=== PATIENT | male | born 1975 | race Caucasian/White ===

== ENCOUNTER 2016-11-20 16:52 | Emergency (ER) | payer MEDICARE, OTHER ==
[2016-11-20] MEDS ORDERED: ONDANSETRON 4 MG/2 ML VIAL IVP STA (17:16)
[2016-11-20] MEDS ORDERED: HYDROmorphone 1 MG/ML 1 ML SYRINGE IVP STA ×2 (17:16→18:30)
[2016-11-20] MEDS ORDERED: COLCHICINE 0.6 MG TAB PO STA (17:20)
--- NOTE | 2016-11-20 17:30 | ED ---
General Adult HPI - General Chief complaint: Extremity Injury, Upper Stated complaint: Right Hand Swelling/Right Arm Pain Time Seen by Provider: 11/20/16 17:11 Source: patient, RN notes reviewed Mode of arrival: wheelchair Limitations: no limitations - History of Present Illness Initial comments: 41-year-old male presents emergency Department with chief complaint of right hand pain 2 days. He denies any trauma. Patient has known gout and states that he sometimes has problems in his hand states this feels slightly firm. Patient denies any fevers, chills. He states that it is swollen and just painful. He denies any pain in his forearm or right bicep region. He has had prior surgery secondary to obstructive changes from gout in his right wrist. Patient denies fever, chills, paresthesias. Patient states that he normally is takes colchicine when he has gout. - Related Data Home Medications Medication Instructions Recorded Confirmed HYDROcodone/APAP 10-325MG [[place] 1 tab PO Q4HR PRN 11/20/16 11/20/16 10-325] Ibuprofen [Motrin] 800 mg PO TID PRN 11/20/16 11/20/16 Insulin Aspart [NovoLOG Flexpen] 50 units SQ HS 11/20/16 11/20/16 Insulin Aspart [NovoLOG Flexpen] 150 units SQ QAM 11/20/16 11/20/16 Allergies Allergy/AdvReac Type Severity Reaction Status Date / Time vancomycin Allergy Rash/Hives Verified 11/20/16 17:27 Review of Systems ROS Statement: Those systems with pertinent positive or pertinent negative responses have been documented in the HPI. ROS Other: All systems not noted in ROS Statement are negative. Past Medical History Past Medical History: Atrial Fibrillation, Asthma, Coronary Artery Disease (CAD) , COPD, GERD/Reflux, Hyperlipidemia, Hypertension, Sleep Apnea/CPAP/BIPAP, Thyroid Disorder Additional Past Medical History / Comment(s): sarcoidosis,, gouty arthritis, "small esophagus" occ diff swallowing,arthritis, USES CPAP MACHINE, KIDNEY STONE ,HAS TROUBLE FALLING AND STAYING ASLEEP AVE 5-6 HOURS A NIGHT. History of Any Multi-Drug Resistant Organisms: None Reported Past Surgical History: Cardiac Ablation, Joint Replacement, Orthopedic Surgery Additional Past Surgical History / Comment(s): right knee replacement, lymph node biopsy- FOUND THE SACROIDOSIS , [place] ankle surgery, cardiac ablation, RT WRIST SX D/T GOUTY ARTHITIS , COLEMAN ANKLE SX Past Anesthesia/Blood Transfusion Reactions: No Reported Reaction Additional Past Anesthesia/Blood Transfusion Reaction / Comment(s): CLAUSTERPHOBIA Past Psychological History: ADD/ADHD, Anxiety, Depression Smoking Status: Current every day smoker Past Alcohol Use History: None Reported Past Drug Use History: Marijuana - Past Family History Father Family Medical History: COPD Additional Family Medical History / Comment(s): EMPHYSEMA- OXYGEN CONT. Mother Family Medical History: Diabetes Mellitus, Rheumatoid Arthritis (RA) Additional Family Medical History / Comment(s): BACK SX, JOINT RPLACEMENTS General Exam Limitations: no limitations General appearance: alert, in no apparent distress Head exam: Present: atraumatic, normocephalic, normal inspection Respiratory exam: Present: normal lung sounds bilaterally. Absent: respiratory distress, wheezes, rales, rhonchi, stridor Cardiovascular Exam: Present: regular rate, normal rhythm, normal heart sounds. Absent: systolic murmur, diastolic murmur, rubs, gallop, clicks Extremities exam: Present: other (Right wrist there is tenderness throughout the hands with moderate swelling pedal pulses are equal bilaterally and radial pulses equal bilaterally there is some warmth to the hand but no extensive erythema) Neurological exam: Present: reflexes normal. Absent: motor sensory deficit Skin exam: Present: warm, dry, intact, normal color. Absent: rash Course Vital Signs 11/20/16 16:56 Temperature 98.5 F Pulse Rate 89 Respiratory 20 Rate Blood Pressure 170/101 O2 Sat by Pulse 97 Oximetry Medical Decision Making - Medical Decision Making 41-year-old male presents emergency Department for right hand pain. This appears to be secondary to gout exacerbation. Patient does have some erosive areas in which he's had in the past. This less likely to be Prisca's syndrome as suggested by radiologist secondary to no other consistent symptoms. Patient has seen Dr. [place] knot picker cloth in the past and is advised to follow-up with her tomorrow. Patient is out of his pain medication and which Dr. Aranda right she's pain meds. Patient will follow-up tomorrow for pain medication refill. Return parameters were discussed. - Lab Data Result diagrams: 11/20/16 17:32 11/20/16 17:32 Lab Results 11/20/16 11/20/16 Range/Units 17:32 17:32 WBC 6.5 (3.8-10.6) k/uL RBC 4.37 (4.30-5.90) m/uL Hgb 14.7 (13.0-17.5) gm/dL Hct 43.3 (39.0-53.0) % MCV 99.1 (80.0-100.0) fL MCH 33.6 (25.0-35.0) pg MCHC 33.9 (31.0-37.0) g/dL RDW 14.9 (11.5-15.5) % Plt Count 165 (150-450) k/uL Neutrophils % 67 % Lymphocytes % 19 % Monocytes % 7 % Eosinophils % 6 % Basophils % 1 % Neutrophils # 4.4 (1.3-7.7) k/uL Lymphocytes # 1.2 (1.0-4.8) k/uL Monocytes # 0.4 (0-1.0) k/uL Eosinophils # 0.4 (0-0.7) k/uL Basophils # 0.1 (0-0.2) k/uL Sodium 140 (137-145) mmol/L Potassium 3.9 (3.5-5.1) mmol/L Chloride 103 (98-107) mmol/L Carbon Dioxide 26 (22-30) mmol/L Anion Gap 11 mmol/L BUN 14 (9-20) mg/dL Creatinine 2.00 H (0.66-1.25) mg/dL Est GFR (MDRD) Af Amer 45 (>60 ml/min/1.73 sqM) Est GFR (MDRD) Non-Af 37 (>60 ml/min/1.73 sqM) Glucose 155 H (74-99) mg/dL Uric Acid 11.7 H (3.5-8.5) mg/dL Calcium 9.7 (8.4-10.2) mg/dL C-Reactive Protein 10.6 H (<10.0) mg/L Disposition Clinical Impression: Right hand pain, Exacerbation of gout Disposition: HOME SELF-CARE Condition: Stable Instructions: Gout (ED) Additional Instructions: Please return to the Emergency Department if symptoms worsen or any other concerns. Referrals: Jeffy Bloom MD [Primary Care Provider] - 1-2 days Time of Disposition: 18:32
[2016-11-20 17:45] LABS: Basophils # (A) 0.1 k/uL (0-0.2); Basophils % (A) 1 %; CH 34.1; CHCM 34.7; Eosinophils # (A) 0.4 k/uL (0-0.7); Eosinophils % (A) 6 %; HCT 43.3 % (39.0-53.0); HDW 2.57; HGB 14.7 gm/dL (13.0-17.5); Luc # (Auto) 0.07; Luc % (Auto) 1; Lymphocytes # (A) 1.2 k/uL (1.0-4.8); Lymphocytes % (A) 19 %; MCH 33.6 pg (25.0-35.0); MCHC 33.9 g/dL (31.0-37.0); MCV 99.1 fL (80.0-100.0); Mean Platelet Volume 8.3; Monocytes # (A) 0.4 k/uL (0-1.0); Monocytes % (A) 7 %; Neutrophils # (A) 4.4 k/uL (1.3-7.7); Neutrophils % (A) 67 %; RBC 4.37 m/uL (4.30-5.90); RDW 14.9 % (11.5-15.5); WBC 6.5 k/uL (3.8-10.6); WBC (Perox) 6.21
--- NOTE | 2016-11-20 18:00 | XR ---
EXAMINATION TYPE: XR hand complete RT DATE OF EXAM: 11/20/2016 COMPARISON: NONE HISTORY: 41-year-old male with right hand pain and swelling TECHNIQUE: 3 views FINDINGS: There is borderline to mild widening of the scapholunate interval at 2.6 mm. There is a sub chondral cystic change in the distal radius at the radiocarpal articulation.. Diffuse soft tissue swe lling throughout the hand with possible sausage digit especially of the second and fifth fingers. The re is erosive change at the fifth DIP joint. No acute fracture or dislocation. IMPRESSION: 1. Given diffuse soft tissue swelling, possible sausage digits, and erosive change at the fifth DIP j oint, correlate for inflammatory arthropathy such as psoriatic arthritis or Prisca's/reactive arthrit is. 2. Borderline to mild widening at the scapholunate interval compatible with age-indeterminate scaphol unate ligament injury. Findings suggest secondary radiocarpal osteoarthrosis.
[2016-11-20 18:09] LABS: C Reactive Protein 10.6 mg/L (<10.0); Calcium 9.7 mg/dL (8.4-10.2); Potassium 3.9 mmol/L (3.5-5.1); Uric Acid 11.7 mg/dL (3.5-8.5)
[2016-11-20] MEDS ORDERED: methylPREDNISolone SOD SUCCI 125 MG/2 ML VIAL IV STA (18:32)
[2016-11-20 19:00] VITALS: BP 142/91; PULSE 74; RESP 18; TEMP 98
== END 2016-11-20 18:59 | disposition home or self-care (01) ==
LOC: EC 16:52
DX: M10.9 Gout, unspecified (principal); F17.200 Nicotine dependence, unspecified, uncomplicated; Z88.1 Allergy status to other antibiotic agents; Z79.4 Long term (current) use of insulin
CPT/HCPCS: 99283; 96374; 96375 ×2; 96376; 36415; 80048; 84550; 85025; 86140; 73130; J2930; J2405; J1170

== ENCOUNTER 2017-04-23 20:24 | Inpatient (IN) | payer MEDICARE, OTHER ==
--- NOTE | 2017-04-23 20:37 | ED ---
General Adult HPI - General Chief complaint: Shortness of Breath Stated complaint: SOB/Chest Pain Time Seen by Provider: 04/23/17 20:27 Source: patient, EMS, RN notes reviewed Mode of arrival: EMS Limitations: no limitations - History of Present Illness Initial comments: Patient is a pleasant 42-year-old male presenting to the emergency Department with complaints of dyspnea. Symptoms have been progressive over the past week. Patient is only able to ambulate a few feet before becoming short of breath. Patient has had some mild chest pressure. Patient does occasionally use breathing treatments and has a history of asthma. Patient smokes around a half a pack per day. No fever. No cough. Patient also does have history of having fluid on his lungs. - Related Data Home Medications Medication Instructions Recorded Confirmed HYDROcodone/APAP 10-325MG [[place] 1 tab PO Q4HR PRN 11/20/16 11/20/16 10-325] Ibuprofen [Motrin] 800 mg PO TID PRN 11/20/16 11/20/16 Insulin Aspart [NovoLOG Flexpen] 50 units SQ HS 11/20/16 11/20/16 Insulin Aspart [NovoLOG Flexpen] 150 units SQ QAM 11/20/16 11/20/16 Allergies Allergy/AdvReac Type Severity Reaction Status Date / Time vancomycin Allergy Rash/Hives Verified 04/23/17 21:20 Review of Systems ROS Statement: Those systems with pertinent positive or pertinent negative responses have been documented in the HPI. ROS Other: All systems not noted in ROS Statement are negative. Constitutional: Denies: fever Eyes: Denies: eye pain ENT: Denies: ear pain Respiratory: Reports: dyspnea. Denies: cough Cardiovascular: Reports: chest pain Endocrine: Reports: fatigue Gastrointestinal: Denies: abdominal pain Genitourinary: Denies: dysuria Musculoskeletal: Denies: back pain Skin: Denies: rash Neurological: Denies: headache Past Medical History Past Medical History: Atrial Fibrillation, Asthma, Coronary Artery Disease (CAD) , COPD, GERD/Reflux, Hyperlipidemia, Hypertension, Sleep Apnea/CPAP/BIPAP, Thyroid Disorder Additional Past Medical History / Comment(s): sarcoidosis,, gouty arthritis, "small esophagus" occ diff swallowing,arthritis, USES CPAP MACHINE, KIDNEY STONE ,HAS TROUBLE FALLING AND STAYING ASLEEP AVE 5-6 HOURS A NIGHT. History of Any Multi-Drug Resistant Organisms: None Reported Past Surgical History: Cardiac Ablation, Joint Replacement, Orthopedic Surgery Additional Past Surgical History / Comment(s): right knee replacement, lymph node biopsy- FOUND THE SACROIDOSIS , [place] ankle surgery, cardiac ablation, RT WRIST SX D/T GOUTY ARTHITIS , COLEMAN ANKLE SX Past Anesthesia/Blood Transfusion Reactions: No Reported Reaction Additional Past Anesthesia/Blood Transfusion Reaction / Comment(s): CLAUSTERPHOBIA Past Psychological History: ADD/ADHD, Anxiety, Depression Smoking Status: Current every day smoker Past Alcohol Use History: None Reported Past Drug Use History: Marijuana - Past Family History Father Family Medical History: COPD Additional Family Medical History / Comment(s): EMPHYSEMA- OXYGEN CONT. Mother Family Medical History: Diabetes Mellitus, Rheumatoid Arthritis (RA) Additional Family Medical History / Comment(s): BACK SX, JOINT RPLACEMENTS General Exam Limitations: no limitations General appearance: alert, obese Head exam: Present: atraumatic Eye exam: Present: normal appearance, PERRL ENT exam: Present: normal oropharynx Neck exam: Present: normal inspection Respiratory exam: Present: rales (Rightbase), decreased breath sounds Cardiovascular Exam: Present: regular rate, normal rhythm GI/Abdominal exam: Present: soft. Absent: tenderness Extremities exam: Present: pedal edema. Absent: calf tenderness Back exam: Present: normal inspection Neurological exam: Present: alert Psychiatric exam: Present: normal affect, normal mood Skin exam: Present: normal color Course Vital Signs 04/23/17 04/23/17 20:26 20:31 Temperature 97.5 F L Pulse Rate 89 Respiratory 22 22 Rate Blood Pressure 132/75 O2 Sat by Pulse 100 Oximetry - Reevaluation(s) Reevaluation #1: 04/23/17 20:38 Previous EKG reviewed. EKG Findings - EKG Comments: EKG Findings:: Normal sinus rhythm 87. NJ 190. QRS 108. QT 380. QTC 457. Right axis. Poor R-wave progression. Inferior T wave inversion. Medical Decision Making - Medical Decision Making Patient reevaluated and improved. Patient states he feels much better with oxygen and after nebulizer treatment. Concern exists regarding elevated CPK level. Patient will need to be further evaluated. D-dimer and blood gas will be added. will have echo ordered. Dr. Bloom contacted who is familiar with this patient and will admit. He also requests consult with cardiology and pulmonary and this will be placed. - Lab Data Result diagrams: 04/23/17 20:27 04/23/17 20:27 Lab Results 04/23/17 04/23/17 04/23/17 Range/Units 20:27 20:27 20:27 WBC 7.1 (3.8-10.6) k/uL RBC 4.48 (4.30-5.90) m/uL Hgb 15.3 (13.0-17.5) gm/dL Hct 44.1 (39.0-53.0) % MCV 98.6 (80.0-100.0) fL MCH 34.2 (25.0-35.0) pg MCHC 34.7 (31.0-37.0) g/dL RDW 13.3 (11.5-15.5) % Plt Count 175 (150-450) k/uL Neutrophils % 55 % Lymphocytes % 31 % Monocytes % 6 % Eosinophils % 6 % Basophils % 1 % Neutrophils # 3.9 (1.3-7.7) k/uL Lymphocytes # 2.2 (1.0-4.8) k/uL Monocytes # 0.4 (0-1.0) k/uL Eosinophils # 0.4 (0-0.7) k/uL Basophils # 0.0 (0-0.2) k/uL PT (9.0-12.0) sec INR (<1.2) APTT (22.0-30.0) sec Sodium 144 (137-145) mmol/L Potassium 4.0 (3.5-5.1) mmol/L Chloride 88 L (98-107) mmol/L Carbon Dioxide 28 (22-30) mmol/L Anion Gap 28 mmol/L BUN 19 (9-20) mg/dL Creatinine 2.20 H (0.66-1.25) mg/dL Est GFR (MDRD) Af Amer 40 (>60 ml/min/1.73 sqM) Est GFR (MDRD) Non-Af 33 (>60 ml/min/1.73 sqM) Glucose 125 H (74-99) mg/dL Calcium 10.6 H (8.4-10.2) mg/dL Total Bilirubin 0.5 (0.2-1.3) mg/dL AST 82 H (17-59) U/L ALT 66 (21-72) U/L Alkaline Phosphatase 68 (38-126) U/L Total Creatine Kinase 4796 H (55-170) U/L CK-MB (CK-2) 8.3 H* (0.0-2.4) ng/mL CK-MB (CK-2) Rel Index Troponin I <0.012 (0.000-0.034) ng/mL NT-Pro-B Natriuret Pep pg/mL Total Protein 8.4 H (6.3-8.2) g/dL Albumin 4.8 (3.5-5.0) g/dL 04/23/17 04/23/17 Range/Units 20:27 20:27 WBC (3.8-10.6) k/uL RBC (4.30-5.90) m/uL Hgb (13.0-17.5) gm/dL Hct (39.0-53.0) % MCV (80.0-100.0) fL MCH (25.0-35.0) pg MCHC (31.0-37.0) g/dL RDW (11.5-15.5) % Plt Count (150-450) k/uL Neutrophils % % Lymphocytes % % Monocytes % % Eosinophils % % Basophils % % Neutrophils # (1.3-7.7) k/uL Lymphocytes # (1.0-4.8) k/uL Monocytes # (0-1.0) k/uL Eosinophils # (0-0.7) k/uL Basophils # (0-0.2) k/uL PT 10.5 (9.0-12.0) sec INR 1.1 (<1.2) APTT 25.0 (22.0-30.0) sec Sodium (137-145) mmol/L Potassium (3.5-5.1) mmol/L Chloride (98-107) mmol/L Carbon Dioxide (22-30) mmol/L Anion Gap mmol/L BUN (9-20) mg/dL Creatinine (0.66-1.25) mg/dL Est GFR (MDRD) Af Amer (>60 ml/min/1.73 sqM) Est GFR (MDRD) Non-Af (>60 ml/min/1.73 sqM) Glucose (74-99) mg/dL Calcium (8.4-10.2) mg/dL Total Bilirubin (0.2-1.3) mg/dL AST (17-59) U/L ALT (21-72) U/L Alkaline Phosphatase (38-126) U/L Total Creatine Kinase (55-170) U/L CK-MB (CK-2) (0.0-2.4) ng/mL CK-MB (CK-2) Rel Index Troponin I (0.000-0.034) ng/mL NT-Pro-B Natriuret Pep 44 pg/mL Total Protein (6.3-8.2) g/dL Albumin (3.5-5.0) g/dL - Radiology Data Radiology results: image reviewed (Chest x-ray shows no acute process) Disposition Clinical Impression: Dyspnea Disposition: ADMITTED IP TO THIS [facility] Condition: Serious Referrals: Jeffy Bloom MD [Primary Care Provider] - 1-2 days Decision Time: 22:08
[2017-04-23 20:48] LABS: Basophils % (A) 1 %; Eosinophils # (A) 0.4 k/uL (0-0.7); Eosinophils % (A) 6 %; HCT 44.1 % (39.0-53.0); HGB 15.3 gm/dL (13.0-17.5); Lymphocytes # (A) 2.2 k/uL (1.0-4.8); Lymphocytes % (A) 31 %; MCH 34.2 pg (25.0-35.0); MCHC 34.7 g/dL (31.0-37.0); MCV 98.6 fL (80.0-100.0); Mean Platelet Volume 7.1; Monocytes # (A) 0.4 k/uL (0-1.0); Monocytes % (A) 6 %; Neutrophils # (A) 3.9 k/uL (1.3-7.7); Neutrophils % (A) 55 %; Platelet Count 175 k/uL (150-450); RBC 4.48 m/uL (4.30-5.90); RDW 13.3 % (11.5-15.5); WBC 7.1 k/uL (3.8-10.6)
[2017-04-23 20:56] LABS: INR 1.1 (<1.2); Prothrombin Time 10.5 sec (9.0-12.0)
[2017-04-23 21:12] LABS: Albumin 4.8 g/dL (3.5-5.0); Calcium 10.6 mg/dL (8.4-10.2); Total Bilirubin 0.5 mg/dL (0.2-1.3); Total Protein 8.4 g/dL (6.3-8.2)
--- NOTE | 2017-04-23 21:14 | XR ---
EXAMINATION TYPE: XR chest 2V DATE OF EXAM: 04/23/2017 COMPARISON: NONE INDICATION: Difficulty breathing TECHNIQUE: Frontal and lateral views of the chest are obtained. FINDINGS: The heart size is normal. The pulmonary vasculature is normal. The lungs are clear. IMPRESSION: 1. No acute pulmonary process.
[2017-04-23 21:24] LABS: Troponin I <0.012 ng/mL (0.000-0.034)
[2017-04-23 21:28] LABS: Creatine Kinase MB 8.3 ng/mL (0.0-2.4)
[2017-04-23 21:41] LABS: Creatine Kinase 4796 U/L (55-170)
[2017-04-23] MEDS ORDERED: IPRATROPIUM-ALBUTEROL 3 ML NEB INHALATION PRN (22:08)
[2017-04-23] MEDS ORDERED: NALOXONE 0.4 MG/ML 1 ML VIAL IV PRN (22:09)
[2017-04-23] MEDS ORDERED: SODIUM CHLORIDE 0.9% 1,000 ML IV STA (22:11)
[2017-04-23] MEDS ORDERED: HEPARIN SODIUM,PORCINE 10,000 UNIT/ML 1 ML VIAL IV ONE (22:29)
[2017-04-23] MEDS ORDERED: HEPARIN SODIUM,PORCINE 5,000 UNIT/ML 1 ML VIAL IV PRN (22:29)
[2017-04-23] MEDS: HYDROcodone/APAP 10-325MG 1 EACH TAB PO PRN (22:42)
[2017-04-23] MEDS: HEPARIN SOD,PORK IN 0.45% NACL 25,000 UNIT in 0.45% NACL 1 500ML.BAG IV SCH (22:43)
[2017-04-23 22:52] LABS: ABG Base Excess -0.1 mmol/L; ABG HCO3 24 mmol/L (21-25); ABG Oxygen Saturation 97.7 % (94-97); ABG PCO2 35 mmHg (35-45); ABG PH 7.45 (7.35-7.45); ABG PO2 102 mmHg (83-108); ABG TCO2 25 mmol/L (19-24)
--- NOTE | 2017-04-24 00:13 | NM ---
EXAMINATION TYPE: NM pul vent and perfuse DATE OF EXAM: 04/24/2017 COMPARISON: NONE HISTORY: Short of breath TECHNIQUE: Utilizing inhalation of 33 mCi Tc 99m DTPA aerosol and intravenous injection of 5.5 mCi o f Tc 99m MAA, ventilation and perfusion images are acquired post injection in multiple projections. FINDINGS: Aerosol images are normal. The perfusion images are normal. IMPRESSION: Normal exam. There is a very low probability of pulmonary embolism.
[2017-04-24] MEDS: methylPREDNISolone SOD SUCCI 125 MG/2 ML VIAL IV SCH ×3 (00:21→12:23)
[2017-04-24 01:51] VITALS: BMI 57.7
[2017-04-24] MEDS: HYDROcodone/APAP 10-325MG 1 EACH TAB PO PRN ×5 (03:36→22:26)
[2017-04-24 04:08] LABS: Basophils % (A) 0 %; Eosinophils # (A) 0.1 k/uL (0-0.7); Eosinophils % (A) 1 %; HCT 43.9 % (39.0-53.0); HGB 14.2 gm/dL (13.0-17.5); Lymphocytes # (A) 0.7 k/uL (1.0-4.8); Lymphocytes % (A) 9 %; MCH 32.8 pg (25.0-35.0); MCHC 32.4 g/dL (31.0-37.0); MCV 101.2 fL (80.0-100.0); Macrocytosis Slight; Mean Platelet Volume 7.5; Monocytes # (A) 0.1 k/uL (0-1.0); Monocytes % (A) 2 %; Neutrophils # (A) 6.2 k/uL (1.3-7.7); Neutrophils % (A) 87 %; Platelet Count 181 k/uL (150-450); RBC 4.34 m/uL (4.30-5.90); RDW 13.3 % (11.5-15.5); WBC 7.2 k/uL (3.8-10.6)
[2017-04-24 04:53] LABS: Troponin I <0.012 ng/mL (0.000-0.034)
[2017-04-24 06:04] LABS: Glucose,Whole Blood 240 mg/dL (75-99)
[2017-04-24] MEDS: INSULIN ASPART 100 UNIT/ML 1 ML 10 ML VIAL SQ SCH ×4 (06:09→21:57)
[2017-04-24 06:10] LABS: Creatine Kinase MB 7.5 ng/mL (0.0-2.4)
[2017-04-24 06:11] LABS: Creatine Kinase 4404 U/L (55-170)
[2017-04-24] MEDS: IPRATROPIUM-ALBUTEROL 3 ML NEB INHALATION SCH ×4 (09:04→20:53)
[2017-04-24 09:11] LABS: Troponin I <0.012 ng/mL (0.000-0.034)
[2017-04-24 09:13] LABS: Creatine Kinase 3141 U/L (55-170); Creatine Kinase MB 8.6 ng/mL (0.0-2.4)
--- NOTE | 2017-04-24 09:13 | P.CRDCN ---
History of Present Illness Consult date: 04/24/17 Requesting physician: Jeffy Bloom Consult reason: chest pain, shortness of breath Chief complaint: Chest pain and shortness of breath History of present illness: This is a 42-year-old gentleman with history of hypertension, hyperlipidemia, gout, sarcoidosis, diabetes, morbid obesity, nicotine dependence , asthma, hypothyroidism, occasional marijuana use, prior SVT ablation, who presents to the hospital with symptoms of exertional shortness of breath associated chest discomfort. Patient states he develops a heavy feeling in his chest whenever he exerts himself physically. Discomfort worsens when he takes a deep breath. He denies any PND or orthopnea. Initial chest x-ray did not reveal any acute pulmonary process. EKG shows a normal sinus rhythm with right axis deviation, nonspecific ST-T wave changes in the inferior leads. The V/Q scan was performed because of abnormal d-dimer which revealed very low probability for pulmonary embolism. Laboratory data was reviewed, WBC 7.2, hemoglobin 14.2, platelet count 181. D-dimer 1.04. Sodium 144, potassium 4.0, BUN 19, creatinine 2.2. CK on admission 4796, 4404 this morning, MB 8.3, 7.5. Troponin 0.012, 0.012. Blood pressure 114/60 with a heart rate in the 60s, 96% on 5 L of oxygen. Patient did have an echocardiogram with Doppler study performed in February 2016 which revealed a normal left ventricular systolic function. At the time of my examination this morning, patient is currently chest pain free, he does get pain in his chest if he takes a deep breath. Past Medical History Past Medical History: Atrial Fibrillation, Asthma, Coronary Artery Disease (CAD) , GERD/Reflux, Hyperlipidemia, Hypertension, Sleep Apnea/CPAP/BIPAP, Thyroid Disorder Additional Past Medical History / Comment(s): sarcoidosis, gouty arthritis, "small esophagus" occ diff swallowing, arthritis, uses CPAP at home, trouble sleeping. History of Any Multi-Drug Resistant Organisms: None Reported Past Surgical History: Cardiac Ablation, Joint Replacement, Orthopedic Surgery Additional Past Surgical History / Comment(s): right knee replacement, bilat ankle surgery, R wrist surgery r/t gout/arthritis lymph node biopsy- sarcoidosis Past Anesthesia/Blood Transfusion Reactions: No Reported Reaction Additional Past Anesthesia/Blood Transfusion Reaction / Comment(s): pt states he has never had a blood transfusion Past Psychological History: ADD/ADHD, Anxiety, Depression Additional Psychological History / Comment(s): pt lives by self Smoking Status: Current every day smoker Past Alcohol Use History: None Reported Past Drug Use History: Marijuana - Past Family History Father Family Medical History: COPD Additional Family Medical History / Comment(s): emphysema Mother Family Medical History: Diabetes Mellitus, Rheumatoid Arthritis (RA) Additional Family Medical History / Comment(s): back surgery, joint replacements Medications and Allergies Home Medications Medication Instructions Recorded Confirmed Type HYDROcodone/APAP 10-325MG [[place] 1 tab PO Q4HR PRN 11/20/16 04/24/17 History 10-325] Allergies Allergy/AdvReac Type Severity Reaction Status Date / Time vancomycin Allergy Rash/Hives Verified 04/23/17 21:20 Physical Exam Vitals: Vital Signs Temp Pulse Pulse Resp BP BP Pulse Ox 04/24/17 08:00 96.0 F L 64 20 113/57 96 04/24/17 03:40 97 F L 71 18 126/77 92 L 04/24/17 03:08 79 20 04/24/17 00:27 98.3 F 78 20 110/68 98 04/23/17 22:33 97 F L 79 18 132/88 98 04/23/17 22:22 77 18 102/59 98 04/23/17 20:31 22 04/23/17 20:26 97.5 F L 89 22 132/75 100 Intake and Output 04/23/17 04/24/17 04/24/17 22:59 06:59 14:59 Intake Total 334.295 240 Balance 334.295 240 Intake: Intake, IV Titration 274.295 Amount Heparin Sod,Pork in 0.45% 274.295 NaCl 25,000 unit In 0.45 % NaCl 1 500ml.bag @ 12.1 UNITS/KG/HR 46.1 mls/hr IV .[id number] [facility] Rx#: [id number] Oral 60 240 Other: Weight 187.787 kg 188.2 kg PHYSICAL EXAMINATION: HEENT: Head is atraumatic, normocephalic. Pupils equal, round. Neck is supple. There is no elevated jugular venous pressure. HEART EXAMINATION: Heart S1, S2 normal. No murmur or gallop heard. CHEST EXAMINATION: Lungs reveal scattered coarse wheezing throughout ABDOMEN: Soft, obese, nontender. Bowel sounds are heard. No organomegaly noted. EXTREMITIES: 1+ peripheral pulses with no evidence of peripheral edema and no calf tenderness noted. NEUROLOGIC patient is awake, alert and oriented -3. . Results 04/24/17 03:43 04/23/17 20:27 Cardiac Enzymes 04/23/17 04/23/17 04/24/17 Range/Units 20:27 20:27 03:43 AST 82 H (17-59) U/L CK-MB (CK-2) 8.3 H* 7.5 H* (0.0-2.4) ng/mL Troponin I <0.012 <0.012 (0.000-0.034) ng/mL Coagulation 04/23/17 04/24/17 Range/Units 20:27 03:43 PT 10.5 (9.0-12.0) sec APTT 25.0 104.8 H* (22.0-30.0) sec CBC 04/23/17 04/24/17 Range/Units 20:27 03:43 WBC 7.1 7.2 (3.8-10.6) k/uL RBC 4.48 4.34 (4.30-5.90) m/uL Hgb 15.3 14.2 (13.0-17.5) gm/dL Hct 44.1 43.9 (39.0-53.0) % Plt Count 175 181 (150-450) k/uL Comprehensive Metabolic Panel 04/23/17 Range/Units 20:27 Sodium 144 (137-145) mmol/L Potassium 4.0 (3.5-5.1) mmol/L Chloride 88 L (98-107) mmol/L Carbon Dioxide 28 (22-30) mmol/L BUN 19 (9-20) mg/dL Creatinine 2.20 H (0.66-1.25) mg/dL Glucose 125 H (74-99) mg/dL Calcium 10.6 H (8.4-10.2) mg/dL AST 82 H (17-59) U/L ALT 66 (21-72) U/L Alkaline Phosphatase 68 (38-126) U/L Total Protein 8.4 H (6.3-8.2) g/dL Albumin 4.8 (3.5-5.0) g/dL Current Medications Generic Name Dose Route Start Last Admin Trade Name Freq PRN Reason Stop Dose Admin Hydrocodone Bitart/Acetaminophen 1 each 04/23/17 22:17 04/24/17 07:31 [place] 10 PO 1 each Q4HR PRN Administration Pain Albuterol/Ipratropium 3 ml 04/24/17 08:00 Duoneb 0.5 Mg-3 Mg/3 Ml Soln INHALATION RT-QID SANDRITA Albuterol/Ipratropium 3 ml 04/23/17 22:08 Duoneb 0.5 Mg-3 Mg/3 Ml Soln INHALATION RT-Q4H PRN Shortness Of Breath Or Wheezing Heparin Sodium (Porcine) 0 unit 04/23/17 22:29 Heparin IV PER PROTOCOL PRN Low PTT Protocol Heparin Sodium/Sodium Chloride 500 mls @ 46.1 mls/hr 04/23/17 22:30 04/24/17 06:00 25,000 unit/ Sodium Chloride IV 9 units/kg/hr .[id number] SANDRITA 34.29 mls/hr Protocol Titration 12.1 UNITS/KG/HR Insulin Aspart 0 unit 04/24/17 07:30 04/24/17 06:09 Novolog SQ 8 unit ACHS SANDRITA Administration Protocol Methylprednisolone Sodium Succinate 60 mg 04/24/17 00:00 04/24/17 06:09 Solu-Medrol IV 60 mg Q6HR SANDRITA Administration Naloxone HCl 0.2 mg 04/23/17 22:09 Narcan IV Q2M PRN Opioid Reversal Intake and Output 04/23/17 04/24/17 04/24/17 22:59 06:59 14:59 Intake Total 334.295 240 Balance 334.295 240 Intake: Intake, IV Titration 274.295 Amount Heparin Sod,Pork in 0.45% 274.295 NaCl 25,000 unit In 0.45 % NaCl 1 500ml.bag @ 12.1 UNITS/KG/HR 46.1 mls/hr IV .[id number] [facility] Rx#: [id number] Oral 60 240 Other: Weight 187.787 kg 188.2 kg 04/24/17 03:43 04/23/17 20:27 EKG Interpretations (text) EKG shows normal sinus rhythm with right axis deviation, ST-T wave changes noted in the inferior leads. Assessment and Plan Plan: Assessment and plan #1 chest pain with associated shortness of breath, atypical for acute coronary syndrome. Pleuritic in nature. Troponins negative 2. EKG shows a normal sinus rhythm with right axis deviation and nonspecific ST-T wave changes in the inferior leads. D-dimer 1.04, VQ scan very low probability for pulmonary embolism. BNP 44. #2 elevated CK, CK-MB with negative troponins, possible rhabdomyolysis #3 acute on chronic renal failure, stage IV #4 morbid obesity # 5 hypertension #6 diabetes #7 asthma #8 prior SVT ablation #9 sarcoidosis #10 occasional marijuana use #11 nicotine dependence #12 hypothyroidism Plan We will obtain an echocardiogram with Doppler study. We will also recommend hydrating the patient at 100 mL per hour. Patient had been on medications prior including benazepril, Coreg, Lasix, Zocor, and Synthroid, it appears that all of these medications were not taken recently by the patient. Blood pressure this morning 114/60 with a heart rate in the 60s. Once we have the results of the echocardiogram with Doppler study, further recommendations will be made. DNP note has been reviewed, I agree with a documented findings and plan of care. Patient was seen and examined.
[2017-04-24 10:31] LABS: T4, Free (Free Thyroxine) <0.07 ng/dL (0.78-2.19)
[2017-04-24 11:52] LABS: Glucose,Whole Blood 297 mg/dL (75-99)
[2017-04-24] MEDS ORDERED: DOBUTamine DRIP for NUC MED 250 MG in DEXTROSE/WATER 1 250ML.BAG IV ONE (12:10)
[2017-04-24] MEDS: HEPARIN SOD,PORK IN 0.45% NACL 25,000 UNIT in 0.45% NACL 1 500ML.BAG IV SCH ×2 (12:26→21:18)
[2017-04-24] MEDS ORDERED: ATROPINE SULFATE 0.1 MG/ML 10ML SYRINGE ONE (13:23)
--- NOTE | 2017-04-24 13:36 | ECHOF ---
Referral Reason:Dyspnea MEASUREMENTS -------- HEIGHT: 180.3 cm WEIGHT: 187.8 kg BP: 113/57 IVSd: 1.4 cm (0.6 - 1.1) LVIDd: 5.2 cm (3.9 - 5.3) LVPWd: 1.3 cm (0.6 - 1.1) IVSs: 1.9 cm LVIDs: 3.3 cm LVPWs: 1.7 cm Ao Diam: 3.6 cm (2.0 - 3.7) AV Cusp: 2.1 cm (1.5 - 2.6) LA Diam: 2.3 cm (2.7 - 3.8) MV E Rodríguez: 0.64 m/s MV DecT: 213 ms MV A Rodríguez: 0.43 m/s MV E/A Ratio: 1.47 RAP: 5.00 mmHg RVSP: 16.96 mmHg FINDINGS -------- Sinus rhythm. This was a technically difficult study with suboptimal views. The left ventricular size is normal. There is mild concentric left ventricular hypertrophy. Overa ll left ventricular systolic function is normal with, an EF between 55 - 60 %. The RV was not well visualized. The left atrium was not well visualized. The right atrium was not well visualized. 5ml of Lumason was utilized for enhancement of images. The aortic valve was not well visualized. There is no evidence of aortic regurgitation. There is no evidence of aortic stenosis. The mitral valve was not well visualized. There is trace to mild mitral regurgitation. The tricuspid valve was not well visualized. Trace tricuspid regurgitation present. Right ventric ular systolic pressure is normal at < 35 mmHg. There is no evidence of pulmonary hypertension. The pulmonic valve was not well visualized. The aortic root size is normal. IVC Not well visulized. There is no pericardial effusion. CONCLUSIONS -------- 1. Sinus rhythm. 2. This was a technically difficult study with suboptimal views. 3. The left ventricular size is normal. 4. There is mild concentric left ventricular hypertrophy. 5. Overall left ventricular systolic function is normal with, an EF between 55 - 60 %. 6. The RV was not well visualized. 7. The left atrium was not well visualized. 8. The right atrium was not well visualized. 9. 5ml of Lumason was utilized for enhancement of images. 10. The aortic valve was not well visualized. 11. There is trace to mild mitral regurgitation. 12. Trace tricuspid regurgitation present. 13. Right ventricular systolic pressure is normal at < 35 mmHg. 14. The pulmonic valve was not well visualized. 15. The aortic root size is normal. 16. IVC Not well visulized. 17. There is no pericardial effusion. RADIOLOGY ORDERLY: Wallace Cheng RDCS
--- NOTE | 2017-04-24 14:28 | ECHOS ---
STRESS ECHOCARDIOGRAM INDICATIONS: Chest pain. MEDICATIONS: Hydrocodone. BASELINE HEART RATE: 73 BASELINE BLOOD PRESSURE: 155/84 MAXIMUM HEART RATE: 144 MAXIMUM BLOOD PRESSURE: 212/46 85% MPHR: 151 100% MPHR: 178 MAXIMUM STAGE REACHED: 6 TOTAL EXERCISE TIME: 18:00 CLINICAL INFORMATION: Baseline rhythm is a sinus mechanism, rate of 73, right axis deviation, poor R-wave progression. Baseline blood pressure 155/84 mmHg. Patient received an infusion of dobutamine per protocol in addition to 1 mg IV atropine. Peak rate 144 beats per minute, which is equal to 81% maximum predicted heart rate. Peak blood pressure 212/46 mmHg. Electrocardiographic monitoring revealed no evidence of diagnostic ischemic ST deviation. FINDINGS: Baseline echocardiogram reveals normal wall motion, peak infusion. There was normal wall thickening and motion. Contrast was used to optimize the images. CONCLUSION: 1. Normal electrocardiographic response to dobutamine infusion. 2. Normal stress echocardiogram with no evidence of stress-induced ischemia. MMODL / IJN: [id number] /
--- NOTE | 2017-04-24 14:30 | P.CNPUL ---
History of Present Illness Consult date: 04/24/17 Reason for consult: dyspnea, chest pain, COPD Chief complaint: Shortness of breath/chest pain History of present illness: Consult dated 04/24/2017 42-year-old obese male who presents to the emergency department on April 23 with complaints of increasing shortness of breath and chest pain. The symptoms have been progressive over the last 5-7 days. He actually went for a stress test this morning and it was reported to be negative. He is a heavy smoker. He walks only a few feet and becomes very very short of breath. He also has a mild chest pressure. The patient apparently does have a history of asthma. Smokes about a pack a day. Denies any cough or phlegm production. No fever no chills. The patient's medications include [place], Motrin, insulin. He does not use oxygen at home. His only ALLERGY is vancomycin. The patient apparently has a past medical history of atrial fibrillation asthma CAD COPD gastroesophageal reflux disease hyperlipidemia hypertension sleep apnea syndrome and hypothyroidism. Also apparently has a history of gouty arthritis sarcoidosis and a small esophagus. Also apparently suffers some kidney stones. He uses a CPAP machine at home for sleep apnea syndrome. Surgical history is rather extensive and is noted under the ER past surgical history comments. Review of Systems A 12 point review of system is positive for shortness of breath and chest discomfort. The chest discomfort is more of a pressure. The shortness of breath is at this present at rest and on exertion. Worse on exertion. His been present and progressively worse over last 5-7 days. Past Medical History Past Medical History: Atrial Fibrillation, Asthma, Coronary Artery Disease (CAD) , GERD/Reflux, Hyperlipidemia, Hypertension, Sleep Apnea/CPAP/BIPAP, Thyroid Disorder Additional Past Medical History / Comment(s): sarcoidosis, gouty arthritis, "small esophagus" occ diff swallowing, arthritis, uses CPAP at home, trouble sleeping. History of Any Multi-Drug Resistant Organisms: None Reported Past Surgical History: Cardiac Ablation, Joint Replacement, Orthopedic Surgery Additional Past Surgical History / Comment(s): right knee replacement, bilat ankle surgery, R wrist surgery r/t gout/arthritis lymph node biopsy- sarcoidosis Past Anesthesia/Blood Transfusion Reactions: No Reported Reaction Additional Past Anesthesia/Blood Transfusion Reaction / Comment(s): pt states he has never had a blood transfusion Past Psychological History: ADD/ADHD, Anxiety, Depression Additional Psychological History / Comment(s): pt lives by self Smoking Status: Current every day smoker Past Alcohol Use History: None Reported Past Drug Use History: Marijuana - Past Family History Father Family Medical History: COPD Additional Family Medical History / Comment(s): emphysema Mother Family Medical History: Diabetes Mellitus, Rheumatoid Arthritis (RA) Additional Family Medical History / Comment(s): back surgery, joint replacements Medications and Allergies Home Medications Medication Instructions Recorded Confirmed Type HYDROcodone/APAP 10-325MG [[place] 1 tab PO Q4HR PRN 11/20/16 04/24/17 History 10-325] Allergies Allergy/AdvReac Type Severity Reaction Status Date / Time vancomycin Allergy Rash/Hives Verified 04/23/17 21:20 Physical Exam Osteopathic Statement: *. No significant issues noted on an osteopathic structural exam other than those noted in the History and Physical/Consult. Vitals: Vital Signs Temp Pulse Pulse Resp BP BP Pulse Ox 04/24/17 12:18 84 04/24/17 12:06 80 04/24/17 12:00 96.1 F L 62 18 110/59 95 04/24/17 09:14 84 04/24/17 09:07 95 04/24/17 09:05 76 04/24/17 08:00 96.0 F L 64 20 113/57 96 04/24/17 03:40 97 F L 71 18 126/77 92 L 04/24/17 03:08 79 20 04/24/17 00:27 98.3 F 78 20 110/68 98 04/23/17 22:33 97 F L 79 18 132/88 98 04/23/17 22:22 77 18 102/59 98 04/23/17 20:31 22 04/23/17 20:26 97.5 F L 89 22 132/75 100 Intake and Output 04/23/17 04/24/17 04/24/17 22:59 06:59 14:59 Intake Total 334.295 580.599 Balance 334.295 580.599 Intake: Intake, IV Titration 274.295 220.599 Amount Heparin Sod,Pork in 0.45% 274.295 220.599 NaCl 25,000 unit In 0.45 % NaCl 1 500ml.bag @ 12.1 UNITS/KG/HR 46.1 mls/hr IV .[id number] [facility] Rx#: [id number] Oral 60 360 Other: # Voids 0 Weight 187.787 kg 188.2 kg No acute distress, oriented 3. Nasal O2 in place. HEENT examination is grossly unremarkable. Mucous membranes are moist. No oral lesions. Neck supple. Full range of motion. No adenopathy thyromegaly or neck vein distention. Cardiovascular examination reveals regular rhythm rate. S1-S2 normal. No S3 or S4. No discernible murmur noted. Because of body habitus, heart sounds are very distant. Lungs reveal mostly clear breath sounds. I don't hear any wheezes or crackles. There is a few scattered rhonchi. The patient does not take with deep breaths. Abdomen soft bowel sounds are heard. Abdomen is obese. No masses or tenderness. Extremities are intact. There is some significant chronic venous stasis changes and pitting edema noted in bilateral lower extremities. Skin is without rash or lesion. Neurologic examination is brief but nonfocal. Results - Laboratory Findings CBC and BMP: 04/24/17 03:43 04/23/17 20:27 ABG ABG pH 7.45 (7.35-7.45) 04/23/17 22:41 ABG pCO2 35 mmHg (35-45) 04/23/17 22:41 ABG pO2 102 mmHg (83-108) 04/23/17 22:41 ABG O2 Saturation 97.7 % (94-97) H 04/23/17 22:41 PT/INR, D-dimer PT 10.5 sec (9.0-12.0) 04/23/17 20:27 INR 1.1 (<1.2) 04/23/17 20:27 D-Dimer 1.04 mg/L FEU (<0.60) H 04/23/17 20:27 Abnormal lab findings: Abnormal Labs 04/23/17 04/23/17 04/23/17 20:27 20:27 20:27 MCV Lymphocytes # APTT D-Dimer 1.04 H ABG Total CO2 ABG O2 Saturation Chloride 88 L Creatinine 2.20 H Glucose 125 H POC Glucose (mg/dL) Calcium 10.6 H AST 82 H Total Creatine Kinase 4796 H CK-MB (CK-2) 8.3 H* Total Protein 8.4 H TSH Free T4 04/23/17 04/24/17 04/24/17 22:41 03:43 03:43 MCV Lymphocytes # APTT 104.8 H* D-Dimer ABG Total CO2 25 H ABG O2 Saturation 97.7 H Chloride Creatinine Glucose POC Glucose (mg/dL) Calcium AST Total Creatine Kinase 4404 H CK-MB (CK-2) 7.5 H* Total Protein TSH Free T4 04/24/17 04/24/17 04/24/17 03:43 03:43 06:03 MCV 101.2 H Lymphocytes # 0.7 L APTT D-Dimer ABG Total CO2 ABG O2 Saturation Chloride Creatinine Glucose POC Glucose (mg/dL) 240 H Calcium AST Total Creatine Kinase CK-MB (CK-2) Total Protein TSH 54.000 H Free T4 <0.07 L 04/24/17 04/24/17 04/24/17 08:18 11:44 12:21 MCV Lymphocytes # APTT 74.7 H D-Dimer ABG Total CO2 ABG O2 Saturation Chloride Creatinine Glucose POC Glucose (mg/dL) 297 H Calcium AST Total Creatine Kinase 3141 H CK-MB (CK-2) 8.6 H* Total Protein TSH Free T4 - Diagnostic Findings Chest x-ray: image reviewed (X-rays and ventilation perfusion lung scan are reviewed. Medications and labs are reviewed. Patient interviewed and examined. ) Assessment and Plan Assessment: Assessment Probable COPD. Chest pain, rule out acute coronary syndrome, thought to be less likely given the normal stress test History of ongoing and significant tobacco abuse Morbid obesity Sleep apnea syndrome History of CAD History of asthma History of hypertension History of hyperlipidemia History of gastroesophageal reflux disease. History of kidney stones. History of sarcoidosis History of gout Plan: Plan dated 04/24/2017 Apparently the patient's stress test was negative. We'll go ahead and make sure he is on appropriate medications for primarily COPD. The patient has a lot of other medical problems including profound obesity, sleep apnea syndrome, sarcoidosis, asthma, and a multiple other medical problems. He will need to be evaluated in the outpatient setting with a 6 minute walk distance and a pulmonary function test. He may also benefit from methacholine challenge test. If he has not had a recent sleep study, he needs a CPAP titration study. Additional recommendations and suggestions are forthcoming. Prognosis is poor given his extreme weight and his multitude of medical problems. Time with Patient: Greater than 30
--- NOTE | 2017-04-24 14:58 | HP ---
HISTORY AND PHYSICAL CHIEF COMPLAINT: Difficulty breathing. HISTORY OF PRESENT ILLNESS: This is another admission for this 42-year-old obese white male with multiple problems including diabetes, hypertension, hyperlipidemia, depression and gout. He came to the emergency room because of shortness of breath. He denied any fever and chills, cough, hemoptysis, chest pain, orthopnea, PND, etc. All the studies in the emergency room were essentially unremarkable including a BNP. He is under a lot of stress and has been extremely depressed and after he was admitted to the hospital be began relating that he was suicidal and had guns at home. REVIEW OF SYSTEMS: He has had no focal neurologic deficits, change in vision or hearing, hemoptysis, fever, no chills, purulent sputum production, chest pain, orthopnea, PND, abdominal pain, vomiting, diarrhea, melena, hematochezia, jaundice, hematuria, frequency, urgency, renal failure, arthralgias, etc. He does have a history of GERD, atrial fibrillation, and hypothyroidism. Past medical history, family history and personal and social histories reveal he is ALLERGIC to VICODIN, NSAIDs, and MYCINS. He is on: 1. Coreg 3.125 twice a day. 2. Benazepril 40 mg once a day. 3. Updrafts ipratropium, bromide and albuterol. 4. Lasix 80 twice a day. 5. Vitamin D. 6. Lipitor 80 twice a day. 7. Omeprazole 20 once a day. 8. Levothyroxine 0.3 mg once a day. Past medical history, family history, personal and social histories reveal that he also has been diagnosed as having sarcoidosis and he does have sleep apnea. He used to smoke but has quit. He does not drink alcohol. PHYSICAL EXAM: Blood pressure 148/86 with a pulse of 94, respirations of 38 and he is afebrile. In general, he appeared to be pale, obese and short of breath. Head, ears, eyes, nose, mouth and throat demonstrated puffiness and pallor of the face. Neck veins cannot be assessed. Carotids could not be assessed. Chest demonstrated poor breath sounds throughout with occasional rales and rhonchi. Cardiac exam demonstrated tachycardia with no murmurs or extra sounds. The abdomen is protuberant, soft, and nontender without any visceromegaly or masses. Extremities demonstrated about 3+ edema. Neurologically he is intact, but depressed. He is admitted to the hospital with diagnoses of: 1. Shortness of breath. 2. Rule out pulmonary embolism. 3. Pickwickian syndrome. 4. Rule out heart disease. 5. Depression. 6. Diabetes. 7. Obesity. PLAN: 1. Bed rest. 2. IV fluids. 3. Cardiac enzymes. 4. D-dimer. 5. Psych consult. MMODL / IJN: [id number] /
--- NOTE | 2017-04-24 14:58 | PN ---
PROGRESS NOTE DATE OF SERVICE: 04/24/2017. CHIEF COMPLAINT: Shortness of breath and depression. HISTORY OF PRESENT ILLNESS: During the night, this gentleman expressed the fact that he was suicidal and he has a sitter now. He is still dyspneic and his D-dimer did come back elevated. A V/Q scan has been ordered. PHYSICAL EXAM: He remains pale and breath sounds are poor throughout. There are no rubs. The cardiac exam is normal and the abdomen is protuberant. IMPRESSION: 1. Rule out pulmonary embolism. 2. Morbid obesity. 3. Pickwickian syndrome. 4. Depression and suicidal thoughts. 5. Hypertension. 6. Gout. PLAN: 1. V/Q scan. 2. Psych consult. MMODL / IJN: [id number] /
[2017-04-24] MEDS: methylPREDNISolone SOD SUCCI 40 MG/ML 1 ML VIAL IV SCH ×2 (15:41→17:29)
[2017-04-24 17:26] LABS: Glucose,Whole Blood 355 mg/dL (75-99)
--- NOTE | 2017-04-24 17:34 | P.CN ---
Psychiatric Consult - . Consult date: 04/24/17 Consult:: 04/24/17 17:11 Identification: Patient is a 42-year-old male who was admitted through the emergency room complaining of shortness of breath and chest pain. Reason for Consult: Consultation was requested for suicidal thoughts. History of Present Illness: Patient states that he was having difficulty breathing at home and came to the emergency room. He states that he sometimes wants to and is depressed about his life due to his not being able to do things, he is referring to his activities of daily living such as cleaning, cooking, bathing due to his weight and shortness of breath when attempting to do these activities. He states that he lives alone in his family does help him taking him shopping however he doesn't get out of the vehicle due to having panic attacks when he is in crowds. He states the symptoms began 1-1/2 years ago but is unable to tell me if there is any precipitant for this. Patient states that he is still dealing with his father's in 2011, [facility] for this but states it was not helpful. States he is also concerned about his mother who is not doing well from a medical standpoint and lives with his sister was recently diagnosed with breast cancer. Patient states that he has had suicidal thoughts in the past and states that he does have guns at home but is prevented on acting on his suicidal thoughts due to his daughters and grandchildren. He states that he last had suicidal thoughts before coming to the hospital and states since he is in the hospital he has not been having suicidal thoughts. Patient states he is depressed due to his lack of ability to do things, his truck is not working and so he is unable to drive himself places and is unable to fix the truck due to his shortness of breath and inability to perform that kind of activity. Patient states that he hasn't been sleeping well and states that he feels that he needs to have company at home. Patient states that he has never attempted suicide in the past. Patient states that he is depressed by his physical difficulties, lack of ability to go places, living alone and concerns about his mother and sisters health as well as continued difficulties coping with his father's in 2011. Patient did not endorse any psychotic symptoms currently or in the past, no history of manic symptoms. Patient does endorse symptoms of depression with suicidal ideation and access to guns but states he has never planned on using them and is prevented due to his children and grandchildren. He states that he is unable to perform his activities of daily living due to his difficulty breathing, weight and other physical problems with his joints. Patient states that 1-1/2 years ago he began to have anxiety symptoms of shortness of breath and chest pain when he was in crowds but is unable to tell me of any precipitants to this. Patient avoids going into crowded stores but was driving himself to appointments in the past until his truck broke. Currently when the family takes him shopping he stays in the car. Past Psychiatric History: Patient denies any prior psychiatric inpatient treatment. He was seen at [facility] for counseling in 2013 for difficulties with his father's which she did not find helpful. He stated that 5 years ago his primary care physician put him on an unknown medication for depression which caused him to have the side effect of suicidal ideation and it was discontinued. He denies any other treatment. Past Medical/Surgical History: Patient has a history of diabetes, hyperlipidemia , gout sarcoidosis and is morbidly obese. Patient states he is status post heart ablation for an irregular rhythm, left ankle tendon repair status post wrist surgery and status post knee arthroscopy. Family History: Patient states that he is unaware of any psychiatric or substance use disorders in the family. Social History: Patient was born to parents and was born and raised in [place] and states that his mother is alive and his father in 2011. He has 2 brothers and 3 sisters and states he has a close family. Patient currently lives alone and states he has never been . He had an 11 year relationship which ended 15 years ago. He has one daughter from this relationship and his partner at that time had a daughter that he is also close to. Patient states he is close to both of his daughters and has 4 grandchildren who reside in [place]. Patient last worked in 2011 and currently supported on Social Security disability. 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 He denied any abuse history. Patient is living alone and usually drives himself to appointments but states his truck is not working at this time. Substance Use History: Patient states that he is occasionally used alcohol in the past as well as marijuana but not on a regular basis and denies any other drug history. Legal History: Patient states he's been charged with domestic violence in the past. Mental status: Appearance/Attitude: Patient is sitting in a hospital bed, he is morbidly obese and makes good eye contact and is cooperative. Behavior: Patient does not exhibit any psychomotor agitation or retardation. Speech/Language: Patient's speech is spontaneous and of normal volume and rhythm and he is coherent. Thought Process: patient is goal directed and there is no evidence of loose associations or flight of ideas. Thought Content: Patient denies any auditory or visual hallucinations and no delusions or paranoid ideation were elicited. Patient states that he has been having panic attacks with chest pain and difficulty breathing when he is in crowds and so has been avoiding them for the last year and a half. Patient reports he has become increasingly depressed with his lack of ability to perform ADLs at home due to his weight and difficulty breathing as well as difficulty with his joints. Patient states that he lives alone and has no assistance at home and has been having his family drive him places as his truck is not working and he is unable to repair it. Patient states that he is sad and worried about his mother's health as well as his sisters. Patient states he has not been sleeping well at home and denies any appetite disturbance. Suicidal/homicidal ideation: Patient states that he has had suicidal ideation in the past but states that he has never had a plan and doesn't act on the thoughts due to his grandchildren and daughters. Patient does state that he has guns at home that he has never made any suicide attempts and states he is currently not having any suicidal ideation. Patient denies any homicidal ideation currently. Orientation/sensorium: Patient is alert and oriented to person, place, time and his recent and remote memory are grossly intact. Mood/Affect: Patient's mood is depressed and his affect is slightly blunted. Insight/Judgment: patient's insight and judgment are fair. Assessment: Patient's chart was reviewed and he was seen in his room, patient was admitted to the hospital with shortness of breath and chest pain and reported that he was having suicidal thoughts. Consultation was requested secondary to this. Patient states that he has become increasingly depressed with his life as he is unable to take care of his activities of daily living. He states he lives alone and has no assistance with things such as cooking, cleaning and bathing. He states that his weight and his breathing difficulties limit what he is able to do. Patient also reports that his truck is not working and he is unable to repair it and so is relied on friends and family to take him places but stays in the vehicle due to having anxiety attacks when he is in crowds. Patient states that he has been depressed for a number of years and 5 years ago was treated with medication with side effect of suicidal thoughts and so was discontinued. Patient also reports concerns about his mother's health as well as continuing to have difficulties with the of his father in 2011. Patient is currently not expressing any suicidal ideation and states that he will not act on his suicidal thoughts due to his daughters and grandchildren. Diagnosis: major depressive disorder, single episode; panic disorder ] Plan: patient and I discussed his symptoms and I reviewed the use and side effects of medication and will begin Lexapro 10 mg a day to target both his depression and his anxiety. I also discussed with the patient is a social work consultation to make referrals for outpatient psychiatric care once he is discharged. Patient and I also discussed having the social media community manager contact his sister to have the guns removed from his home. Patient was agreeable with this plan. Patient is not currently suicidal and states he has no plan to act on his thoughts and will discontinue the one-to-one sitter. Patient does not require inpatient psychiatric hospitalization at this time and I will follow the patient while he is in the hospital and evaluate his response to the Lexapro.] 04/24/17 17:33
[2017-04-24] MEDS ORDERED: INSULIN ASPART 100 UNIT/ML 1 ML 10 ML VIAL SQ ONE ×2 (17:38→21:23)
--- NOTE | 2017-04-24 17:57 | CONS ---
CONSULTATION REASON FOR CONSULT: Renal failure. HISTORY OF PRESENT ILLNESS: Patient is a 42-year-old obese male who was admitted to the hospital with complaints of shortness of breath. He has a prior history of diabetes, hypertension, hyperlipidemia, and gout. The patient states that he has had weak kidney function previously and has been evaluated at our office. However, he has not been seen recently. Serum creatinine was 2.2 mg/dL on April 23. We do not have labs from today. Previous labs show serum creatinine of 2.0 on 11/20/2016, and mostly staying about 1.7- 1.8 in 2016. Lowest creatinine was 1.2 in July of 2015. The patient is found to have a low-grade rhabdomyolysis with CK about 4700. He was also noted to have severe hypothyroidism with TSH of 54. Blood pressure has been about 130-120 mmHg systolic. Heart rate about 80s to 70s per minute. Patient is afebrile. He denied any nausea, vomiting, abdominal pain, or diarrhea. He has had some increasing shortness of breath and lower extremity edema. The patient denied use of any nonsteroidal anti- inflammatory agents prior to admission. HOME MEDICATIONS: Motrin and insulin. ALLERGIES: INCLUDE VANCOMYCIN WHICH CAUSES RASH AND HIVES. PAST MEDICAL HISTORY: Atrial fibrillation, asthma, coronary artery disease, GERD, sarcoidosis. PAST SURGICAL HISTORY: Cardiac ablation, right knee arthroplasty, lymph node biopsy where sarcoidosis was diagnosed, ankle surgery. SOCIAL HISTORY: Is positive for smoking and use of marijuana. EXAMINATION: Patient is currently awake, comfortable. He is not in any acute distress. Blood pressure is 124/72, heart rate 82 per minute. He is afebrile. Examination of the heart S1, S2. Examination lungs bilateral breath sounds are heard. ABDOMEN: Soft. Morbidly obese. Examination of lower extremities shows chronic skin changes. Edema 1+ bilaterally. YOUTH DIRECTOR exam is grossly intact. Patient moving all 4 extremities. LABS SHOW: Hemoglobin 14.2 g/dL, sodium 144, potassium 4.0, BUN 19, serum creatinine 2.2. CK of 4796. TSH 54. The urinalysis is not available. ASSESSMENT: 1. Acute kidney injury, currently nonoliguric. Urine output is not accurately charted. We will check a urinalysis. Need to rule out obstructive uropathy as well. The blood pressure is not low and patient is not on any nephrotoxic medications. His home list did show Motrin. Therefore, his acute kidney injury may be related to use of NSAIDs prior to admission. The patient had been on IV fluids which are now and appropriately discontinued. Chest x-ray did not show any significant congestive heart failure. 2. Morbid obesity. 3. Severe hypothyroidism. Diagnosed this admission. 4. Concentric left ventricular hypertrophy. Ejection fraction 55-60%. 5. Chronic kidney disease and NKF stage 3 with previous creatinine as low as 1.2 in July of 2015. Otherwise staying at about 1.6-1.8 towards the end of 2015. We will check urinalysis and we will also check his office records. 6. Hypercalcemia most likely related to underlying sarcoidosis. PLAN: Continue off of IV fluids. Check urinalysis. Check accurate I's and O's. Repeat labs in a.m. including calcium level. Check PTH levels along with 125 hydroxy cholecalciferol and 25 hydroxy cholecalciferol. Also add check PTH levels and vitamin D levels. Thank you for this consultation. We will continue to follow the patient with you during his hospitalization. MMODL / IJN: [id number] /
[2017-04-24 20:39] LABS: Amorphous Sediment,Urine Occasional /hpf; Appearance,Urine Cloudy (Clear); Bilirubin,Urine Negative (Negative); Blood,Urine Negative (Negative); Color,Urine Yellow; Glucose,Urine (UA) 2+ (Negative); Ketones,Urine Negative (Negative); Leukocyte Esterase,Urine Small (Negative); Mucus,Urine Occasional /hpf; Nitrite,Urine Negative (Negative); Protein,Urine Trace (Negative); Specific Gravity,Urine 1.018 (1.001-1.035); Squamous Epithelial Cell,Urine 1 /hpf (0-4); Urobilinogen,Urine <2.0 mg/dL (<2.0); WBC,Urine 27 /hpf (0-5)
[2017-04-24] MEDS: SYMBICORT 160-4.5 MCG INHALER INHALATION SCH (20:53)
[2017-04-24 21:13] LABS: Glucose,Whole Blood 393 mg/dL (75-99)
[2017-04-24 21:13] LABS: Glucose,Whole Blood 393 mg/dL (75-99)
[2017-04-24] MEDS ORDERED: INSULIN DETEMIR 100 UNIT/ML 10 ML VIAL SQ SCH (22:00)
[2017-04-25 01:50] LABS: Parathyroid Hormone Intact 106.2 pg/mL (14.0-72.0)
[2017-04-25 02:24] LABS: Glucose,Whole Blood 311 mg/dL (75-99)
[2017-04-25 02:37] LABS: Hemoglobin A1C 6.6 % (4.0-6.0)
[2017-04-25] MEDS: HYDROcodone/APAP 10-325MG 1 EACH TAB PO PRN ×2 (02:37→21:45)
[2017-04-25] MEDS: HEPARIN SOD,PORK IN 0.45% NACL 25,000 UNIT in 0.45% NACL 1 500ML.BAG IV SCH (05:14)
[2017-04-25 06:13] LABS: Glucose,Whole Blood 281 mg/dL (75-99)
[2017-04-25] MEDS: INSULIN ASPART 100 UNIT/ML 1 ML 10 ML VIAL SQ SCH ×5 (06:26→21:38)
[2017-04-25] MEDS ORDERED: LEVOTHYROXINE 125 MCG TAB PO SCH (06:30)
[2017-04-25] MEDS: IPRATROPIUM-ALBUTEROL 3 ML NEB INHALATION SCH ×4 (06:58→21:33)
[2017-04-25] MEDS: SYMBICORT 160-4.5 MCG INHALER INHALATION SCH ×2 (06:58→21:31)
[2017-04-25 07:05] LABS: Basophils % (A) 0 %; Eosinophils % (A) 0 %; HCT 40.9 % (39.0-53.0); HGB 12.5 gm/dL (13.0-17.5); Lymphocytes % (A) 7 %; MCH 32.1 pg (25.0-35.0); MCHC 30.7 g/dL (31.0-37.0); MCV 104.8 fL (80.0-100.0); Macrocytosis Slight; Mean Platelet Volume 8.1; Monocytes # (A) 0.6 k/uL (0-1.0); Monocytes % (A) 4 %; Neutrophils # (A) 13.1 k/uL (1.3-7.7); Neutrophils % (A) 88 %; Platelet Count 190 k/uL (150-450); RDW 13.1 % (11.5-15.5); WBC 14.8 k/uL (3.8-10.6)
[2017-04-25] MEDS: ESCITALOPRAM 10 MG TAB PO SCH (09:01)
[2017-04-25] MEDS: NICOTINE 21MG/24HR PATCH TRANSDERM SCH (09:01)
[2017-04-25] MEDS: INSULIN DETEMIR 100 UNIT/ML 10 ML VIAL SQ SCH (09:19)
[2017-04-25 12:03] LABS: Glucose,Whole Blood 275 mg/dL (75-99)
[2017-04-25 12:12] LABS: Calcium 11.2 mg/dL (8.4-10.2); Potassium 4.7 mmol/L (3.5-5.1)
--- NOTE | 2017-04-25 12:15 | P.PN ---
Subjective Progress Note Date: 04/25/17 Principal diagnosis: Shortness of breath and chest pain Progress note dated 04/25/2017 This is a very nice 42-year-old obese male who I saw yesterday in consultation. He presented to the emergency department on April 23 with complaints of increasing shortness of breath and chest pain. The symptoms were progressive over the last 5 or 7 days prior to admission. He had a stress test yesterday which was apparently reported as negative. He is a heavy smoker and likely has underlying COPD. The shortness of breath is mostly with exertion but also rest. He becomes very short of breath with any activity even a few feet of walking. He does have a history of underlying atrial fibrillation chronic bronchial asthma CAD COPD gastroesophageal reflux disease gout and arthritis sarcoidosis and a small esophagus. The patient is feeling okay today. Still with shortness of breath on exertion. I did mention to my note yesterday that he does need a complete outpatient pulmonary evaluation including a 6 minute walk distance and full and complete pulmonary function testing. Objective - Vital Signs Vital signs: Vital Signs Temp 96.8 F L 04/25/17 08:00 Pulse 64 04/25/17 11:59 Resp 16 04/25/17 04:00 BP 110/66 04/25/17 08:00 Pulse Ox 97 04/25/17 08:00 Intake & Output 04/24/17 04/25/17 04/25/17 18:59 06:59 18:59 Intake Total 999.037 7697 236 Output Total 0 1300 600 Balance 820.599 60 -364 Weight 191.5 kg Intake: IV 860 0.9 320 Heparin Sod,Pork in 0.45% 540 NaCl 25,000 unit In 0.45 % NaCl 1 500ml.bag @ 12.1 UNITS/KG/HR 46.1 mls/hr IV .[id number] [facility] Rx#: [id number] Intake, IV Titration 220.599 500 Amount Heparin Sod,Pork in 0.45% 220.599 500 NaCl 25,000 unit In 0.45 % NaCl 1 500ml.bag @ 12.1 UNITS/KG/HR 46.1 mls/hr IV .[id number] [facility] Rx#: [id number] Oral 600 236 Output: Urine 1300 600 Stool 0 Other: Voiding Method Urinal # Voids 1 1 - Exam No acute distress, oriented 3. HEENT examination is grossly unremarkable. Mucous membranes are moist. No oral lesions. Neck supple. Full range of motion. No adenopathy thyromegaly or neck vein distention. Cardiovascular examination reveals regular rhythm rate. S1-S2 normal. No S3 or S4. No discernible murmur noted. Heart sounds are distant. Lungs reveal a few scattered rhonchi. Breath sounds are diminished. There is prolongation. No crackles. Abdomen soft bowel sounds are heard. No masses or tenderness. Extremities are intact. Chronic venous stasis changes noted. There is some lower extremity edema. Skin is without rash or lesion. Neurologic examination is brief but nonfocal. - Labs CBC & Chem 7: 04/25/17 06:35 04/23/17 20:27 Labs: Abnormal Lab Results - Last 24 Hours (Table) 04/24/17 04/24/17 04/24/17 Range/Units 03:43 09:30 12:21 WBC (3.8-10.6) k/uL RBC (4.30-5.90) m/uL Hgb (13.0-17.5) gm/dL MCV (80.0-100.0) fL MCHC (31.0-37.0) g/dL Neutrophils # (1.3-7.7) k/uL APTT 74.7 H (22.0-30.0) sec POC Glucose (mg/dL) (75-99) mg/dL Hemoglobin A1c 6.6 H (4.0-6.0) % Vitamin D 25-Hydroxy 8.0 L (30.0-100.0) ng/mL TSH (0.465-4.680) mIU/L PTH Intact 106.2 H (14.0-72.0) pg/mL Urine Protein (Negative) Urine Glucose (UA) (Negative) Ur Leukocyte Esterase (Negative) Urine WBC (0-5) /hpf Amorphous Sediment (None) /hpf Urine Mucus (None) /hpf 04/24/17 04/24/17 04/24/17 Range/Units 17:16 20:10 21:10 WBC (3.8-10.6) k/uL RBC (4.30-5.90) m/uL Hgb (13.0-17.5) gm/dL MCV (80.0-100.0) fL MCHC (31.0-37.0) g/dL Neutrophils # (1.3-7.7) k/uL APTT (22.0-30.0) sec POC Glucose (mg/dL) 355 H 393 H (75-99) mg/dL Hemoglobin A1c (4.0-6.0) % Vitamin D 25-Hydroxy (30.0-100.0) ng/mL TSH (0.465-4.680) mIU/L PTH Intact (14.0-72.0) pg/mL Urine Protein Trace H (Negative) Urine Glucose (UA) 2+ H (Negative) Ur Leukocyte Esterase Small H (Negative) Urine WBC 27 H (0-5) /hpf Amorphous Sediment Occasional H (None) /hpf Urine Mucus Occasional H (None) /hpf 04/24/17 04/25/17 04/25/17 Range/Units 21:12 02:22 06:12 WBC (3.8-10.6) k/uL RBC (4.30-5.90) m/uL Hgb (13.0-17.5) gm/dL MCV (80.0-100.0) fL MCHC (31.0-37.0) g/dL Neutrophils # (1.3-7.7) k/uL APTT (22.0-30.0) sec POC Glucose (mg/dL) 393 H 311 H 281 H (75-99) mg/dL Hemoglobin A1c (4.0-6.0) % Vitamin D 25-Hydroxy (30.0-100.0) ng/mL TSH (0.465-4.680) mIU/L PTH Intact (14.0-72.0) pg/mL Urine Protein (Negative) Urine Glucose (UA) (Negative) Ur Leukocyte Esterase (Negative) Urine WBC (0-5) /hpf Amorphous Sediment (None) /hpf Urine Mucus (None) /hpf 04/25/17 04/25/17 04/25/17 Range/Units 06:35 06:35 06:35 WBC 14.8 H (3.8-10.6) k/uL RBC 3.90 L (4.30-5.90) m/uL Hgb 12.5 L (13.0-17.5) gm/dL MCV 104.8 H (80.0-100.0) fL MCHC 30.7 L (31.0-37.0) g/dL Neutrophils # 13.1 H (1.3-7.7) k/uL APTT 77.4 H (22.0-30.0) sec POC Glucose (mg/dL) (75-99) mg/dL Hemoglobin A1c (4.0-6.0) % Vitamin D 25-Hydroxy (30.0-100.0) ng/mL TSH 58.100 H (0.465-4.680) mIU/L PTH Intact (14.0-72.0) pg/mL Urine Protein (Negative) Urine Glucose (UA) (Negative) Ur Leukocyte Esterase (Negative) Urine WBC (0-5) /hpf Amorphous Sediment (None) /hpf Urine Mucus (None) /hpf 04/25/17 Range/Units 12:00 WBC (3.8-10.6) k/uL RBC (4.30-5.90) m/uL Hgb (13.0-17.5) gm/dL MCV (80.0-100.0) fL MCHC (31.0-37.0) g/dL Neutrophils # (1.3-7.7) k/uL APTT (22.0-30.0) sec POC Glucose (mg/dL) 275 H (75-99) mg/dL Hemoglobin A1c (4.0-6.0) % Vitamin D 25-Hydroxy (30.0-100.0) ng/mL TSH (0.465-4.680) mIU/L PTH Intact (14.0-72.0) pg/mL Urine Protein (Negative) Urine Glucose (UA) (Negative) Ur Leukocyte Esterase (Negative) Urine WBC (0-5) /hpf Amorphous Sediment (None) /hpf Urine Mucus (None) /hpf Assessment and Plan Assessment: Assessment Probable COPD. Chest pain, rule out acute coronary syndrome, thought to be less likely given the normal stress test History of ongoing and significant tobacco abuse Morbid obesity Sleep apnea syndrome History of CAD History of asthma History of hypertension History of hyperlipidemia History of gastroesophageal reflux disease. History of kidney stones. History of sarcoidosis History of gout Plan: Plan dated 04/24/2017 Apparently the patient's stress test was negative. We'll go ahead and make sure he is on appropriate medications for primarily COPD. The patient has a lot of other medical problems including profound obesity, sleep apnea syndrome, sarcoidosis, asthma, and a multiple other medical problems. He will need to be evaluated in the outpatient setting with a 6 minute walk distance and a pulmonary function test. He may also benefit from methacholine challenge test. If he has not had a recent sleep study, he needs a CPAP titration study. Additional recommendations and suggestions are forthcoming. Prognosis is poor given his extreme weight and his multitude of medical problems. Plan dated 04/25/2017 The patient was placed on medications for what is likely underlying COPD/ asthma. Again the patient will need an outpatient evaluation including a 6 minute walk distance a full PFT. The patient should also committed to using his CPAP appropriately. He needs a CPAP titration study for sure. In addition , his other medical problems he to be carefully managed to optimize his overall situation. The patient also may suffer from pickwickian syndrome. Additional recommendations suggestions are forthcoming. We'll continue to follow. Look forward to seeing the patient in the outpatient setting Time with Patient: Less than 30
--- NOTE | 2017-04-25 12:31 | PN ---
PROGRESS NOTE DATE OF SERVICE: 04/25/2017. CHIEF COMPLAINT: Dyspnea. HISTORY OF PRESENT ILLNESS: This gentleman is feeling a little bit better. V/Q scan failed to demonstrate likelihood of a pulmonary embolism. He is not having any pain. He is profoundly hypothyroid and his levothyroxine will be increased. PHYSICAL EXAM: Breath sounds are still present on both sides and the cardiac exam is normal. He is pale and edematous. Abdomen is soft and nontender. IMPRESSION: 1. Dyspnea. 2. Chronic obstructive pulmonary disease. 3. Pickwickian syndrome. 4. Hypothyroidism. 5. Renal failure. PLAN: 1. Increase thyroid. 2. Continue to monitor his renal failure and shortness of breath. His blood sugars were also elevated, but steroids have been stopped in that it was not felt with they were clinically indicated nor helping. Blood sugars will be watched as well. MMODL / SON: [id number] /
[2017-04-25 12:37] LABS: T4, Free (Free Thyroxine) <0.07 ng/dL (0.78-2.19)
--- NOTE | 2017-04-25 15:21 | P.PN ---
Subjective Progress Note Date: 04/25/17 This is a 42-year-old gentleman with history of hypertension, hyperlipidemia, gout, sarcoidosis, diabetes, morbid obesity, nicotine dependence , asthma, hypothyroidism, occasional marijuana use, prior SVT ablation, who presents to the hospital with symptoms of exertional shortness of breath associated chest discomfort. Patient states he develops a heavy feeling in his chest whenever he exerts himself physically. Discomfort worsens when he takes a deep breath. He denies any PND or orthopnea. Initial chest x-ray did not reveal any acute pulmonary process. EKG shows a normal sinus rhythm with right axis deviation, nonspecific ST-T wave changes in the inferior leads. The V/Q scan was performed because of abnormal d-dimer which revealed very low probability for pulmonary embolism. Laboratory data was reviewed, WBC 7.2, hemoglobin 14.2, platelet count 181. D-dimer 1.04. Sodium 144, potassium 4.0, BUN 19, creatinine 2.2. CK on admission 4796, 4404 this morning, MB 8.3, 7.5. Troponin 0.012, 0.012. Blood pressure 114/60 with a heart rate in the 60s, 96% on 5 L of oxygen. Patient did have an echocardiogram with Doppler study performed in February 2016 which revealed a normal left ventricular systolic function. At the time of my examination this morning, patient is currently chest pain free, he does get pain in his chest if he takes a deep breath. 04/25/2017 Patient seen and examined this morning, stress test of yesterday was negative for any reversible ischemia. Patient was noted to be hypothyroid, initiated on Synthroid. BUN 21 and creatinine 1.9 today. From cardiology's perspective, he may be able to be discharged once cleared by the primary. Objective - Vital Signs Vital signs: Vital Signs Temp 96.8 F L 04/25/17 08:00 Pulse 60 04/25/17 12:08 Resp 16 04/25/17 04:00 BP 99/53 04/25/17 12:00 Pulse Ox 93 L 04/25/17 12:00 Intake & Output 04/24/17 04/25/17 04/25/17 18:59 06:59 18:59 Intake Total 007.270 4117 236 Output Total 0 1300 600 Balance 820.599 60 -364 Weight 191.5 kg Intake: IV 860 0.9 320 Heparin Sod,Pork in 0.45% 540 NaCl 25,000 unit In 0.45 % NaCl 1 500ml.bag @ 12.1 UNITS/KG/HR 46.1 mls/hr IV .[id number] [facility] Rx#: [id number] Intake, IV Titration 220.599 500 Amount Heparin Sod,Pork in 0.45% 220.599 500 NaCl 25,000 unit In 0.45 % NaCl 1 500ml.bag @ 12.1 UNITS/KG/HR 46.1 mls/hr IV .[id number] [facility] Rx#: [id number] Oral 600 236 Output: Urine 1300 600 Stool 0 Other: Voiding Method Urinal # Voids 1 1 - Exam PHYSICAL EXAMINATION: HEENT: Head is atraumatic, normocephalic. Pupils equal, round. Neck is supple. There is no elevated jugular venous pressure. HEART EXAMINATION: Heart S1, S2 normal. No murmur or gallop heard. CHEST EXAMINATION: Lungs reveal scattered coarse wheezing throughout ABDOMEN: Soft, obese, nontender. Bowel sounds are heard. No organomegaly noted. EXTREMITIES: 1+ peripheral pulses with no evidence of peripheral edema and no calf tenderness noted. NEUROLOGIC patient is awake, alert and oriented -3. . - Labs CBC & Chem 7: 04/25/17 06:35 04/25/17 06:35 Labs: Abnormal Lab Results - Last 24 Hours (Table) 04/24/17 04/24/17 04/24/17 Range/Units 03:43 09:30 17:16 WBC (3.8-10.6) k/uL RBC (4.30-5.90) m/uL Hgb (13.0-17.5) gm/dL MCV (80.0-100.0) fL MCHC (31.0-37.0) g/dL Neutrophils # (1.3-7.7) k/uL APTT (22.0-30.0) sec BUN (9-20) mg/dL Creatinine (0.66-1.25) mg/dL Glucose (74-99) mg/dL POC Glucose (mg/dL) 355 H (75-99) mg/dL Hemoglobin A1c 6.6 H (4.0-6.0) % Calcium (8.4-10.2) mg/dL Vitamin D 25-Hydroxy 8.0 L (30.0-100.0) ng/mL TSH (0.465-4.680) mIU/L Free T4 (0.78-2.19) ng/dL PTH Intact 106.2 H (14.0-72.0) pg/mL Urine Protein (Negative) Urine Glucose (UA) (Negative) Ur Leukocyte Esterase (Negative) Urine WBC (0-5) /hpf Amorphous Sediment (None) /hpf Urine Mucus (None) /hpf 04/24/17 04/24/17 04/24/17 Range/Units 20:10 21:10 21:12 WBC (3.8-10.6) k/uL RBC (4.30-5.90) m/uL Hgb (13.0-17.5) gm/dL MCV (80.0-100.0) fL MCHC (31.0-37.0) g/dL Neutrophils # (1.3-7.7) k/uL APTT (22.0-30.0) sec BUN (9-20) mg/dL Creatinine (0.66-1.25) mg/dL Glucose (74-99) mg/dL POC Glucose (mg/dL) 393 H 393 H (75-99) mg/dL Hemoglobin A1c (4.0-6.0) % Calcium (8.4-10.2) mg/dL Vitamin D 25-Hydroxy (30.0-100.0) ng/mL TSH (0.465-4.680) mIU/L Free T4 (0.78-2.19) ng/dL PTH Intact (14.0-72.0) pg/mL Urine Protein Trace H (Negative) Urine Glucose (UA) 2+ H (Negative) Ur Leukocyte Esterase Small H (Negative) Urine WBC 27 H (0-5) /hpf Amorphous Sediment Occasional H (None) /hpf Urine Mucus Occasional H (None) /hpf 04/25/17 04/25/17 04/25/17 Range/Units 02:22 06:12 06:35 WBC 14.8 H (3.8-10.6) k/uL RBC 3.90 L (4.30-5.90) m/uL Hgb 12.5 L (13.0-17.5) gm/dL MCV 104.8 H (80.0-100.0) fL MCHC 30.7 L (31.0-37.0) g/dL Neutrophils # 13.1 H (1.3-7.7) k/uL APTT (22.0-30.0) sec BUN (9-20) mg/dL Creatinine (0.66-1.25) mg/dL Glucose (74-99) mg/dL POC Glucose (mg/dL) 311 H 281 H (75-99) mg/dL Hemoglobin A1c (4.0-6.0) % Calcium (8.4-10.2) mg/dL Vitamin D 25-Hydroxy (30.0-100.0) ng/mL TSH (0.465-4.680) mIU/L Free T4 (0.78-2.19) ng/dL PTH Intact (14.0-72.0) pg/mL Urine Protein (Negative) Urine Glucose (UA) (Negative) Ur Leukocyte Esterase (Negative) Urine WBC (0-5) /hpf Amorphous Sediment (None) /hpf Urine Mucus (None) /hpf 04/25/17 04/25/17 04/25/17 Range/Units 06:35 06:35 06:35 WBC (3.8-10.6) k/uL RBC (4.30-5.90) m/uL Hgb (13.0-17.5) gm/dL MCV (80.0-100.0) fL MCHC (31.0-37.0) g/dL Neutrophils # (1.3-7.7) k/uL APTT 77.4 H (22.0-30.0) sec BUN 21 H (9-20) mg/dL Creatinine 1.93 H (0.66-1.25) mg/dL Glucose 281 H (74-99) mg/dL POC Glucose (mg/dL) (75-99) mg/dL Hemoglobin A1c (4.0-6.0) % Calcium 11.2 H (8.4-10.2) mg/dL Vitamin D 25-Hydroxy (30.0-100.0) ng/mL TSH 58.100 H (0.465-4.680) mIU/L Free T4 <0.07 L (0.78-2.19) ng/dL PTH Intact (14.0-72.0) pg/mL Urine Protein (Negative) Urine Glucose (UA) (Negative) Ur Leukocyte Esterase (Negative) Urine WBC (0-5) /hpf Amorphous Sediment (None) /hpf Urine Mucus (None) /hpf 04/25/17 Range/Units 12:00 WBC (3.8-10.6) k/uL RBC (4.30-5.90) m/uL Hgb (13.0-17.5) gm/dL MCV (80.0-100.0) fL MCHC (31.0-37.0) g/dL Neutrophils # (1.3-7.7) k/uL APTT (22.0-30.0) sec BUN (9-20) mg/dL Creatinine (0.66-1.25) mg/dL Glucose (74-99) mg/dL POC Glucose (mg/dL) 275 H (75-99) mg/dL Hemoglobin A1c (4.0-6.0) % Calcium (8.4-10.2) mg/dL Vitamin D 25-Hydroxy (30.0-100.0) ng/mL TSH (0.465-4.680) mIU/L Free T4 (0.78-2.19) ng/dL PTH Intact (14.0-72.0) pg/mL Urine Protein (Negative) Urine Glucose (UA) (Negative) Ur Leukocyte Esterase (Negative) Urine WBC (0-5) /hpf Amorphous Sediment (None) /hpf Urine Mucus (None) /hpf Assessment and Plan Plan: Assessment and plan #1 chest pain with associated shortness of breath, atypical for acute coronary syndrome. Pleuritic in nature. Troponins negative 2. EKG shows a normal sinus rhythm with right axis deviation and nonspecific ST-T wave changes in the inferior leads. D-dimer 1.04, VQ scan very low probability for pulmonary embolism. BNP 44. #2 elevated CK, CK-MB with negative troponins, possible rhabdomyolysis #3 acute on chronic renal failure, stage IV #4 morbid obesity # 5 hypertension #6 diabetes #7 asthma #8 prior SVT ablation #9 sarcoidosis #10 occasional marijuana use #11 nicotine dependence #12 hypothyroidism Plan Dobutamine echocardiographic study negative for any reversible ischemia. was found to be hypothyroid and initiated on Synthroid. Echo revealed normal left ventricular systolic function. From cardiology's perspective, he may be able to be discharged once cleared by primary. We will follow him with you now on an as-needed basis only, please don't hesitate to call with any questions. DNP note has been reviewed, I agree with a documented findings and plan of care. Patient was seen and examined.
[2017-04-25 16:54] LABS: Glucose,Whole Blood 240 mg/dL (75-99)
--- NOTE | 2017-04-25 16:58 | PN ---
PROGRESS NOTE Patient is seen for followup for acute kidney injury. His serum creatinine is slightly better at 1.9 from 2.2 mg/dL yesterday. Currently patient is not on any IV fluids or diuretics. He states he is feeling better. Etiology is likely secondary to NSAIDs, as Motrin was noted on his home med list. The patient did receive IV fluids on initial admission, and they are now discontinued. Chronic kidney disease, NKF stage III, with previous creatinine as low as 1.2 in July of 2015. Otherwise it is mainly staying at about 1.6 to 1.8. Hypercalcemia, most likely related to underlying sarcoidosis. His calcium is actually higher today. Patient will be started on steroids. He had been on Solu-Medrol. He should be maintained on prednisone, particularly given the higher calcium level. This is definitely contributing to his acute kidney injury as well. PLAN: Start prednisone and repeat labs in a.m. Check 1 25-hydroxycholecalciferol level as well. The PTH is high for a serum calcium of 11. The patient may also have underlying primary hyperparathyroidism. Nutrition vitamin D deficiency, which will need to be replaced once the calcium improves. MMODL / IJN: [id number] /
[2017-04-25] MEDS ORDERED: INSULIN ASPART 100 UNIT/ML 1 ML 10 ML VIAL SQ SCH (17:30)
[2017-04-25] MEDS: predniSONE 20 MG TAB PO SCH (17:42)
[2017-04-25] MEDS: MAG HYDROX/AL HYDROX/SIMETH 30 ML CUP PO PRN (18:30)
[2017-04-25 21:13] LABS: Glucose,Whole Blood 226 mg/dL (75-99)
[2017-04-26] MEDS: LEVOTHYROXINE 100 MCG TAB PO SCH (06:32)
[2017-04-26] MEDS: MAG HYDROX/AL HYDROX/SIMETH 30 ML CUP PO PRN (06:32)
[2017-04-26] MEDS: HYDROcodone/APAP 10-325MG 1 EACH TAB PO PRN (06:36)
[2017-04-26] MEDS: IPRATROPIUM-ALBUTEROL 3 ML NEB INHALATION SCH ×4 (07:41→20:50)
[2017-04-26] MEDS: SYMBICORT 160-4.5 MCG INHALER INHALATION SCH ×2 (07:41→20:48)
[2017-04-26] MEDS: ESCITALOPRAM 10 MG TAB PO SCH (07:45)
[2017-04-26] MEDS: NICOTINE 21MG/24HR PATCH TRANSDERM SCH (07:45)
[2017-04-26] MEDS: predniSONE 20 MG TAB PO SCH (07:45)
[2017-04-26] MEDS: INSULIN ASPART 100 UNIT/ML 1 ML 10 ML VIAL SQ SCH ×3 (07:45→17:33)
[2017-04-26 08:08] LABS: Glucose,Whole Blood 193 mg/dL (75-99)
[2017-04-26] MEDS: INSULIN DETEMIR 100 UNIT/ML 10 ML VIAL SQ SCH (08:14)
[2017-04-26 09:23] LABS: Basophils % (A) 0 %; Eosinophils % (A) 0 %; HCT 43.1 % (39.0-53.0); HGB 13.6 gm/dL (13.0-17.5); Lymphocytes # (A) 1.1 k/uL (1.0-4.8); Lymphocytes % (A) 10 %; MCHC 31.6 g/dL (31.0-37.0); MCV 104.5 fL (80.0-100.0); Macrocytosis Slight; Mean Platelet Volume 7.4; Monocytes # (A) 0.4 k/uL (0-1.0); Monocytes % (A) 4 %; Neutrophils # (A) 9.5 k/uL (1.3-7.7); Neutrophils % (A) 86 %; Platelet Count 189 k/uL (150-450); RBC 4.13 m/uL (4.30-5.90); RDW 13.2 % (11.5-15.5); WBC 11.1 k/uL (3.8-10.6)
[2017-04-26 10:12] LABS: Calcium 10.4 mg/dL (8.4-10.2); Potassium 4.7 mmol/L (3.5-5.1)
[2017-04-26 11:46] LABS: Glucose,Whole Blood 209 mg/dL (75-99)
--- NOTE | 2017-04-26 12:04 | P.PN ---
Subjective Progress Note Date: 04/26/17 Principal diagnosis: COPD exacerbation This is a very nice 42-year-old obese male who I saw yesterday in consultation. He presented to the emergency department on April 23 with complaints of increasing shortness of breath and chest pain. The symptoms were progressive over the last 5 or 7 days prior to admission. He had a stress test yesterday which was apparently reported as negative. He is a heavy smoker and likely has underlying COPD. The shortness of breath is mostly with exertion but also rest. He becomes very short of breath with any activity even a few feet of walking. He does have a history of underlying atrial fibrillation chronic bronchial asthma CAD COPD gastroesophageal reflux disease gout and arthritis sarcoidosis and a small esophagus. The patient is feeling okay today. Still with shortness of breath on exertion. I did mention to my note yesterday that he does need a complete outpatient pulmonary evaluation including a 6 minute walk distance and full and complete pulmonary function testing. On 04/26/2017 patient seen again in follow-up on medical surgical floor. He states he is feeling a little better today, he started to expectorate some phlegm. He has been up walking in the room, still pretty dyspneic on exertion . Lung sounds are positive for some scattered rhonchi. No wheezes or rales auscultated. He remains on room air, with O2 sat 96%. Afebrile, vital signs are stable. Today's lab work showed WBC of 11.1, hemoglobin is 13.6, electrolytes were within normal limits, BUN was 26, and creatinine is 1.91. Overall slightly better today, continues on combination of Symbicort, DuoNeb. Objective - Vital Signs Vital signs: Vital Signs Temp 97.8 F 04/26/17 07:00 Pulse 68 04/26/17 07:53 Resp 18 04/26/17 07:00 BP 133/89 04/26/17 07:00 Pulse Ox 96 04/26/17 07:00 Intake & Output 04/25/17 04/26/17 04/26/17 18:59 06:59 18:59 Intake Total 1006 Output Total 1100 600 Balance -94 -600 Weight 192.1 kg Intake: IV 550 0.9 100 Heparin Sod,Pork in 0.45% 450 NaCl 25,000 unit In 0.45 % NaCl 1 500ml.bag @ 12.1 UNITS/KG/HR 46.1 mls/hr IV .[id number] [facility] Rx#: [id number] Oral 456 Output: Urine 1100 600 Other: Voiding Method Urinal Urinal # Voids 2 2 - Exam No acute distress, oriented 3. HEENT examination is grossly unremarkable. Mucous membranes are moist. No oral lesions. Neck supple. Full range of motion. No adenopathy thyromegaly or neck vein distention. Cardiovascular examination reveals regular rhythm rate. S1-S2 normal. No S3 or S4. No discernible murmur noted. Heart sounds are distant. Lungs reveal a few scattered rhonchi. Breath sounds are diminished. There is prolongation. No crackles. Abdomen soft bowel sounds are heard. No masses or tenderness. Extremities are intact. Chronic venous stasis changes noted. There is some lower extremity edema. Skin is without rash or lesion. Neurologic examination is brief but nonfocal. - Labs CBC & Chem 7: 04/26/17 08:45 04/26/17 08:45 Labs: Abnormal Lab Results - Last 24 Hours (Table) 04/25/17 04/25/17 04/25/17 Range/Units 06:35 06:35 12:00 WBC (3.8-10.6) k/uL RBC (4.30-5.90) m/uL MCV (80.0-100.0) fL Neutrophils # (1.3-7.7) k/uL BUN 21 H (9-20) mg/dL Creatinine 1.93 H (0.66-1.25) mg/dL Glucose 281 H (74-99) mg/dL POC Glucose (mg/dL) 275 H (75-99) mg/dL Calcium 11.2 H (8.4-10.2) mg/dL TSH 58.100 H (0.465-4.680) mIU/L Free T4 <0.07 L (0.78-2.19) ng/dL 04/25/17 04/25/17 04/26/17 Range/Units 16:50 21:11 07:31 WBC (3.8-10.6) k/uL RBC (4.30-5.90) m/uL MCV (80.0-100.0) fL Neutrophils # (1.3-7.7) k/uL BUN (9-20) mg/dL Creatinine (0.66-1.25) mg/dL Glucose (74-99) mg/dL POC Glucose (mg/dL) 240 H 226 H 193 H (75-99) mg/dL Calcium (8.4-10.2) mg/dL TSH (0.465-4.680) mIU/L Free T4 (0.78-2.19) ng/dL 04/26/17 04/26/17 04/26/17 Range/Units 08:45 08:45 11:20 WBC 11.1 H (3.8-10.6) k/uL RBC 4.13 L (4.30-5.90) m/uL MCV 104.5 H (80.0-100.0) fL Neutrophils # 9.5 H (1.3-7.7) k/uL BUN 26 H (9-20) mg/dL Creatinine 1.91 H (0.66-1.25) mg/dL Glucose 202 H (74-99) mg/dL POC Glucose (mg/dL) 209 H (75-99) mg/dL Calcium 10.4 H (8.4-10.2) mg/dL TSH (0.465-4.680) mIU/L Free T4 (0.78-2.19) ng/dL Assessment and Plan Plan: Assessment: Probable COPD. Chest pain, rule out acute coronary syndrome, thought to be less likely given the normal stress test History of ongoing and significant tobacco abuse Morbid obesity Sleep apnea syndrome History of CAD History of asthma History of hypertension History of hyperlipidemia History of gastroesophageal reflux disease. History of kidney stones. History of sarcoidosis History of gout Plan: Continue with current medical treatment, continue Symbicort, DuoNeb. No evidence of any wheezing on today's exam, patient remains significantly dyspneic with exertion, reports a little improvement in his overall condition, started to expectorate some phlegm. Patient will need an outpatient evaluation for his COPD, sleep apnea syndrome, asthma and sarcoidosis. We'll need follow- up appointment with Dr. Ramos in one week after discharge. I performed a history & physical examination of the patient and discussed their management with my nurse practitioner, Dee Hardin. I reviewed the nurse practitioner's note and agree with the documented findings and plan of care. Lung sounds are positive for scattered rhonchi bilaterally. The findings and the impression was discussed with the patient. I attest to the documentation by the nurse practitioner. Time with Patient: Less than 30
--- NOTE | 2017-04-26 16:08 | PN ---
PROGRESS NOTE Patient is seen for followup for acute kidney injury. His serum creatinine is staying at about 1.9 mg/dL. His baseline has been about 1.6 to 1.7 previously in 2016 and 2.0 in November of 2016. Currently patient is not on any diuretics or IV fluids. Overall he states he is feeling slightly better. On examination, blood pressure is 133/89, heart rate 68 per minute. He is afebrile. EXAMINATION OF THE HEART: S1, S2. EXAMINATION OF LUNGS: Bilateral breath sounds are heard. ABDOMEN: Soft, morbidly obese. Examination of lower extremities shows chronic skin changes. Lower extremities with chronic edema. BAR MACHINE OPERATOR exam is grossly intact. Labs show sodium 140, potassium 4.7, chloride 101, serum creatinine 1.9, hemoglobin 13.6 g/dL. ASSESSMENT: 1. Chronic kidney disease with serum creatinine not far from baseline with an element of acute kidney injury which is most likely associated with underlying hypercalcemia. 2. Hypercalcemia secondary to sarcoidosis, although the parathyroid hormone was also disproportionately elevated, suggesting some degree of underlying primary hyperparathyroidism. Patient was started on prednisone; 125 hydroxy vitamin D level is still pending. He was low on his 25 hydroxy vitamin D, which will be replaced once his calcium is further improved. 3. History of sarcoidosis, being followed by Pulmonology with possible underlying chronic obstructive pulmonary disease. 4. Morbid obesity. 5. Chronic kidney disease, stage III, with previous creatinine at 1.6 to 1.8 mm/dL but as low as 1.2 in July of 2015. Patient will need followup as outpatient. Etiology is possibly nephrosclerosis. PLAN: Will discuss with Pulmonary regarding prednisone for sarcoidosis. If his 125 hydroxy vitamin D level is not elevated, then the hypercalcemia is likely not from the sarcoidosis. It looks like it did improve with the prednisone. MMODL / IJN: [id number] /
--- NOTE | 2017-04-26 16:23 | PN ---
PROGRESS NOTE DATE OF SERVICE: 04/25/2017 Patient is seen for followup for acute kidney injury. His creatinine remains at about 1.9 to 2 mg/dL. Patient is not maintained on any IV fluids. He did receive IV fluids on initial admission and now they are discontinued. On examination today, blood pressure is 110/66, heart rate of 68 per minute. Patient is afebrile. EXAMINATION OF THE HEART: S1, S2. EXAMINATION OF LUNGS: Bilateral breath sounds are heard. ABDOMEN: Soft, morbidly obese. Examination of lower extremities shows chronic skin changes with edema 1+ bilaterally. AIRFIELD MANAGER exam is grossly intact; patient moving all 4 extremities. Labs show sodium 142, potassium 4.7, chloride 102, BUN 21, serum creatinine 1.93, hemoglobin 12.5 g/dL. TSH was 58.1. ASSESSMENT: 1. Chronic kidney disease, NKF stage III, secondary to nephrosclerosis. UA does show trace protein. Patient will need to continue to maintain followup as outpatient. 2. Acute kidney injury secondary to hypercalcemia and hypoperfusion as well. Renal function is fairly stable, slightly improved than on admission. Patient is non- oliguric. 3. Hypercalcemia, most likely secondary to underlying sarcoidosis. 125 hydroxy vitamin D level is currently pending. If this is elevated, this would confirm the etiology to be sarcoidosis; however, I do see that his PTH is also high, which would suggest underlying primary hyperparathyroidism. He will be started on prednisone 20 mg daily. 4. Severe hypothyroidism. TSH was at 58. Maintained on supplementation. 5. History of gouty arthritis. 6. Type 2 diabetes, currently on insulin. PLAN: Start prednisone and repeat labs in a.m. MMODL / IJN: [id number] /
--- NOTE | 2017-04-26 16:50 | PN ---
PROGRESS NOTE DATE OF SERVICE: 04/26/2017 CHIEF COMPLAINT: Difficulty breathing. HISTORY OF PRESENT ILLNESS: This gentleman is improving. He is sitting up on the side of the bed and breathing fairly normally. His sugars are still running quite high and will gradually increase his program. Will also encourage him to seek diabetic teaching. PHYSICAL EXAM: His chest is fairly clear. The cardiac is normal. The abdomen is protuberant. IMPRESSION: 1. Shortness of breath. 2. Hypothyroidism. 3. Uncontrolled diabetes. PLAN: 1. Increase insulin management. 2. Possibly home in the next day or 2. MMODL / IJN: [id number] /
[2017-04-26 16:53] LABS: Glucose,Whole Blood 249 mg/dL (75-99)
--- NOTE | 2017-04-26 17:05 | P.PN ---
Progress Note - Text Progress Note Date: 04/26/17 Interval History: Patient is a 42-year-old male who is being seen in follow-up to a consultation for suicidal ideation. Patient was sitting on his hospital bed and stated that he was feeling much better. He stated his breathing was easier and he was no longer on oxygen. 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 Patient is also met with social work who is giving him referrals for outpatient counseling. Patient reports that he physically is feeling better but his sleep remains poor due to not having his CPAP machine in the hospital. Mental Status: Appearance/Attitude: Patient was sitting on the side of his hospital bed, in no acute distress and was making good eye contact and was cooperative. Behavior: Patient did not exhibit any psychomotor retardation or agitation. Speech/Language: Patient's speech was spontaneous and of normal volume and rhythm and he was coherent. Thought Process: Patient was goal-directed and there is no evidence of loose associations or flight of ideas. Thought Content: Patient denied any auditory or visual hallucinations and no delusions or paranoid ideation were elicited. Patient reports that he is physically feeling much better and states that he is not feeling as depressed. Patient states he has plans to try to have a puppy at home. Suicidal/Homicidal Ideation: Patient denies any current suicidal or homicidal ideation. Sensorium/Cognition: Patient was alert and oriented to person, place, time and his recent and remote memory were grossly intact. Mood/Affect: Patient's mood was pleasant and his affect was appropriate. Insight/Judgment: Patient's insight and judgment are intact. Assessment: Patient is not reporting any suicidal ideation at this time and states that he is feeling better physically and is not feeling as depressed as he was during our consultation. Patient states that he is going to see if he can have a puppy to keep him company at home. He is not reporting any side effects from the Lexapro. Patient also has been given referrals for outpatient counseling and he states he will follow up with that. Patient states he is more hopeful and has a more positive outlook. Plan: Would continue Lexapro 10 mg daily upon discharge and encourage patient to follow-up with outpatient counseling. I will sign off the case.
[2017-04-26 20:37] LABS: Glucose,Whole Blood 273 mg/dL (75-99)
[2017-04-27] MEDS: LEVOTHYROXINE 100 MCG TAB PO SCH (06:30)
[2017-04-27 07:57] LABS: Glucose,Whole Blood 110 mg/dL (75-99)
[2017-04-27] MEDS: ESCITALOPRAM 10 MG TAB PO SCH (08:04)
[2017-04-27] MEDS: NICOTINE 21MG/24HR PATCH TRANSDERM SCH (08:04)
[2017-04-27] MEDS: INSULIN ASPART 100 UNIT/ML 1 ML 10 ML VIAL SQ SCH ×2 (08:04→12:38)
[2017-04-27 08:14] VITALS: RESP 18
[2017-04-27] MEDS: INSULIN DETEMIR 100 UNIT/ML 10 ML VIAL SQ SCH (08:26)
[2017-04-27] MEDS: SYMBICORT 160-4.5 MCG INHALER INHALATION SCH (08:31)
[2017-04-27] MEDS: IPRATROPIUM-ALBUTEROL 3 ML NEB INHALATION SCH ×3 (08:31→16:13)
[2017-04-27 09:11] LABS: Basophils % (A) 0 %; Eosinophils % (A) 1 %; HCT 40.1 % (39.0-53.0); HGB 13.2 gm/dL (13.0-17.5); Lymphocytes # (A) 1.6 k/uL (1.0-4.8); Lymphocytes % (A) 18 %; MCH 32.9 pg (25.0-35.0); MCHC 32.9 g/dL (31.0-37.0); MCV 99.9 fL (80.0-100.0); Mean Platelet Volume 7.4; Monocytes # (A) 0.5 k/uL (0-1.0); Monocytes % (A) 6 %; Neutrophils # (A) 6.6 k/uL (1.3-7.7); Neutrophils % (A) 75 %; Platelet Count 192 k/uL (150-450); RBC 4.01 m/uL (4.30-5.90); RDW 13.4 % (11.5-15.5); WBC 8.8 k/uL (3.8-10.6)
--- NOTE | 2017-04-27 10:14 | P.PN ---
Subjective Progress Note Date: 04/27/17 Principal diagnosis: COPD exacerbation This is a very nice 42-year-old obese male who I saw yesterday in consultation. He presented to the emergency department on April 23 with complaints of increasing shortness of breath and chest pain. The symptoms were progressive over the last 5 or 7 days prior to admission. He had a stress test yesterday which was apparently reported as negative. He is a heavy smoker and likely has underlying COPD. The shortness of breath is mostly with exertion but also rest. He becomes very short of breath with any activity even a few feet of walking. He does have a history of underlying atrial fibrillation chronic bronchial asthma CAD COPD gastroesophageal reflux disease gout and arthritis sarcoidosis and a small esophagus. The patient is feeling okay today. Still with shortness of breath on exertion. I did mention to my note yesterday that he does need a complete outpatient pulmonary evaluation including a 6 minute walk distance and full and complete pulmonary function testing. On 04/26/2017 patient seen again in follow-up on medical surgical floor. He states he is feeling a little better today, he started to expectorate some phlegm. He has been up walking in the room, still pretty dyspneic on exertion . Lung sounds are positive for some scattered rhonchi. No wheezes or rales auscultated. He remains on room air, with O2 sat 96%. Afebrile, vital signs are stable. Today's lab work showed WBC of 11.1, hemoglobin is 13.6, electrolytes were within normal limits, BUN was 26, and creatinine is 1.91. Overall slightly better today, continues on combination of Symbicort, DuoNeb. On 04/27/2017 patient remains stable from pulmonary standpoint. Still becomes dyspneic with ambulation, but this is slightly improved. No cough, no wheezing , no chest wall pain, no sputum production. Lung sounds are diminished with a few bibasilar rales. Patient is on room air, with O2 sat at 94%. He is afebrile, vital signs are stable. Today's lab work was reviewed, WBC is 8.8, hemoglobin is stable at 13.2, BMP is pending at this time. Nephrology is following regarding the acute kidney injury and hypercalcemia. 125-hydroxy vitamin D level came back within the normal range, at 35, PTH was elevated at 106.2, which suggests the etiology of hypercalcemia is underlying primary hyperparathyroidism, and not sarcoidosis. Vital signs are stable, no acute events overnight. From pulmonary standpoint he is stable for discharge home today on albuterol and Symbicort. He will need a follow-up appointment with Dr. Ramos for a full outpatient pulmonary evaluation. Objective - Vital Signs Vital signs: Vital Signs Temp 96.9 F L 04/27/17 07:00 Pulse 76 04/27/17 08:43 Resp 18 04/27/17 07:00 BP 142/96 04/27/17 07:00 Pulse Ox 94 L 04/27/17 07:00 Intake & Output 04/26/17 04/27/17 04/27/17 18:59 06:59 18:59 Weight 190.9 kg Other: Voiding Method Urinal Urinal # Voids 2 1 # Bowel Movements 1 - Exam No acute distress, oriented 3. HEENT examination is grossly unremarkable. Mucous membranes are moist. No oral lesions. Neck supple. Full range of motion. No adenopathy thyromegaly or neck vein distention. Cardiovascular examination reveals regular rhythm rate. S1-S2 normal. No S3 or S4. No discernible murmur noted. Heart sounds are distant. Lungs reveal a few scattered rhonchi. Breath sounds are diminished. There is prolongation. No crackles. Abdomen soft bowel sounds are heard. No masses or tenderness. Extremities are intact. Chronic venous stasis changes noted. There is some lower extremity edema. Skin is without rash or lesion. Neurologic examination is brief but nonfocal. - Labs CBC & Chem 7: 04/27/17 08:17 04/26/17 08:45 Labs: Abnormal Lab Results - Last 24 Hours (Table) 04/26/17 04/26/17 04/26/17 Range/Units 08:45 11:20 16:48 RBC (4.30-5.90) m/uL BUN 26 H (9-20) mg/dL Creatinine 1.91 H (0.66-1.25) mg/dL Glucose 202 H (74-99) mg/dL POC Glucose (mg/dL) 209 H 249 H (75-99) mg/dL Calcium 10.4 H (8.4-10.2) mg/dL 04/26/17 04/27/17 04/27/17 Range/Units 20:34 07:52 08:17 RBC 4.01 L (4.30-5.90) m/uL BUN (9-20) mg/dL Creatinine (0.66-1.25) mg/dL Glucose (74-99) mg/dL POC Glucose (mg/dL) 273 H 110 H (75-99) mg/dL Calcium (8.4-10.2) mg/dL Assessment and Plan Plan: Assessment: Probable COPD. Chest pain, rule out acute coronary syndrome, thought to be less likely given the normal stress test History of ongoing and significant tobacco abuse Morbid obesity Sleep apnea syndrome History of CAD History of asthma History of hypertension History of hyperlipidemia History of gastroesophageal reflux disease. History of kidney stones. History of sarcoidosis History of gout Plan: Patient remains stable from pulmonary standpoint, no acute dyspnea, or respiratory distress. Patient is stable for discharge home on albuterol and Symbicort. Discharge planning is checking on his coverage for the inhalers. Patient will need an outpatient pulmonary evaluation with Dr. Ramos. Follow-up with Dr. Ramos in about a week. I performed a history & physical examination of the patient and discussed their management with my nurse practitioner, Dee Hardin. I reviewed the nurse practitioner's note and agree with the documented findings and plan of care. Lung sounds are positive for a few scattered rales bilaterally. The findings and the impression was discussed with the patient. I attest to the documentation by the nurse practitioner. Time with Patient: Less than 30
[2017-04-27 12:20] LABS: Glucose,Whole Blood 109 mg/dL (75-99)
--- NOTE | 2017-04-27 14:51 | CDI ---
Last Revision, February 2017 Assessment: Acute hypoxic respiratory failure secondary to acute COPD exacerbation Documentation Clarification Form Date: 04/27/2017 2:40:00 PM From: Neisha Gao CCS, CCDS Admit Date: 04/23/2017 10:08:00 PM Patient Name: Bill Bocanegra Visit Number: [id number] Discharge Date: ATTENTION: The Clinical Documentation Specialists (CDI) and [facility] Coding Staff appreciate your assistance in clarifying documentation. Please respond to the clarification below the line at the bottom and electronically sign. The CDI & [facility] [facility] [employer] Coding staff will review the response and follow-up if needed. Please note: Queries are made part of the Legal Health Record. If you have any questions, please contact the author of this message via ITS. Dr. Duong Ramos: Per the pulmonary consult: 42-year-old obese male who presents to the emergency department on April 23 with complaints of increasing shortness of breath and chest pain. Smoker (1 ppd), SOB w/walking. Uses Home O2. History/Risk Factors: Asthma, CAD, COPD, JOHN, BMI 58.7 Clinical Indicators: Vital signs: P 89, R 22 (sob), PO 100 8% venti mask, room air not charted. O2 up to 8L nc LAB: ABG: Total CO2 25^, O2 Sat 97.7^ Treatment: Albuterol INH, IV fluid rate 100, IV Heparin, IV Solumedrol. In your professional opinion, can you please clarify if these findings signify one of the following conditions? Acuity: Acute Chronic Acute on Chronic Specificity: Respiratory Failure, further specify (if known): With hypercapnia? With hypoxia? Respiratory Distress Other Diagnosis, please specify Unable to determine Please continue to document in your progress notes and discharge summary in order to capture severity of illness and risk of mortality. Include clinical findings that support your diagnosis. MTDD
--- NOTE | 2017-04-27 14:51 | PN ---
PROGRESS NOTE Patient is seen for followup for CKD and acute kidney injury secondary to hypercalcemia. We do not have labs from today. Yesterday, creatinine was 1.9, which is close to where he has been. PHYSICAL EXAMINATION: On examination today, blood pressure 142/96, heart rate 76 per minute. Patient is afebrile. Examination of the heart S1, S2. Examination of the lungs bilateral breath sounds are heard. Abdomen is soft, morbidly obese. Examination of lower extremities shows chronic skin changes. Edema 1+ bilaterally, which has been chronic. BOARD OF EDUCATION SECRETARY exam is grossly intact. LABS: Labs are not available from today. We have a CBC shows hemoglobin 13.2. ASSESSMENT: 1. Chronic kidney disease. NKF stage II secondary to nephrosclerosis. Renal function not far from baseline. Patient will follow up as outpatient. 2. Acute kidney injury secondary to hypercalcemia and some degree of hypovolemia status post IV fluids on initial admission. 3. Hypercalcemia secondary to sarcoidosis versus primary hyperparathyroidism. The PTH is high for a calcium of 11. The 125 hydroxy vitamin D level is pending, which if it is high will suggest sarcoidosis as the cause of the hypercalcemia and if it is not elevated, then it is most likely from the primary hyperparathyroidism and the steroids can be discontinued. 4. Morbid obesity. 5. History of sarcoidosis. 6. Chronic obstructive pulmonary disease. 7. Severe hypothyroidism, started on supplementation. PLAN: Followup 125 hydroxy vitamin D levels. If the 125 hydroxy vitamin D is low, we can discontinue the prednisone. The patient did receive a dose yesterday. I do not see it on his med list today. DC prednisone if 125 hydroxy vitamin D is not high. MMODL / IJN: [id number] /
[2017-04-27 16:03] VITALS: BP 126/83; TEMP 97.1
[2017-04-27 16:25] VITALS: PULSE 80
--- NOTE | 2017-04-27 16:30 | DS ---
DISCHARGE SUMMARY CHIEF COMPLAINT: Difficulty breathing. HISTORY OF PRESENT ILLNESS AND PHYSICAL EXAM: Details of this man's history and physical can be found in the initial workup. LABORATORY STUDIES: While he was in the hospital he had laboratory studies details which can be found in the laboratory section of chart. COURSE IN HOSPITAL: After admission, he was placed on bedrest, started on intravenous fluids. Placed on updrafts, and nasal O2. Pulmonary embolism also was ruled out. He was determined not to be in congestive heart failure. After several days, his breathing improved and he continued to do well. His blood sugars elevated significantly and steroids were stopped. Even then he required insulin. His blood sugars were brought under fairly good control. It was felt that he could go home on the . He will be seen in the office in several days. FINAL DIAGNOSES: 1. Shortness of breath. 2. Pickwickian syndrome. 3. Chronic obstructive pulmonary disease. 4. Morbid obesity. 5. Hypothyroidism. 6. Uncontrolled insulin-dependent diabetes mellitus. 7. Major depression. OPERATIONS: None. CONSULTATIONS: Pulmonology and Psychiatry. He is improved. MMODL / IJN: [id number] /
== END 2017-04-27 16:53 | disposition home health service (06) | DRG 190 ==
LOC: EC 20:24 → 6SEL 22:08 → 4MS4W 04-25 23:12
PROVIDERS: ADMIT Family Medicine; ATTEND Family Medicine
DX: J44.1 Chronic obstructive pulmonary disease with (acute) exacerbation (principal); J96.01 Acute respiratory failure with hypoxia; E11.22 Type 2 diabetes mellitus with diabetic chronic kidney disease; N17.9 Acute kidney failure, unspecified; M62.82 Rhabdomyolysis; Z68.43 Body mass index [BMI] 50.0-59.9, adult; N18.3 Chronic kidney disease, stage 3 (moderate); E66.2 Morbid (severe) obesity with alveolar hypoventilation; E86.1 Hypovolemia; I48.2 Chronic atrial fibrillation; R45.851 Suicidal ideations; D86.9 Sarcoidosis, unspecified; K21.9 Gastro-esophageal reflux disease without esophagitis; M10.9 Gout, unspecified; F32.9 Major depressive disorder, single episode, unspecified; E78.5 Hyperlipidemia, unspecified; E03.9 Hypothyroidism, unspecified; E21.0 Primary hyperparathyroidism; E55.9 Vitamin D deficiency, unspecified; F17.210 Nicotine dependence, cigarettes, uncomplicated; I25.10 Atherosclerotic heart disease of native coronary artery without angina pectoris; F90.9 Attention-deficit hyperactivity disorder, unspecified type; F41.0 Panic disorder [episodic paroxysmal anxiety]; I12.9 Hypertensive chronic kidney disease with stage 1 through stage 4 chronic kidney disease, or unspecified chronic kidney disease; M19.91 Primary osteoarthritis, unspecified site; G47.30 Sleep apnea, unspecified; Z79.4 Long term (current) use of insulin; T39.395A Adverse effect of other nonsteroidal anti-inflammatory drugs [NSAID], initial encounter; Z79.899 Other long term (current) drug therapy; Z87.891 Personal history of nicotine dependence; Z96.651 Presence of right artificial knee joint; Z87.442 Personal history of urinary calculi; Z88.1 Allergy status to other antibiotic agents; Z88.5 Allergy status to narcotic agent; Z88.8 Allergy status to other drugs, medicaments and biological substances; Z82.5 Family history of asthma and other chronic lower respiratory diseases
CPT/HCPCS: 36415; 36600; 71046; 78582; 80048; 80053; 81001; 82306; 82550; 82553; 82652; 82805; 83036; 83880; 83970; 84439; 84443; 84484; 85025; 85379; 85610; 85730; 93005; 93017; 93306; 93350; 94640; 94760; 96365; 96366; 96375; 96376; 99285

== ENCOUNTER 2018-02-08 13:54 | Inpatient (IN) | payer MEDICARE, OTHER ==
--- NOTE | 2018-02-08 14:15 | ED ---
General Adult HPI - General Source: patient, EMS Mode of arrival: EMS Limitations: no limitations <Jonathon Whitt - Last Filed: 02/08/18 17:44> <Ty De La Rosa - Last Filed: 02/08/18 20:53> - General Stated complaint: SOB - History of Present Illness Initial comments: Dictation was produced using [employer] dictation software. please excuse any grammatical, word or spelling errors. Chief Complaint: 42-year-old male presents with total body pain, extremity swelling and hematuria. History of Present Illness: Patient is a 42-year-old male presents with the affirmation complaints. Patient states he's been having these symptoms since . Patient has multiple comorbidities including morbid obesity, hypothyroidism, diabetes, pickwickian syndrome. Patient states that he has had swollen like this before however not to this extent. Patient states he's been noticing blood in his urine. States that today he came in because his pain is unbearable. He states he has pain all over his body. Patient has been evaluated by nephrology in the past was found have chronic kidney disease, sarcoidosis The ROS documented in this emergency department record has been reviewed and confirmed by me. Those systems with pertinent positive or negative responses have been documented in the HPI. All other systems are other negative and/or noncontributory. (Jonathon Whitt) - Related Data Home Medications Medication Instructions Recorded Confirmed No Known Home Medications 02/08/18 02/08/18 Allergies Allergy/AdvReac Type Severity Reaction Status Date / Time vancomycin Allergy Rash/Hives Verified 02/08/18 14:27 Review of Systems ROS Other: All systems not noted in ROS Statement are negative. <Jonathon Whitt - Last Filed: 02/08/18 17:44> ROS Other: All systems not noted in ROS Statement are negative. <Ty De La Rosa - Last Filed: 02/08/18 20:53> ROS Statement: Those systems with pertinent positive or pertinent negative responses have been documented in the HPI. Past Medical History Past Medical History: Atrial Fibrillation, Asthma, Coronary Artery Disease (CAD) , GERD/Reflux, Hyperlipidemia, Hypertension, Sleep Apnea/CPAP/BIPAP, Thyroid Disorder Additional Past Medical History / Comment(s): sarcoidosis, gouty arthritis, "small esophagus" occ diff swallowing, arthritis, uses CPAP at home, trouble sleeping. History of Any Multi-Drug Resistant Organisms: None Reported Past Surgical History: Cardiac Ablation, Joint Replacement, Orthopedic Surgery Additional Past Surgical History / Comment(s): right knee replacement, bilat ankle surgery, R wrist surgery r/t gout/arthritis lymph node biopsy- sarcoidosis Past Anesthesia/Blood Transfusion Reactions: No Reported Reaction Additional Past Anesthesia/Blood Transfusion Reaction / Comment(s): pt states he has never had a blood transfusion Past Psychological History: ADD/ADHD, Anxiety, Depression Smoking Status: Current every day smoker Past Alcohol Use History: None Reported Past Drug Use History: Marijuana - Past Family History Father Family Medical History: COPD Additional Family Medical History / Comment(s): emphysema Mother Family Medical History: Diabetes Mellitus, Rheumatoid Arthritis (RA) Additional Family Medical History / Comment(s): back surgery, joint replacements <Jonathon Whitt - Last Filed: 02/08/18 17:44> General Exam Limitations: no limitations <Jonathon Whitt - Last Filed: 02/08/18 17:44> General appearance: alert, in no apparent distress Head exam: Present: atraumatic, normocephalic, normal inspection Eye exam: Present: normal appearance, PERRL, EOMI. Absent: scleral icterus, conjunctival injection, periorbital swelling ENT exam: Present: normal exam, mucous membranes moist Neck exam: Present: normal inspection. Absent: tenderness, meningismus, lymphadenopathy Respiratory exam: Present: normal lung sounds bilaterally. Absent: respiratory distress, wheezes, rales, rhonchi, stridor Cardiovascular Exam: Present: regular rate, normal rhythm, normal heart sounds. Absent: systolic murmur, diastolic murmur, rubs, gallop, clicks GI/Abdominal exam: Present: soft, normal bowel sounds. Absent: distended, tenderness, guarding, rebound, rigid Extremities exam: Present: normal inspection, full ROM, normal capillary refill. Absent: tenderness, pedal edema, joint swelling, calf tenderness Back exam: Present: normal inspection Neurological exam: Present: alert, oriented X3, CN II-XII intact Psychiatric exam: Present: normal affect, normal mood Skin exam: Present: warm, dry, intact, normal color. Absent: rash <Ty De La Rosa - Last Filed: 02/08/18 20:53> - General Exam Comments Initial Comments: PHYSICAL EXAM: General Impression: Alert and oriented x3, not in acute distress, swelling of the periorbital tissues, hands and legs, morbidly obese HEENT: Normocephalic atraumatic, extra-ocular movements intact, pupils equal and reactive to light bilaterally, mucous membranes moist. Cardiovascular: Heart regular rate and rhythm, S1&S2 audible, no murmurs, rubs or gallops Chest: Lungs clear to auscultation bilaterally, no rhonchi, no wheeze, no rales Abdomen: Bowel sounds present, abdomen soft, non-tender, non-distended, no organomegaly Musculoskeletal: Pulses present and equal in all extremities, no peripheral edema Motor: Power 5/5 bilaterally, no focal deficits noted Neurological: CN II-XII grossly intact, no focal motor or sensory deficits noted Skin: Intact with no visualized rashes (Jonathon Whitt) Course <Jonathon Whitt - Last Filed: 02/08/18 17:44> <Ty De La Rosa - Last Filed: 02/08/18 20:53> Vital Signs 02/08/18 02/08/18 02/08/18 13:59 15:31 16:35 Temperature 97.6 F 97.4 F L Pulse Rate 84 80 81 Respiratory 18 16 18 Rate Blood Pressure 126/89 105/63 112/64 O2 Sat by Pulse 95 96 96 Oximetry 02/08/18 02/08/18 18:34 20:33 Temperature 97.5 F L Pulse Rate 80 79 Respiratory 18 18 Rate Blood Pressure 97/68 102/78 O2 Sat by Pulse 96 96 Oximetry - Reevaluation(s) Reevaluation #1: 02/08/18 20:51 Patient received in sign out, patient had fully placed in a retention, patient' s mental status mildly deteriorating, significant urinary tract infection, patient to be admitted for control continued IV antibiotics and IV hydration. 02/08/18 20:52 Dr. Galaviz did come and evaluate patient in the emergency department, He Did place Clarke. (Ty De La Rosa) Medical Decision Making - Lab Data Result diagrams: 02/08/18 14:58 02/08/18 14:58 <Jonathon Whitt - Last Filed: 02/08/18 17:44> - Lab Data Result diagrams: 02/08/18 14:58 02/08/18 14:58 - Radiology Data Radiology results: report reviewed (Chest x-rays negative for acute disease), image reviewed <Ty De La Rosa - Last Filed: 02/08/18 20:53> - Medical Decision Making ED course: 42-year-old male with multiple comorbidities presents with total body pain, hematuria. Vital signs upon arrival are within acceptable limits. Patient is having difficulty voiding. Bladder scan was performed with greater than 1000 mL of urine. Attempt was made to place a Clarke catheter. With no success. Urologist consulted for Clarke catheter placement. Patient is sent out to oncoming physician for follow-up of her knowledge recommendations. EKG interpretation: Ventricular rate 82, sinus rhythm, MS interval 140, QS 100, QTC 476. No MS prolongation, no QTC prolongation, no ST or T-wave changes noted. Overall, this EKG is unremarkable (Jonathon Whitt) 40 female the ER for evaluation, chronic illness, patient does have positive urine check infection with urinary retention, will admit for IV antibiotics and further management (Ty De La Rosa) - Lab Data Lab Results 02/08/18 02/08/18 02/08/18 Range/Units 14:58 14:58 14:58 WBC 6.2 (3.8-10.6) k/uL RBC 4.06 L (4.30-5.90) m/uL Hgb 12.7 L (13.0-17.5) gm/dL Hct 39.5 (39.0-53.0) % MCV 97.4 (80.0-100.0) fL MCH 31.4 (25.0-35.0) pg MCHC 32.2 (31.0-37.0) g/dL RDW 14.6 (11.5-15.5) % Plt Count 174 (150-450) k/uL Neutrophils % 69 % Lymphocytes % 17 % Monocytes % 8 % Eosinophils % 4 % Basophils % 0 % Neutrophils # 4.2 (1.3-7.7) k/uL Lymphocytes # 1.1 (1.0-4.8) k/uL Monocytes # 0.5 (0-1.0) k/uL Eosinophils # 0.2 (0-0.7) k/uL Basophils # 0.0 (0-0.2) k/uL PT (9.0-12.0) sec INR (<1.2) Sodium 139 (137-145) mmol/L Potassium 3.9 (3.5-5.1) mmol/L Chloride 99 (98-107) mmol/L Carbon Dioxide 29 (22-30) mmol/L Anion Gap 11 mmol/L BUN 15 (9-20) mg/dL Creatinine 1.90 H (0.66-1.25) mg/dL Est GFR (CKD-EPI)AfAm 49 (>60 ml/min/1.73 sqM) Est GFR (CKD-EPI)NonAf 43 (>60 ml/min/1.73 sqM) Glucose 124 H (74-99) mg/dL Calcium 9.3 (8.4-10.2) mg/dL Magnesium 2.4 H (1.6-2.3) mg/dL NT-Pro-B Natriuret Pep 103 pg/mL Urine Color Urine Appearance (Clear) Urine pH (5.0-8.0) Ur Specific [place] (1.001-1.035) Urine Protein (Negative) Urine Glucose (UA) (Negative) Urine Ketones (Negative) Urine Blood (Negative) Urine Nitrite (Negative) Urine Bilirubin (Negative) Urine Urobilinogen (<2.0) mg/dL Ur Leukocyte Esterase (Negative) Urine RBC (0-5) /hpf Urine WBC (0-5) /hpf Ur Squamous Epith Cells (0-4) /hpf Urine Bacteria (None) /hpf Urine Mucus (None) /hpf 02/08/18 02/08/18 Range/Units 14:58 18:37 WBC (3.8-10.6) k/uL RBC (4.30-5.90) m/uL Hgb (13.0-17.5) gm/dL Hct (39.0-53.0) % MCV (80.0-100.0) fL MCH (25.0-35.0) pg MCHC (31.0-37.0) g/dL RDW (11.5-15.5) % Plt Count (150-450) k/uL Neutrophils % % Lymphocytes % % Monocytes % % Eosinophils % % Basophils % % Neutrophils # (1.3-7.7) k/uL Lymphocytes # (1.0-4.8) k/uL Monocytes # (0-1.0) k/uL Eosinophils # (0-0.7) k/uL Basophils # (0-0.2) k/uL PT 10.0 (9.0-12.0) sec INR 1.0 (<1.2) Sodium (137-145) mmol/L Potassium (3.5-5.1) mmol/L Chloride (98-107) mmol/L Carbon Dioxide (22-30) mmol/L Anion Gap mmol/L BUN (9-20) mg/dL Creatinine (0.66-1.25) mg/dL Est GFR (CKD-EPI)AfAm (>60 ml/min/1.73 sqM) Est GFR (CKD-EPI)NonAf (>60 ml/min/1.73 sqM) Glucose (74-99) mg/dL Calcium (8.4-10.2) mg/dL Magnesium (1.6-2.3) mg/dL NT-Pro-B Natriuret Pep pg/mL Urine Color Yellow Urine Appearance Cloudy (Clear) Urine pH 7.0 (5.0-8.0) Ur Specific [place] 1.015 (1.001-1.035) Urine Protein 2+ H (Negative) Urine Glucose (UA) Negative (Negative) Urine Ketones Negative (Negative) Urine Blood Moderate H (Negative) Urine Nitrite Positive (Negative) Urine Bilirubin Negative (Negative) Urine Urobilinogen 4.0 (<2.0) mg/dL Ur Leukocyte Esterase Large H (Negative) Urine RBC 6 H (0-5) /hpf Urine WBC >182 H (0-5) /hpf Ur Squamous Epith Cells <1 (0-4) /hpf Urine Bacteria Rare H (None) /hpf Urine Mucus Rare H (None) /hpf Disposition <Jonathon Whitt - Last Filed: 02/08/18 17:44> Is patient prescribed a controlled substance at d/c from ED?: No <Ty De La Rosa - Last Filed: 02/08/18 20:53> Clinical Impression: UTI (urinary tract infection), Urinary retention, Dyspnea, Acute renal failure (ARF), Urethral stricture unspecified, Anasarca Disposition: ADMITTED IP TO THIS HOSP Condition: Fair
--- NOTE | 2018-02-08 15:19 | XR ---
EXAMINATION TYPE: XR chest 2V DATE OF EXAM: 02/08/2018 COMPARISON: Chest x-ray April 23, 2017. HISTORY: History of sarcoidosis and asthma presents with shortness of breath and chest pain. TECHNIQUE: Frontal and lateral views of the chest are obtained. FINDINGS: Lateral view is essentially nondiagnostic due to patient's large body habitus. There is no focal air space opacity, pleural effusion, or pneumothorax seen. The cardiac silhouette size is stab le and upper limits of normal. The osseous structures are intact. IMPRESSION: No acute cardiopulmonary process. No significant change from prior.
[2018-02-08] MEDS ORDERED: MORPHINE SULFATE 4 MG/ML SYRINGE IVP STA (15:21)
[2018-02-08 15:37] LABS: Calcium 9.3 mg/dL (8.4-10.2); Magnesium 2.4 mg/dL (1.6-2.3); Potassium 3.9 mmol/L (3.5-5.1)
[2018-02-08 15:49] LABS: Basophils % (A) 0 %; Eosinophils # (A) 0.2 k/uL (0-0.7); Eosinophils % (A) 4 %; HCT 39.5 % (39.0-53.0); HGB 12.7 gm/dL (13.0-17.5); Lymphocytes # (A) 1.1 k/uL (1.0-4.8); Lymphocytes % (A) 17 %; MCH 31.4 pg (25.0-35.0); MCHC 32.2 g/dL (31.0-37.0); MCV 97.4 fL (80.0-100.0); Mean Platelet Volume 6.7; Monocytes # (A) 0.5 k/uL (0-1.0); Monocytes % (A) 8 %; Neutrophils # (A) 4.2 k/uL (1.3-7.7); Neutrophils % (A) 69 %; Platelet Count 174 k/uL (150-450); RBC 4.06 m/uL (4.30-5.90); RDW 14.6 % (11.5-15.5); WBC 6.2 k/uL (3.8-10.6)
[2018-02-08] MEDS ORDERED: LIDOCAINE URO-JET JELLY 2% 5 ML KIT URETHRAL ONE (17:18)
--- NOTE | 2018-02-08 18:32 | P.GSCN ---
History of Present Illness Consult date: 02/08/18 Reason for Consult: Urinary retention Requesting physician: Jonathon Whitt History of present illness: The patient is a 42-year-old male who presents with diffuse pain and swelling of his extremities. He is an extremely vague historian, but states that he has noted hematuria "for a while". He states that attempts to place a catheter 2 years ago were unsuccessful. Bladder scan shows a bladder volume of over 1 L, and attempts by the nursing staff to place a Clarke catheter were unsuccessful. I'm consulted for this reason. Past medical history is significant for morbid obesity, hypothyroidism, diabetes , pickwickian syndrome, chronic kidney disease, and sarcoidosis. Review of Systems - Constitutional Denies chills, Denies fever - Cardiovascular Reports leg edema - Gastrointestinal Denies nausea, Denies vomiting - Genitourinary Reports hematuria - Musculoskeletal Reports myalgias Past Medical History Past Medical History: Atrial Fibrillation, Asthma, Coronary Artery Disease (CAD) , GERD/Reflux, Hyperlipidemia, Hypertension, Sleep Apnea/CPAP/BIPAP, Thyroid Disorder Additional Past Medical History / Comment(s): sarcoidosis, gouty arthritis, "small esophagus" occ diff swallowing, arthritis, uses CPAP at home, trouble sleeping. History of Any Multi-Drug Resistant Organisms: None Reported Past Surgical History: Cardiac Ablation, Joint Replacement, Orthopedic Surgery Additional Past Surgical History / Comment(s): right knee replacement, bilat ankle surgery, R wrist surgery r/t gout/arthritis lymph node biopsy- sarcoidosis Past Anesthesia/Blood Transfusion Reactions: No Reported Reaction Additional Past Anesthesia/Blood Transfusion Reaction / Comm: pt states he has never had a blood transfusion Past Psychological History: ADD/ADHD, Anxiety, Depression Smoking Status: Current every day smoker Past Alcohol Use History: None Reported Past Drug Use History: Marijuana - Past Family History Father Family Medical History: COPD Additional Family Medical History / Comment(s): emphysema Mother Family Medical History: Diabetes Mellitus, Rheumatoid Arthritis (RA) Additional Family Medical History / Comment(s): back surgery, joint replacements Medications and Allergies Home Medications Medication Instructions Recorded Confirmed Type No Known Home Medications 02/08/18 02/08/18 History Allergies Allergy/AdvReac Type Severity Reaction Status Date / Time vancomycin Allergy Rash/Hives Verified 02/08/18 14:27 Surgical - Exam Vital Signs Temp Pulse Resp BP Pulse Ox 97.6 F 84 18 126/89 95 02/08/18 13:59 02/08/18 13:59 02/08/18 13:59 02/08/18 13:59 02/08/18 13:59 - General well developed, well nourished, moderate pain, obese - Respiratory normal respiratory effort - Abdomen Abdomen: soft, non tender, no guarding, no rigid, no rebound - Genitourinary normal penis with no external lesions, testicles non-tender - Psychiatric oriented to time, oriented to person, oriented to place, speech is normal, memory intact Results - Labs 02/08/18 14:58 02/08/18 14:58 Abnormal Lab Results - Last 24 Hours (Table) 02/08/18 02/08/18 Range/Units 14:58 14:58 RBC 4.06 L (4.30-5.90) m/uL Hgb 12.7 L (13.0-17.5) gm/dL Creatinine 1.90 H (0.66-1.25) mg/dL Glucose 124 H (74-99) mg/dL Magnesium 2.4 H (1.6-2.3) mg/dL Diabetes panel 02/08/18 Range/Units 14:58 Sodium 139 (137-145) mmol/L Potassium 3.9 (3.5-5.1) mmol/L Chloride 99 (98-107) mmol/L Carbon Dioxide 29 (22-30) mmol/L BUN 15 (9-20) mg/dL Creatinine 1.90 H (0.66-1.25) mg/dL Glucose 124 H (74-99) mg/dL Calcium 9.3 (8.4-10.2) mg/dL Calcium panel 02/08/18 Range/Units 14:58 Calcium 9.3 (8.4-10.2) mg/dL Pituitary panel 02/08/18 Range/Units 14:58 Sodium 139 (137-145) mmol/L Potassium 3.9 (3.5-5.1) mmol/L Chloride 99 (98-107) mmol/L Carbon Dioxide 29 (22-30) mmol/L BUN 15 (9-20) mg/dL Creatinine 1.90 H (0.66-1.25) mg/dL Glucose 124 H (74-99) mg/dL Calcium 9.3 (8.4-10.2) mg/dL Adrenal panel 02/08/18 Range/Units 14:58 Sodium 139 (137-145) mmol/L Potassium 3.9 (3.5-5.1) mmol/L Chloride 99 (98-107) mmol/L Carbon Dioxide 29 (22-30) mmol/L BUN 15 (9-20) mg/dL Creatinine 1.90 H (0.66-1.25) mg/dL Glucose 124 H (74-99) mg/dL Calcium 9.3 (8.4-10.2) mg/dL Assessment and Plan (1) Urinary retention Current Visit: Yes Status: Acute Code(s): R33.9 - RETENTION OF URINE, UNSPECIFIED SNOMED Code(s): 369433004 (2) Urethral stricture unspecified Current Visit: Yes Status: Acute Code(s): QZS7680 - SNOMED Code(s): 61807670 Plan: The penis was prepped and draped sterilely. 2% lidocaine gel was administered intraurethrally. A 16-[place]ian Clarke catheter would not pass through the fossa navicularis. However, it was possible to advance a 12-E[place]ian coud-tip Clarke catheter through the fossa navicularis stricture and into the bladder. Concentrated urine was drained, with no evidence of hematuria. It would be my suggestion that the catheter remain in place for several days, at which time it may be removed for a voiding trial. The patient was given my card and instructed to follow up for Clarke catheter removal and further evaluation of his hematuria. Time with Patient: Greater than 30
[2018-02-08 18:46] LABS: Appearance,Urine Cloudy (Clear); Bacteria,Urine Rare /hpf; Bilirubin,Urine Negative (Negative); Blood,Urine Moderate (Negative); Color,Urine Yellow; Glucose,Urine (UA) Negative (Negative); Ketones,Urine Negative (Negative); Leukocyte Esterase,Urine Large (Negative); Mucus,Urine Rare /hpf; Nitrite,Urine Positive (Negative); Protein,Urine 2+ (Negative); RBC,Urine 6 /hpf (0-5); Specific Gravity,Urine 1.015 (1.001-1.035); Squamous Epithelial Cell,Urine <1 /hpf (0-4); WBC,Urine >182 /hpf (0-5)
[2018-02-08] MEDS ORDERED: HYDROmorphone 1 MG/ML 1 ML SYRINGE IVP STA (21:04)
[2018-02-09] MEDS: ENOXAPARIN 40 MG/0.4 ML SYRINGE SQ SCH (09:36)
[2018-02-09] MEDS: HYDROcodone/APAP 5-325MG 1 EACH TAB PO PRN ×2 (09:39→17:12)
[2018-02-09 11:37] LABS: Uric Acid 11.1 mg/dL (3.5-8.5)
[2018-02-09 12:55] LABS: T4, Free (Free Thyroxine) <0.07 ng/dL (0.78-2.19)
--- NOTE | 2018-02-09 18:02 | HP ---
HISTORY AND PHYSICAL HISTORY OF PRESENT ILLNESS: This is another of many admissions for this 42-year-old obese white male who is noncompliant and has not been in the office since last year. He has a history of obesity, atrial fibrillation, CHF, tophaceous gout, hypothyroidism, hypertension, sarcoidosis, sleep apnea and others. He came into the emergency room because of weakness, shortness of breath, and he was found to have a urinary tract infection. He has not been on any medications and he appears to be quite hypothyroid. Review of systems is difficult to obtain because his speech is slow and at times not intelligible. He is living alone again and does not take care of himself. He continues to smoke. PHYSICAL EXAMINATION: Blood pressure is 110/90 with a pulse of 63, respirations of 35. He is afebrile. In general he appeared to be pale, weak, dehydrated and somewhat lethargic. Head, ears, eyes, nose, mouth and throat were unremarkable. Neck veins could not be assessed. He had excessively dry and pale skin over all of his body. Chest demonstrated decreased breath sounds at the bases with rales at the bases. Cardiac exam demonstrated what sounded like sinus rhythm with no murmurs or extra sounds. The abdomen was protuberant, soft and without masses. Extremities demonstrated changes in the hands of his gout. There was mild lower extremity edema with hypertrophic skin on the lower legs. Neurologically he was intact, but he seemed fairly lethargic and speech was somewhat garbled. He is admitted to the hospital with the following diagnoses: 1. Profound hypothyroidism. 2. Dehydration. 3. Urinary tract infection. 4. Obesity. 5. Gout. 6. History of atrial fibrillation. 7. Gastroesophageal reflux disease. PLAN: 1. Bed rest. 2. IV fluids. 3. Treat urinary tract infection. 4. Free T4 and TSH. 5. Uric acid. 6. Treat entities as reports come back. MMODL / IJN: [id number] /
--- NOTE | 2018-02-09 18:56 | PN ---
PROGRESS NOTE CHIEF COMPLAINT: Anasarca, hypothyroidism, urinary tract infection, dehydration. HISTORY OF PRESENT ILLNESS: This patient remains extremely weak and his speech is somewhat slurred. Laboratory studies are pending. PHYSICAL EXAMINATION: Breath sounds are heard bilaterally, but they are diminished. Cardiac exam is normal. Abdomen is soft, nontender. IMPRESSION: 1. Urinary tract infection. 2. Hypothyroidism. 3. Gout. 4. Obesity. 5. Chronic obstructive pulmonary disease. PLAN: Continue on current program and await further laboratory results. MMODL / IJN: [id number] /
[2018-02-10] MEDS: ENOXAPARIN 40 MG/0.4 ML SYRINGE SQ SCH (07:11)
[2018-02-10] MEDS: HYDROcodone/APAP 5-325MG 1 EACH TAB PO PRN ×3 (07:11→23:07)
[2018-02-10 13:00] LABS: Basophils % (A) 0 %; Eosinophils # (A) 0.3 k/uL (0-0.7); Eosinophils % (A) 5 %; HCT 39.6 % (39.0-53.0); HGB 12.8 gm/dL (13.0-17.5); Lymphocytes # (A) 1.1 k/uL (1.0-4.8); Lymphocytes % (A) 18 %; MCH 31.6 pg (25.0-35.0); MCHC 32.2 g/dL (31.0-37.0); MCV 98.2 fL (80.0-100.0); Mean Platelet Volume 7.5; Monocytes # (A) 0.4 k/uL (0-1.0); Monocytes % (A) 8 %; Neutrophils # (A) 3.9 k/uL (1.3-7.7); Neutrophils % (A) 67 %; Platelet Count 191 k/uL (150-450); RBC 4.03 m/uL (4.30-5.90); RDW 14.6 % (11.5-15.5); WBC 5.8 k/uL (3.8-10.6)
[2018-02-10 13:28] LABS: Albumin 3.7 g/dL (3.5-5.0); Potassium 4.6 mmol/L (3.5-5.1); Total Bilirubin 0.6 mg/dL (0.2-1.3); Total Protein 7.3 g/dL (6.3-8.2)
--- NOTE | 2018-02-10 13:30 | XR ---
EXAMINATION TYPE: XR chest 2V DATE OF EXAM: 02/10/2018 COMPARISON: 02/08/2018 HISTORY: Ingestive heart failure and pneumonitis. Follow-up exam. TECHNIQUE: Frontal and lateral views of the chest are obtained. FINDINGS: Again the exam is suboptimal due to patient body habitus. Although the frontal view demons trates only minimal pulmonary vascular congestion this appears exaggerated with retrocardiac airspace on the lateral possibly due to decreased inspiratory effort on the lateral view. Heart is enlarged. Remainder the exam is suboptimal. IMPRESSION: Mild pulmonary vascular congestion and retrocardiac airspace disease likely representing prominent vasculature given decreased inspiratory effort.
--- NOTE | 2018-02-10 13:54 | PN ---
PROGRESS NOTE CHIEF COMPLAINT: Urinary tract infection, retention and obesity. HISTORY OF PRESENT ILLNESS: This gentleman's uric acid has come back high, which is normal for him. His TSH is also quite high with a low T4. He is not feeling much better. PHYSICAL EXAM: Chest is clear and the cardiac exam is unremarkable. The abdomen is soft and protuberant. Skin is extremely dry. He has a typical hypothyroid or myxedema appearance. IMPRESSION: 1. Obesity. 2. Urinary tract infection. 3. Retention. 4. Hypothyroidism. 5. Gout. PLAN: Start Zyloprim 300 mg once a day and colchicine 0.2 t.i.d. along with levothyroxine 0.1 mg. MMODL / IJN: [id number] /
[2018-02-10] MEDS: COLCHICINE 0.6 MG EACH PO SCH (19:52)
[2018-02-10 21:00] LABS: Hemoglobin A1C 7.8 % (4.0-6.0)
[2018-02-11] MEDS: LEVOTHYROXINE 100 MCG TAB PO SCH (06:23)
[2018-02-11 06:58] LABS: Glucose,Whole Blood 120 mg/dL (75-99)
[2018-02-11] MEDS: ALLOPURINOL 300 MG TAB PO SCH (07:48)
[2018-02-11] MEDS: ENOXAPARIN 40 MG/0.4 ML SYRINGE SQ SCH (07:49)
[2018-02-11] MEDS: COLCHICINE 0.6 MG EACH PO SCH ×2 (07:49→21:25)
[2018-02-11 11:22] LABS: Glucose,Whole Blood 156 mg/dL (75-99)
[2018-02-11] MEDS: HYDROcodone/APAP 5-325MG 1 EACH TAB PO PRN ×2 (11:24→21:34)
[2018-02-11 17:14] LABS: Glucose,Whole Blood 166 mg/dL (75-99)
[2018-02-11 20:31] LABS: Glucose,Whole Blood 163 mg/dL (75-99)
[2018-02-12] MEDS: HYDROcodone/APAP 5-325MG 1 EACH TAB PO PRN ×2 (03:46→20:13)
[2018-02-12] MEDS: LEVOTHYROXINE 100 MCG TAB PO SCH (05:46)
[2018-02-12 06:58] LABS: Glucose,Whole Blood 142 mg/dL (75-99)
[2018-02-12] MEDS: ENOXAPARIN 40 MG/0.4 ML SYRINGE SQ SCH (08:16)
[2018-02-12] MEDS: COLCHICINE 0.6 MG EACH PO SCH ×2 (08:17→20:12)
[2018-02-12] MEDS: ALLOPURINOL 300 MG TAB PO SCH (08:17)
[2018-02-12 11:54] LABS: Glucose,Whole Blood 237 mg/dL (75-99)
--- NOTE | 2018-02-12 13:29 | CDI ---
Last Revision, February 2017 Documentation Clarification Form Date: 02/12/18 From: Alexandra Nieto RN Admit Date: 02/08/2018 7:03:00 PM Patient Name: Bill Bocanegra Visit Number: [id number] ATTENTION: The Clinical Documentation Specialists (CDI) and [facility] Coding Staff appreciate your assistance in clarifying documentation. Please respond to the clarification below the line at the bottom and electronically sign. The CDI & [facility] Coding staff will review the response and follow-up if needed. Please note: Queries are made part of the Legal Health Record. If you have any questions, please contact the author of this message via ITS. Dr. VILLA, Jeffy Krishnamurthy MD, Can you please render your opinion on the following documentation? Patient admitted with UTI. History/Risk Factors: A FIB, CHF, HTN, hypothyroidism, smoker, COPD, DM Clinical indicators: Abnormal blood glucose: 120, 156, 166, 163, 142, 237 Treatment: Monitoring Glucose No insulin ordered Clinical significance of diagnostic testing and treatment CANNOT be assumed or coded without physician documentation of significance if any. Please clarify what abnormal laboratory signifies: Hyperglycemia ruled in Hyperglycemia ruled out Disease process, please specify Unable to determine Other, please specify MTDD
[2018-02-12 15:13] LABS: Albumin 3.7 g/dL (3.5-5.0); Potassium 4.2 mmol/L (3.5-5.1); Total Bilirubin 0.4 mg/dL (0.2-1.3); Total Protein 7.3 g/dL (6.3-8.2)
[2018-02-12] MEDS: TAMSULOSIN 0.4 MG CAP.ER.24H PO SCH (17:01)
[2018-02-12] MEDS: GLIMEPIRIDE 2 MG TAB PO SCH (17:01)
[2018-02-12 17:41] LABS: Glucose,Whole Blood 144 mg/dL (75-99)
--- NOTE | 2018-02-12 19:53 | PN ---
PROGRESS NOTE DATE OF SERVICE: 02/11/2018 CHIEF COMPLAINT: 1. General debility and failure to thrive. 2. Morbid obesity. 3. Anasarca. 4. Tophaceous gout. 5. Hypothyroidism with myxedema. HISTORY OF PRESENT ILLNESS: This gentleman has continued to improve slowly, but he still has slurred speech. He is complaining of quite a bit of urethritis where he has the catheter placed and will look at starting Flomax and stopping the catheter in a day or 2. PHYSICAL EXAM: Skin still is very dry and pale. Chest is clear. Cardiac exam is normal and the abdomen is protuberant. IMPRESSION: 1. Failure to thrive. 2. General debility. 3. Tophaceous gout. 4. Profound hypothyroidism. PLAN: 1. Start Flomax 0.4 once a day and remove the catheter in several days. 2. Plan on increasing thyroid dose. 3. Work on discharge planning. AYANA / SON: [id number] /
[2018-02-12 19:57] LABS: Glucose,Whole Blood 240 mg/dL (75-99)
--- NOTE | 2018-02-12 19:58 | PN ---
PROGRESS NOTE DATE OF SERVICE: 02/12/2018. CHIEF COMPLAINT: Anasarca, urinary tract infection, myxedema and gout. HISTORY OF PRESENT ILLNESS: This gentleman is not doing much better. We will increase his thyroid. He has had no fever, chills, etc., however. PHYSICAL EXAM: He appears to be slightly less hypothyroid. Skin is still very dry. Chest is clear. The cardiac exam is normal. Abdomen is soft, nontender. IMPRESSION: 1. Hypothyroidism with anasarca. 2. Tophaceous gout. 3. Obesity. 4. Hypertension. 5. Chronic obstructive pulmonary disease. PLAN: Continue with current program and start Flomax in anticipation of trying to remove his catheter tomorrow. We will also increase Synthroid from 0.1 to 0.2 mg each day. MMODL / IJN: [id number] /
[2018-02-13] MEDS: HYDROcodone/APAP 5-325MG 1 EACH TAB PO PRN ×2 (04:12→13:49)
[2018-02-13] MEDS: LEVOTHYROXINE 100 MCG TAB PO SCH (06:01)
[2018-02-13 06:58] LABS: Glucose,Whole Blood 152 mg/dL (75-99)
[2018-02-13] MEDS: GLIMEPIRIDE 2 MG TAB PO SCH (09:01)
[2018-02-13] MEDS: COLCHICINE 0.6 MG EACH PO SCH ×2 (09:01→20:51)
[2018-02-13] MEDS: ALLOPURINOL 300 MG TAB PO SCH (09:01)
[2018-02-13] MEDS: ENOXAPARIN 40 MG/0.4 ML SYRINGE SQ SCH (09:01)
[2018-02-13 11:50] LABS: Glucose,Whole Blood 97 mg/dL (75-99)
[2018-02-13 16:40] LABS: Glucose,Whole Blood 181 mg/dL (75-99)
--- NOTE | 2018-02-13 17:00 | PN ---
PROGRESS NOTE CHIEF COMPLAINT: Hypothyroidism, gout, and urinary tract infection. HISTORY OF PRESENT ILLNESS: This gentleman is doing fairly well but still complaining a lot of the Clarke catheter. PHYSICAL EXAM: His eyes are a little bit more widely opened. He seems to be clinically improved. Less hypothyroid. Chest is clear. Cardiac exam is normal. Abdomen is soft, nontender. IMPRESSION: 1. Urinary tract infection. 2. Urinary retention. 3. Myxedema. PLAN: Remove Clarke and possibly home tomorrow. MMODL / IJN: [id number] /
[2018-02-13] MEDS: TAMSULOSIN 0.4 MG CAP.ER.24H PO SCH (17:34)
[2018-02-13 20:22] LABS: Glucose,Whole Blood 101 mg/dL (75-99)
[2018-02-14] MEDS: LEVOTHYROXINE 100 MCG TAB PO SCH (04:57)
[2018-02-14 06:55] LABS: Glucose,Whole Blood 161 mg/dL (75-99)
[2018-02-14] MEDS: ENOXAPARIN 40 MG/0.4 ML SYRINGE SQ SCH (07:36)
[2018-02-14] MEDS: COLCHICINE 0.6 MG EACH PO SCH ×2 (07:36→20:44)
[2018-02-14] MEDS: TAMSULOSIN 0.4 MG CAP.ER.24H PO SCH (07:36)
[2018-02-14] MEDS: GLIMEPIRIDE 2 MG TAB PO SCH (07:36)
[2018-02-14] MEDS: ALLOPURINOL 300 MG TAB PO SCH (07:37)
--- NOTE | 2018-02-14 08:44 | CDI ---
Last Revision, February 2017 Documentation Clarification Form Date: 02/14/18 From: Alexandra Nieto RN Admit Date: 02/08/2018 7:03:00 PM Patient Name: Bill Bocanegra Visit Number: [id number] ATTENTION: The Clinical Documentation Specialists (CDI) and [facility] Coding Staff appreciate your assistance in clarifying documentation. Please respond to the clarification below the line at the bottom and electronically sign. The CDI & [facility] Coding staff will review the response and follow-up if needed. Please note: Queries are made part of the Legal Health Record. If you have any questions, please contact the author of this message via ITS. Dr. VILLA, Jeffy Krishnamurthy MD, A diagnosis of UTI has been documented in the ED note, H&P and PN dated 02/09, 02/10, 02/12 and 02/13. Patient admitted with hypothyroidism, gout and UTI History/Risk factors: A FIB, CHF, HTN, obesity, gout, hypothyroidism, sacoidosis , apnea, smoker, COPD Clinical Indicators: Per documentation Clarke catheter was placed in ED on 02/08 @ 1815. UTI sent 02/08 @ 1959. Urinalysis: Protein 2+, Ketones moderate, Leukocyte Esterase large, RBC 6, WBC >182, bacteria rare, Mucus rare. Urine culture: Apparent skin and or genital zoey Lab results on admission: RBC 4.06, HGB 12.7, CR 1.90, URIC ACID 11.1 Treatment: Antibiotics: Ceftriaxone IVPB, Flomax In your professional opinion, can you please clarify the etiology of the UTI, if known? UTI related to Clarke catheter UTI not related to catheter Other condition, please specify Unable to determine If an infective organism is present, please specify cause and effect relationship if applicable. MTDD
[2018-02-14 11:19] LABS: Glucose,Whole Blood 112 mg/dL (75-99)
[2018-02-14 13:04] LABS: Basophils % (A) 0 %; Eosinophils # (A) 0.3 k/uL (0-0.7); Eosinophils % (A) 8 %; HGB 12.4 gm/dL (13.0-17.5); Hypochromasia Slight; Lymphocytes # (A) 0.8 k/uL (1.0-4.8); Lymphocytes % (A) 24 %; MCH 31.9 pg (25.0-35.0); MCHC 31.7 g/dL (31.0-37.0); MCV 100.5 fL (80.0-100.0); Macrocytosis Slight; Mean Platelet Volume 6.9; Monocytes # (A) 0.2 k/uL (0-1.0); Monocytes % (A) 7 %; Neutrophils % (A) 59 %; Platelet Count 171 k/uL (150-450); RBC 3.88 m/uL (4.30-5.90); RDW 14.4 % (11.5-15.5); WBC 3.3 k/uL (3.8-10.6)
[2018-02-14 13:14] LABS: Albumin 3.9 g/dL (3.5-5.0); Calcium 9.2 mg/dL (8.4-10.2); Potassium 4.4 mmol/L (3.5-5.1); Total Bilirubin 0.4 mg/dL (0.2-1.3); Total Protein 7.4 g/dL (6.3-8.2)
--- NOTE | 2018-02-14 13:49 | XR ---
EXAMINATION TYPE: XR chest 2V DATE OF EXAM: 02/14/2018 COMPARISON: 02/10/2018 HISTORY: Chest pain TECHNIQUE: Frontal and lateral views of the chest are obtained. FINDINGS: There is no focal air space opacity. No evidence for pneumothorax. There is mild cardiomegaly seen. Small amount of fluid is seen within the minor fissure right. Pulmon marylu vessels mildly enlarged although not appropriately congested. The osseous structures are grossly intact. IMPRESSION: 1. There is mild cardiomegaly seen. Small amount of fluid is seen within the minor fissure right. Pu lmonary vessels mildly enlarged although not appropriately congested.
[2018-02-14 16:37] LABS: Glucose,Whole Blood 108 mg/dL (75-99)
[2018-02-14] MEDS: HYDROcodone/APAP 5-325MG 1 EACH TAB PO PRN (19:25)
[2018-02-14 20:14] LABS: Glucose,Whole Blood 126 mg/dL (75-99)
[2018-02-15] MEDS: LEVOTHYROXINE 100 MCG TAB PO SCH (06:20)
[2018-02-15] MEDS ORDERED: LEVOTHYROXINE 100 MCG TAB PO SCH (06:30)
[2018-02-15 07:18] LABS: Glucose,Whole Blood 105 mg/dL (75-99)
[2018-02-15] MEDS: ENOXAPARIN 40 MG/0.4 ML SYRINGE SQ SCH (08:39)
[2018-02-15] MEDS: ALLOPURINOL 300 MG TAB PO SCH (08:39)
[2018-02-15] MEDS: COLCHICINE 0.6 MG EACH PO SCH ×2 (08:39→20:09)
[2018-02-15] MEDS: GLIMEPIRIDE 2 MG TAB PO SCH (08:39)
[2018-02-15 12:20] LABS: Glucose,Whole Blood 101 mg/dL (75-99)
[2018-02-15 13:42] VITALS: BMI 58.6
[2018-02-15] MEDS: FUROSEMIDE 40 MG TAB PO SCH (16:43)
--- NOTE | 2018-02-15 16:50 | PN ---
PROGRESS NOTE DATE OF SERVICE: 02/14/2018 CHIEF COMPLAINT: Persistent lethargy, urinary retention, urinary tract infection, hypothyroidism and gout. HISTORY OF PRESENT ILLNESS: This gentleman still remains somewhat lethargic, although he is getting better. His facial edema seems to be improving as his thyroid function starts to return. PHYSICAL EXAM: He is still very much presenting as hypothyroid. Chest is clear. Cardiac exam is normal. The abdomen is protuberant, and soft. IMPRESSION: 1. Mental status changes. 2. Myxedema. 3. Gout. 4. Obesity. 5. Hypertension. 6. Congestive heart failure. 7. Urinary retention. 8. Urinary tract infection. PLAN: 1. Try to progress activity. 2. Clarke catheter will be removed. 3. He is also possibly going to correction. MMODL / IJN: [id number] /
--- NOTE | 2018-02-15 16:56 | PN ---
PROGRESS NOTE DATE OF SERVICE: 02/15/2018. CHIEF COMPLAINT: Anasarca, urinary tract infection, urinary retention, hypothyroidism. HISTORY OF PRESENT ILLNESS: This gentleman is doing slightly better. He remains fairly weak. He seems to be voiding without the catheter and with no discomfort. PHYSICAL EXAM: He remains pale. His eyes were somewhat more widely open then they have been. Chest is clear. Cardiac exam is normal. Abdomen is soft, nontender. IMPRESSION: 1. Urinary tract infection. 2. Urinary retention. 3. Anasarca. 4. Hypothyroidism. 5. Gout. 6. Obesity. 7. Congestive heart failure. PLAN: Continue to work on discharge planning and he will go for a postvoid ultrasound today and we might increase his Flomax. AYANA / SON: [id number] /
[2018-02-15 17:26] LABS: Glucose,Whole Blood 89 mg/dL (75-99)
--- NOTE | 2018-02-15 19:56 | MISC ---
MISCELLANOUS REPORT Abnormal laboratory signifies hyperglycemia ruled in. MMODL / IJN: [id number] /
--- NOTE | 2018-02-15 20:08 | MISC ---
MISCELLANOUS REPORT Etiology of UTI not related to catheter. MMODL / IJN: [id number] /
[2018-02-15] MEDS: SPIRONOLACTONE 25 MG TAB PO SCH (20:09)
[2018-02-15 20:15] LABS: Glucose,Whole Blood 115 mg/dL (75-99)
[2018-02-15] MEDS: HYDROcodone/APAP 5-325MG 1 EACH TAB PO PRN (23:06)
[2018-02-16] MEDS: LEVOTHYROXINE 100 MCG TAB PO SCH (06:18)
[2018-02-16 07:12] LABS: Glucose,Whole Blood 109 mg/dL (75-99)
[2018-02-16] MEDS: GLIMEPIRIDE 2 MG TAB PO SCH (07:31)
[2018-02-16] MEDS: ENOXAPARIN 40 MG/0.4 ML SYRINGE SQ SCH (07:31)
[2018-02-16] MEDS: COLCHICINE 0.6 MG EACH PO SCH ×2 (07:31→22:35)
[2018-02-16] MEDS: SPIRONOLACTONE 25 MG TAB PO SCH ×2 (07:32→22:35)
[2018-02-16] MEDS: ALLOPURINOL 300 MG TAB PO SCH (07:32)
[2018-02-16] MEDS: FUROSEMIDE 40 MG TAB PO SCH ×2 (07:32→15:16)
[2018-02-16] MEDS: HYDROcodone/APAP 5-325MG 1 EACH TAB PO PRN ×2 (07:35→17:27)
--- NOTE | 2018-02-16 08:32 | CDI ---
Documentation Clarification Form Date: 02/16/18 From: Alexandra Nieto RN Admit Date: 02/08/2018 7:03:00 PM Patient Name: Bill Bocanegra Visit Number: [id number] ATTENTION: The Clinical Documentation Specialists (CDI) and [facility] Coding Staff appreciate your assistance in clarifying documentation. Please respond to the clarification below the line at the bottom and electronically sign. The CDI & [facility] Coding staff will review the response and follow-up if needed. Please note: Queries are made part of the Legal Health Record. If you have any questions, please contact the author of this message via ITS. Dr. Jeffy Bloom, CHF is documented in the H&P on 01/13, and PN 02/15 Patient presents with total body pain, extremity swelling, UTI, hematuria, urinary retention, dyspnea, acute renal failure and short of breath. Admitted for the same. History/Risk Factors: A FIB, CHF, HTN, obesity, gout, hypothyroidism, smoker, COPD Clinical Indicators: VS on admission:T 97.6, P 84, R 18, 126/89, 95% 2l BNP: 103 Echocardiogram Results from 04/24/17: EF 55-60% Chest X Ray: Mild pulmonary vascular congestion and retro-cardiac airspace disease H&P: Extremity swelling Treatment: Lasix 40 mg PO BID Strict I&O's In your professional opinion, can you please clarify the acuity and type of CHF if known? Diastolic Heart Failure: Acute Chronic Acute on Chronic Systolic & Diastolic Heart Failure: Acute Chronic Acute on Chronic Heart Failure Unable to Determine Other, please specify MTDD
[2018-02-16 11:14] LABS: Glucose,Whole Blood 130 mg/dL (75-99)
[2018-02-16 17:24] LABS: Glucose,Whole Blood 78 mg/dL (75-99)
[2018-02-16] MEDS: TAMSULOSIN 0.4 MG CAP.ER.24H PO SCH (17:28)
[2018-02-16 20:23] LABS: Glucose,Whole Blood 143 mg/dL (75-99)
[2018-02-17] MEDS: HYDROcodone/APAP 5-325MG 1 EACH TAB PO PRN (00:18)
[2018-02-17 06:53] LABS: Glucose,Whole Blood 85 mg/dL (75-99)
[2018-02-17] MEDS: LEVOTHYROXINE 100 MCG TAB PO SCH (08:40)
[2018-02-17] MEDS: ENOXAPARIN 40 MG/0.4 ML SYRINGE SQ SCH (09:35)
[2018-02-17] MEDS: GLIMEPIRIDE 2 MG TAB PO SCH (09:36)
[2018-02-17] MEDS: ALLOPURINOL 300 MG TAB PO SCH (09:36)
[2018-02-17] MEDS: SPIRONOLACTONE 25 MG TAB PO SCH ×2 (09:36→22:02)
[2018-02-17] MEDS: FUROSEMIDE 40 MG TAB PO SCH ×2 (09:36→17:30)
[2018-02-17] MEDS: COLCHICINE 0.6 MG EACH PO SCH ×2 (09:37→22:03)
[2018-02-17 12:09] LABS: Glucose,Whole Blood 141 mg/dL (75-99)
[2018-02-17 16:50] LABS: Glucose,Whole Blood 113 mg/dL (75-99)
[2018-02-17] MEDS: TAMSULOSIN 0.4 MG CAP.ER.24H PO SCH (17:30)
[2018-02-17 21:16] LABS: Glucose,Whole Blood 112 mg/dL (75-99)
[2018-02-18] MEDS: LEVOTHYROXINE 100 MCG TAB PO SCH (06:02)
[2018-02-18 07:17] LABS: Glucose,Whole Blood 88 mg/dL (75-99)
[2018-02-18] MEDS: GLIMEPIRIDE 2 MG TAB PO SCH (08:17)
[2018-02-18] MEDS: SPIRONOLACTONE 25 MG TAB PO SCH ×2 (08:17→20:46)
[2018-02-18] MEDS: ENOXAPARIN 40 MG/0.4 ML SYRINGE SQ SCH (08:17)
[2018-02-18] MEDS: ALLOPURINOL 300 MG TAB PO SCH (08:17)
[2018-02-18] MEDS: COLCHICINE 0.6 MG EACH PO SCH ×2 (08:18→20:46)
[2018-02-18] MEDS: FUROSEMIDE 40 MG TAB PO SCH ×2 (08:18→16:35)
[2018-02-18 11:10] LABS: Glucose,Whole Blood 142 mg/dL (75-99)
--- NOTE | 2018-02-18 14:41 | PN ---
PROGRESS NOTE DATE OF SERVICE: 02/16/2018 CHIEF COMPLAINT: Urinary retention, urinary tract infection, myxedema, abdominal pain. HISTORY OF PRESENT ILLNESS: This gentleman is complaining today of abdominal pain, but it is very vague. It is not sharp or dull. It is in the mid abdomen. He has had no fever, chills, nausea, vomiting, diarrhea, etc. PHYSICAL EXAM: Chest remains fairly clear. Cardiac exam is unchanged. The abdomen is protuberant, soft, and he has some generalized central abdominal pain with no masses. Bowel sounds are heard. Extremities are unchanged. IMPRESSION: 1. Abdominal pain, new, etiology unknown. 2. Myxedema. 3. Gout. PLAN: Continue on current treatment program and follow abdominal pain. His discharge plan is being developed. NATHANIELL / SON: [id number] /
--- NOTE | 2018-02-18 15:17 | PN ---
PROGRESS NOTE DATE OF SERVICE: 02/17/2018 CHIEF COMPLAINT: Urinary tract infection. HISTORY OF PRESENT ILLNESS: This gentleman failed normal bladder function. Catheter had to be put back in and over 1000 mL was obtained. PHYSICAL EXAM: Chest is clear. Cardiac exam is normal. Abdomen is protuberant and soft. IMPRESSION: 1. Urinary tract infection. 2. Urinary retention. 3. Wheezy. 4. Obesity. 5. Anasarca. 6. Congestive heart failure. 7. Pickwickian syndrome. 8. Gout. PLAN: No change in program at this time. Start to work on where he will be able to go after he leaves the hospital. MMODL / IJN: [id number] /
[2018-02-18 16:28] LABS: Glucose,Whole Blood 136 mg/dL (75-99)
[2018-02-18] MEDS: TAMSULOSIN 0.4 MG CAP.ER.24H PO SCH (16:35)
--- NOTE | 2018-02-18 17:17 | PN ---
PROGRESS NOTE DATE OF SERVICE: 02/18/2018. CHIEF COMPLAINT: Anasarca, hypothyroidism, UTI and urinary retention. HISTORY OF PRESENT ILLNESS: This gentleman is resting quietly and has no complaints at this time. His stomach is not bothering him. PHYSICAL EXAM: Head, ears, eyes, nose, mouth, and throat are normal. Chest is clear. Cardiac exam is normal. Abdomen is soft and nontender. IMPRESSION: 1. Congestive heart failure. 2. Anasarca. 3. Urinary tract infection. 4. Urinary retention. PLAN: Continue with current program and we are looking into his discharge arrangements. MMODL / IJN: [id number] /
[2018-02-18 20:17] LABS: Glucose,Whole Blood 185 mg/dL (75-99)
[2018-02-19] MEDS: HYDROcodone/APAP 5-325MG 1 EACH TAB PO PRN ×2 (03:27→16:53)
[2018-02-19] MEDS: LEVOTHYROXINE 100 MCG TAB PO SCH (06:09)
[2018-02-19 07:08] LABS: Glucose,Whole Blood 176 mg/dL (75-99)
[2018-02-19] MEDS: COLCHICINE 0.6 MG EACH PO SCH (07:25)
[2018-02-19] MEDS: FUROSEMIDE 40 MG TAB PO SCH ×2 (07:25→16:41)
[2018-02-19] MEDS: ENOXAPARIN 40 MG/0.4 ML SYRINGE SQ SCH (07:25)
[2018-02-19] MEDS: SPIRONOLACTONE 25 MG TAB PO SCH (07:26)
[2018-02-19] MEDS: GLIMEPIRIDE 2 MG TAB PO SCH (07:26)
[2018-02-19] MEDS: ALLOPURINOL 300 MG TAB PO SCH (07:26)
[2018-02-19 11:29] LABS: Glucose,Whole Blood 198 mg/dL (75-99)
[2018-02-19 12:26] VITALS: BP 123/80; PULSE 89; TEMP 97.9
[2018-02-19 16:03] VITALS: RESP 18
--- NOTE | 2018-02-19 16:54 | DS ---
DISCHARGE SUMMARY CHIEF COMPLAINT: Urinary tract infection. HISTORY OF PRESENT ILLNESS AND PHYSICAL EXAM: Details of this man's history and physical can be found in the initial workup. LABORATORY STUDIES: While he was in the hospital, he had laboratory studies, details which can be found in the laboratory section of his chart. COURSE IN THE HOSPITAL: After admission, he was placed on bedrest, started on intravenous fluids and treated for UTI. He was found to be in urinary retention and a catheter was placed. He is also profoundly hypothyroid and uric acid was over 11. This was all because he had not been taking any of his medications. He was gradually started on Synthroid and the dose increased to 0.3 mg a day. He was also started on Zyloprim and colchicine. He remained quite lethargic during most of his hospitalization, but was felt to be doing well enough to be moved to a fdc. Arrangements were made for him to go to [facility]. FINAL DIAGNOSES: 1. Urinary tract infection. 2. Urinary retention. 3. Morbid obesity. 4. Anasarca. 5. Hyperuricemia and tophaceous gout. 6. Hypothyroidism with myxedema. 7. Abdominal pain, etiology unknown. OPERATIONS: None. CONSULTATIONS: None. He is improved. MMODL / IJN: [id number] /
[2018-02-19] MEDS: TAMSULOSIN 0.4 MG CAP.ER.24H PO SCH (17:52)
--- NOTE | 2018-02-26 07:44 | CDI ---
Documentation Clarification Form Date: 02/16/2018 8:32:00 AM From: Alexadnra Nieto RN Admit Date: 02/08/2018 7:03:00 PM Patient Name: Bill Bocanegra Visit Number: [id number] Discharge Date: 02/19/2018 6:45:00 PM ATTENTION: The Clinical Documentation Specialists (CDI) and [facility] Coding Staff appreciate your assistance in clarifying documentation. Please respond to the clarification below the line at the bottom and electronically sign. The CDI & [facility] Coding staff will review the response and follow-up if needed. Please note: Queries are made part of the Legal Health Record. If you have any questions, please contact the author of this message via ITS. Dr. Jeffy Bloom, CHF is documented in the H&P on 01/13, and PN 02/15 Presents with total body pain, extremity swelling, UTI, hematuria, urinary retention, dyspnea, acute renal failure and short of breath. Admitted for the same. History/Risk Factors: A FIB, CHF, HTN, obesity, gout, hypothyroidism, smoker, COPD Clinical Indicators: VS on admission:T 97.6, P 84, R 18, 126/89, 95% 2l BNP: 103 Echocardiogram Results from 04/24/17: EF 55-60% Chest X Ray: Mild pulmonary vascular congestion and retro-cardiac airspace disease H&P: Extremity swelling Treatment: Lasix 40 mg PO BID Strict I&O's In your professional opinion, can you please clarify the acuity and type of CHF if known? Diastolic Heart Failure: Acute Chronic Acute on Chronic Systolic & Diastolic Heart Failure: Acute Chronic Acute on Chronic Heart Failure Unable to Determine Other, please specify MTDD
--- NOTE | 2018-02-26 12:31 | MISC ---
MISCELLANOUS REPORT QUERY I would say his congestive heart failure is diastolic, chronic. MMODL / IJN: [id number] /
== END 2018-02-19 18:45 | DRG 644 ==
LOC: EC 13:54 → 3NMEDONC 19:03
PROVIDERS: ADMIT Family Medicine; ATTEND Family Medicine
DX: E03.9 Hypothyroidism, unspecified (principal); E66.2 Morbid (severe) obesity with alveolar hypoventilation; I13.0 Hypertensive heart and chronic kidney disease with heart failure and stage 1 through stage 4 chronic kidney disease, or unspecified chronic kidney disease; Z68.43 Body mass index [BMI] 50.0-59.9, adult; N39.0 Urinary tract infection, site not specified; I50.32 Chronic diastolic (congestive) heart failure; D86.9 Sarcoidosis, unspecified; E11.22 Type 2 diabetes mellitus with diabetic chronic kidney disease; E78.5 Hyperlipidemia, unspecified; E86.0 Dehydration; F17.210 Nicotine dependence, cigarettes, uncomplicated; F90.9 Attention-deficit hyperactivity disorder, unspecified type; I25.10 Atherosclerotic heart disease of native coronary artery without angina pectoris; I48.91 Unspecified atrial fibrillation; J44.9 Chronic obstructive pulmonary disease, unspecified; K21.9 Gastro-esophageal reflux disease without esophagitis; M1A.9XX1 Chronic gout, unspecified, with tophus (tophi); N18.9 Chronic kidney disease, unspecified; N35.919 Unspecified urethral stricture, male, unspecified site; R62.7 Adult failure to thrive; Z82.5 Family history of asthma and other chronic lower respiratory diseases; Z83.3 Family history of diabetes mellitus; T38.1X6A Underdosing of thyroid hormones and substitutes, initial encounter; Z91.128 Patient's intentional underdosing of medication regimen for other reason; Z96.651 Presence of right artificial knee joint; E11.65 Type 2 diabetes mellitus with hyperglycemia; R13.10 Dysphagia, unspecified; R31.9 Hematuria, unspecified; Z82.61 Family history of arthritis
CPT/HCPCS: 36415; 51702; 71046; 80048; 80053; 81001; 83036; 83735; 83880; 84439; 84443; 84550; 85025; 85610; 87086; 96365; 96375; 99285

== ENCOUNTER 2018-03-12 15:01 | Emergency (ER) | payer MEDICARE, OTHER ==
[2018-03-12] MEDS ORDERED: MORPHINE SULFATE 4 MG/ML SYRINGE IVP STA (18:17)
[2018-03-12] MEDS ORDERED: ONDANSETRON 4 MG/2 ML VIAL IVP STA (18:17)
--- NOTE | 2018-03-12 18:58 | ED ---
Extremity Problem HPI - General Chief complaint: Extremity Problem,Nontraumatic Stated complaint: leg swelling Time Seen by Provider: 03/12/18 18:07 Source: patient, RN notes reviewed Mode of arrival: wheelchair Limitations: physical limitation - History of Present Illness Initial comments: This a 42-year-old male presents emergency Department chief complaint of bilateral foot pain and swelling. This has been present for 1 month but worsening. Patient was seen by visiting nurses today and case discussed with Dr. Bloom who recommended patient go to the emergency department. Patient states it is painful. Denies any history of CHF. Patient states he recently was discharged from [facility] for rehab. Patient denies any fever, chills no calf pain out of the usual. Patient denies any orthopnea, chest pain, headache or dizziness. - Related Data Home Medications Medication Instructions Recorded Confirmed Levothyroxine Sodium [Synthroid] 300 mcg PO DAILY 03/12/18 03/12/18 Previous Rx's Medication Instructions Recorded Allopurinol [Zyloprim] 300 mg PO DAILY #30 tab 02/19/18 Colchicine [Colcrys] 0.6 mg PO BID #60 each 02/19/18 Furosemide [Lasix] 40 mg PO BID@0900,1600 #60 tab 02/19/18 Glimepiride [Amaryl] 2 mg PO AC-BRKFST #60 tab 02/19/18 Spironolactone [Aldactone] 25 mg PO BID #60 tab 02/19/18 Tamsulosin [Flomax] 0.8 mg PO DAILY 30 Days #30 tab 02/19/18 Allergies Allergy/AdvReac Type Severity Reaction Status Date / Time vancomycin Allergy Rash/Hives Verified 03/12/18 19:21 Review of Systems ROS Statement: Those systems with pertinent positive or pertinent negative responses have been documented in the HPI. ROS Other: All systems not noted in ROS Statement are negative. Past Medical History Past Medical History: Atrial Fibrillation, Asthma, Coronary Artery Disease (CAD) , COPD, GERD/Reflux, Hyperlipidemia, Hypertension, Osteoarthritis (OA), Renal Disease, Sleep Apnea/CPAP/BIPAP, Thyroid Disorder Additional Past Medical History / Comment(s): sarcoidosis, gouty arthritis, "small esophagus" occ diff swallowing, arthritis, uses CPAP at home, trouble sleeping. History of Any Multi-Drug Resistant Organisms: None Reported Past Surgical History: Cardiac Ablation, Joint Replacement, Orthopedic Surgery Additional Past Surgical History / Comment(s): right knee replacement, bilat ankle surgery, R wrist surgery r/t gout/arthritis lymph node biopsy- sarcoidosis Past Anesthesia/Blood Transfusion Reactions: No Reported Reaction Additional Past Anesthesia/Blood Transfusion Reaction / Comment(s): pt states he has never had a blood transfusion Past Psychological History: ADD/ADHD, Anxiety, Depression Smoking Status: Current every day smoker Past Alcohol Use History: None Reported Past Drug Use History: Marijuana - Past Family History Father Family Medical History: COPD Additional Family Medical History / Comment(s): emphysema Mother Family Medical History: Diabetes Mellitus, Rheumatoid Arthritis (RA) Additional Family Medical History / Comment(s): back surgery, joint replacements General Exam Limitations: physical limitation General appearance: alert, in no apparent distress Respiratory exam: Present: normal lung sounds bilaterally. Absent: respiratory distress, wheezes, rales, rhonchi, stridor Cardiovascular Exam: Present: regular rate, normal rhythm, normal heart sounds. Absent: systolic murmur, diastolic murmur, rubs, gallop, clicks Extremities exam: Present: other (Bilateral lower extremity severe by mouth edema, pulses palpable but faint, cap refill less than 2 seconds, skin is very dry, scaling noted tenderness no increase in warmth) Skin exam: Present: warm, dry Course Vital Signs 03/12/18 03/12/18 15:11 19:11 Temperature 97.8 F 97.5 F L Pulse Rate 102 H 101 H Respiratory 20 16 Rate Blood Pressure 106/64 123/94 O2 Sat by Pulse 99 98 Oximetry Medical Decision Making - Medical Decision Making 42-year-old male present emergency Department for her foot swelling. Patient has bilateral pedal edema patient has a BNP of 237 minutes prior though no overt failure. Patient is supposed be taking Lasix though is not sure. Patient given a dose of Lasix now and will be discharged at this time. Return parameters were discussed. - Lab Data Result diagrams: 03/12/18 19:00 03/12/18 19:00 Lab Results 03/12/18 03/12/18 03/12/18 Range/Units 19:00 19:00 19:00 WBC 6.1 (3.8-10.6) k/uL RBC 4.36 (4.30-5.90) m/uL Hgb 13.7 (13.0-17.5) gm/dL Hct 42.2 (39.0-53.0) % MCV 96.7 (80.0-100.0) fL MCH 31.4 (25.0-35.0) pg MCHC 32.5 (31.0-37.0) g/dL RDW 13.9 (11.5-15.5) % Plt Count 267 (150-450) k/uL Neutrophils % 66 % Lymphocytes % 18 % Monocytes % 7 % Eosinophils % 6 % Basophils % 1 % Neutrophils # 4.0 (1.3-7.7) k/uL Lymphocytes # 1.1 (1.0-4.8) k/uL Monocytes # 0.4 (0-1.0) k/uL Eosinophils # 0.4 (0-0.7) k/uL Basophils # 0.0 (0-0.2) k/uL Sodium 137 (137-145) mmol/L Potassium 4.2 (3.5-5.1) mmol/L Chloride 100 (98-107) mmol/L Carbon Dioxide 27 (22-30) mmol/L Anion Gap 10 mmol/L BUN 22 H (9-20) mg/dL Creatinine 1.30 H (0.66-1.25) mg/dL Est GFR (CKD-EPI)AfAm 78 (>60 ml/min/1.73 sqM) Est GFR (CKD-EPI)NonAf 68 (>60 ml/min/1.73 sqM) Glucose 181 H (74-99) mg/dL Calcium 9.7 (8.4-10.2) mg/dL Total Bilirubin 0.5 (0.2-1.3) mg/dL AST 50 (17-59) U/L ALT 55 (21-72) U/L Alkaline Phosphatase 125 (38-126) U/L NT-Pro-B Natriuret Pep 230 pg/mL Total Protein 7.7 (6.3-8.2) g/dL Albumin 3.8 (3.5-5.0) g/dL Disposition Clinical Impression: Bilateral lower extremity edema Disposition: HOME SELF-CARE Condition: Stable Instructions: Leg Edema (ED) Additional Instructions: Continue Lasix as directed.Please return to the Emergency Department if symptoms worsen or any other concerns. Is patient prescribed a controlled substance at d/c from ED?: No Referrals: Jeffy Bloom MD [Primary Care Provider] - 1-2 days Time of Disposition: 20:00
[2018-03-12 19:12] VITALS: RESP 16
[2018-03-12 19:18] LABS: Basophils % (A) 1 %; Eosinophils # (A) 0.4 k/uL (0-0.7); Eosinophils % (A) 6 %; HCT 42.2 % (39.0-53.0); HGB 13.7 gm/dL (13.0-17.5); Lymphocytes # (A) 1.1 k/uL (1.0-4.8); Lymphocytes % (A) 18 %; MCH 31.4 pg (25.0-35.0); MCHC 32.5 g/dL (31.0-37.0); MCV 96.7 fL (80.0-100.0); Mean Platelet Volume 7.6; Monocytes # (A) 0.4 k/uL (0-1.0); Monocytes % (A) 7 %; Neutrophils % (A) 66 %; Platelet Count 267 k/uL (150-450); RBC 4.36 m/uL (4.30-5.90); RDW 13.9 % (11.5-15.5); WBC 6.1 k/uL (3.8-10.6)
[2018-03-12 19:29] LABS: Albumin 3.8 g/dL (3.5-5.0); Calcium 9.7 mg/dL (8.4-10.2); Potassium 4.2 mmol/L (3.5-5.1); Total Bilirubin 0.5 mg/dL (0.2-1.3); Total Protein 7.7 g/dL (6.3-8.2)
[2018-03-12] MEDS ORDERED: FUROSEMIDE 10 MG/ML 4 ML VIAL IV STA (19:59)
[2018-03-12] MEDS ORDERED: ACET/COD 300 MG/30 MG STARTER PACK 6 TAB BTL PO STA (19:59)
[2018-03-12 20:28] VITALS: BP 128/98; PULSE 87; TEMP 97.6
== END 2018-03-12 20:33 | disposition home or self-care (01) ==
LOC: EC 15:01
DX: R60.0 Localized edema (principal); I48.91 Unspecified atrial fibrillation; E07.9 Disorder of thyroid, unspecified; M10.9 Gout, unspecified; F17.200 Nicotine dependence, unspecified, uncomplicated; G47.30 Sleep apnea, unspecified; Z99.89 Dependence on other enabling machines and devices; Z98.890 Other specified postprocedural states; Z96.651 Presence of right artificial knee joint; Z79.899 Other long term (current) drug therapy; Z88.1 Allergy status to other antibiotic agents
CPT/HCPCS: 36415; 83880; 80053; 85025; 99283; 96374; 96375 ×2; J2270; J1940; J2405

== ENCOUNTER 2018-11-17 22:27 | Inpatient (IN) | payer MEDICARE, OTHER ==
--- NOTE | 2018-11-17 22:41 | ED ---
Extremity Problem HPI - General Chief complaint: Extremity Problem,Nontraumatic Stated complaint: poss cellulitis Time Seen by Provider: 11/17/18 22:40 Source: patient, EMS Mode of arrival: EMS Limitations: no limitations - History of Present Illness Initial comments: Bill is a morbidly obese 43-year-old gentleman who presents the emergency department today for evaluation of bilateral lower extremity pain and swelling. Patient reports he's been noticing progressively worsening swelling and redness in his bilateral lower extremities for approximately 3-5 days. Patient reports the pains become worse and today became unbearable which prompted his nieces to call EMS for transport to the hospital. Patient reports that he was recently admitted to an outside hospitals current prescribed medications at the end of October. He states he doesn't recall what he was admitted 40/otherwise on these occasions. Patient reports he's been told is diabetic in the past but doesn't believe he's on any diabetes medicines. Patient also states he doesn't believe he has any heart trouble or congestive heart failure. He's not certain what medications he is on are for. Asians nieces at bedside state that the patient lost his mother less than 2 years ago and they believe since that time he's stopped caring for himself and has lost his will to live. They express concern about his psychological well- being inability to care for himself. - Related Data Home Medications Medication Instructions Recorded Confirmed Levothyroxine Sodium [Synthroid] 150 mcg PO DAILY 03/12/18 11/17/18 Albuterol Inhaler [Ventolin Hfa 1 - 2 puff INHALATION RT-Q6H PRN 11/17/18 11/17/18 Inhaler] Atorvastatin Calcium [Lipitor] 20 mg PO HS 11/17/18 11/17/18 Benazepril HCl [Lotensin] 40 mg PO DAILY 11/17/18 11/17/18 Furosemide [Lasix] 40 mg PO DAILY 11/17/18 11/17/18 Allergies Allergy/AdvReac Type Severity Reaction Status Date / Time vancomycin Allergy Rash/Hives Verified 11/17/18 23:02 Review of Systems ROS Statement: Those systems with pertinent positive or pertinent negative responses have been documented in the HPI. ROS Other: All systems not noted in ROS Statement are negative. Past Medical History Past Medical History: Atrial Fibrillation, Asthma, Coronary Artery Disease ( CAD), COPD, GERD/Reflux, Hyperlipidemia, Hypertension, Osteoarthritis (OA), Renal Disease, Sleep Apnea/CPAP/BIPAP, Thyroid Disorder Additional Past Medical History / Comment(s): sarcoidosis, gouty arthritis, "small esophagus" occ diff swallowing, arthritis, uses CPAP at home, trouble sleeping. History of Any Multi-Drug Resistant Organisms: None Reported Past Surgical History: Cardiac Ablation, Joint Replacement, Orthopedic Surgery Additional Past Surgical History / Comment(s): right knee replacement, bilat ankle surgery, R wrist surgery r/t gout/arthritis lymph node biopsy- sarcoidosis Past Anesthesia/Blood Transfusion Reactions: No Reported Reaction Additional Past Anesthesia/Blood Transfusion Reaction / Comment(s): pt states he has never had a blood transfusion Past Psychological History: ADD/ADHD, Anxiety, Depression Smoking Status: Current every day smoker Past Alcohol Use History: None Reported Past Drug Use History: Marijuana - Past Family History Father Family Medical History: COPD Additional Family Medical History / Comment(s): emphysema Mother Family Medical History: Diabetes Mellitus, Rheumatoid Arthritis (RA) Additional Family Medical History / Comment(s): back surgery, joint replacements General Exam - General Exam Comments Initial Comments: Physical Exam GENERAL: Appears older stated age, HENT: Normocephalic, Atraumatic. EYES: PERRL, EOMI PULMONARY: Unlabored respirations. No audible rales rhonchi or wheezing was noted. CARDIOVASCULAR: There is a regular rate and rhythm without any murmurs gallops or rubs. 2+ pitting edema bilateral lower extremities ABDOMEN: Soft and nontender with normal bowel sounds. SKIN: Circumflex per Marlon erythema bilateral lower extremities from the mid cameron down, Skin changes consistent with chronic venous stasis : Deferred NEUROLOGIC: Alert and oriented to person, place, able to identify he is at a hospital, able to identify the hospital, able to name the date and year however very poor historian when it comes to medical conditions knowledge and medications MUSCULOSKELETAL: Normal extremities with adequate strength and full range of motion. No lower extremity swelling or edema. No calf tenderness. PSYCHIATRIC: Apathetic Limitations: no limitations Course Vital Signs 11/17/18 11/18/18 22:29 00:47 Temperature 97.7 F 97.7 F Pulse Rate 101 H 100 Respiratory 18 18 Rate Blood Pressure 118/99 91/53 O2 Sat by Pulse 96 95 Oximetry Medical Decision Making - Medical Decision Making Patient was seen and evaluated history is obtained from the patient as well as his niece is at bedside on arrival the patient is noted to be somewhat tachycardic complaining of pain in his bilateral lower extremities. Patient is afebrile with history of blood pressure. However patient is noted to have bi lateral lower extremity erythema concerning for cellulitis. Septic workup was initiated Labs resulted in no leukocytosis, hemoglobin is stable, CMP resulted with acute kidney injury, however given the patient does have significant bilateral lower extremity edema we will be gentle with the fluid rehydration 2 g Ancef ordered for cellulitis care was discussed with patient's primary care physician Dr. Bloom who agrees with plan for admission for bilateral lower extremity cellulitis in a p atient with morbid obesity, lymphedema, chronic venous stasis. - Lab Data Result diagrams: 11/17/18 23:23 11/17/18 23:23 Lab Results 11/17/18 11/17/18 11/17/18 Range/Units 23:23 23:23 23:23 WBC 8.1 (3.8-10.6) k/uL RBC 4.25 L (4.30-5.90) m/uL Hgb 13.7 (13.0-17.5) gm/dL Hct 42.0 (39.0-53.0) % MCV 98.9 (80.0-100.0) fL MCH 32.1 (25.0-35.0) pg MCHC 32.5 (31.0-37.0) g/dL RDW 14.2 (11.5-15.5) % Plt Count 242 (150-450) k/uL Neutrophils % 79 % Lymphocytes % 5 % Monocytes % 7 % Eosinophils % 5 % Basophils % 3 % Neutrophils # 6.4 (1.3-7.7) k/uL Lymphocytes # 0.4 L (1.0-4.8) k/uL Monocytes # 0.6 (0-1.0) k/uL Eosinophils # 0.4 (0-0.7) k/uL Basophils # 0.2 (0-0.2) k/uL PT (9.0-12.0) sec INR (<1.2) APTT (22.0-30.0) sec Sodium 138 (137-145) mmol/L Potassium 3.9 (3.5-5.1) mmol/L Chloride 93 L (98-107) mmol/L Carbon Dioxide 34 H (22-30) mmol/L Anion Gap 11 mmol/L BUN 54 H (9-20) mg/dL Creatinine 2.68 H (0.66-1.25) mg/dL Est GFR (CKD-EPI)AfAm 32 (>60 ml/min/1.73 sqM) Est GFR (CKD-EPI)NonAf 28 (>60 ml/min/1.73 sqM) Glucose 136 H (74-99) mg/dL Plasma Lactic Acid Clarke 1.6 (0.7-2.0) mmol/L Calcium 9.6 (8.4-10.2) mg/dL Total Bilirubin 0.7 (0.2-1.3) mg/dL AST 27 (17-59) U/L ALT 22 (21-72) U/L Alkaline Phosphatase 127 H (38-126) U/L Total Protein 8.0 (6.3-8.2) g/dL Albumin 4.1 (3.5-5.0) g/dL 11/17/18 Range/Units 23:23 WBC (3.8-10.6) k/uL RBC (4.30-5.90) m/uL Hgb (13.0-17.5) gm/dL Hct (39.0-53.0) % MCV (80.0-100.0) fL MCH (25.0-35.0) pg MCHC (31.0-37.0) g/dL RDW (11.5-15.5) % Plt Count (150-450) k/uL Neutrophils % % Lymphocytes % % Monocytes % % Eosinophils % % Basophils % % Neutrophils # (1.3-7.7) k/uL Lymphocytes # (1.0-4.8) k/uL Monocytes # (0-1.0) k/uL Eosinophils # (0-0.7) k/uL Basophils # (0-0.2) k/uL PT 9.9 (9.0-12.0) sec INR 0.9 (<1.2) APTT 25.6 (22.0-30.0) sec Sodium (137-145) mmol/L Potassium (3.5-5.1) mmol/L Chloride (98-107) mmol/L Carbon Dioxide (22-30) mmol/L Anion Gap mmol/L BUN (9-20) mg/dL Creatinine (0.66-1.25) mg/dL Est GFR (CKD-EPI)AfAm (>60 ml/min/1.73 sqM) Est GFR (CKD-EPI)NonAf (>60 ml/min/1.73 sqM) Glucose (74-99) mg/dL Plasma Lactic Acid Clarke (0.7-2.0) mmol/L Calcium (8.4-10.2) mg/dL Total Bilirubin (0.2-1.3) mg/dL AST (17-59) U/L ALT (21-72) U/L Alkaline Phosphatase (38-126) U/L Total Protein (6.3-8.2) g/dL Albumin (3.5-5.0) g/dL Disposition Clinical Impression: Cellulitis, Lymphangitis, Bilateral lower extremity edema, Acute renal failure (ARF) Disposition: ADMITTED IP TO THIS [facility] Condition: Serious Referrals: Jeffy Bloom MD [Primary Care Provider] - 1-2 days
[2018-11-17] MEDS ORDERED: MORPHINE SULFATE 4 MG/ML SYRINGE IVP STA (23:28)
[2018-11-17] MEDS: SODIUM CHLORIDE 0.9% 500 ML 500 ML IV SCH (23:32)
[2018-11-17 23:48] LABS: Basophils # (A) 0.2 k/uL (0-0.2); Basophils % (A) 3 %; Eosinophils # (A) 0.4 k/uL (0-0.7); Eosinophils % (A) 5 %; HGB 13.7 gm/dL (13.0-17.5); Lymphocytes # (A) 0.4 k/uL (1.0-4.8); Lymphocytes % (A) 5 %; MCH 32.1 pg (25.0-35.0); MCHC 32.5 g/dL (31.0-37.0); MCV 98.9 fL (80.0-100.0); Mean Platelet Volume 6.9; Monocytes # (A) 0.6 k/uL (0-1.0); Monocytes % (A) 7 %; Neutrophils # (A) 6.4 k/uL (1.3-7.7); Neutrophils % (A) 79 %; Platelet Count 242 k/uL (150-450); RBC 4.25 m/uL (4.30-5.90); RDW 14.2 % (11.5-15.5); WBC 8.1 k/uL (3.8-10.6)
[2018-11-17 23:58] LABS: Albumin 4.1 g/dL (3.5-5.0); Calcium 9.6 mg/dL (8.4-10.2); Potassium 3.9 mmol/L (3.5-5.1); Total Bilirubin 0.7 mg/dL (0.2-1.3)
[2018-11-17 23:59] LABS: INR 0.9 (<1.2); Partial Thromboplastin Time 25.6 sec (22.0-30.0); Prothrombin Time 9.9 sec (9.0-12.0)
[2018-11-18] MEDS ORDERED: NALOXONE 0.4 MG/ML 1 ML VIAL IV PRN (00:54)
[2018-11-18] MEDS: SODIUM CHLORIDE 0.9% 1,000 ML IV SCH ×3 (03:28→15:41)
[2018-11-18] MEDS: SODIUM CHLORIDE 0.9% 500 ML 500 ML IV SCH (03:28)
[2018-11-18] MEDS: MORPHINE SULFATE 4 MG/ML SYRINGE IV PRN ×2 (03:41→09:00)
[2018-11-18] MEDS ORDERED: ALBUTEROL INHALER 60 PUFF/8 GM INHALER INHALATION PRN (05:55)
[2018-11-18 07:11] LABS: Glucose,Whole Blood 184 mg/dL (75-99)
[2018-11-18] MEDS: ALBUTEROL NEBULIZED 2.5 MG/3 ML INHALATION PRN ×2 (08:34→16:50)
[2018-11-18] MEDS: HEPARIN SODIUM,PORCINE 5,000 UNIT/ML 1 ML VIAL SQ SCH ×3 (09:49→23:23)
[2018-11-18 12:02] LABS: Glucose,Whole Blood 128 mg/dL (75-99)
[2018-11-18 12:13] LABS: Amorphous Sediment,Urine Rare /hpf; Appearance,Urine Cloudy (Clear); Bacteria,Urine Moderate /hpf; Bilirubin,Urine Negative (Negative); Blood,Urine Negative (Negative); Color,Urine Light Red; Glucose,Urine (UA) Negative (Negative); Ketones,Urine Negative (Negative); Leukocyte Esterase,Urine Moderate (Negative); Mucus,Urine Rare /hpf; Nitrite,Urine Negative (Negative); PH, Urine 7.5 (5.0-8.0); Protein,Urine 1+ (Negative); Specific Gravity,Urine 1.013 (1.001-1.035); Squamous Epithelial Cell,Urine <1 /hpf (0-4); WBC,Urine 39 /hpf (0-5)
[2018-11-18] MEDS ORDERED: SODIUM CHLORIDE 0.9% 500 ML 500 ML IV ONE (12:34)
[2018-11-18] MEDS ORDERED: SPIRONOLACTONE-HCTZ 25-25MG 1 EACH TAB PO SCH (14:00)
[2018-11-18] MEDS ORDERED: BENAZEPRIL HCL 40 MG PO SCH (14:00)
[2018-11-18] MEDS ORDERED: FUROSEMIDE 40 MG TAB PO SCH (14:00)
[2018-11-18] MEDS: traMADol 50 MG TAB PO SCH ×2 (14:58→21:03)
[2018-11-18 15:09] VITALS: BMI 67.8
[2018-11-18] MEDS: LEVOTHYROXINE 75 MCG TAB PO SCH (15:41)
[2018-11-18] MEDS ORDERED: ALBUTEROL NEBULIZED 2.5 MG/3 ML INHALATION PRN (19:05)
[2018-11-18] MEDS ORDERED: ACETAMINOPHEN TAB 325 MG TAB PO PRN (19:13)
[2018-11-19] MEDS: SODIUM CHLORIDE 0.9% 1,000 ML IV SCH ×4 (02:23→21:50)
[2018-11-19] MEDS: IBUPROFEN 800 MG TAB PO PRN (03:52)
[2018-11-19] MEDS: LEVOTHYROXINE 75 MCG TAB PO SCH (06:33)
[2018-11-19 07:17] LABS: Glucose,Whole Blood 155 mg/dL (75-99)
[2018-11-19] MEDS: HEPARIN SODIUM,PORCINE 5,000 UNIT/ML 1 ML VIAL SQ SCH ×2 (08:33→16:33)
[2018-11-19] MEDS: traMADol 50 MG TAB PO SCH ×3 (08:33→21:50)
[2018-11-19] MEDS: HYDROcodone/APAP 5-325MG 1 EACH TAB PO PRN ×2 (16:39→21:46)
--- NOTE | 2018-11-19 16:58 | HP ---
HISTORY AND PHYSICAL CHIEF COMPLAINT: Cellulitis in the lower extremities. HISTORY OF PRESENT ILLNESS: This is another admission for this 43-year-old morbidly obese male who goes in and out of the hospital frequently for uncontrolled congestive heart failure, renal failure. He came to the emergency room when he developed increased swelling and pain in the lower extremities where he has dependent edema. In the emergency room it was determined that he had cellulitis and he was admitted for IV antibiotics. REVIEW OF SYSTEMS: He continues to have persistent shortness of breath, which is normal for him. He has had no hemoptysis, chest pain, abdominal pain, vomiting, melena, hematochezia, jaundice, etc. Past medical history, family history, and personal and social histories are all otherwise unremarkable and noncontributory. It is not known if he is taking his medications. He was recently in the hospital and was profoundly hypothyroid. PHYSICAL EXAMINATION: Blood pressure is 145/90 with a pulse of 80, respirations of 35, and he is afebrile. In general he appears to be morbidly obese and chronically ill. Skin is dry. Head, ears, eyes, nose, mouth and throat are normal except for conjunctivitis. Chest is clear but there are scattered rales at the bases. Cardiac exam demonstrates tachycardia with no definite murmur or extra sounds. The abdomen is protuberant and there are no definite masses. Extremities demonstrate 3 to 4+ edema with venostasis changes of the skin and extensive cellulitis from the knees down on both sides. IMPRESSION: 1. Cellulitis of both lower extremities. 2. Venous insufficiency. 3. Stasis dermatitis. 4. Cardiomyopathy and chronic congestive heart failure. 5. Chronic renal failure. 6. Morbid obesity. 7. Pickwickian syndrome. 8. Cardiomyopathy. PLAN: 1. Bed rest. 2. IV fluids. 3. IV antibiotics. 4. Consult with Infectious Disease. MMODL / IJN: [id number] /
--- NOTE | 2018-11-19 17:19 | PN ---
PROGRESS NOTE DATE OF SERVICE: 11/19/2018 CHIEF COMPLAINT: Cellulitis of the lower extremities, congestive heart failure and cardiomyopathy. HISTORY OF PRESENT ILLNESS: This gentleman is complaining of a great deal of pain in the lower extremities which is not controlled with the Ultram. PHYSICAL EXAMINATION: Chest is clear. Cardiac exam is normal. The abdomen is protuberant. Extremities are still very edematous and inflamed. IMPRESSION: 1. Cellulitis of lower extremities. 2. Cardiomyopathy. 3. Congestive heart failure. 4. Hypothyroidism. PLAN: Add Vicodin 5 mg q.6 p.r.n. and continue with IV fluids and antibiotics. MMODL / IJN: [id number] /
[2018-11-19 17:41] LABS: Glucose,Whole Blood 127 mg/dL (75-99)
[2018-11-19 20:30] LABS: Glucose,Whole Blood 109 mg/dL (75-99)
[2018-11-19 22:34] LABS: T4, Free (Free Thyroxine) 0.76 ng/dL (0.78-2.19)
[2018-11-20] MEDS: HEPARIN SODIUM,PORCINE 5,000 UNIT/ML 1 ML VIAL SQ SCH ×3 (00:57→17:47)
[2018-11-20] MEDS: IBUPROFEN 800 MG TAB PO PRN (02:15)
[2018-11-20] MEDS: HYDROcodone/APAP 5-325MG 1 EACH TAB PO PRN ×3 (03:51→20:09)
[2018-11-20] MEDS: LEVOTHYROXINE 75 MCG TAB PO SCH (06:17)
[2018-11-20] MEDS: SODIUM CHLORIDE 0.9% 1,000 ML IV SCH ×2 (06:18→13:20)
[2018-11-20 07:03] LABS: Glucose,Whole Blood 99 mg/dL (75-99)
--- NOTE | 2018-11-20 08:24 | CDI ---
Documentation Clarification Form Date: 11/20/2018 7:57:09 AM From: Steph Wong RN CCDS Admit Date: 11/19/2018 4:04:00 PM Patient Name: Bill Bocanegra Visit Number: [id number] Discharge Date: ATTENTION: The Clinical Documentation Specialists (CDI) and [facility] Coding Staff appreciate your assistance in clarifying documentation. Please respond to the clarification below the line at the bottom and electronically sign. The CDI & [facility] Coding staff will review the response and follow-up if needed. Please note: Queries are made part of the Legal Health Record. If you have any questions, please contact the author of this message via ITS. Dr. Jeffy Bloom Chronic CHF is documented in the H & P . History/Risk Factors: 43 year old male presents to the ED via EMS for bilateral lower extremity pain, swelling and redness. Medical history AFib, Asthma, CAD, GERD Hyperlipidemia, HTN, OA , Sleep Apnea cpap/bipap, thyroid disorder. Clinical Indicators: VS/Pulse OX: 118/89 101 97.7 18 96% ra Home meds Lasix 40mg , Benazepril Hcl Echocardiogram Results: from 04/24/17 Overall left Ventricular Systolic function is normal with EF 55% - 60% Treatment: iv lasix 40 mg started on 11/21/2018 In your professional opinion, can you please clarify the acuity and type of CHF if known? * Chronic Systolic Heart Failure * Chronic Diastolic Heart Failure * Chronic Diastolic & Diastolic Failure * Heart Failure Ruled out * Unable to Determine * Other, please specify (Last Revision: June 2017) MTDD
[2018-11-20] MEDS: traMADol 50 MG TAB PO SCH ×3 (08:46→22:30)
[2018-11-20 11:59] LABS: Glucose,Whole Blood 113 mg/dL (75-99)
[2018-11-20 15:48] LABS: Calcium 9.3 mg/dL (8.4-10.2); Potassium 4.4 mmol/L (3.5-5.1)
[2018-11-20 16:55] LABS: Glucose,Whole Blood 111 mg/dL (75-99)
--- NOTE | 2018-11-20 18:40 | PN ---
PROGRESS NOTE CHIEF COMPLAINT: 1. Cellulitis of the lower legs. 2. Congestive heart failure. 3. Cardiomyopathy. 4. Hypothyroidism. HISTORY OF PRESENT ILLNESS: This gentleman is doing a little bit better. The pain in the legs has started to diminish slightly. Thyroid is still extremely low. PHYSICAL EXAMINATION: He is a little bit lethargic and is edematous. Chest is clear. Cardiac exam is normal. The abdomen is soft and protuberant. IMPRESSION: 1. Cellulitis of the lower extremities, improving. 2. Hypothyroidism. 3. Morbid obesity. 4. Renal failure. PLAN: 1. Raise Synthroid to 0.3 mg a day. 2. Nephrology consult. MMODL / IJN: [id number] /
[2018-11-20 20:18] LABS: Glucose,Whole Blood 119 mg/dL (75-99)
--- NOTE | 2018-11-20 21:01 | CONS ---
CONSULTATION REASON FOR CONSULT: Renal failure. HISTORY OF PRESENT ILLNESS: The patient is a 43-year-old male with history of chronic kidney disease, NKF stage III, baseline creatinine about 1.4 to 1.3 mg/dL, secondary to nephrosclerosis; rule out underlying chronic GN. Patient was evaluated at our office previously in 2016. However, he had not maintained followup. He does have proteinuria with no history of diabetes but does use NSAIDs frequently. Patient was admitted on this admission with complaints of pain and swelling in both his lower extremities, worse on the feet. He is being treated for cellulitis. Patient is also maintained on Motrin 800 mg t.i.d. His creatinine was 2.68 on 11/17/2018. We do not have any repeat creatinine after that. Patient is maintained on cefazolin for antibiotics. He was initially maintained on IV fluids, currently discontinued. He states he has been voiding fairly well. PAST MEDICAL HISTORY: 1. Morbid obesity. 2. CKD with possible underlying GN versus secondary to NSAID use. 3. Asthma. 4. Coronary artery disease. 5. COPD. 6. Gastroesophageal reflux disease. 7. Hyperlipidemia. 8. Osteoarthritis. 9. Obstructive sleep apnea. 10.Hypothyroidism. 11.Sarcoidosis. PAST SURGICAL HISTORY: 1. Cardiac ablation. 2. Right knee arthroplasty. 3. Bilateral ankle surgery. 4. Right wrist surgery. 5. Gout. 6. Lymph node biopsy for sarcoidosis. SOCIAL HISTORY: Patient is a current everyday smoker. He does use marijuana. No history of alcohol abuse. MEDICATIONS: Medications at home prior to admission: 1. Synthroid. 2. Ventolin inhaler. 3. Lipitor. 4. Lotensin. 5. Lasix. ALLERGIES: ALLERGIES include VANCOMYCIN, which causes rash and hives. PHYSICAL EXAMINATION: Patient is comfortable, awake, alert, oriented x3. He is not in any acute distress. Blood pressure was 108/71 this morning, heart rate 91 per minute. He is afebrile. EXAMINATION OF THE HEART: S1 and S2. EXAMINATION OF LUNGS: Bilateral breath sounds are heard. Decreased breath sounds at bases. ABDOMEN: Soft, morbidly obese. Examination of lower extremities shows chronic skin changes bilaterally with edema noted bilaterally, worse in the right leg than in the left leg. There is erythema noted as well in bilateral lower extremities. Severe chronic skin changes noted bilaterally. MAINTENANCE SHOP CLERK exam is grossly intact. Patient is moving all 4 extremities. LABS: No recent labs available. Hemoglobin was 13.7 on 11/17/2018. Sodium 138, potassium 3.9, BUN 54, serum creatinine 2.68 on 11/17/2018. UA shows 1+ protein, WBCs 39, leukocyte esterase moderate. ASSESSMENT: 1. Acute kidney injury secondary to non-steroidal anti-inflammatories and underlying cellulitis. Discontinue the Motrin. Repeat labs today. No other nephrotoxic agents on board. I would avoid IV fluids for now. Monitor urine output closely. 2. Chronic kidney disease, stage III. Baseline creatinine about 1.3 mg/dL. Rule out underlying GN versus secondary to chronic use of NSAIDs. 3. Bilateral lower extremity cellulitis, maintained on cefazolin. 4. Morbid obesity. 5. Severe hypothyroidism; TSH currently at 23. Dose has been adjusted. PLAN: Discontinue NSAIDs. Repeat labs in a.m. and today. Hold off on IV fluids for now. May continue with current antibiotics. Thank you for this consultation. Will continue to follow the patient with you during his hospitalization. MMKETTYL / SON: [id number] /
[2018-11-21] MEDS: HEPARIN SODIUM,PORCINE 5,000 UNIT/ML 1 ML VIAL SQ SCH ×3 (00:57→16:46)
[2018-11-21] MEDS: HYDROcodone/APAP 5-325MG 1 EACH TAB PO PRN (02:07)
[2018-11-21] MEDS: LEVOTHYROXINE 100 MCG TAB PO SCH (05:15)
[2018-11-21] MEDS ORDERED: LEVOTHYROXINE 100 MCG TAB PO SCH (06:30)
[2018-11-21 07:01] LABS: Glucose,Whole Blood 107 mg/dL (75-99)
[2018-11-21] MEDS: traMADol 50 MG TAB PO SCH ×3 (08:24→20:40)
[2018-11-21 11:50] LABS: Albumin 3.5 g/dL (3.5-5.0); Calcium 9.4 mg/dL (8.4-10.2); Potassium 4.5 mmol/L (3.5-5.1); Total Bilirubin 0.3 mg/dL (0.2-1.3); Total Protein 6.9 g/dL (6.3-8.2)
[2018-11-21 11:52] LABS: Basophils # (A) 0.1 k/uL (0-0.2); Basophils % (A) 2 %; Eosinophils # (A) 0.2 k/uL (0-0.7); Eosinophils % (A) 5 %; HCT 37.1 % (39.0-53.0); HGB 11.9 gm/dL (13.0-17.5); Lymphocytes # (A) 0.5 k/uL (1.0-4.8); Lymphocytes % (A) 11 %; MCH 33.2 pg (25.0-35.0); MCHC 32.1 g/dL (31.0-37.0); MCV 103.6 fL (80.0-100.0); Macrocytosis Slight; Mean Platelet Volume 7.9; Monocytes # (A) 0.4 k/uL (0-1.0); Monocytes % (A) 10 %; Neutrophils % (A) 71 %; Platelet Count 193 k/uL (150-450); RBC 3.58 m/uL (4.30-5.90); WBC 4.2 k/uL (3.8-10.6)
[2018-11-21 12:13] LABS: Glucose,Whole Blood 112 mg/dL (75-99)
--- NOTE | 2018-11-21 15:08 | XR ---
EXAMINATION TYPE: XR chest 2V DATE OF EXAM: 11/21/2018 COMPARISON: 02/14/2018 HISTORY: Congestive heart failure and shortness of breath TECHNIQUE: Frontal and lateral views of the chest are obtained. FINDINGS: There are minimal pulmonary vascular congestion is seen. Cardia mediastinal silhouette is enlarged. No pneumothorax or pleural effusion. Osseous structures are grossly intact. Lateral view is suboptimal. IMPRESSION: Minimal pulmonary vascular congestion and enlarged cardiomediastinal silhouette. Evaluat ion for decompensated congestive heart failure is recommended.
[2018-11-21 17:03] LABS: Glucose,Whole Blood 120 mg/dL (75-99)
--- NOTE | 2018-11-21 18:10 | PN ---
PROGRESS NOTE Patient is seen for followup for acute kidney injury. He continues to complain of pain in his lower extremities. Patient was maintained on Motrin. His creatinine had gone up to 2.68. It is now down to 1.19. Motrin has been discontinued. Patient denies any nausea, vomiting or diarrhea. He is complaining of pain in his legs. On examination, blood pressure this morning was 112/79, heart rate of 57 per minute. He is afebrile. EXAMINATION OF THE HEART: S1 and S2. EXAMINATION OF LUNGS: Bilateral breath sounds are heard. ABDOMEN: Soft, non-tender. Examination of lower extremities shows bilateral lower extremity edema and erythema noted. LIFE SKILLS TEACHER exam is grossly intact. Labs show hemoglobin 11.9, sodium 140, potassium 4.5, BUN 32, serum creatinine 1.19. ASSESSMENT: 1. Acute kidney injury secondary to non-steroidal anti-inflammatories, currently improved. 2. Mild volume overload. Add loop diuretics. 3. Bilateral lower extremity cellulitis, maintained on cefazolin. 4. Chronic kidney disease secondary to nephrosclerosis versus underlying glomerulonephritis versus secondary to non-steroidal anti-inflammatories. PLAN: Add Lasix. Continue antibiotics. Continue off of NSAIDs. Patient is advised to follow up as outpatient. MMODL / IJN: [id number] /
[2018-11-21 20:32] LABS: Glucose,Whole Blood 105 mg/dL (75-99)
[2018-11-21] MEDS: FUROSEMIDE 10 MG/ML 4 ML VIAL IV SCH (20:39)
--- NOTE | 2018-11-21 22:04 | PN ---
PROGRESS NOTE CHIEF COMPLAINT: Cellulitis of the lower extremities, congestive heart failure, cardiomyopathy, diabetes and renal failure. HISTORY OF PRESENT ILLNESS: This gentleman is slowly improving, although he has been very inactive and not moving about. Vital signs are normal. PHYSICAL EXAMINATION: Breath sounds are heard on both sides. The abdomen is very protuberant. Extremities are improving slowly. IMPRESSION: 1. Cellulitis of the lower extremities. 2. Congestive heart failure. 3. Cardiomyopathy. 4. Morbid obesity. 5. Pickwickian syndrome. 6. Diabetes. 7. Hypothyroidism. PLAN: Continue with current program. He probably will require long-term care after he leaves, and a consult has been placed. MMODL / IJN: [id number] /
[2018-11-22] MEDS: HEPARIN SODIUM,PORCINE 5,000 UNIT/ML 1 ML VIAL SQ SCH ×3 (00:10→15:52)
[2018-11-22] MEDS: HYDROcodone/APAP 5-325MG 1 EACH TAB PO PRN ×2 (02:46→14:00)
[2018-11-22] MEDS: LEVOTHYROXINE 100 MCG TAB PO SCH (05:30)
[2018-11-22 06:51] LABS: Glucose,Whole Blood 96 mg/dL (75-99)
[2018-11-22] MEDS: FUROSEMIDE 10 MG/ML 4 ML VIAL IV SCH ×2 (08:54→21:36)
[2018-11-22] MEDS: traMADol 50 MG TAB PO SCH ×3 (08:54→21:36)
[2018-11-22 20:50] LABS: Glucose,Whole Blood 122 mg/dL (75-99)
--- NOTE | 2018-11-22 21:26 | PN ---
PROGRESS NOTE Patient is seen for followup for acute kidney injury. His renal function has improved. The patient is off nonsteroidal anti-inflammatory agents. He was also started on Lasix yesterday. He states he has had good urine output. PHYSICAL EXAMINATION: On examination today, blood pressure was 117/77, heart rate 89 per minute. Patient is afebrile. Examination of the heart S1, S2. Examination of the lungs, bilateral breath sounds are heard. Abdomen is soft, nontender. Morbidly obese. Examination of lower extremities shows significant chronic skin changes. Edema and erythema noted. This seems to have decreased. LABS: Not available from today. ASSESSMENT: 1. Acute kidney injury secondary to NSAIDs, currently improved. 2. Volume overload, started on Lasix yesterday. 3. Lower extremity cellulitis, maintained on antibiotics. 4. Chronic kidney disease secondary to nephrosclerosis versus secondary to NSAIDs. The patient will need followup as outpatient. PLAN: Repeat labs in a.m. Continue with Lasix for now. The patient is advised to continue to avoid use of any NSAIDs. MMODL / IJN: [id number] /
[2018-11-23] MEDS: HEPARIN SODIUM,PORCINE 5,000 UNIT/ML 1 ML VIAL SQ SCH ×3 (00:11→17:13)
[2018-11-23] MEDS: HYDROcodone/APAP 5-325MG 1 EACH TAB PO PRN ×3 (01:18→16:35)
[2018-11-23] MEDS: LEVOTHYROXINE 100 MCG TAB PO SCH (05:24)
[2018-11-23] MEDS: FUROSEMIDE 10 MG/ML 4 ML VIAL IV SCH (09:23)
[2018-11-23] MEDS: traMADol 50 MG TAB PO SCH ×2 (11:43→17:13)
[2018-11-23] MEDS ORDERED: CEPHALEXIN 500 MG CAP PO SCH (13:00)
[2018-11-23 14:23] VITALS: BP 142/77; PULSE 84; RESP 16; TEMP 98.3
--- NOTE | 2018-11-23 15:05 | DS ---
DISCHARGE SUMMARY CHIEF COMPLAINT: Pain, redness and swelling in the lower extremities. HISTORY OF PRESENT ILLNESS AND PHYSICAL EXAM: Details of this man's history and physical can be found in the initial workup. LABORATORY STUDIES: While he was in a hospital, he had laboratory studies, details of which can be found in the laboratory section of the chart. COURSE IN THE HOSPITAL: After admission, he was placed on bedrest, started on intravenous fluids and IV antibiotics. The legs were elevated. They slowly responded. While he was in a hospital, he was placed back on his levothyroxine, diuretics and management of his congestive heart failure/cardiomyopathy and hypothyroidism. Legs fairly improved and discomfort re-seated. It was felt that he was candidate for rehab and arrangements were made for him to go to the [facility] on 11/23. FINAL DIAGNOSES: 1. Cellulitis lower extremities. 2. Venostasis disease and stasis dermatitis, lower extremities. 3. Morbid obesity. 4. Pickwickian syndrome. 5. Chronic diastolic congestive heart failure. 6. Acute congestive heart failure. 7. Profound hypothyroidism. 8. Chronic obstructive pulmonary disease. 9. Insulin-dependent diabetes mellitus. OPERATIONS: None. CONSULTATIONS: Infectious Disease, Cardiology. He is improved. MMODL / IJN: [id number] /
[2018-11-23 18:13] LABS: African American GFR (CKD) >90 (>60 ml/min/1.73 sqM); Blood Urea Nitrogen 19 mg/dL (9-20); Calcium 9.4 mg/dL (8.4-10.2); Chloride 92 mmol/L (98-107); Glucose 97 mg/dL (74-99); Potassium 4.1 mmol/L (3.5-5.1); Sodium 139 mmol/L (137-145)
[2018-11-23 18:19] LABS: Anion Gap 9 mmol/L; Carbon Dioxide 38 mmol/L (22-30)
--- NOTE | 2018-11-23 18:53 | PN ---
PROGRESS NOTE Patient is seen for followup for acute kidney injury, mainly secondary to NSAIDs. His renal function has improved with creatinine down to 1.19. No labs are available today. Patient has also been started on diuretics secondary to significant lower extremity edema and volume overload. He is admitted for lower extremity cellulitis. On examination today, patient is comfortable. Blood pressure this morning was 114/73, heart rate of 80 per minute. Patient is afebrile. EXAMINATION OF THE HEART: S1 and S2. EXAMINATION OF LUNGS: Bilateral breath sounds are heard. ABDOMEN: Soft, morbidly obese. Examination of lower extremities shows chronic skin changes, much decreased edema and erythema. CREAM HAULER exam is grossly intact. Labs on 11/21/2018 showed serum creatinine 1.19. ASSESSMENT: 1. Acute kidney injury secondary to non-steroidal anti-inflammatories, currently improved. Repeat labs today. 2. Volume overload. Started on Lasix 40 mg IV q.12 hours. Check labs today. Consider decreasing Lasix if renal function is worse. Volume status has improved significantly. 3. Bilateral lower extremity cellulitis, maintained on Keflex now. PLAN: Check labs today. Patient is advised to follow up as outpatient. MMODL / IJN: [id number] /
== END 2018-11-23 19:09 | DRG 602 ==
LOC: EC 22:27 → 4SSUR 11-18 00:54 → OBSVTOIN 11-19 16:04
PROVIDERS: ADMIT Family Medicine; ATTEND Family Medicine
DX: L03.115 Cellulitis of right lower limb (principal); I50.33 Acute on chronic diastolic (congestive) heart failure; E66.2 Morbid (severe) obesity with alveolar hypoventilation; I13.0 Hypertensive heart and chronic kidney disease with heart failure and stage 1 through stage 4 chronic kidney disease, or unspecified chronic kidney disease; I42.9 Cardiomyopathy, unspecified; N17.9 Acute kidney failure, unspecified; Z68.44 Body mass index [BMI] 60.0-69.9, adult; L03.116 Cellulitis of left lower limb; E11.22 Type 2 diabetes mellitus with diabetic chronic kidney disease; I48.91 Unspecified atrial fibrillation; I87.2 Venous insufficiency (chronic) (peripheral); N18.3 Chronic kidney disease, stage 3 (moderate); D86.9 Sarcoidosis, unspecified; E03.9 Hypothyroidism, unspecified; E78.5 Hyperlipidemia, unspecified; F17.200 Nicotine dependence, unspecified, uncomplicated; F90.9 Attention-deficit hyperactivity disorder, unspecified type; I25.10 Atherosclerotic heart disease of native coronary artery without angina pectoris; I87.8 Other specified disorders of veins; I89.0 Lymphedema, not elsewhere classified; J44.9 Chronic obstructive pulmonary disease, unspecified; K21.9 Gastro-esophageal reflux disease without esophagitis; T39.395A Adverse effect of other nonsteroidal anti-inflammatory drugs [NSAID], initial encounter; F32.9 Major depressive disorder, single episode, unspecified; F41.9 Anxiety disorder, unspecified; M10.9 Gout, unspecified; M19.90 Unspecified osteoarthritis, unspecified site; Z79.899 Other long term (current) drug therapy; Z79.890 Hormone replacement therapy; Z96.651 Presence of right artificial knee joint; Z88.1 Allergy status to other antibiotic agents; Z82.5 Family history of asthma and other chronic lower respiratory diseases; Z83.3 Family history of diabetes mellitus; Z82.61 Family history of arthritis
CPT/HCPCS: 36415; 71046; 80048; 80053; 81001; 82565; 83605; 84439; 84443; 85025; 85610; 85730; 87040; 93005; 94640; 94760; 96374; 99284

== ENCOUNTER 2019-01-19 01:51 | Emergency (ER) | payer MEDICARE, OTHER ==
[2019-01-19 01:59] VITALS: TEMP 98.8
[2019-01-19 02:11] LABS: Basophils # (A) 0.1 k/uL (0-0.2); Basophils % (A) 1 %; Eosinophils # (A) 0.3 k/uL (0-0.7); Eosinophils % (A) 5 %; HCT 33.8 % (39.0-53.0); HGB 11.1 gm/dL (13.0-17.5); Hypochromasia Slight; Lymphocytes # (A) 1.1 k/uL (1.0-4.8); Lymphocytes % (A) 16 %; MCH 31.3 pg (25.0-35.0); MCHC 32.7 g/dL (31.0-37.0); MCV 95.6 fL (80.0-100.0); Monocytes # (A) 0.4 k/uL (0-1.0); Monocytes % (A) 5 %; Neutrophils # (A) 4.9 k/uL (1.3-7.7); Neutrophils % (A) 69 %; Platelet Count 291 k/uL (150-450); RBC 3.54 m/uL (4.30-5.90); RDW 14.3 % (11.5-15.5); WBC 7.1 k/uL (3.8-10.6)
[2019-01-19 02:21] LABS: INR 0.9 (<1.2); Partial Thromboplastin Time 25.5 sec (22.0-30.0); Prothrombin Time 9.8 sec (9.0-12.0)
[2019-01-19 02:25] LABS: ALT 60 U/L (21-72); AST 72 U/L (17-59); African American GFR (CKD) >90 (>60 ml/min/1.73 sqM); Albumin 3.2 g/dL (3.5-5.0); Alkaline Phosphatase 147 U/L (38-126); Anion Gap 10 mmol/L; Blood Urea Nitrogen 13 mg/dL (9-20); Calcium 9.5 mg/dL (8.4-10.2); Carbon Dioxide 29 mmol/L (22-30); Chloride 99 mmol/L (98-107); Glucose 174 mg/dL (74-99); Magnesium 1.9 mg/dL (1.6-2.3); Potassium 3.9 mmol/L (3.5-5.1); Sodium 138 mmol/L (137-145); Total Bilirubin 0.4 mg/dL (0.2-1.3)
--- NOTE | 2019-01-19 02:32 | XR ---
EXAMINATION TYPE: XR chest 2V DATE OF EXAM: 01/19/2019 COMPARISON: 11/21/2018 HISTORY: Chest pain TECHNIQUE: Frontal and lateral views of the chest are obtained. FINDINGS: There is no heart failure. There is minimal atelectasis left lung base. The remaining lung eric appear clear. There are chest leads. There is no pleural effusion. Heart size is normal. IMPRESSION: Mild subsegmental atelectasis left lung base. There is not a significant overall change compared to l ast exam.
--- NOTE | 2019-01-19 02:37 | ED ---
Chest Pain HPI - General Chief Complaint: Chest Pain Stated Complaint: chest pain Time Seen by Provider: 01/19/19 01:55 Source: EMS Mode of arrival: EMS Limitations: no limitations - History of Present Illness Initial Comments: Bill is a 43-year-old morbidly obese gentleman who presents to the emergency department today via EMS for evaluation of palpitations and shortness of breath. Patient currently resides at [facility] facility. Patient reports that he woke from sleep feeling like his heart was racing and he couldn't catch his breath. Patient denies any recent exertional chest pain or diaphoresis. Patient also complains of generalized pain in his bilateral lower extremity secondary to arthritis. Patient takes [employer] for this at home or work that is not helping. Patient is currently participating in physical therapy at rehab. - Related Data Home Medications Medication Instructions Recorded Confirmed Albuterol Inhaler [Ventolin Hfa 1 - 2 puff INHALATION RT-Q6H PRN 11/17/18 11/17/18 Inhaler] Atorvastatin Calcium [Lipitor] 20 mg PO HS 11/17/18 11/17/18 Benazepril HCl [Lotensin] 40 mg PO DAILY 11/17/18 11/17/18 Previous Rx's Medication Instructions Recorded Albuterol Nebulized [Ventolin 2.5 mg INHALATION RT-QID PRN #120 11/23/18 Nebulized] nebu Cephalexin [Keflex] 500 mg PO QID #60 cap 11/23/18 Furosemide [Lasix] 40 mg PO DAILY #30 tab 11/23/18 Levothyroxine Sodium [Synthroid] 300 mcg PO DAILY@0630 #30 tab 11/23/18 Allergies Allergy/AdvReac Type Severity Reaction Status Date / Time vancomycin Allergy Rash/Hives Verified 01/19/19 01:59 Review of Systems ROS Statement: Those systems with pertinent positive or pertinent negative responses have been documented in the HPI. ROS Other: All systems not noted in ROS Statement are negative. EKG Findings - EKG Comments: EKG Findings:: KG was obtained due to complaint of palpitations, EKG was obtained at 1:50 AM, rate is 109 rhythm is sinus, there is a rightward axis, UT 158, QRS 86, QTC 474. No acute ST elevations or depressions no evidence of acute ischemia or infarction. Past Medical History Past Medical History: Atrial Fibrillation, Asthma, Coronary Artery Disease (CAD), COPD, GERD/Reflux, Hyperlipidemia, Hypertension, Osteoarthritis (OA), Renal Disease, Sleep Apnea/CPAP/BIPAP, Thyroid Disorder Additional Past Medical History / Comment(s): sarcoidosis, gouty arthritis, "small esophagus" occ diff swallowing, arthritis, uses CPAP at home, trouble sleeping. History of Any Multi-Drug Resistant Organisms: None Reported Past Surgical History: Cardiac Ablation, Joint Replacement, Orthopedic Surgery Additional Past Surgical History / Comment(s): right knee replacement, bilat ankle surgery, R wrist surgery r/t gout/arthritis lymph node biopsy- sarcoidosis Past Anesthesia/Blood Transfusion Reactions: No Reported Reaction Additional Past Anesthesia/Blood Transfusion Reaction / Comment(s): pt states he has never had a blood transfusion Past Psychological History: ADD/ADHD, Anxiety, Depression Smoking Status: Former smoker Past Alcohol Use History: None Reported Past Drug Use History: Marijuana - Past Family History Father Family Medical History: COPD Additional Family Medical History / Comment(s): emphysema Mother Family Medical History: Diabetes Mellitus, Rheumatoid Arthritis (RA) Additional Family Medical History / Comment(s): back surgery, joint replacements General Exam - General Exam Comments Initial Comments: Physical Exam GENERAL: Patient is well-developed and well-nourished. Patient is nontoxic and well-hydrated and is in no distress. HENT: Normocephalic, Atraumatic. EYES: PERRL, EOMI PULMONARY: Unlabored respirations. No audible rales rhonchi or wheezing was noted. CARDIOVASCULAR: Tachycardic, regular ABDOMEN: Obese Soft and nontender with normal bowel sounds. SKIN: Skin changes on lower extremities consistent with chronic venous stasis no signs of acute cellulitis : Deferred NEUROLOGIC: Patient is alert and oriented x3. Moving all extremities spontaneously MUSCULOSKELETAL: Normal extremities with adequate strength and full range of motion. PSYCHIATRIC: Normal psychiatric evaluation. Limitations: no limitations Course Vital Signs 01/19/19 01/19/19 01/19/19 01:56 03:40 04:00 Temperature 98.8 F Pulse Rate 112 H 97 93 Respiratory 22 24 18 Rate Blood Pressure 117/61 122/78 122/78 O2 Sat by Pulse 92 L 94 L 94 L Oximetry 01/19/19 04:30 Temperature Pulse Rate 96 Respiratory 18 Rate Blood Pressure 109/68 O2 Sat by Pulse 94 L Oximetry Chest Pain MDM - MDM The patient was seen and evaluated, history is obtained from the patient and review of medical record Cardiac workup was initiated due to palpitations and hypoxia Labs are relatively unremarkable however given the patient's oxygen saturations remained in the low 90s and heart rate remains elevated a CT pulmonary embolism study was ordered resulted with no acute findings no evidence of pulmonary embolism. Upon reevaluation patient's resting more comfortably in bed. He does continue to complain of generalized body pain which she reports is worse due to sitting in the hospital bed. Patient was given a single dose of IV morphine. I did offered he the patient in the hospital for further evaluation by cardiology however given that there were no acute findings in the emergency department, patient was never experiencing any chest pain just palpitations which have resolved patient is comfortable with plan for discharge home with continued outpatient follow-up. Disposition Clinical Impression: Palpitations, Chronic pain Disposition: HOME SELF-CARE Condition: Stable Instructions (If sedation given, give patient instructions): Heart Palpitations (DC) Is patient prescribed a controlled substance at d/c from ED?: No Referrals: Jeffy Bloom MD [Primary Care Provider] - 1-2 days
[2019-01-19] MEDS ORDERED: HYDROcodone/APAP 7.5-325MG 1 EACH TAB PO ONE (03:04)
--- NOTE | 2019-01-19 03:51 | CT ---
EXAMINATION TYPE: CT chest angio for PE DATE OF EXAM: 01/19/2019 COMPARISON: 02/17/2011 HISTORY: hypoxia CLAUDETTE CT DLP: 1166.2 mGycm Automated exposure control for dose reduction was used. CONTRAST: CT Chest for pulmonary embolism performed with with IV Contrast, patient injected with 95 mL of Isovu e 370. There are 3-D post processed images. FINDINGS: Thoracic aorta is intact. There is no aneurysm or dissection. There is no mediastinal adenopathy. The re are no hilar masses. Heart size is normal. There is no pericardial effusion. There is minimal subsegmental atelectasis in the lung bases bilaterally. There is no pleural effusion . There is no pericardial effusion. Heart size is fairly normal. The bony thorax is intact. There is no compression fracture. There is normal contrast opacification of the pulmonary arteries. There are no filling defects. IMPRESSION: No evidence of pulmonary embolism. Minimal atelectasis at the lung bases. No significant change compared to old exam.
[2019-01-19] MEDS ORDERED: MORPHINE SULFATE 4 MG/ML SYRINGE IVP STA (04:22)
[2019-01-19 04:36] VITALS: BP 109/68; PULSE 96; RESP 18
== END 2019-01-19 05:02 | disposition home or self-care (01) ==
LOC: EC 01:51
DX: G89.29 Other chronic pain (principal); R07.9 Chest pain, unspecified; R00.2 Palpitations; R06.02 Shortness of breath; R00.0 Tachycardia, unspecified; I48.91 Unspecified atrial fibrillation; I25.10 Atherosclerotic heart disease of native coronary artery without angina pectoris; J44.9 Chronic obstructive pulmonary disease, unspecified; K21.9 Gastro-esophageal reflux disease without esophagitis; I10 Essential (primary) hypertension; E78.5 Hyperlipidemia, unspecified; G47.30 Sleep apnea, unspecified; M19.90 Unspecified osteoarthritis, unspecified site; E07.9 Disorder of thyroid, unspecified; F41.9 Anxiety disorder, unspecified; F32.9 Major depressive disorder, single episode, unspecified; E66.01 Morbid (severe) obesity due to excess calories; Z68.42 Body mass index [BMI] 45.0-49.9, adult; Z79.899 Other long term (current) drug therapy; Z88.1 Allergy status to other antibiotic agents; Z87.891 Personal history of nicotine dependence; Z96.651 Presence of right artificial knee joint; Z99.89 Dependence on other enabling machines and devices
CPT/HCPCS: 36415; 93005; 83880; 80053; 83735; 84484; 85025; 85610; 85730; 71046; 71275; 99285; 96374; J2270; Q9967

== ENCOUNTER → 2020-07-08 | Outpatient (CLI) | payer MEDICARE, OTHER ==
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
== END | disposition home or self-care (01) ==
LOC: SLEEP 11:40
PROVIDERS: ATTEND Internal Medicine
DX: G47.33 Obstructive sleep apnea (adult) (pediatric) (principal); E66.9 Obesity, unspecified; I10 Essential (primary) hypertension; M10.9 Gout, unspecified; E11.9 Type 2 diabetes mellitus without complications; E78.5 Hyperlipidemia, unspecified; E03.9 Hypothyroidism, unspecified; F41.9 Anxiety disorder, unspecified; Z98.890 Other specified postprocedural states; Z68.43 Body mass index [BMI] 50.0-59.9, adult
CPT/HCPCS: 99211

== ENCOUNTER 2020-11-05 16:32 | Inpatient (IN) | payer MEDICARE, OTHER ==
--- NOTE | 2020-11-05 16:58 | ED ---
General Adult HPI - General Chief complaint: Extremity Problem,Nontraumatic Stated complaint: cellulitis Source: patient, RN notes reviewed, old records reviewed Mode of arrival: wheelchair Limitations: no limitations - History of Present Illness Initial comments: 45-year-old obese male, alert and oriented 4, presents to the emergency room with complaints of bilateral lower extremity swelling and pain for the past 4 days. Patient states this has happened to him in the past and it was cellulitis. He states that the infection progressed so fast lsat time that he lost bowel and bladder continence and needed to be hospitalized and was told that if he didn't get in when he did he would've at that time of sepsis. Patient denies any fevers, no nausea vomiting or diarrhea. He denies any chest pain or shortness of breath. He states that legs have been increasingly more painful and swollen and now the skin is blistering. He is having difficulty walking and his right leg is significantly more painful than his left. He denies any bowel or bladder incontinence at this time -: days(s) (4) Location: left, right, lower extremity Severity scale (1-10): 6 Consistency: constant Improves with: none Worsens with: other (palpation, walking) Associated Symptoms: denies other symptoms Treatments Prior to Arrival: none - Related Data Home Medications Medication Instructions Recorded Confirmed Atorvastatin Calcium [Lipitor] 20 mg PO HS 11/17/18 11/05/20 HYDROcodone/APAP 7.5-325MG [[place] 1 tab PO TID PRN 11/05/20 11/05/20 7.5-325] INSULIN ASPART (NovoLOG) [NovoLOG 32 unit SQ AC-TID 11/05/20 11/05/20 (formulary)] Levothyroxine Sodium [Synthroid] 175 mcg PO DAILY 11/05/20 11/05/20 Pioglitazone [Actos] 30 mg PO DAILY 11/05/20 11/05/20 Tamsulosin HCl [Flomax] 0.4 mg PO DAILY 11/05/20 11/05/20 allopurinoL [Zyloprim] 300 mg PO BID 11/05/20 11/05/20 busPIRone HCL 5 mg PO TID 11/05/20 11/05/20 lisinopriL 20 mg PO DAILY 11/05/20 11/05/20 Previous Rx's Medication Instructions Recorded Furosemide [Lasix] 40 mg PO DAILY #30 tab 11/23/18 Allergies Allergy/AdvReac Type Severity Reaction Status Date / Time vancomycin Allergy Rash/Hives Verified 11/05/20 19:37 Review of Systems ROS Statement: Those systems with pertinent positive or pertinent negative responses have been documented in the HPI. ROS Other: All systems not noted in ROS Statement are negative. Past Medical History Past Medical History: Atrial Fibrillation, Asthma, Coronary Artery Disease (CAD), COPD, GERD/Reflux, Hyperlipidemia, Hypertension, Osteoarthritis (OA), Renal Disease, Sleep Apnea/CPAP/BIPAP, Thyroid Disorder Additional Past Medical History / Comment(s): sarcoidosis, gouty arthritis, "small esophagus" occ diff swallowing, arthritis, uses CPAP at home, trouble sleeping. History of Any Multi-Drug Resistant Organisms: None Reported Past Surgical History: Cardiac Ablation, Joint Replacement, Orthopedic Surgery Additional Past Surgical History / Comment(s): right knee replacement, bilat ankle surgery, R wrist surgery r/t gout/arthritis lymph node biopsy- sarcoidosis Past Anesthesia/Blood Transfusion Reactions: No Reported Reaction Additional Past Anesthesia/Blood Transfusion Reaction / Comment(s): pt states he has never had a blood transfusion Past Psychological History: ADD/ADHD, Anxiety, Depression Smoking Status: Current every day smoker Past Alcohol Use History: None Reported Past Drug Use History: Marijuana - Past Family History Father Family Medical History: COPD Additional Family Medical History / Comment(s): emphysema Mother Family Medical History: Diabetes Mellitus, Rheumatoid Arthritis (RA) Additional Family Medical History / Comment(s): back surgery, joint replacements General Exam Limitations: no limitations General appearance: alert, in no apparent distress Head exam: Present: atraumatic, normocephalic, normal inspection Eye exam: Present: normal appearance, PERRL, EOMI. Absent: scleral icterus, conjunctival injection, periorbital swelling ENT exam: Present: normal exam, normal oropharynx, mucous membranes dry Neck exam: Present: normal inspection, full ROM. Absent: tenderness, meningismus, lymphadenopathy Respiratory exam: Present: normal lung sounds bilaterally. Absent: respiratory distress, wheezes, rales, rhonchi, stridor, chest wall tenderness, accessory muscle use Cardiovascular Exam: Present: regular rate, normal rhythm, normal heart sounds. Absent: systolic murmur, diastolic murmur, rubs, gallop, clicks Extremities exam: Present: full ROM, tenderness, normal capillary refill, pedal edema, calf tenderness (Bilateral) Left Lower Leg exam: Present: tenderness, swelling, erythema. Absent: full ROM, abrasion Ankle exam: Present: tenderness, swelling, erythema Foot/Toe exam: Present: tenderness, swelling, erythema Neurovascular tendon exam: Absent: pulse deficit, abnormal cap refill, extremity cold to touch, pallor, foot drop Gait: not tested/not observed Right Lower Leg exam: Present: tenderness, swelling, erythema Ankle exam: Present: tenderness, swelling, erythema Foot/Toe exam: Present: tenderness, swelling. Absent: erythema Neurovascular tendon exam: Present: no vascular compromise. Absent: abnormal cap refill, extremity cold to touch, pallor Back exam: Present: normal inspection, full ROM. Absent: tenderness, CVA tenderness (R), CVA tenderness (L), muscle spasm, paraspinal tenderness, vertebral tenderness, rash noted Neurological exam: Present: alert, oriented X3, CN II-XII intact Psychiatric exam: Present: normal affect, normal mood Skin exam: Present: warm, dry, normal color. Absent: rash, cyanosis, clement phoretic, petechiae, pallor Course Vital Signs 11/05/20 11/05/20 16:34 20:43 Temperature 97.6 F Pulse Rate 86 80 Respiratory 20 19 Rate Blood Pressure 109/79 112/79 O2 Sat by Pulse 97 99 Oximetry Medical Decision Making - Medical Decision Making Venous Doppler bilateral lower extremities shows suboptimal visualization of the distal femoral veins and cannot entirely exclude a nonocclusive DVT in the distal femoral veins. The patient's glucose was 583, his corrected sodium is 136. He was given a liter of fluid. I will admit patient for cellulitis and bilateral DVT. Spoke with Dr Woods who requested he be started on cefazolin and low intensity heparin. Case discussed with Dr. Whitt - Lab Data Result diagrams: 11/05/20 17:23 11/05/20 17:23 Lab Results 11/05/20 11/05/20 11/05/20 Range/Units 17:23 17:23 17:23 WBC 4.0 (3.8-10.6) k/uL RBC 4.80 (4.30-5.90) m/uL Hgb 14.7 (13.0-17.5) gm/dL Hct 49.0 (39.0-53.0) % MCV 102.2 H (80.0-100.0) fL MCH 30.7 (25.0-35.0) pg MCHC 30.1 L (31.0-37.0) g/dL RDW 13.8 (11.5-15.5) % Plt Count 136 L (150-450) k/uL MPV 9.4 Neutrophils % 60 % Lymphocytes % 23 % Monocytes % 5 % Eosinophils % 9 % Basophils % 1 % Neutrophils # 2.4 (1.3-7.7) k/uL Lymphocytes # 0.9 L (1.0-4.8) k/uL Monocytes # 0.2 (0-1.0) k/uL Eosinophils # 0.4 (0-0.7) k/uL Basophils # 0.0 (0-0.2) k/uL Macrocytosis Slight PT (9.0-12.0) sec INR (<1.2) APTT (22.0-30.0) sec Sodium 128 L (137-145) mmol/L Potassium 4.2 (3.5-5.1) mmol/L Chloride 93 L (98-107) mmol/L Carbon Dioxide 27 (22-30) mmol/L Anion Gap 8 mmol/L BUN 11 (9-20) mg/dL Creatinine 1.33 H (0.66-1.25) mg/dL Est GFR (CKD-EPI)AfAm 75 (>60 ml/min/1.73 sqM) Est GFR (CKD-EPI)NonAf 65 (>60 ml/min/1.73 sqM) Glucose 583 H* (74-99) mg/dL Plasma Lactic Acid Clarke (0.7-2.0) mmol/L Calcium 9.9 (8.4-10.2) mg/dL Total Bilirubin 0.5 (0.2-1.3) mg/dL AST 86 H (17-59) U/L ALT 91 H (4-49) U/L Alkaline Phosphatase 178 H (38-126) U/L Total Protein 6.7 (6.3-8.2) g/dL Albumin 4.0 (3.5-5.0) g/dL Urine Color Light Yellow Urine Appearance Clear (Clear) Urine pH 5.5 (5.0-8.0) Ur Specific [place] 1.026 (1.001-1.035) Urine Protein Negative (Negative) Urine Glucose (UA) 4+ H (Negative) Urine Ketones Negative (Negative) Urine Blood Negative (Negative) Urine Nitrite Negative (Negative) Urine Bilirubin Negative (Negative) Urine Urobilinogen <2.0 (<2.0) mg/dL Ur Leukocyte Esterase Negative (Negative) Acetone, Qual (Negative) 11/05/20 11/05/20 11/05/20 Range/Units 17:23 17:23 17:23 WBC (3.8-10.6) k/uL RBC (4.30-5.90) m/uL Hgb (13.0-17.5) gm/dL Hct (39.0-53.0) % MCV (80.0-100.0) fL MCH (25.0-35.0) pg MCHC (31.0-37.0) g/dL RDW (11.5-15.5) % Plt Count (150-450) k/uL MPV Neutrophils % % Lymphocytes % % Monocytes % % Eosinophils % % Basophils % % Neutrophils # (1.3-7.7) k/uL Lymphocytes # (1.0-4.8) k/uL Monocytes # (0-1.0) k/uL Eosinophils # (0-0.7) k/uL Basophils # (0-0.2) k/uL Macrocytosis PT 10.7 (9.0-12.0) sec INR 1.0 (<1.2) APTT (22.0-30.0) sec Sodium (137-145) mmol/L Potassium (3.5-5.1) mmol/L Chloride (98-107) mmol/L Carbon Dioxide (22-30) mmol/L Anion Gap mmol/L BUN (9-20) mg/dL Creatinine (0.66-1.25) mg/dL Est GFR (CKD-EPI)AfAm (>60 ml/min/1.73 sqM) Est GFR (CKD-EPI)NonAf (>60 ml/min/1.73 sqM) Glucose (74-99) mg/dL Plasma Lactic Acid Clarke 1.8 (0.7-2.0) mmol/L Calcium (8.4-10.2) mg/dL Total Bilirubin (0.2-1.3) mg/dL AST (17-59) U/L ALT (4-49) U/L Alkaline Phosphatase (38-126) U/L Total Protein (6.3-8.2) g/dL Albumin (3.5-5.0) g/dL Urine Color Urine Appearance (Clear) Urine pH (5.0-8.0) Ur Specific [place] (1.001-1.035) Urine Protein (Negative) Urine Glucose (UA) (Negative) Urine Ketones (Negative) Urine Blood (Negative) Urine Nitrite (Negative) Urine Bilirubin (Negative) Urine Urobilinogen (<2.0) mg/dL Ur Leukocyte Esterase (Negative) Acetone, Qual Negative (Negative) 11/05/20 Range/Units 17:23 WBC (3.8-10.6) k/uL RBC (4.30-5.90) m/uL Hgb (13.0-17.5) gm/dL Hct (39.0-53.0) % MCV (80.0-100.0) fL MCH (25.0-35.0) pg MCHC (31.0-37.0) g/dL RDW (11.5-15.5) % Plt Count (150-450) k/uL MPV Neutrophils % % Lymphocytes % % Monocytes % % Eosinophils % % Basophils % % Neutrophils # (1.3-7.7) k/uL Lymphocytes # (1.0-4.8) k/uL Monocytes # (0-1.0) k/uL Eosinophils # (0-0.7) k/uL Basophils # (0-0.2) k/uL Macrocytosis PT (9.0-12.0) sec INR (<1.2) APTT 23.8 (22.0-30.0) sec Sodium (137-145) mmol/L Potassium (3.5-5.1) mmol/L Chloride (98-107) mmol/L Carbon Dioxide (22-30) mmol/L Anion Gap mmol/L BUN (9-20) mg/dL Creatinine (0.66-1.25) mg/dL Est GFR (CKD-EPI)AfAm (>60 ml/min/1.73 sqM) Est GFR (CKD-EPI)NonAf (>60 ml/min/1.73 sqM) Glucose (74-99) mg/dL Plasma Lactic Acid Clarke (0.7-2.0) mmol/L Calcium (8.4-10.2) mg/dL Total Bilirubin (0.2-1.3) mg/dL AST (17-59) U/L ALT (4-49) U/L Alkaline Phosphatase (38-126) U/L Total Protein (6.3-8.2) g/dL Albumin (3.5-5.0) g/dL Urine Color Urine Appearance (Clear) Urine pH (5.0-8.0) Ur Specific [place] (1.001-1.035) Urine Protein (Negative) Urine Glucose (UA) (Negative) Urine Ketones (Negative) Urine Blood (Negative) Urine Nitrite (Negative) Urine Bilirubin (Negative) Urine Urobilinogen (<2.0) mg/dL Ur Leukocyte Esterase (Negative) Acetone, Qual (Negative) Disposition Clinical Impression: Cellulitis Clinical Impression: (Ruled Out): Deep vein thrombosis (DVT) of lower extremity Disposition: ADMITTED IP TO THIS [facility] Condition: Fair Decision Date: 11/05/20 Decision Time: 19:10
[2020-11-05 17:45] LABS: Calcium 9.9 mg/dL (8.4-10.2); Potassium 4.2 mmol/L (3.5-5.1); Prothrombin Time 10.7 sec (9.0-12.0); Total Bilirubin 0.5 mg/dL (0.2-1.3); Total Protein 6.7 g/dL (6.3-8.2)
[2020-11-05] MEDS ORDERED: SODIUM CHLORIDE 0.9% 1,000 ML IV ONE (18:02)
--- NOTE | 2020-11-05 18:02 | US ---
EXAMINATION TYPE: US venous doppler duplex LE BI DATE OF EXAM: 11/05/2020 5:46 PM COMPARISON: 02/17/2026 CLINICAL HISTORY: Pain and swelling. No hx of DVT. Patient does not take blood thinners. Hx right kn ee replacement. SIDE PERFORMED: Bilateral TECHNIQUE: The lower extremity deep venous system is examined utilizing real time linear array sonog pepper with graded compression, doppler sonography and color-flow sonography. VESSELS IMAGED: Common Femoral Vein Deep Femoral Vein Greater Saphenous Vein * Femoral Vein Popliteal Vein Small Saphenous Vein * Proximal Calf Veins (* superficial vessels) Limited due to body habitus, pt is 370 lbs. Right Leg: Color flow is shown within veins imaged. Difficult to visualize distal femoral vein in t ransverse compression views, limited. Left Leg: Color flow is shown within veins imaged. Difficult to visualize distal femoral vein in tr ansverse compression views, limited. Patient had difficulty tolerating compression at distal femoral vein segment. IMPRESSION: 1. Visualization of the distal femoral veins bilaterally was suboptimal and limited due to patient co ndition, cannot entirely exclude a nonocclusive DVT in the distal femoral veins. Clinical correlation recommended. 2. Otherwise no evidence of deep vein thrombosis in the bilateral lower extremities.
[2020-11-05 18:04] LABS: Basophils % (A) 1 %; Eosinophils # (A) 0.4 k/uL (0-0.7); Eosinophils % (A) 9 %; HGB 14.7 gm/dL (13.0-17.5); Lymphocytes # (A) 0.9 k/uL (1.0-4.8); Lymphocytes % (A) 23 %; MCH 30.7 pg (25.0-35.0); MCHC 30.1 g/dL (31.0-37.0); MCV 102.2 fL (80.0-100.0); Macrocytosis Slight; Mean Platelet Volume 9.4; Monocytes # (A) 0.2 k/uL (0-1.0); Monocytes % (A) 5 %; Neutrophils # (A) 2.4 k/uL (1.3-7.7); Neutrophils % (A) 60 %; Platelet Count 136 k/uL (150-450); RDW 13.8 % (11.5-15.5)
[2020-11-05] MEDS ORDERED: HEPARIN SODIUM 1,000 UN/ML (10ML VL) IV ONE (19:07)
[2020-11-05] MEDS ORDERED: NALOXONE 0.4 MG/ML 1 ML VIAL IV PRN (19:10)
[2020-11-05] MEDS: HEPARIN SOD,PORK IN 0.45% NACL 25,000 UNIT in 0.45% NACL 1 250ML.BAG IV SCH (19:23)
[2020-11-05 19:37] LABS: Appearance,Urine Clear (Clear); Bilirubin,Urine Negative (Negative); Blood,Urine Negative (Negative); Color,Urine Light Yellow; Glucose,Urine (UA) 4+ (Negative); Ketones,Urine Negative (Negative); Leukocyte Esterase,Urine Negative (Negative); Nitrite,Urine Negative (Negative); PH, Urine 5.5 (5.0-8.0); Protein,Urine Negative (Negative); Specific Gravity,Urine 1.026 (1.001-1.035); Urobilinogen,Urine <2.0 mg/dL (<2.0)
[2020-11-05 20:46] LABS: Glucose,Whole Blood 547 mg/dL (75-99)
[2020-11-05 20:48] LABS: Glucose,Whole Blood 512 mg/dL (75-99)
[2020-11-05 21:57] LABS: Glucose,Whole Blood 510 mg/dL (75-99)
[2020-11-05] MEDS: INSULIN ASPART (NovoLOG) 100 UNIT/ML VIAL SQ SCH (23:07)
[2020-11-05] MEDS: INSULIN DETEMIR (LEVEMIR) 100 UNIT/ML SYR SQ SCH (23:07)
[2020-11-06 02:21] LABS: Glucose,Whole Blood 425 mg/dL (75-99)
[2020-11-06 02:29] LABS: Basophils # (A) 0.1 k/uL (0-0.2); Basophils % (A) 1 %; Eosinophils # (A) 0.5 k/uL (0-0.7); Eosinophils % (A) 9 %; HCT 48.9 % (39.0-53.0); HGB 15.7 gm/dL (13.0-17.5); Lymphocytes # (A) 1.6 k/uL (1.0-4.8); Lymphocytes % (A) 29 %; MCH 33.3 pg (25.0-35.0); MCHC 32.2 g/dL (31.0-37.0); MCV 103.3 fL (80.0-100.0); Macrocytosis Slight; Mean Platelet Volume 9.5; Monocytes # (A) 0.2 k/uL (0-1.0); Monocytes % (A) 4 %; Neutrophils # (A) 3.1 k/uL (1.3-7.7); Neutrophils % (A) 56 %; Platelet Count 176 k/uL (150-450); RBC 4.73 m/uL (4.30-5.90); RDW 13.5 % (11.5-15.5); WBC 5.5 k/uL (3.8-10.6)
[2020-11-06] MEDS: HEPARIN SODIUM 1,000 UN/ML (10ML VL) IV PRN ×2 (03:15→11:05)
[2020-11-06 05:40] LABS: Prothrombin Time 10.7 sec (9.0-12.0)
[2020-11-06 07:05] LABS: Glucose,Whole Blood 387 mg/dL (75-99)
[2020-11-06] MEDS ORDERED: ACETAMINOPHEN TAB 325 MG TAB PO PRN (07:17)
[2020-11-06] MEDS: INSULIN ASPART (NovoLOG) 100 UNIT/ML VIAL SQ SCH ×7 (07:21→21:33)
[2020-11-06] MEDS: INSULIN DETEMIR (LEVEMIR) 100 UNIT/ML SYR SQ SCH ×2 (07:22→21:33)
[2020-11-06] MEDS: MORPHINE SULFATE 2 MG/ML SYRINGE IVP PRN (11:25)
[2020-11-06 11:54] LABS: Glucose,Whole Blood 201 mg/dL (75-99)
[2020-11-06] MEDS: allopurinoL 300 MG TAB PO SCH ×2 (14:35→21:32)
[2020-11-06] MEDS: FUROSEMIDE 10 MG/ML 4 ML VIAL IV SCH ×2 (14:35→21:32)
[2020-11-06] MEDS: HEPARIN SOD,PORK IN 0.45% NACL 25,000 UNIT in 0.45% NACL 1 250ML.BAG IV SCH (14:36)
[2020-11-06 15:50] LABS: Basophils # (A) 0.1 k/uL (0-0.2); Basophils % (A) 1 %; Eosinophils # (A) 0.4 k/uL (0-0.7); Eosinophils % (A) 7 %; HCT 49.6 % (39.0-53.0); HGB 16.3 gm/dL (13.0-17.5); Lymphocytes # (A) 1.7 k/uL (1.0-4.8); Lymphocytes % (A) 29 %; MCH 32.9 pg (25.0-35.0); MCV 99.9 fL (80.0-100.0); Mean Platelet Volume 9.3; Monocytes # (A) 0.2 k/uL (0-1.0); Monocytes % (A) 4 %; Neutrophils # (A) 3.3 k/uL (1.3-7.7); Neutrophils % (A) 57 %; Platelet Count 162 k/uL (150-450); RBC 4.96 m/uL (4.30-5.90); RDW 13.7 % (11.5-15.5); WBC 5.9 k/uL (3.8-10.6)
[2020-11-06] MEDS: busPIRone HCl 5 MG TAB PO SCH ×2 (16:09→21:32)
[2020-11-06] MEDS: HYDROcodone/APAP 7.5-325MG 1 EACH TAB PO PRN (16:09)
--- NOTE | 2020-11-06 16:18 | P.HPIM ---
History of Present Illness H&P Date: 11/06/20 History of present illness 45 years old male patient of Dr. Uribe with past medical history of SVT status post ablation, asthma, GERD, hyperlipidemia, hypertension, history of sleep apnea on CPAP, hypothyroidism, history of sarcoidosis, history of gout, history of nicotine dependence, asthma renal failure, use of marijuana comes in with bilateral lower extremity swelling and pain for the past 4 days. Patient also noticed a lesion in close to the foot on the right lower extremity that was oozing pustular discharge. Swelling is associated with redness and inflammation. He denies any shortness of breath or chest pain. Patient denies any fever or chills nausea or vomiting. Patient has difficulty walking. He denies any change in medication he does take Lasix 40 mg at bedtime. Venous Doppler bilateral lower extremity was obtained as which could not rule out blood clot in the distal femoral veins. On review of patient's vital patient was afebrile pulse 86 respiratory rate 20 blood pressure 109/79. Evaluation patient's labs suggestive of WBC 4 platelet 136 sodium 128 potassium 4.0 chloride 93 BUN 11 creatinine 1.3 blood sugar of 583. UA was positive for glucose and specific gravity of 1.026. Lactic acid 1.8 patient initiated on heparin drip. Will switch to Eliquis today. Continue cefazolin 2 g every 8 hours. Lasix switch to 40 IV twice a day. CMP to be repeated. ESR CRP ordered. Liver enzymes elevated. Repeat LFTs. Patient takes NovoLog sliding scale at home. We'll add Levemir at 15 twice a day along with aspart at 30 units 3 times a day. Patient will need to follow with the lab rep as outpatient. ROS Constitutional: Denies chills, Denies fever, Denies lethargy, Denies malaise, Denies poor appetite, Denies weakness, Denies weight loss Eyes: denies decreased vision, denies diplopia, denies discharge, denies pain Ears: deny: decreased hearing Ears, nose, mouth and throat: Denies dental pain, Denies headache, Denies nasal discharge, Denies nose pain Cardiovascular: Denies chest pain, Denies decreased exercise tolerance, endorses bilateral edema, Denies high blood pressure, Denies irregular heart beat, Denies palpitations, Denies paroxysmal nocturnal dyspnea, Denies rapid heart beat, Denies shortness of breath Respiratory: Denies congestion, Denies cough, Denies cough with sputum, Denies dyspnea, Denies home oxygen, Denies wheezing Gastrointestinal: Denies abdominal pain, Denies change in bowel habits, Denies coffee ground emesis, Denies early satiety, Denies excessive gas, Denies heartburn, Denies hematemesis, Denies hematochezia, Denies loss of appetite, Denies nausea, Denies vomiting Genitourinary: Denies dysuria, Denies flank pain, Denies kidney stones, Denies menorrhagia, Denies urgency, Denies urinary frequency Musculoskeletal: Endorses gait dysfunction, endorses limitation of motion, Den ies morning stiffness, Denies muscle cramps Integumentary: Endorses rash, Denies wounds, Denies brittle nails, Denies change in hair/nails, Denies darkening of skin Neurological: Denies balance difficulties, Denies change in speech, Denies double vision, Denies gait dysfunction, Denies loss of vision, Denies motor disturbance, Denies numbness, Denies paralysis, Denies paresthesias, Denies seizures Psychiatric: Denies anxiety, Denies depression Endocrine: Denies excessive sweating, Denies excessive thirst, Denies high blood sugars, Denies palpitations Hematologic/Lymphatic: Denies easy bruising, Denies lymphadenopathy Social history Patient smokes 1 pack a day from 816 denies any alcohol use Family history Mother at COPD Father of COPD Patient had 2 brother and 23 sisters with no medical problem She has no medical history Physical exam - Constitutional General appearance: cooperative, no acute distress, morbidly obese - EENT Eyes: anicteric sclerae, PERRLA, normal appearance ENT: hearing grossly normal - Neck Neck: no lymphadenopathy, normal ROM, no other, no rigidity, no stridor, no thyromegaly - Respiratory Respiratory: bilateral: CTA, negative: diminished, dullness, rales, rhonchi - Cardiovascular Rhythm: regular Heart sounds: normal: S1, S2 Abnormal Heart Sounds: no systolic murmur, no diastolic murmur, no rub, no S3 Gallop, no S4 Gallop, no click, no other - Gastrointestinal General gastrointestinal: normal bowel sounds, soft nontender - Integumentary Integumentary: Bilateral lower extremity swelling and redness involving feet and lower extremity up to the knee. Patient has a sommer and has multiple tattoos that makes it difficult to assess underlying redness but patient does have significant swelling and warmth to touch - Neurologic Neurologic: No sensory or motor deficit- Musculoskeletal Musculoskeletal: gait normal, strength equal bilaterally - Psychiatric Psychiatric: A&O x's 3, appropriate affect Assessment and plan #1 bilateral lower extremity cellulitis with venous stasis. Continue cefazolin at 2 g IV every 8 hours. ESR CRP ordered. Infectious disease consulted. ProBNP ordered. Lasix is switched from 40 daily to 40 IV twice a day #2 possible nonocclusive DVT distal femoral vein venous Doppler could not exclude DVT in the distal femoral vein. Since patient is a morbidly obese and has high risk of DVT, stop heparin drip we will initiate patient on Eliquis with follow-up venous Doppler as outpatient #3 history of SVT status post ablation, stable #4 chronic kidney disease stage IV no acute kidney injury or HTN creatinine at baseline. CMP daily #5 hyponatremia secondary to hyperglycemia repeat CMP ordered. Sodium should improve with improvement in glucose #6 uncontrolled type 2 diabetes Lantus added at 15 units twice a day in addition to NovoLog 30 units 3 times a day with sliding scale. Hold Actos on discharge #7 obstructive sleep apnea on CPAP #8 hypertension continue lisinopril 20 mg daily Lasix is switched from 40 by mouth daily to 40 IV twice a day #9 hyperlipidemia on Lipitor 20 mg daily at bedtime #10 history of gout allopurinol 300 twice a day #11 asthma DuoNeb as needed #12 nicotine dependence. Patient counseled on smoking cessation #13 hypothyroidism continue Synthyroid at 175 by mouth daily #14 GERD Pepcid 20 mg by mouth daily #15 sarcoidosis, stable #16 DVT prophylaxis on Eliquis 10 mg twice a day for 7 days followed by 5 mg twice a day #17 disposition patient need 1-2 inpatient nights for stabilization #18 CODE STATUS full Past Medical History Past Medical History: Atrial Fibrillation, Asthma, Coronary Artery Disease (CAD), COPD, GERD/Reflux, Hyperlipidemia, Hypertension, Osteoarthritis (OA), Renal Disease, Sleep Apnea/CPAP/BIPAP, Thyroid Disorder Additional Past Medical History / Comment(s): sarcoidosis, gouty arthritis, "small esophagus" occ diff swallowing, arthritis, uses CPAP at home, trouble sleeping. History of Any Multi-Drug Resistant Organisms: None Reported Past Surgical History: Cardiac Ablation, Joint Replacement, Orthopedic Surgery Additional Past Surgical History / Comment(s): right knee replacement, bilat ankle surgery, R wrist surgery r/t gout/arthritis lymph node biopsy- sarcoidosis Past Anesthesia/Blood Transfusion Reactions: No Reported Reaction Additional Past Anesthesia/Blood Transfusion Reaction / Comment(s): pt states he has never had a blood transfusion Past Psychological History: ADD/ADHD, Anxiety, Depression Smoking Status: Current every day smoker Past Alcohol Use History: None Reported Past Drug Use History: Marijuana - Past Family History Father Family Medical History: COPD Additional Family Medical History / Comment(s): emphysema Mother Family Medical History: Diabetes Mellitus, Rheumatoid Arthritis (RA) Additional Family Medical History / Comment(s): back surgery, joint replacements Medications and Allergies Home Medications Medication Instructions Recorded Confirmed Type Atorvastatin Calcium [Lipitor] 20 mg PO HS 11/17/18 11/05/20 History Furosemide [Lasix] 40 mg PO DAILY #30 tab 11/23/18 11/05/20 Rx HYDROcodone/APAP 7.5-325MG [[place] 1 tab PO TID PRN 11/05/20 11/05/20 History 7.5-325] INSULIN ASPART (NovoLOG) [NovoLOG 32 unit SQ AC-TID 11/05/20 11/05/20 History (formulary)] Levothyroxine Sodium [Synthroid] 175 mcg PO DAILY 11/05/20 11/05/20 History Pioglitazone [Actos] 30 mg PO DAILY 11/05/20 11/05/20 History Tamsulosin HCl [Flomax] 0.4 mg PO DAILY 11/05/20 11/05/20 History allopurinoL [Zyloprim] 300 mg PO BID 11/05/20 11/05/20 History busPIRone HCL 5 mg PO TID 11/05/20 11/05/20 History lisinopriL 20 mg PO DAILY 11/05/20 11/05/20 History Allergies Allergy/AdvReac Type Severity Reaction Status Date / Time vancomycin Allergy Rash/Hives Verified 11/05/20 19:37 Physical Exam Vitals: Vital Signs Temp Pulse Pulse Pulse Pulse Resp BP 11/06/20 14:00 97.6 F 65 16 11/06/20 12:59 65 65 11/06/20 12:07 97.5 F L 68 17 11/06/20 08:00 97.7 F 73 16 11/06/20 02:00 97.4 F L 61 18 11/05/20 23:30 97.7 F 79 18 11/05/20 20:43 80 19 112/79 11/05/20 16:34 97.6 F 86 20 109/79 BP Pulse Ox 11/06/20 14:00 116/68 96 11/06/20 12:59 11/06/20 12:07 120/83 98 11/06/20 08:00 124/85 95 11/06/20 02:00 120/62 93 L 11/05/20 23:30 131/83 94 L 11/05/20 20:43 99 11/05/20 16:34 97 Intake and Output 11/05/20 11/06/20 11/06/20 22:59 06:59 14:59 Intake Total 988.214 Output Total 1100 Balance -1100 988.214 Intake: Intake, IV Titration 156.214 Amount Heparin Sod,Pork in 0.45% 156.214 NaCl 25,000 unit In 0.45 % NaCl 1 250ml.bag @ 5.96 UNITS/KG/HR 10.003 mls/ hr IV .Q24H [facility] Rx#: [id number] Oral 832 Output: Urine 1100 Other: Voiding Method Toilet Weight 167.829 kg Results CBC & Chem 7: 11/06/20 01:29 11/05/20 17:23 Labs: Abnormal Lab Results - Last 24 Hours (Table) 11/05/20 11/05/20 11/05/20 Range/Units 17:23 17:23 17:23 MCV 102.2 H (80.0-100.0) fL MCHC 30.1 L (31.0-37.0) g/dL Plt Count 136 L (150-450) k/uL Lymphocytes # 0.9 L (1.0-4.8) k/uL APTT (22.0-30.0) sec Sodium 128 L (137-145) mmol/L Chloride 93 L (98-107) mmol/L Creatinine 1.33 H (0.66-1.25) mg/dL Glucose 583 H* (74-99) mg/dL POC Glucose (mg/dL) (75-99) mg/dL AST 86 H (17-59) U/L ALT 91 H (4-49) U/L Alkaline Phosphatase 178 H (38-126) U/L Urine Glucose (UA) 4+ H (Negative) 11/05/20 11/05/20 11/05/20 Range/Units 20:44 20:46 21:56 MCV (80.0-100.0) fL MCHC (31.0-37.0) g/dL Plt Count (150-450) k/uL Lymphocytes # (1.0-4.8) k/uL APTT (22.0-30.0) sec Sodium (137-145) mmol/L Chloride (98-107) mmol/L Creatinine (0.66-1.25) mg/dL Glucose (74-99) mg/dL POC Glucose (mg/dL) 547 H 512 H 510 H (75-99) mg/dL AST (17-59) U/L ALT (4-49) U/L Alkaline Phosphatase (38-126) U/L Urine Glucose (UA) (Negative) 11/06/20 11/06/20 11/06/20 Range/Units 01:29 02:18 07:04 MCV 103.3 H (80.0-100.0) fL MCHC (31.0-37.0) g/dL Plt Count (150-450) k/uL Lymphocytes # (1.0-4.8) k/uL APTT 43.4 H (22.0-30.0) sec Sodium (137-145) mmol/L Chloride (98-107) mmol/L Creatinine (0.66-1.25) mg/dL Glucose (74-99) mg/dL POC Glucose (mg/dL) 425 H (75-99) mg/dL AST (17-59) U/L ALT (4-49) U/L Alkaline Phosphatase (38-126) U/L Urine Glucose (UA) (Negative) 11/06/20 11/06/20 Range/Units 07:04 11:53 MCV (80.0-100.0) fL MCHC (31.0-37.0) g/dL Plt Count (150-450) k/uL Lymphocytes # (1.0-4.8) k/uL APTT (22.0-30.0) sec Sodium (137-145) mmol/L Chloride (98-107) mmol/L Creatinine (0.66-1.25) mg/dL Glucose (74-99) mg/dL POC Glucose (mg/dL) 387 H 201 H (75-99) mg/dL AST (17-59) U/L ALT (4-49) U/L Alkaline Phosphatase (38-126) U/L Urine Glucose (UA) (Negative)
[2020-11-06 16:38] LABS: ALT 88 U/L (4-49); AST 95 U/L (17-59); African American GFR (CKD) 79 (>60 ml/min/1.73 sqM); Albumin/Globulin Ratio 1.4; Alkaline Phosphatase 175 U/L (38-126); Anion Gap 10 mmol/L; Blood Urea Nitrogen 12 mg/dL (9-20); C Reactive Protein 1.6 mg/dL (<1.0); Calcium 9.8 mg/dL (8.4-10.2); Carbon Dioxide 23 mmol/L (22-30); Chloride 99 mmol/L (98-107); Globulin 2.9 g/dL; Glucose 208 mg/dL (74-99); Non-African American GFR(CKD) 68 (>60 ml/min/1.73 sqM); Sodium 132 mmol/L (137-145); Total Bilirubin 0.4 mg/dL (0.2-1.3); Total Protein 6.9 g/dL (6.3-8.2)
[2020-11-06 16:39] LABS: Glucose,Whole Blood 173 mg/dL (75-99)
[2020-11-06 16:44] LABS: Erythrocyte Sedimentation Rate 54 mm/hr (0-15)
[2020-11-06] MEDS: APIXABAN 5 MG TAB PO SCH (21:32)
[2020-11-06] MEDS: ATORVASTATIN 20 MG TAB PO SCH (21:33)
[2020-11-06 21:46] LABS: Glucose,Whole Blood 220 mg/dL (75-99)
--- NOTE | 2020-11-06 23:45 | P.CONS ---
History of Present Illness - Reason for Consult Consult date: 11/06/20 Bilateral lower extremity cellulitis Requesting physician: Raquel Woods - Chief Complaint Bilateral leg swelling and redness x few days - History of Present Illness Patient is 45-year-old male in this patient presented to hospital yesterday afternoon for evaluation of bilateral lower extremity swelling and pain that has been getting worse for the last 4 days before presentation to the hospital in this patient has been previously diagnosed and treated for gretchen lulitis patient denies having history of any trauma to the lower extremity patient did have diffuse swelling some redness and blister formation to the right leg with some clear drainage patient described his pain to be sharp almost 7-8 out of 10 had no radiation on presentation to the hospital patient was afebrile patient did have a normal white count sed rate was elevated creatinine was mildly elevated did have elevated liver enzymes blood cultures obtained which are currently pending patient did have a lower extremity Doppler cannot exclude DVT in the distal femoral vein patient was admitted to the hospital infectious was consulted with concern for possible cellulitis Review of Systems Positive point has been mentioned in the HPI rest of the systems are negative Past Medical History Past Medical History: Atrial Fibrillation, Asthma, Coronary Artery Disease (CAD), COPD, GERD/Reflux, Hyperlipidemia, Hypertension, Osteoarthritis (OA), Renal Disease, Sleep Apnea/CPAP/BIPAP, Thyroid Disorder Additional Past Medical History / Comment(s): sarcoidosis, gouty arthritis, "small esophagus" occ diff swallowing, arthritis, uses CPAP at home, trouble sleeping. History of Any Multi-Drug Resistant Organisms: None Reported Past Surgical History: Cardiac Ablation, Joint Replacement, Orthopedic Surgery Additional Past Surgical History / Comment(s): right knee replacement, bilat ankle surgery, R wrist surgery r/t gout/arthritis lymph node biopsy- sarcoidosis Past Anesthesia/Blood Transfusion Reactions: No Reported Reaction Additional Past Anesthesia/Blood Transfusion Reaction / Comm: pt states he has never had a blood transfusion Past Psychological History: ADD/ADHD, Anxiety, Depression Smoking Status: Current every day smoker Past Alcohol Use History: None Reported Past Drug Use History: Marijuana - Past Family History Father Family Medical History: COPD Additional Family Medical History / Comment(s): emphysema Mother Family Medical History: Diabetes Mellitus, Rheumatoid Arthritis (RA) Additional Family Medical History / Comment(s): back surgery, joint replacements Medications and Allergies Home Medications Medication Instructions Recorded Confirmed Type Atorvastatin Calcium [Lipitor] 20 mg PO HS 11/17/18 11/05/20 History Furosemide [Lasix] 40 mg PO DAILY #30 tab 11/23/18 11/05/20 Rx HYDROcodone/APAP 7.5-325MG [[place] 1 tab PO TID PRN 11/05/20 11/05/20 History 7.5-325] INSULIN ASPART (NovoLOG) [NovoLOG 32 unit SQ AC-TID 11/05/20 11/05/20 History (formulary)] Levothyroxine Sodium [Synthroid] 175 mcg PO DAILY 11/05/20 11/05/20 History Pioglitazone [Actos] 30 mg PO DAILY 11/05/20 11/05/20 History Tamsulosin HCl [Flomax] 0.4 mg PO DAILY 11/05/20 11/05/20 History allopurinoL [Zyloprim] 300 mg PO BID 11/05/20 11/05/20 History busPIRone HCL 5 mg PO TID 11/05/20 11/05/20 History lisinopriL 20 mg PO DAILY 11/05/20 11/05/20 History Allergies Allergy/AdvReac Type Severity Reaction Status Date / Time vancomycin Allergy Rash/Hives Verified 11/05/20 19:37 Physical Exam Vitals: Vital Signs Temp Pulse Pulse Resp BP BP Pulse Ox 11/06/20 12:07 97.5 F L 68 17 120/83 98 11/06/20 08:00 97.7 F 73 16 124/85 95 11/06/20 02:00 97.4 F L 61 18 120/62 93 L 11/05/20 23:30 97.7 F 79 18 131/83 94 L 11/05/20 20:43 80 19 112/79 99 11/05/20 16:34 97.6 F 86 20 109/79 97 Intake and Output 11/05/20 11/06/20 11/06/20 22:59 06:59 14:59 Intake Total 392.214 Output Total 1100 Balance -1100 392.214 Intake: Intake, IV Titration 156.214 Amount Heparin Sod,Pork in 0.45% 156.214 NaCl 25,000 unit In 0.45 % NaCl 1 250ml.bag @ 5.96 UNITS/KG/HR 10.003 mls/ hr IV .Q24H [facility] Rx#: [id number] Oral 236 Output: Urine 1100 Other: Weight 167.829 kg GENERAL DESCRIPTION: Middle-aged male lying in bed, no distress. No tachypnea or accessory muscle of respiration use. HEENT: Shows Pallor , no scleral icterus. Oral mucous membrane is dry. No pharyngeal erythema or thrush NECK: Trachea central, no thyromegaly. LUNGS: Unlabored breathing. Clear to auscultation anteriorly. No wheeze or crac kle. HEART: S1, S2, regular rate and rhythm. No loud murmur ABDOMEN: Soft, no tenderness , guarding or rigidity, no organomegaly EXTREMITIES: Diffuse swelling to lower extremity with some superficial ulceration from ruptured blister no drainage SKIN: No rash, no masses palpable. NEUROLOGICAL: The patient is awake, alert, oriented x3, mood and affect normal. Results CBC & Chem 7: 11/06/20 15:27 11/06/20 15: Labs: Abnormal Lab Results - Last 24 Hours (Table) 11/05/20 11/05/20 11/05/20 Range/Units 17:23 17:23 17:23 MCV 102.2 H (80.0-100.0) fL MCHC 30.1 L (31.0-37.0) g/dL Plt Count 136 L (150-450) k/uL Lymphocytes # 0.9 L (1.0-4.8) k/uL APTT (22.0-30.0) sec Sodium 128 L (137-145) mmol/L Chloride 93 L (98-107) mmol/L Creatinine 1.33 H (0.66-1.25) mg/dL Glucose 583 H* (74-99) mg/dL POC Glucose (mg/dL) (75-99) mg/dL AST 86 H (17-59) U/L ALT 91 H (4-49) U/L Alkaline Phosphatase 178 H (38-126) U/L Urine Glucose (UA) 4+ H (Negative) 11/05/20 11/05/20 11/05/20 Range/Units 20:44 20:46 21:56 MCV (80.0-100.0) fL MCHC (31.0-37.0) g/dL Plt Count (150-450) k/uL Lymphocytes # (1.0-4.8) k/uL APTT (22.0-30.0) sec Sodium (137-145) mmol/L Chloride (98-107) mmol/L Creatinine (0.66-1.25) mg/dL Glucose (74-99) mg/dL POC Glucose (mg/dL) 547 H 512 H 510 H (75-99) mg/dL AST (17-59) U/L ALT (4-49) U/L Alkaline Phosphatase (38-126) U/L Urine Glucose (UA) (Negative) 11/06/20 11/06/20 11/06/20 Range/Units 01:29 02:18 07:04 MCV 103.3 H (80.0-100.0) fL MCHC (31.0-37.0) g/dL Plt Count (150-450) k/uL Lymphocytes # (1.0-4.8) k/uL APTT 43.4 H (22.0-30.0) sec Sodium (137-145) mmol/L Chloride (98-107) mmol/L Creatinine (0.66-1.25) mg/dL Glucose (74-99) mg/dL POC Glucose (mg/dL) 425 H (75-99) mg/dL AST (17-59) U/L ALT (4-49) U/L Alkaline Phosphatase (38-126) U/L Urine Glucose (UA) (Negative) 11/06/20 11/06/20 Range/Units 07:04 11:53 MCV (80.0-100.0) fL MCHC (31.0-37.0) g/dL Plt Count (150-450) k/uL Lymphocytes # (1.0-4.8) k/uL APTT (22.0-30.0) sec Sodium (137-145) mmol/L Chloride (98-107) mmol/L Creatinine (0.66-1.25) mg/dL Glucose (74-99) mg/dL POC Glucose (mg/dL) 387 H 201 H (75-99) mg/dL AST (17-59) U/L ALT (4-49) U/L Alkaline Phosphatase (38-126) U/L Urine Glucose (UA) (Negative) Assessment and Plan Assessment: 1-patient with bilateral lower extremity swelling slightly more on the right leg in this patient did have some left distal formation but no significant purulent drainage did not have significant warmth with no fever or elevated white count concern for underlying DVT to be the likely etiology rather than cellulitis which is not entirely excluded (1) Cellulitis Current Visit: Yes Status: Acute Code(s): L03.90 - CELLULITIS, UNSPECIFIED SNOMED Code(s): 502576345 Plan: 1-May benefit from vascular evaluation 2-cefazolin 2 g every 8 hours 3-we will check a D-dimer CRP level We will follow on clinical condition and cultures to further adjust medication if needed Thank you for this consultation we will follow the patient along with you Time with Patient: Greater than 30
[2020-11-07] MEDS: HYDROcodone/APAP 7.5-325MG 1 EACH TAB PO PRN (01:09)
[2020-11-07] MEDS: LEVOTHYROXINE 75 MCG TAB PO SCH (05:13)
[2020-11-07] MEDS: LEVOTHYROXINE 100 MCG TAB PO SCH (05:13)
[2020-11-07 06:51] LABS: Glucose,Whole Blood 314 mg/dL (75-99)
[2020-11-07] MEDS: allopurinoL 300 MG TAB PO SCH ×2 (07:29→19:49)
[2020-11-07] MEDS: busPIRone HCl 5 MG TAB PO SCH ×3 (07:29→20:52)
[2020-11-07] MEDS: APIXABAN 5 MG TAB PO SCH ×2 (07:29→19:48)
[2020-11-07] MEDS: lisinopriL 20 MG TAB PO SCH (07:29)
[2020-11-07] MEDS: FUROSEMIDE 10 MG/ML 4 ML VIAL IV SCH ×2 (07:30→20:51)
[2020-11-07] MEDS: INSULIN DETEMIR (LEVEMIR) 100 UNIT/ML SYR SQ SCH ×2 (07:30→20:52)
[2020-11-07] MEDS: INSULIN ASPART (NovoLOG) 100 UNIT/ML VIAL SQ SCH ×7 (07:30→20:52)
[2020-11-07 08:40] LABS: Partial Thromboplastin Time 25.4 sec (22.0-30.0)
[2020-11-07] MEDS ORDERED: FUROSEMIDE 40 MG TAB PO SCH (09:00)
[2020-11-07 11:25] LABS: Glucose,Whole Blood 243 mg/dL (75-99)
--- NOTE | 2020-11-07 11:37 | P.PN ---
Subjective Progress Note Date: 11/07/20 History of present illness 45 years old male patient of Dr. Uribe with past medical history of S VT status post ablation, asthma, GERD, hyperlipidemia, hypertension, history of sleep apnea on CPAP, hypothyroidism, history of sarcoidosis, history of gout, history of nicotine dependence, asthma renal failure, use of marijuana comes in with bilateral lower extremity swelling and pain for the past 4 days. Patient also noticed a lesion in close to the foot on the right lower extremity that was oozing pustular discharge. Swelling is associated with redness and inflammation. He denies any shortness of breath or chest pain. Patient denies any fever or chills nausea or vomiting. Patient has difficulty walking. He denies any change in medication he does take Lasix 40 mg at bedtime. Venous Doppler bilateral lower extremity was obtained as which could not rule out blood clot in the distal femoral veins. On review of patient's vital patient was afebrile pulse 86 respiratory rate 20 blood pressure 109/79. Evaluation patient's labs suggestive of WBC 4 platelet 136 sodium 128 potassium 4.0 chloride 93 BUN 11 creatinine 1.3 blood sugar of 583. UA was positive for glucose and specific gravity of 1.026. Lactic acid 1.8 patient initiated on heparin drip. Will switch to Eliquis today. Continue cefazolin 2 g every 8 hours. Lasix switch to 40 IV twice a day. CMP to be repeated. ESR CRP ordered. Liver enzymes elevated. Repeat LFTs. Patient takes NovoLog sliding scale at home. We'll add Levemir at 15 twice a day along with aspart at 30 units 3 times a day. Patient will need to follow with the shipping assistant as outpatient. 11/07. Patient seen this morning sitting on edge of bed, reports that he is feeling ok today. Patient remains afebrile, pulse 75, blood pressure 98/63, pulse ox 95% on room air. Bilateral lower extremities with positive edema, more on the right side with some erythema. We'll add vascular consult at this time. Patient is Eliquis 10 mg by mouth twice a day along with cefazolin IV. Continue to diurese him with Lasix 40 mg IV every 12 hours. Plan to increase Levemir up to 25 units twice a day and continue to monitor blood sugars. ROS Constitutional: Denies chills, Denies fever, Denies lethargy, Denies malaise, Denies poor appetite, Denies weakness, Denies weight loss Eyes: denies decreased vision, denies diplopia, denies discharge, denies pain Ears: deny: decreased hearing Ears, nose, mouth and throat: Denies dental pain, Denies headache, Denies nasal discharge, Denies nose pain Cardiovascular: Denies chest pain, Denies decreased exercise tolerance, endorses bilateral edema, Denies high blood pressure, Denies irregular heart beat, Denies palpitations, Denies paroxysmal nocturnal dyspnea, Denies rapid heart beat, Denies shortness of breath Respiratory: Denies congestion, Denies cough, Denies cough with sputum, Denies dyspnea, Denies home oxygen, Denies wheezing Gastrointestinal: Denies abdominal pain, Denies change in bowel habits, Denies coffee ground emesis, Denies early satiety, Denies excessive gas, Denies heartburn, Denies hematemesis, Denies hematochezia, Denies loss of appetite, Denies nausea, Denies vomiting Genitourinary: Denies dysuria, Denies flank pain, Denies kidney stones, Denies urgency, Denies urinary frequency Musculoskeletal: Endorses gait dysfunction, endorses limitation of motion, Denies morning stiffness, Denies muscle cramps Integumentary: Endorses rash, Denies wounds, Denies brittle nails, Denies change in hair/nails, Denies darkening of skin Neurological: Denies balance difficulties, Denies change in speech, Denies double vision, Denies gait dysfunction, Denies loss of vision, Denies motor disturbance, Denies numbness, Denies paralysis, Denies paresthesias, Denies seizures Psychiatric: Denies anxiety, Denies depression Endocrine: Denies excessive sweating, Denies excessive thirst, Denies high blood sugars, Denies palpitations Hematologic/Lymphatic: Denies easy bruising, Denies lymphadenopathy Objective - Vital Signs Vital signs: Vital Signs Temp 97.5 F L 11/07/20 08:00 Pulse 75 11/07/20 08:00 Resp 16 11/07/20 08:00 BP 98/63 11/07/20 08:00 Pulse Ox 95 11/07/20 08:00 Intake & Output 11/06/20 11/07/20 11/07/20 18:59 06:59 18:59 Intake Total 1316.490 Output Total 3200 Balance -1883.510 Intake: Intake, IV Titration 248.490 Amount Heparin Sod,Pork in 0.45% 248.490 NaCl 25,000 unit In 0.45 % NaCl 1 250ml.bag @ 5.96 UNITS/KG/HR 10.003 mls/ hr IV .Q24H [facility] Rx#: [id number] Oral 1068 Output: Urine 3200 Other: Voiding Method Toilet # Voids 1 # Bowel Movements 0 - Exam - Constitutional General appearance: cooperative, no acute distress, morbidly obese - EENT Eyes: anicteric sclerae, PERRLA, normal appearance ENT: hearing grossly normal - Neck Neck: no lymphadenopathy, normal ROM, no other, no rigidity, no stridor, no thyromegaly - Respiratory Respiratory: bilateral: CTA diminished at bases, negative: dullness, rales, rhonchi - Cardiovascular Rhythm: regular Heart sounds: normal: S1, S2 Abnormal Heart Sounds: no systolic murmur, no diastolic murmur, no rub, no S3 Gallop, no S4 Gallop, no click, no other - Gastrointestinal General gastrointestinal: normal bowel sounds, soft nontender - Integumentary Integumentary: Bilateral lower extremity swelling and redness involving feet and lower extremity up to the knee. Patient has a sommer and has multiple tattoos that makes it difficult to assess underlying redness but patient does have significant swelling and warmth to touch, worse on the right side - Neurologic Neurologic: No sensory or motor deficit- Musculoskeletal Musculoskeletal: gait normal, strength equal bilaterally - Psychiatric Psychiatric: A&O x's 3, appropriate affect - Labs CBC & Chem 7: 11/06/20 15:27 11/06/20 15:27 Labs: Abnormal Lab Results - Last 24 Hours (Table) 11/06/20 11/06/20 11/06/20 Range/Units 11:53 15:27 15:27 ESR 54 H (0-15) mm/hr APTT 48.1 H (22.0-30.0) sec Sodium (137-145) mmol/L Creatinine (0.66-1.25) mg/dL Glucose (74-99) mg/dL POC Glucose (mg/dL) 201 H (75-99) mg/dL AST (17-59) U/L ALT (4-49) U/L Alkaline Phosphatase (38-126) U/L C-Reactive Protein (<1.0) mg/dL 11/06/20 11/06/20 11/06/20 Range/Units 15:27 16:37 21:21 ESR (0-15) mm/hr APTT (22.0-30.0) sec Sodium 132 L (137-145) mmol/L Creatinine 1.26 H (0.66-1.25) mg/dL Glucose 208 H (74-99) mg/dL POC Glucose (mg/dL) 173 H 220 H (75-99) mg/dL AST 95 H (17-59) U/L ALT 88 H (4-49) U/L Alkaline Phosphatase 175 H (38-126) U/L C-Reactive Protein 1.6 H (<1.0) mg/dL 11/07/20 Range/Units 06:50 ESR (0-15) mm/hr APTT (22.0-30.0) sec Sodium (137-145) mmol/L Creatinine (0.66-1.25) mg/dL Glucose (74-99) mg/dL POC Glucose (mg/dL) 314 H (75-99) mg/dL AST (17-59) U/L ALT (4-49) U/L Alkaline Phosphatase (38-126) U/L C-Reactive Protein (<1.0) mg/dL Microbiology - Last 24 Hours (Table) 11/05/20 21:11 Blood Culture - Preliminary Blood No Growth after 24 hours Assessment and Plan Assessment: #1 bilateral lower extremity cellulitis with venous stasis. Continue cefazolin at 2 g IV every 8 hours. ESR CRP ordered. Infectious disease consulted. ProBNP ordered. Lasix is switched 40 IV twice a day, we will place consult for vascular. Blood cultures show no growth. #2 possible nonocclusive DVT distal femoral vein venous Doppler could not exclude DVT in the distal femoral vein. Since patient is a morbidly obese and has high risk of DVT, stop heparin drip we will initiate patient on Eliquis with follow-up venous Doppler as outpatient #3 history of SVT status post ablation, stable #4 chronic kidney disease stage IV no acute kidney injury or HTN creatinine at baseline. CMP daily #5 hyponatremia secondary to hyperglycemia repeat CMP ordered. Sodium should improve with improvement in glucose #6 uncontrolled type 2 diabetes Larry increased to 25 units twice a day in addition to NovoLog 30 units 3 times a day with sliding scale. Hold Actos on discharge #7 obstructive sleep apnea on CPAP #8 hypertension continue lisinopril 20 mg daily Lasix is switched from 40 by mouth daily to 40 IV twice a day #9 hyperlipidemia on Lipitor 20 mg daily at bedtime #10 history of gout allopurinol 300 twice a day #11 asthma DuoNeb as needed #12 nicotine dependence. Patient counseled on smoking cessation #13 hypothyroidism continue Synthyroid at 175 by mouth daily #14 GERD Pepcid 20 mg by mouth daily #15 sarcoidosis, stable #16 DVT prophylaxis on Eliquis 10 mg twice a day for 7 days followed by 5 mg twice a day #17 disposition patient need 1-2 inpatient nights for stabilization #18 CODE STATUS full Impression and plan of care have been directed as dictated by the signing physician. Erin Villavicencio nurse practitioner acting as scribe for signing physician.
--- NOTE | 2020-11-07 12:29 | CONS ---
DATE OF CONSULTATION: 11/07/2020 Bill Bocanegra is a 45-year-old gentleman who has been admitted with history of bilateral leg swelling, more on the right than on the left. The patient's venous ultrasound is suggestive of bilateral SFA nonocclusive DVT. PAST HISTORY: Patient has a history of atrial fibrillation and had ablation done stable. The patient also has a history of chronic kidney disease. The patient also has history of diabetes and hypertension, history of gout. SURGICAL HISTORY: Patient had a right total knee done in the past and left ankle surgery done in the past. PHYSICAL EXAMINATION: On examination, patient was seen in his room. Neck is supple, trachea central. Chest is clear to auscultation. Abdomen is soft. Femorals are 1+. Patient has swelling of the right lower extremity more than the left and patient is on anticoagulation under the care of Internal Medicine. PLAN: The patient will be going home on anticoagulation and I will follow him in my office in 2 weeks. MMODL / IJN: [id number] / [place]
--- NOTE | 2020-11-07 16:09 | PN ---
PROGRESS NOTE DATE OF SERVICE: 11/07/2020 REASON FOR FOLLOWUP: Lower extremity cellulitis. INTERVAL HISTORY: The patient is currently afebrile. The patient is feeling better. Overall swelling and redness to the right leg has decreased. No chest pain, shortness of breath or cough. No abdominal pain or diarrhea. PHYSICAL EXAMINATION: Blood pressure 116/74 with a pulse of 72, temperature 98. He is 94% on room air. GENERAL DESCRIPTION: General description is a middle-aged male lying in bed in no distress. RESPIRATORY SYSTEM: Unlabored breathing. Clear to auscultation. HEART: S1, S2. Regular rate and rhythm. ABDOMEN: Soft. No tenderness. Right leg did have some swelling, minimal redness; no drainage. LABS: D-dimer was mildly elevated at 0.74. Creatinine is 1.6. DIAGNOSTIC IMPRESSION AND PLAN: Patient with lower extremity swelling concerning for a DVT and possible cellulitis. Patient is covered with cefazolin; to continue. Will transition to oral antibiotic on discharge. Continue with supportive care. MMODL / IJN: [id number] /
[2020-11-07 16:47] LABS: Glucose,Whole Blood 185 mg/dL (75-99)
[2020-11-07] MEDS: ATORVASTATIN 20 MG TAB PO SCH (19:49)
[2020-11-07] MEDS: MORPHINE SULFATE 2 MG/ML SYRINGE IVP PRN (19:49)
[2020-11-07 20:31] LABS: Glucose,Whole Blood 117 mg/dL (75-99)
[2020-11-08] MEDS: MORPHINE SULFATE 2 MG/ML SYRINGE IVP PRN ×3 (04:16→23:57)
[2020-11-08] MEDS: LEVOTHYROXINE 75 MCG TAB PO SCH (05:35)
[2020-11-08] MEDS: LEVOTHYROXINE 100 MCG TAB PO SCH (05:35)
[2020-11-08 07:29] LABS: Glucose,Whole Blood 238 mg/dL (75-99)
[2020-11-08] MEDS: FUROSEMIDE 10 MG/ML 4 ML VIAL IV SCH ×2 (07:35→20:42)
[2020-11-08] MEDS: allopurinoL 300 MG TAB PO SCH ×2 (07:35→20:42)
[2020-11-08] MEDS: INSULIN DETEMIR (LEVEMIR) 100 UNIT/ML SYR SQ SCH ×2 (07:35→21:09)
[2020-11-08] MEDS: APIXABAN 5 MG TAB PO SCH ×2 (07:35→20:42)
[2020-11-08] MEDS: busPIRone HCl 5 MG TAB PO SCH ×3 (07:35→20:42)
[2020-11-08] MEDS: lisinopriL 20 MG TAB PO SCH (07:35)
[2020-11-08] MEDS: INSULIN ASPART (NovoLOG) 100 UNIT/ML VIAL SQ SCH ×7 (07:36→20:42)
--- NOTE | 2020-11-08 10:45 | P.PN ---
Subjective Progress Note Date: 11/08/20 History of present illness 45 years old male patient of Dr. Uribe with past medical history of S VT status post ablation, asthma, GERD, hyperlipidemia, hypertension, history of sleep apnea on CPAP, hypothyroidism, history of sarcoidosis, history of gout, history of nicotine dependence, asthma renal failure, use of marijuana comes in with bilateral lower extremity swelling and pain for the past 4 days. Patient also noticed a lesion in close to the foot on the right lower extremity that was oozing pustular discharge. Swelling is associated with redness and inflammation. He denies any shortness of breath or chest pain. Patient denies any fever or chills nausea or vomiting. Patient has difficulty walking. He denies any change in medication he does take Lasix 40 mg at bedtime. Venous Doppler bilateral lower extremity was obtained as which could not rule out blood clot in the distal femoral veins. On review of patient's vital patient was afebrile pulse 86 respiratory rate 20 blood pressure 109/79. Evaluation patient's labs suggestive of WBC 4 platelet 136 sodium 128 potassium 4.0 chloride 93 BUN 11 creatinine 1.3 blood sugar of 583. UA was positive for glucose and specific gravity of 1.026. Lactic acid 1.8 patient initiated on heparin drip. Will switch to Eliquis today. Continue cefazolin 2 g every 8 hours. Lasix switch to 40 IV twice a day. CMP to be repeated. ESR CRP ordered. Liver enzymes elevated. Repeat LFTs. Patient takes NovoLog sliding scale at home. We'll add Levemir at 15 twice a day along with aspart at 30 units 3 times a day. Patient will need to follow with the superintendent power as outpatient. 11/07. Patient seen this morning sitting on edge of bed, reports that he is feeling ok today. Patient remains afebrile, pulse 75, blood pressure 98/63, pulse ox 95% on room air. Bilateral lower extremities with positive edema, more on the right side with some erythema. We'll add vascular consult at this time. Patient is Eliquis 10 mg by mouth twice a day along with cefazolin IV. Continue to diurese him with Lasix 40 mg IV every 12 hours. Plan to increase Levemir up to 25 units twice a day and continue to monitor blood sugars. 11/08 patient examined at bedside, was evaluated by vascular and recommended to follow up with outpatient in 2 weeks. Redness and some swelling seem to be improving. Continue on anticoagulation and IV antibiotics per ID at this time. Vital signs are stable, patient remains afebrile. Blood sugars are stable. Blood cultures no growth after 48 hours. We'll continue with IDs recommendations and convert to oral antibiotics when ready for discharge. ROS Constitutional: Denies chills, Denies fever, Denies lethargy, Denies malaise, Denies poor appetite, Denies weakness, Denies weight loss Eyes: denies decreased vision, denies diplopia, denies discharge, denies pain Ears: deny: decreased hearing Ears, nose, mouth and throat: Denies dental pain, Denies headache, Denies nasal discharge, Denies nose pain Cardiovascular: Denies chest pain, Denies decreased exercise tolerance, endorses bilateral edema, Denies high blood pressure, Denies irregular heart beat, Denies palpitations, Denies paroxysmal nocturnal dyspnea, Denies rapid heart beat, Denies shortness of breath Respiratory: Denies congestion, Denies cough, Denies cough with sputum, Denies dyspnea, Denies home oxygen, Denies wheezing Gastrointestinal: Denies abdominal pain, Denies change in bowel habits, Denies coffee ground emesis, Denies early satiety, Denies excessive gas, Denies heartburn, Denies hematemesis, Denies hematochezia, Denies loss of appetite, Denies nausea, Denies vomiting Genitourinary: Denies dysuria, Denies flank pain, Denies kidney stones, Denies urgency, Denies urinary frequency Musculoskeletal: Denies gait dysfunction, endorses limitation of motion, Denies morning stiffness, Denies muscle cramps Integumentary: Endorses rash, Denies wounds, Denies brittle nails, Denies change in hair/nails, Denies darkening of skin Neurological: Denies balance difficulties, Denies change in speech, Denies double vision, Denies gait dysfunction, Denies loss of vision, Denies motor disturbance, Denies numbness, Denies paralysis, Denies paresthesias, Denies seizures Psychiatric: Denies anxiety, Denies depression Endocrine: Denies excessive sweating, Denies excessive thirst, Denies high blood sugars, Denies palpitations Hematologic/Lymphatic: Denies easy bruising, Denies lymphadenopathy Objective - Vital Signs Vital signs: Vital Signs Temp 97.5 F L 08/29/21 01:12 Pulse 77 11/08/20 01:12 Resp 15 11/08/20 01:12 BP 96/57 11/08/20 01:12 Pulse Ox 95 11/08/20 01:12 Intake & Output 11/07/20 11/08/20 11/08/20 18:59 06:59 18:59 Intake Total 286 Balance 286 Weight 170 kg Intake: Intake, IV Titration 50 Amount ceFAZolin 2 gm In Sodium 50 Chloride 0.9% 50 ml @ 100 mls/hr IVPB Q8H [facility] Rx#: [id number] Oral 236 Other: Voiding Method Toilet Toilet # Voids 1 # Bowel Movements 0 - Exam - Constitutional General appearance: cooperative, no acute distress, morbidly obese - EENT Eyes: anicteric sclerae, PERRLA, normal appearance ENT: hearing grossly normal - Neck Neck: no lymphadenopathy, normal ROM, no other, no rigidity, no stridor, no thyromegaly - Respiratory Respiratory: bilateral: CTA diminished at bases, negative: dullness, rales, rhonchi - Cardiovascular Rhythm: regular Heart sounds: normal: S1, S2 Abnormal Heart Sounds: no systolic murmur, no diastolic murmur, no rub, no S3 Gallop, no S4 Gallop, no click, no other - Gastrointestinal General gastrointestinal: normal bowel sounds, soft nontender - Integumentary Integumentary: Bilateral lower extremity swelling and redness involving feet and lower extremity up to the knee. Patient has a sommer and has multiple tattoos that makes it difficult to assess underlying redness but patient does have significant swelling and warmth to touch, worse on the right side - Neurologic Neurologic: No sensory or motor deficit- Musculoskeletal Musculoskeletal: gait normal, strength equal bilaterally - Psychiatric Psychiatric: A&O x's 3, appropriate affect - Labs CBC & Chem 7: 11/06/20 15:27 11/06/20 15:27 Labs: Abnormal Lab Results - Last 24 Hours (Table) 11/07/20 11/07/20 11/07/20 Range/Units 07:31 07:31 11:24 D-Dimer 0.74 H (<0.60) mg/L FEU POC Glucose (mg/dL) 243 H (75-99) mg/dL C-Reactive Protein 1.6 H (<1.0) mg/dL 11/07/20 11/07/20 Range/Units 16:46 20:28 D-Dimer (<0.60) mg/L FEU POC Glucose (mg/dL) 185 H 117 H (75-99) mg/dL C-Reactive Protein (<1.0) mg/dL Microbiology - Last 24 Hours (Table) 11/05/20 21:11 Blood Culture - Preliminary Blood No Growth after 48 hours Assessment and Plan Assessment: #1 bilateral lower extremity cellulitis with venous stasis. Continue cefazolin at 2 g IV every 8 hours. ESR CRP ordered. Infectious disease consulted. ProBNP ordered. Lasix is switched 40 IV twice a day, we will place consult for vascular. Blood cultures show no growth. #2 possible nonocclusive DVT distal femoral vein venous Doppler could not exclude DVT in the distal femoral vein. Since patient is a morbidly obese and has high risk of DVT, stop heparin drip we will initiate patient on Eliquis with follow-up venous Doppler as outpatient #3 history of SVT status post ablation, stable #4 chronic kidney disease stage IV no acute kidney injury or HTN creatinine at baseline. CMP daily #5 hyponatremia secondary to hyperglycemia repeat CMP ordered. Sodium should improve with improvement in glucose #6 uncontrolled type 2 diabetes Lantus increased to 25 units twice a day in addition to NovoLog 30 units 3 times a day with sliding scale. Hold Actos on discharge #7 obstructive sleep apnea on CPAP #8 hypertension continue lisinopril 20 mg daily Lasix is switched from 40 by mouth daily to 40 IV twice a day #9 hyperlipidemia on Lipitor 20 mg daily at bedtime #10 history of gout allopurinol 300 twice a day #11 asthma DuoNeb as needed #12 nicotine dependence. Patient counseled on smoking cessation #13 hypothyroidism continue Synthyroid at 175 by mouth daily #14 GERD Pepcid 20 mg by mouth daily #15 sarcoidosis, stable #16 DVT prophylaxis on Eliquis 10 mg twice a day for 7 days followed by 5 mg twice a day #17 disposition patient need 1-2 inpatient nights for stabilization #18 CODE STATUS full Impression and plan of care have been directed as dictated by the signing physician. Erin Villavicencio nurse practitioner acting as scribe for signing physician.
[2020-11-08 11:51] LABS: Glucose,Whole Blood 352 mg/dL (75-99)
[2020-11-08 12:41] LABS: HCT 45.8 % (39.6-50.0); HGB 15.3 g/dL (13.0-17.0); MCH 32.6 pg (27.0-32.0); MCHC 33.4 g/dL (32.0-37.0); MCV 97.4 fL (80.0-97.0); Mean Platelet Volume 11.6 fL (9.5-12.2); Platelet Count 171 X 10*3/uL (140-440); RDW 13.6 % (11.5-14.5); WBC 5.62 X 10*3/uL (4.50-10.00)
[2020-11-08 12:57] LABS: African American GFR (CKD) 64.2 (60.0-200.0); Albumin 3.5 g/dL (3.80-4.90); Albumin/Globulin Ratio 1.46 (1.60-3.17); Anion Gap 8.2 mmol/L (4.00-12.00); BUN/Creat Ratio 12.67 Ratio (12.00-20.00); Calcium 9.1 mg/dL (8.7-10.3); Carbon Dioxide 28.8 mmol/L (21.6-31.8); Globulin 2.4 g/dL (1.6-3.3); Non-African American GFR(CKD) 55.4 (60.0-200.0); Potassium 3.9 mmol/L (3.5-5.5); Total Bilirubin 0.4 mg/dL (0.2-1.2); Total Protein 5.9 g/dL (6.2-8.2)
[2020-11-08] MEDS: HYDROcodone/APAP 7.5-325MG 1 EACH TAB PO PRN ×2 (15:08→21:08)
[2020-11-08 16:49] LABS: Glucose,Whole Blood 167 mg/dL (75-99)
--- NOTE | 2020-11-08 19:04 | PN ---
PROGRESS NOTE DATE OF SERVICE: 11/08/2020. REASON FOR FOLLOWUP: Lower extremity cellulitis. INTERVAL HISTORY: The patient is afebrile. The patient is breathing comfortably. Denies having any chest pain or shortness of breath or cough. No abdominal pain. Swelling to the leg decreased in intensity. PHYSICAL EXAMINATION: Blood pressure 93/61, pulse of 71, temperature 97.5. He is 97% on room air. GENERAL DESCRIPTION: General description is a middle-aged male up in the chair in no distress. RESPIRATORY SYSTEM: Unlabored breathing. Clear to auscultation anteriorly. HEART: S1, S2. Regular rate and rhythm. ABDOMEN: Soft. No tenderness. Leg swelling redness has decreased. LABS: BUN of 19, creatinine 1.5, white count 5.62. DIAGNOSTIC IMPRESSION AND PLAN: Patient with bilateral lower extremity swelling, concern for right leg cellulitis. Patient at this time to continue with cefazolin, transition to oral Keflex on discharge and close outpatient followup. Questions and concerns were answered. MMODL / IJN: [id number] /
[2020-11-08 20:26] LABS: Glucose,Whole Blood 235 mg/dL (75-99)
[2020-11-08] MEDS: ATORVASTATIN 20 MG TAB PO SCH (20:41)
[2020-11-09] MEDS: LEVOTHYROXINE 100 MCG TAB PO SCH (05:48)
[2020-11-09] MEDS: LEVOTHYROXINE 75 MCG TAB PO SCH (05:48)
[2020-11-09 06:57] LABS: Glucose,Whole Blood 362 mg/dL (75-99)
[2020-11-09 07:32] VITALS: BP 115/70; PULSE 67; RESP 18; TEMP 97.8
[2020-11-09] MEDS: APIXABAN 5 MG TAB PO SCH (07:53)
[2020-11-09] MEDS: INSULIN ASPART (NovoLOG) 100 UNIT/ML VIAL SQ SCH ×4 (07:53→12:14)
[2020-11-09] MEDS: INSULIN DETEMIR (LEVEMIR) 100 UNIT/ML SYR SQ SCH (07:53)
[2020-11-09] MEDS: lisinopriL 20 MG TAB PO SCH (07:54)
[2020-11-09] MEDS: allopurinoL 300 MG TAB PO SCH (07:54)
[2020-11-09] MEDS: busPIRone HCl 5 MG TAB PO SCH (07:54)
[2020-11-09] MEDS: FUROSEMIDE 10 MG/ML 4 ML VIAL IV SCH (07:54)
[2020-11-09] MEDS: HYDROcodone/APAP 7.5-325MG 1 EACH TAB PO PRN (07:58)
[2020-11-09 11:50] LABS: Glucose,Whole Blood 244 mg/dL (75-99)
--- NOTE | 2020-11-09 13:51 | PN ---
PROGRESS NOTE DATE OF SERVICE: 11/09/2020 REASON FOR FOLLOWUP: Lower extremity cellulitis. INTERVAL HISTORY: The patient is afebrile. The patient is feeling better, breathing comfortably. The patient denies having any chest pain, shortness of breath or cough. No abdominal pain. Overall swelling to the lower extremity and the redness have improved. The patient wants to go home. PHYSICAL EXAMINATION: Blood pressure is 115/70 with a pulse of 67. Temperature is 97.8. He is 93% on room air. GENERAL DESCRIPTION: General description is a middle-aged male up in the bed in no distress. RESPIRATORY SYSTEM: Unlabored breathing. Clear to auscultation anteriorly. HEART: S1, S2. Regular rate and rhythm. ABDOMEN: Soft. No tenderness. Leg swelling and redness have improved. No drainage. LABS: No new labs have been obtained today. DIAGNOSTIC IMPRESSION AND PLAN: Patient with right lower extremity cellulitis with overall clinical improvement. Finish therapy with oral Keflex. Eliquis for his underlying DVT and close outpatient followup. MMODL / IJN: [id number] /
--- NOTE | 2020-11-09 15:50 | P.DS ---
Providers Date of admission: 11/05/20 19:13 Expected date of discharge: 11/09/20 Attending physician: Raquel Woods MD Consults: 11/05/20 19:11 Consult Physician Urgent Consulting Provider: Tc Howe Consult Reason/Comments: cellulitis Do you want consulting provider notified?: Yes 11/07/20 09:30 Consult Physician Routine Consulting Provider: Mayank Villarreal Consult Reason/Comments: DVT Do you want consulting provider notified?: Yes Primary care physician: Angelika Gar [facility] Course: This is a 45-year-old male patient of Dr. Gar with past medical history of SVT status post ablation, asthma, GERD, hyperlipidemia, hypertension, history of sleep apnea on CPAP, hypothyroidism, history of sarcoidosis, history of gout, history of nicotine dependence, asthma renal failure, use of marijuana comes in with bilateral lower extremity swelling and pain for the past 4 days. Patient also noticed a lesion in close to the foot on the right lower extremity that was oozing pustular discharge. Swelling is associated with redness and inflammation. He denies any shortness of breath or chest pain. Patient denies any fever or chills nausea or vomiting. Patient has difficulty walking. He denies any change in medication he does take Lasix 40 mg at bedtime. Venous Doppler bilateral lower extremity was obtained as which could not rule out blood clot in the distal femoral veins. On review of patient's vital patient was afebrile pulse 86 respiratory rate 20 blood pressure 109/79. Evaluation patient's labs suggestive of WBC 4 platelet 136 sodium 128 potassium 4.0 chloride 93 BUN 11 creatinine 1.3 blood sugar of 583. UA was positive for glucose and specific gravity of 1.026. Lactic acid 1.8 patient initiated on heparin drip. Will switch to Eliquis today. Continue cefazolin 2 g every 8 hours. Lasix switch to 40 IV twice a day. CMP to be repeated. ESR CRP ordered. Liver enzymes elevated. Repeat LFTs. Patient takes NovoLog sliding scale at home. We'll add Levemir at 15 twice a day along with aspart at 30 units 3 times a day. Patient will need to follow with the warp clamper as outpatient. 11/07. Patient seen this morning sitting on edge of bed, reports that he is feeling ok today. Patient remains afebrile, pulse 75, blood pressure 98/63, pulse ox 95% on room air. Bilateral lower extremities with positive edema, more on the right side with some erythema. We'll add vascular consult at this time. Patient is Eliquis 10 mg by mouth twice a day along with cefazolin IV. Continue to diurese him with Lasix 40 mg IV every 12 hours. Plan to increase Levemir up to 25 units twice a day and continue to monitor blood sugars. 11/08 patient examined at bedside, was evaluated by vascular and recommended to follow up with outpatient in 2 weeks. Redness and some swelling seem to be improving. Continue on anticoagulation and IV antibiotics per ID at this time. Vital signs are stable, patient remains afebrile. Blood sugars are stable. Blood cultures no growth after 48 hours. We'll continue with IDs recommendations and convert to oral antibiotics when ready for discharge. 11/09: Dr. Howe has recommended course of Keflex at discharge. Prescription will be sent to his pharmacy for this and also for eliquis. Patient has also been seen by Dr. Villarreal with plan for follow-up in the office in 2 weeks. Patient will be discharged home today in stable condition. DISCHARGE DIAGNOSES 1. Bilateral lower extremity cellulitis with venous stasis. 2. Possible nonocclusive DVT distal femoral vein. 3. History of SVT status post ablation, stable. 4. Chronic kidney disease stage IV. 5. Hyponatremia secondary to hyperglycemia. 6. Diabetes mellitus type 2, uncontrolled with hyperglycemia. 7. Obstructive sleep apnea on CPAP. 8. Hypertension. 9. Hyperlipidemia. 10. Chronic gout. 11. Moderate intermittent asthma. 12. Tobacco use and dependence. 13. Hypothyroidism. 14. Gastroesophageal reflux disease. 15. Sarcoidosis, stable. DISCHARGE PLAN Home Impression and plan of care have been directed as dictated by the signing physician. Tabitha Batxer nurse practitioner acting as scribe for signing physician. Patient Condition at Discharge: Good Plan - Discharge Summary New Discharge Prescriptions: New Apixaban [Eliquis Starter Pack (for VTE)] 5 - 10 mg PO DIRECTED 30 Days #1 each Cephalexin [Keflex] 500 mg PO Q8HR 10 Days #30 cap Continue Atorvastatin Calcium [Lipitor] 20 mg PO HS Furosemide [Lasix] 40 mg PO DAILY #30 tab lisinopriL 20 mg PO DAILY Pioglitazone [Actos] 30 mg PO DAILY busPIRone HCL 5 mg PO TID allopurinoL [Zyloprim] 300 mg PO BID Levothyroxine Sodium [Synthroid] 175 mcg PO DAILY HYDROcodone/APAP 7.5-325MG [[place] 7.5-325] 1 tab PO TID PRN PRN Reason: Pain Tamsulosin HCl [Flomax] 0.4 mg PO DAILY INSULIN ASPART (NovoLOG) [NovoLOG (formulary)] 32 unit SQ AC-TID Discharge Medication List Atorvastatin Calcium [Lipitor] 20 mg PO HS 11/17/18 [History] Furosemide [Lasix] 40 mg PO DAILY #30 tab 11/23/18 [Rx] HYDROcodone/APAP 7.5-325MG [[place] 7.5-325] 1 tab PO TID PRN 11/05/20 [History] INSULIN ASPART (NovoLOG) [NovoLOG (formulary)] 32 unit SQ AC-TID 11/05/20 [History] Levothyroxine Sodium [Synthroid] 175 mcg PO DAILY 11/05/20 [History] Pioglitazone [Actos] 30 mg PO DAILY 11/05/20 [History] Tamsulosin HCl [Flomax] 0.4 mg PO DAILY 11/05/20 [History] allopurinoL [Zyloprim] 300 mg PO BID 11/05/20 [History] busPIRone HCL 5 mg PO TID 11/05/20 [History] lisinopriL 20 mg PO DAILY 11/05/20 [History] Apixaban [Eliquis Starter Pack (for VTE)] 5 - 10 mg PO DIRECTED 30 Days #1 each 11/09/20 [Rx] Cephalexin [Keflex] 500 mg PO Q8HR 10 Days #30 cap 11/09/20 [Rx] Follow up Appointment(s)/Referral(s): Angelika Gar MD [Primary Care Provider] - 1 Week (Office closed patient to make) Patient Instructions/Handouts: Cellulitis (DC), Deep Vein Thrombosis (DC) Discharge Disposition: HOME SELF-CARE
== END 2020-11-09 12:23 | disposition home or self-care (01) | DRG 603 ==
LOC: EC 16:32 → 4SSUR 19:13
PROVIDERS: ADMIT Internal Medicine; ATTEND Internal Medicine
DX: L03.116 Cellulitis of left lower limb (principal); E87.1 Hypo-osmolality and hyponatremia; N18.4 Chronic kidney disease, stage 4 (severe); Z68.43 Body mass index [BMI] 50.0-59.9, adult; L03.115 Cellulitis of right lower limb; E78.5 Hyperlipidemia, unspecified; I10 Essential (primary) hypertension; I25.10 Atherosclerotic heart disease of native coronary artery without angina pectoris; I48.91 Unspecified atrial fibrillation; J44.9 Chronic obstructive pulmonary disease, unspecified; K21.9 Gastro-esophageal reflux disease without esophagitis; M19.90 Unspecified osteoarthritis, unspecified site; N28.9 Disorder of kidney and ureter, unspecified; D86.9 Sarcoidosis, unspecified; F32.9 Major depressive disorder, single episode, unspecified; F41.9 Anxiety disorder, unspecified; F90.9 Attention-deficit hyperactivity disorder, unspecified type; F17.210 Nicotine dependence, cigarettes, uncomplicated; E03.9 Hypothyroidism, unspecified; M1A.9XX0 Chronic gout, unspecified, without tophus (tophi); E11.22 Type 2 diabetes mellitus with diabetic chronic kidney disease; E11.65 Type 2 diabetes mellitus with hyperglycemia; E66.01 Morbid (severe) obesity due to excess calories; G47.33 Obstructive sleep apnea (adult) (pediatric); I12.9 Hypertensive chronic kidney disease with stage 1 through stage 4 chronic kidney disease, or unspecified chronic kidney disease; I87.8 Other specified disorders of veins; J45.20 Mild intermittent asthma, uncomplicated; Z79.890 Hormone replacement therapy; Z79.84 Long term (current) use of oral hypoglycemic drugs; Z79.899 Other long term (current) drug therapy; Z96.653 Presence of artificial knee joint, bilateral; Z79.01 Long term (current) use of anticoagulants; Z88.1 Allergy status to other antibiotic agents; Z86.79 Personal history of other diseases of the circulatory system; Z79.4 Long term (current) use of insulin; Z71.6 Tobacco abuse counseling
CPT/HCPCS: 36415; 80053; 81003; 82009; 83605; 83880; 85025; 85027; 85379; 85610; 85652; 85730; 86140; 87040; 93970; 99285

== ENCOUNTER 2021-08-25 20:51 | Observation (INO) | payer MEDICARE, OTHER ==
--- NOTE | 2021-08-25 21:16 | ED ---
Chest Pain HPI - General Stated Complaint: Chest Pain, SOB Time Seen by Provider: 08/25/21 21:10 - History of Present Illness Initial Comments: This patient is a 47-year-old man who presents to have evaluation of chest pain and palpitations. Patient states that he was just sitting approximately 3-1/2-4 hours ago when he started experiencing substernal and left chest pain accompanied by palpitations. The patient describes it as sharp, constant and he did not know worsening or relieving factors. Patient was also feeling a little short of breath but he states that he did not feel any better and he did not tolerate the oxygen that EMS provided. He is not having any shortness of breath currently. The patient states that a month to month and a half ago, he had similar episode and was seen at [facility]. He was admitted there, seen by cardiology and then was discharged to follow for stress test but has not done that. MD Complaint: chest pain Onset/Timin -: hour(s) Onset: during rest Pain Location: substernal Pain Radiation: none Severity scale (1-10): 6 Quality: sharp Consistency: constant Improves With: nothing Worsens With: nothing Other Symptoms: palpitations Treatments Prior to Arrival: none - Related Data Home Medications Medication Instructions Recorded Confirmed HYDROcodone/APAP 7.5-325MG [[place] 1 tab PO Q6H PRN 11/05/20 08/25/21 7.5-325] INSULIN ASPART (NovoLOG) [NovoLOG 32 unit SQ W/SUPPER 11/05/20 08/25/21 (formulary)] Levothyroxine Sodium [Synthroid] 175 mcg PO DAILY 11/05/20 08/25/21 allopurinoL [Zyloprim] 300 mg PO BID 11/05/20 08/25/21 Albuterol Sulfate [Albuterol 2 puff INHALATION RT-Q4H PRN 08/25/21 08/25/21 Sulfate Hfa] Aspirin EC [Ecotrin Low Dose] 81 mg PO DAILY 08/25/21 08/25/21 Atorvastatin Calcium [Lipitor] 40 mg PO HS 08/25/21 08/25/21 Budesonide-Formot 160-4.5 Mcg 2 puff INHALATION RT-BID 08/25/21 08/25/21 [Symbicort 160-4.5 Mcg Inhaler] Colchicine [Colcrys] 0.6 mg PO DIRECTED 08/25/21 08/25/21 INSULIN ASPART (NovoLOG) [NovoLOG 28 unit SQ W/BRKFST 08/25/21 08/25/21 (formulary)] INSULIN ASPART (NovoLOG) [NovoLOG 34 units SQ W/LUNCH 08/25/21 08/25/21 (formulary)] busPIRone HCl [Buspar] 10 mg PO TID 08/25/21 08/25/21 lisinopriL 20 mg PO DAILY 08/25/21 08/25/21 Previous Rx's Medication Instructions Recorded Furosemide [Lasix] 40 mg PO DAILY #30 tab 11/23/18 Allergies Allergy/AdvReac Type Severity Reaction Status Date / Time vancomycin Allergy Rash/Hives Verified 08/25/21 23:25 Review of Systems ROS Statement: Those systems with pertinent positive or pertinent negative responses have been documented in the HPI. ROS Other: All systems not noted in ROS Statement are negative. Constitutional: Denies: fever, chills Respiratory: Denies: cough, dyspnea Cardiovascular: Reports: chest pain, palpitations, edema. Denies: orthopnea, syncope Gastrointestinal: Denies: abdominal pain, nausea, vomiting Genitourinary: Denies: dysuria, frequency Musculoskeletal: Denies: back pain Skin: Denies: rash Neurological: Denies: headache, weakness, numbness EKG Findings - EKG Comments: EKG Findings:: Possible right ventricular hypertrophy - EKG Results: EKG: interpreted by ERMD, sinus rhythm (Rate 84 bpm), normal axis (Normal) Past Medical History Past Medical History: Atrial Fibrillation, Asthma, Coronary Artery Disease (CAD), COPD, GERD/Reflux, Hyperlipidemia, Hypertension, Osteoarthritis (OA), Renal Disease, Sleep Apnea/CPAP/BIPAP, Thyroid Disorder Additional Past Medical History / Comment(s): sarcoidosis, gouty arthritis, "small esophagus" occ diff swallowing, arthritis, uses CPAP at home, trouble sleeping. History of Any Multi-Drug Resistant Organisms: None Reported Past Surgical History: Cardiac Ablation, Joint Replacement, Orthopedic Surgery Additional Past Surgical History / Comment(s): right knee replacement, bilat ankle surgery, R wrist surgery r/t gout/arthritis lymph node biopsy- sarcoidosis Past Anesthesia/Blood Transfusion Reactions: No Reported Reaction Additional Past Anesthesia/Blood Transfusion Reaction / Comment(s): pt states he has never had a blood transfusion Past Psychological History: ADD/ADHD, Anxiety, Depression Smoking Status: Current every day smoker Past Alcohol Use History: None Reported Past Drug Use History: Marijuana - Past Family History Father Family Medical History: COPD Additional Family Medical History / Comment(s): emphysema Mother Family Medical History: Diabetes Mellitus, Rheumatoid Arthritis (RA) Additional Family Medical History / Comment(s): back surgery, joint replacements General Exam General appearance: alert, in no apparent distress Head exam: Present: atraumatic, normocephalic Eye exam: Present: normal appearance. Absent: scleral icterus, conjunctival injection ENT exam: Present: normal oropharynx Neck exam: Present: normal inspection Respiratory exam: Present: normal lung sounds bilaterally. Absent: respiratory distress, wheezes, rales, rhonchi, stridor, chest wall tenderness, accessory muscle use Cardiovascular Exam: Present: regular rate, normal rhythm, normal heart sounds. Absent: systolic murmur, diastolic murmur, rubs, gallop GI/Abdominal exam: Present: soft. Absent: distended, tenderness, guarding, rebound, rigid, mass Extremities exam: Present: normal inspection, normal capillary refill, pedal edema (Right greater than left, chronic). Absent: tenderness, calf tenderness Back exam: Present: normal inspection. Absent: CVA tenderness (R), CVA tenderness (L) Neurological exam: Present: alert Skin exam: Present: warm, dry, intact, normal color. Absent: rash Course Vital Signs 08/25/21 21:34 Temperature 97.8 F Pulse Rate 80 Respiratory 18 Rate Blood Pressure 107/75 O2 Sat by Pulse 96 Oximetry Disposition Clinical Impression: Chest pain Disposition: ADMITTED IP TO THIS HOSP Condition: Fair Instructions (If sedation given, give patient instructions): Chest Pain (ED) Is patient prescribed a controlled substance at d/c from ED?: No Referrals: None,Stated [Primary Care Provider] - 1-2 days Time of Disposition: 23:43
--- NOTE | 2021-08-25 22:01 | XR ---
EXAMINATION TYPE: XR chest 2V DATE OF EXAM: 08/25/2021 9:48 PM COMPARISON: Multiple radiographs, with the most recent on 02/18/2019 TECHNIQUE: XR chest 2V Frontal and lateral views of the chest. CLINICAL INDICATION:Male, 46 years old with history of Chest Pain; FINDINGS: Lungs/Pleura: There is no evidence of pleural effusion, focal consolidation, or pneumothorax. Pulmonary vascularity: Unremarkable. Heart/mediastinum: Cardiomediastinal silhouette is unremarkable. Musculoskeletal: No acute osseous pathology. IMPRESSION: No acute cardiopulmonary disease/process.
[2021-08-25 22:11] LABS: Basophils # (A) 0.1 k/uL (0-0.2); Basophils % (A) 1 %; Eosinophils # (A) 0.4 k/uL (0-0.7); Eosinophils % (A) 7 %; HCT 44.6 % (39.0-53.0); HGB 14.9 gm/dL (13.0-17.5); Lymphocytes # (A) 1.7 k/uL (1.0-4.8); Lymphocytes % (A) 32 %; MCH 32.7 pg (25.0-35.0); MCHC 33.3 g/dL (31.0-37.0); MCV 98.3 fL (80.0-100.0); Mean Platelet Volume 8.7; Monocytes # (A) 0.3 k/uL (0-1.0); Monocytes % (A) 6 %; Neutrophils # (A) 2.8 k/uL (1.3-7.7); Neutrophils % (A) 52 %; Platelet Count 133 k/uL (150-450); RBC 4.54 m/uL (4.30-5.90); RDW 13.2 % (11.5-15.5); WBC 5.4 k/uL (3.8-10.6)
[2021-08-25 22:27] LABS: Albumin 4.3 g/dL (3.5-5.0); Calcium 9.3 mg/dL (8.4-10.2); Magnesium 1.8 mg/dL (1.6-2.3); Potassium 3.9 mmol/L (3.5-5.1); Total Bilirubin 0.6 mg/dL (0.2-1.3); Total Protein 7.2 g/dL (6.3-8.2)
[2021-08-25] MEDS ORDERED: MORPHINE SULFATE 4 MG/ML SYRINGE IV STA (22:36)
[2021-08-25 22:50] LABS: Partial Thromboplastin Time 25.7 sec (22.0-30.0); Prothrombin Time 10.9 sec (9.0-12.0)
[2021-08-26] MEDS ORDERED: ASPIRIN 81 MG PO STA (00:16)
[2021-08-26] MEDS ORDERED: NITROGLYCERIN SL TABS 0.4 MG TAB SUBLINGUAL PRN (00:16)
[2021-08-26] MEDS ORDERED: ALBUTEROL NEBULIZED 2.5 MG/3 ML INHALATION PRN (00:18)
[2021-08-26] MEDS ORDERED: AMINOPHYLLINE 500 MG/20 ML VIAL IV PRN (00:36)
[2021-08-26] MEDS ORDERED: CAFFEINE CITRATE 60 MG/3 ML VIAL IV PRN (00:36)
--- NOTE | 2021-08-26 00:54 | P.HPIM ---
History of Present Illness H&P Date: 08/26/21 Chief Complaint: Chest pain Patient is a 47-year-old male. He comes into the hospital with chief complaint of chest pain. Patient reports an episode of feeling chest pressure with associated sharp pain that lasts about 15-20 minutes. He reports that this occurred in the afternoon while he was sitting outside. He had associated palpitations and feeling of diaphoresis during this event. He does not know what seemed to resolve the chest pain as it went away on its own. Patient is not having any nausea or vomiting no fevers or chills. He reports that he's had episodes like this in the past and he was currently being worked up at [facility] he went to [facility] 2 months ago. At that time he did not have any stress test imaging performed and he was. 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 He is comfortable at this time and reports that his chest pain is improved. Review of Systems All systems: negative Past Medical History Past Medical History: Atrial Fibrillation, Asthma, Coronary Artery Disease (CAD), COPD, GERD/Reflux, Hyperlipidemia, Hypertension, Osteoarthritis (OA), Renal Disease, Sleep Apnea/CPAP/BIPAP, Thyroid Disorder Additional Past Medical History / Comment(s): sarcoidosis, gouty arthritis, " small esophagus" occ diff swallowing, arthritis, uses CPAP at home, trouble sleeping. History of Any Multi-Drug Resistant Organisms: None Reported Past Surgical History: Cardiac Ablation, Joint Replacement, Orthopedic Surgery Additional Past Surgical History / Comment(s): right knee replacement, bilat ankle surgery, R wrist surgery r/t gout/arthritis lymph node biopsy- sarcoidosis Past Anesthesia/Blood Transfusion Reactions: No Reported Reaction Additional Past Anesthesia/Blood Transfusion Reaction / Comment(s): pt states he has never had a blood transfusion Past Psychological History: ADD/ADHD, Anxiety, Depression Smoking Status: Current every day smoker Past Alcohol Use History: None Reported Past Drug Use History: Marijuana - Past Family History Father Family Medical History: COPD Additional Family Medical History / Comment(s): emphysema Mother Family Medical History: Diabetes Mellitus, Rheumatoid Arthritis (RA) Additional Family Medical History / Comment(s): back surgery, joint replacements Medications and Allergies Home Medications Medication Instructions Recorded Confirmed Type Furosemide [Lasix] 40 mg PO DAILY #30 tab 11/23/18 08/25/21 Rx HYDROcodone/APAP 7.5-325MG [[place] 1 tab PO Q6H PRN 11/05/20 08/25/21 History 7.5-325] INSULIN ASPART (NovoLOG) [NovoLOG 32 unit SQ W/SUPPER 11/05/20 08/25/21 History (formulary)] Levothyroxine Sodium [Synthroid] 175 mcg PO DAILY 11/05/20 08/25/21 History allopurinoL [Zyloprim] 300 mg PO BID 11/05/20 08/25/21 History Albuterol Sulfate [Albuterol 2 puff INHALATION RT-Q4H PRN 08/25/21 08/25/21 History Sulfate Hfa] Aspirin EC [Ecotrin Low Dose] 81 mg PO DAILY 08/25/21 08/25/21 History Atorvastatin Calcium [Lipitor] 40 mg PO HS 08/25/21 08/25/21 History Budesonide-Formot 160-4.5 Mcg 2 puff INHALATION RT-BID 08/25/21 08/25/21 History [Symbicort 160-4.5 Mcg Inhaler] Colchicine [Colcrys] 0.6 mg PO DIRECTED 08/25/21 08/25/21 History INSULIN ASPART (NovoLOG) [NovoLOG 28 unit SQ W/BRKFST 08/25/21 08/25/21 History (formulary)] INSULIN ASPART (NovoLOG) [NovoLOG 34 units SQ W/LUNCH 08/25/21 08/25/21 History (formulary)] busPIRone HCl [Buspar] 10 mg PO TID 08/25/21 08/25/21 History lisinopriL 20 mg PO DAILY 08/25/21 08/25/21 History Allergies Allergy/AdvReac Type Severity Reaction Status Date / Time vancomycin Allergy Rash/Hives Verified 08/25/21 23:25 Physical Exam Osteopathic Statement: *. No significant issues noted on an osteopathic structural exam other than those noted in the History and Physical/Consult. Vitals: Vital Signs Temp Pulse Resp BP Pulse Ox 08/25/21 21:34 97.8 F 80 18 107/75 96 Intake and Output 08/25/21 08/25/21 08/26/21 14:59 22:59 06:59 Other: Weight 158.757 kg - Constitutional General appearance: morbidly obese - EENT Eyes: EOMI, PERRLA - Neck Neck: normal ROM - Respiratory Respiratory: bilateral: CTA - Cardiovascular Rhythm: regular Heart sounds: normal: S1, S2 - Gastrointestinal General gastrointestinal: normal bowel sounds, soft - Neurologic Neurologic: CNII-XII intact - Musculoskeletal Musculoskeletal: gait normal - Psychiatric Psychiatric: A&O x's 3 Results CBC & Chem 7: 08/25/21 22:03 08/25/21 22:03 Labs: Abnormal Lab Results - Last 24 Hours (Table) 08/25/21 08/25/21 08/25/21 Range/Units 22:03 22:03 22:03 Plt Count 133 L (150-450) k/uL D-Dimer 0.60 H (<0.60) mg/L FEU Sodium 136 L (137-145) mmol/L Creatinine 1.58 H (0.66-1.25) mg/dL Glucose 164 H (74-99) mg/dL Assessment and Plan (1) Chest pain Current Visit: Yes Status: Acute Code(s): R07.9 - CHEST PAIN, UNSPECIFIED SNOMED Code(s): 53938118 Plan: Chest pain -Rule out ACS. Patient is admitted to the hospital with a chief complaint of chest pain. First set of troponins negative. No significant EKG changes noted of ischemia. -Patient's being admitted to observation for further workup including stress nuclear study. -Cardiology consultation placed CKD -Patient has a baseline creatinine near 1.5. Avoid nephrotoxic agents. Continue to monitor renal function and urine output Valvular atrial fibrillation -Patient reports that he had a history of valvular atrial fibrillation which was corrected with ablation therapy. He is currently not on any anticoagulation Insulin-dependent diabetes mellitus -We'll check a hemoglobin A1c. Continue with lispro. Patient apparently is only on short acting insulin at home and not long-acting Morbid obesity -Patient has a BMI of 48 encouraged to lose weight with diet control and educa tion Lower extremity edema -Patient reports increased lower extremity edema. He is on Lasix daily. His his BNP was 207. Hypothyroidism Continue with levothyroxine Disposition: Patient will be admitted to observation floor for cardiac workup area and cardiology consultation also placed
[2021-08-26 04:39] LABS: Basophils % (A) 1 %; Eosinophils # (A) 0.3 k/uL (0-0.7); Eosinophils % (A) 6 %; HCT 45.6 % (39.0-53.0); HGB 14.9 gm/dL (13.0-17.5); Lymphocytes # (A) 1.8 k/uL (1.0-4.8); Lymphocytes % (A) 39 %; MCH 32.4 pg (25.0-35.0); MCHC 32.6 g/dL (31.0-37.0); MCV 99.5 fL (80.0-100.0); Mean Platelet Volume 8.8; Monocytes # (A) 0.3 k/uL (0-1.0); Monocytes % (A) 6 %; Neutrophils # (A) 2.2 k/uL (1.3-7.7); Neutrophils % (A) 47 %; Platelet Count 142 k/uL (150-450); RBC 4.58 m/uL (4.30-5.90); WBC 4.7 k/uL (3.8-10.6)
[2021-08-26 04:50] LABS: African American GFR (CKD) 60 (>60 ml/min/1.73 sqM); Anion Gap 3 mmol/L; Blood Urea Nitrogen 15 mg/dL (9-20); Calcium 9.1 mg/dL (8.4-10.2); Carbon Dioxide 31 mmol/L (22-30); Chloride 102 mmol/L (98-107); Glucose 148 mg/dL (74-99); Non-African American GFR(CKD) 52 (>60 ml/min/1.73 sqM); Potassium 3.9 mmol/L (3.5-5.1); Sodium 136 mmol/L (137-145)
[2021-08-26 07:12] LABS: Glucose,Whole Blood 139 mg/dL (70-110)
[2021-08-26] MEDS: SYMBICORT 160-4.5 MCG INHALER INHALATION SCH ×2 (07:46→19:22)
[2021-08-26] MEDS: ENOXAPARIN 40 MG/0.4 ML SYRINGE SQ SCH (08:10)
[2021-08-26] MEDS: LEVOTHYROXINE 88 MCG TAB PO SCH (08:10)
[2021-08-26] MEDS: FUROSEMIDE 40 MG TAB PO SCH (08:10)
[2021-08-26] MEDS: busPIRone HCl 10 MG TAB PO SCH ×3 (08:11→21:42)
[2021-08-26] MEDS: INSULIN ASPART (NovoLOG) 100 UNIT/ML VIAL SQ SCH ×5 (08:11→20:33)
[2021-08-26] MEDS: lisinopriL 20 MG TAB PO SCH (08:11)
[2021-08-26] MEDS ORDERED: REGADENOSON 0.4 MG/5 ML SYRINGE IV PRN (09:35)
--- NOTE | 2021-08-26 11:23 | CA ---
Lexiscan Nuclear Stress Test Report Name: Bill Bocanegra Exam Date: 08/26/2021 09:27 Exam Location: [facility] Ht (in): 71 Wt (lb): 350 BSA: 2.68 Ordering Phys: Marsha Ch MD Referring Phys: KARTHIK, Technologist: Heriberto Banegas Age: 46 Gender: M : 1975 Procedure CPT: Indications: Reflex order-Stress test ICD-10 Codes: Patient History: CHEST PAIN, DIFFICULTY IN BREATHING, PALPITATIONS, HTN, DIABETES, ELEVATED CHOLESTEROL LEVELS, TOBACCO USE 0.5 PPD X 25 YEARS, COPD, ASTHMA Medications: Meds past 24 hrs: Pretest Chest Pain: STRESS TEST Lexiscan Protocol Exercise Duration (min:sec): 01:[address] Depressions (mm): Angina Score: Felder Score: Resting HR (bpm): 39 Peak HR (bpm): 91 Resting BP (mmHg): 114 / 83 Peak BP (mmHg): 125 / 83 MPHR: 174 Target HR: 148 % MPHR: 52 METS: 1.0 Total Dose: Peak Dose: Atropine: Double Product: 51448 BP Response: Stress Termination: Stress Symptoms: Stress Summary: ECG ANALYSIS Resting ECG: Stress ECG: CONCLUSIONS Baseline EKG revealed normal sinus rhythm with inferior nonspecific ST and T-wave changes. With Lexiscan administration patient was asymptomatic EKG remained unchanged heart rate went up from 62-91 bpm and the blood pressure changed from 140/83- 122/87. Asymptomatic. This is a inconclusive Lexiscan stress test by EKG criteria. The nuclear scan doesn't suggest a more potent will be reported by the radiologist. Dr. Mag Dao MD (Electronically Signed) Final Date: 26 August 2021 11:22
--- NOTE | 2021-08-26 11:40 | P.CRDCN ---
History of Present Illness History of present illness: - . HPI: [This is a morbidly obese gentleman who used to see in the past but does not follow on irregular basis. He has history of hypertension hyperlipidemia morbid obesity type 2 diabetes hypothyroidism and also has had previous SVT ablation. This information was obtained from the old chart. He came into the hospital complaining of discomfort in the chest very nondescript b ut persistent for the last 3-4 days. His troponins are negative his resting comfortably at the time of my evaluation and the d-dimer was about 0.6 borderline not significant. Given his risk factors he is going for a Lexiscan stress test today end of this is normal he can be discharged. He does have diabetes with a chronic kidney disease and creatinine in the range of 1.5-1.6. Patient unfortunately continues to smoke half to one pack daily and uses marijuana.]. RELEVANT PAST MEDICAL HISTORY: [This includes history of diabetes it's EKG obesity hypertension hyperlipidemia previous SVT ablation marijuana use and nicotine dependence. He also has hypothyroidism]. MEDICATIONS: [See chart] ALLERGIES: [See chart]. REVIEW OF SYSTEMS: [No hematemesis or melena no genitourinary symptoms fever with chills or cough with expectoration at the time of my evaluation does not have any chest discomfort]. PHYSICIAL EXAM: []. IMPRESSION: 1. [ Atypical chest pain]. 2. Morbid obesity. 3. Type 2 diabetes with chronic kidney disease 4. Hypertension. 5. Hypercholesterolemia. RECOMMENDATIONS: [Continue current medical regimen and will perform a Lexiscan stress test if this is normal he can be discharged and follow-up with his primary care physician. Advised to quit smoking and marijuana]. Advised to low-calorie low-carb diet and seek diabetes education through PCP aberrantly was seen at [facility] and advised to follow-up for a stress test but he did not keep his follow-up appointments Past Medical History Past Medical History: Atrial Fibrillation, Asthma, Coronary Artery Disease (CAD), COPD, GERD/Reflux, Hyperlipidemia, Hypertension, Osteoarthritis (OA), Renal Disease, Sleep Apnea/CPAP/BIPAP, Thyroid Disorder Additional Past Medical History / Comment(s): sarcoidosis, gouty arthritis, "small esophagus" occ diff swallowing, arthritis, uses CPAP at home, trouble sleeping. History of Any Multi-Drug Resistant Organisms: None Reported Past Surgical History: Cardiac Ablation, Joint Replacement, Orthopedic Surgery Additional Past Surgical History / Comment(s): right knee replacement, bilat ankle surgery, R wrist surgery r/t gout/arthritis lymph node biopsy- sarcoidosis Past Anesthesia/Blood Transfusion Reactions: No Reported Reaction Additional Past Anesthesia/Blood Transfusion Reaction / Comment(s): pt states he has never had a blood transfusion Past Psychological History: ADD/ADHD, Anxiety, Depression Smoking Status: Current every day smoker Past Alcohol Use History: None Reported Additional Past Alcohol Use History / Comment(s): STARTED SMOKING AT AGE 10 WORKED UP TO 1.5 PPD. BUT HAS CUTDOWN TO 0.5 PPD SMOKING CESSATION book refused Past Drug Use History: Marijuana Additional Drug Use History / Comment(s): USES MARIJUANA TO "HELP HIM SLEEP" - Past Family History Father Family Medical History: COPD Additional Family Medical History / Comment(s): emphysema Mother Family Medical History: Diabetes Mellitus, Rheumatoid Arthritis (RA) Additional Family Medical History / Comment(s): back surgery, joint replacements Medications and Allergies Home Medications Medication Instructions Recorded Confirmed Type Furosemide [Lasix] 40 mg PO DAILY #30 tab 11/23/18 08/25/21 Rx HYDROcodone/APAP 7.5-325MG [[place] 1 tab PO Q6H PRN 11/05/20 08/25/21 History 7.5-325] INSULIN ASPART (NovoLOG) [NovoLOG 32 unit SQ W/SUPPER 11/05/20 08/25/21 History (formulary)] Levothyroxine Sodium [Synthroid] 175 mcg PO DAILY 11/05/20 08/25/21 History allopurinoL [Zyloprim] 300 mg PO BID 11/05/20 08/25/21 History Albuterol Sulfate [Albuterol 2 puff INHALATION RT-Q4H PRN 08/25/21 08/25/21 History Sulfate Hfa] Aspirin EC [Ecotrin Low Dose] 81 mg PO DAILY 08/25/21 08/25/21 History Atorvastatin Calcium [Lipitor] 40 mg PO HS 08/25/21 08/25/21 History Budesonide-Formot 160-4.5 Mcg 2 puff INHALATION RT-BID 08/25/21 08/25/21 History [Symbicort 160-4.5 Mcg Inhaler] Colchicine [Colcrys] 0.6 mg PO DIRECTED 08/25/21 08/25/21 History INSULIN ASPART (NovoLOG) [NovoLOG 28 unit SQ W/BRKFST 08/25/21 08/25/21 History (formulary)] INSULIN ASPART (NovoLOG) [NovoLOG 34 units SQ W/LUNCH 08/25/21 08/25/21 History (formulary)] busPIRone HCl [Buspar] 10 mg PO TID 08/25/21 08/25/21 History lisinopriL 20 mg PO DAILY 08/25/21 08/25/21 History Allergies Allergy/AdvReac Type Severity Reaction Status Date / Time vancomycin Allergy Rash/Hives Verified 08/25/21 23:25 Physical Exam Vitals: Vital Signs Temp Pulse Pulse Resp BP BP Pulse Ox 08/26/21 08:00 51 L 08/26/21 07:00 97.4 F L 52 L 20 102/66 96 08/26/21 01:50 97.6 F 76 19 113/96 96 08/26/21 00:55 98 F 69 23 115/89 98 08/25/21 21:34 97.8 F 80 18 107/75 96 Intake and Output 08/25/21 08/26/21 08/26/21 22:59 06:59 14:59 Other: # Voids 1 Weight 158.757 kg 158.757 kg Results 08/26/21 04:28 08/26/21 04:23 Cardiac Enzymes 08/25/21 08/25/21 08/26/21 Range/Units 22:03 22:03 00:54 AST 47 (17-59) U/L Troponin I <0.012 <0.012 (0.000-0.034) ng/mL 08/26/21 Range/Units 04:28 AST (17-59) U/L Troponin I <0.012 (0.000-0.034) ng/mL Coagulation 08/25/21 Range/Units 22:03 PT 10.9 (9.0-12.0) sec APTT 25.7 (22.0-30.0) sec CBC 08/25/21 08/26/21 Range/Units 22:03 04:28 WBC 5.4 4.7 (3.8-10.6) k/uL RBC 4.54 4.58 (4.30-5.90) m/uL Hgb 14.9 14.9 (13.0-17.5) gm/dL Hct 44.6 45.6 (39.0-53.0) % Plt Count 133 L 142 L (150-450) k/uL Comprehensive Metabolic Panel 08/25/21 08/26/21 Range/Units 22:03 04:23 Sodium 136 L 136 L (137-145) mmol/L Potassium 3.9 3.9 (3.5-5.1) mmol/L Chloride 102 102 (98-107) mmol/L Carbon Dioxide 27 31 H (22-30) mmol/L BUN 15 15 (9-20) mg/dL Creatinine 1.58 H 1.59 H (0.66-1.25) mg/dL Glucose 164 H 148 H (74-99) mg/dL Calcium 9.3 9.1 (8.4-10.2) mg/dL AST 47 (17-59) U/L ALT 47 (4-49) U/L Alkaline Phosphatase 98 (38-126) U/L Total Protein 7.2 (6.3-8.2) g/dL Albumin 4.3 (3.5-5.0) g/dL Current Medications Generic Name Dose Route Start Last Admin Trade Name Freq PRN Reason Stop Dose Admin Albuterol Sulfate 2.5 mg 08/26/21 00:18 Albuterol Nebulized 2.5 Mg/3 Ml INHALATION RT-Q4H PRN Shortness Of Breath Aspirin 325 mg 08/27/21 09:00 Aspirin 325 Mg Tab PO DAILY [facility] Atorvastatin Calcium 40 mg 08/26/21 21:00 Atorvastatin 40 Mg Tab PO HS [facility] Budesonide/Formoterol Fumarate 2 puff 08/26/21 08:00 08/26/21 07:46 Symbicort 160-4.5 Mcg Inhaler INHALATION 2 puff RT-BID SANDRITA Administration Buspirone HCl 10 mg 08/26/21 09:00 08/26/21 08:11 Buspirone Hcl 10 Mg Tab PO 10 mg TID SANDRITA Administration Enoxaparin Sodium 40 mg 08/26/21 09:00 08/26/21 08:10 Enoxaparin 40 Mg/0.4 Ml Syringe SQ 40 mg DAILY [facility] Administration Furosemide 40 mg 08/26/21 09:00 08/26/21 08:10 Furosemide 40 Mg Tab PO 40 mg DAILY SANDRITA Administration Insulin Aspart 15 unit 08/26/21 07:30 08/26/21 08:16 Insulin Aspart (Novolog) 100 Unit/Ml Vial SQ Not Given AC-TID [facility] Levothyroxine Sodium 176 mcg 08/26/21 06:30 08/26/21 08:10 Levothyroxine 88 Mcg Tab PO 176 mcg DAILY@0630 SANDRITA Administration Lisinopril 20 mg 08/26/21 09:00 08/26/21 08:11 Lisinopril 20 Mg Tab PO 20 mg DAILY SANDRITA Administration Nitroglycerin 0.4 mg 08/26/21 00:16 Nitroglycerin Sl Tabs 0.4 Mg Tab SUBLINGUAL Q5M PRN Chest Pain Regadenoson 0.4 mg 08/26/21 09:35 Regadenoson 0.4 Mg/5 Ml Syringe IV 08/26/21 23:59 ONCE PRN Per Protocol Intake and Output 08/25/21 08/26/21 08/26/21 22:59 06:59 14:59 Other: # Voids 1 Weight 158.757 kg 158.757 kg 08/26/21 04:28 08/26/21 04:23
[2021-08-26 12:04] LABS: Glucose,Whole Blood 163 mg/dL (70-110)
[2021-08-26 17:08] LABS: Glucose,Whole Blood 201 mg/dL (70-110)
--- NOTE | 2021-08-26 19:23 | P.PN ---
Subjective Progress Note Date: 08/26/21 Hospital course: Patient is a very pleasant 46 show male with a past medical history of hypertension, hyperlipidemia, COPD, insulin-dependent diabetes mellitus, chronic kidney disease stage III, hypothyroidism, gout, obstructive sleep apnea CPAP dependent, atrial fibrillation not on anticoagulation, and morbid obesity. He presented to the emergency department with a chief complaint of chest pain. He underwent full evaluation in the emergency department. EKG revealing normal sin us rhythm at 84 bpm with T-wave inversion in inferior leads II and aVF. Troponin negative at less than 0.012. CBC and CMP showing no significant abnormalities, with the exception of hypercarbia with carbon dioxide of 31 and elevated creatinine of 1.59 which is improved from baseline level. Patient admitted under services of consultation cardiology. Physical exam: Patient seen and evaluated at bedside this morning upon return from [facility]. Patient reports currently feeling hungry but denying having any chest pain, palpitations, shortness of breath or any other complaints at this time. Aw aiting stress test results. Vital signs reviewed and stable. General: Nontoxic, no distress and appears stated age. Derm: Skin warm and dry, normal coloration for ethnicity. Head: Atraumatic, normocephalic and symmetric. Eyes: EOMs intact, no lid lag, and anicteric sclera Mouth: no lip lesions, mucus membranes moist Cardiovascular: regular rate and rhythm with normal S1S2, no murmur, positive posterior tibial pulses bilaterally, and cap refill < 2 seconds. Lungs: Respirations even, regular, and unlabored on room air. Lungs CTA bilaterally, no rhonchi, no rales, no wheezing, and no accessory muscle usage. Abdominal: soft, nontender to palpation, no guarding, no appreciable organomeg gabe Ext: ROM intact. No gross muscle atrophy, no edema, no contractures Neuro: Speech clear, face symmetrical and CN II-XII grossly intact with no noted focal neuro deficits Psych: Alert and oriented to person, place, time, and situation. Appropriate and pleasant affect. Assessment and Plan of Care: Chest pain, rule out acute coronary event Hypertension Hyperlipidemia -Cardiology following, took patient down for [facility] stress test -Telemetry monitoring -Troponins negative. -Continue cardiac medication regimen with Aspirin, atorvastatin, and lisinopril Insulin-dependent diabetes mellitus -Continue scheduled NovoLog 15 units with meals along with glycemic protocol and NovoLog sliding scale COPD -Oxygenation as needed to maintain SpO2 equal to or greater than 92%. -Continue Symbicort Hypothyroidism -Continue daily medication regimen with levothyroxine. Hyperlipidemia -Continue daily medication regimen with atorvastatin. Obstructive sleep apnea -Continue use of home CPAP CODE STATUS: Full code DVT prophylaxis: Lovenox Discussed with: Pt and RN Anticipated discharge date: 1-[address]: Home A total of 35 minutes was spent on the care of this complex patient more than 50% of the time was spent in counseling and care coordination. Objective - Vital Signs Vital signs: Vital Signs Temp 97.4 F L 08/26/21 07:00 Pulse 51 L 08/26/21 08:00 Resp 20 08/26/21 07:00 BP 102/66 08/26/21 07:00 Pulse Ox 96 08/26/21 07:00 FiO2 Intake & Output 08/25/21 08/26/21 08/26/21 18:59 06:59 18:59 Weight 158.757 kg Other: # Voids 1 - Labs CBC & Chem 7: 08/26/21 04:28 08/26/21 04:23 Labs: Abnormal Lab Results - Last 24 Hours (Table) 08/25/21 08/25/21 08/25/21 Range/Units 22:03 22:03 22:03 Plt Count 133 L (150-450) k/uL D-Dimer 0.60 H (<0.60) mg/L FEU Sodium 136 L (137-145) mmol/L Carbon Dioxide (22-30) mmol/L Creatinine 1.58 H (0.66-1.25) mg/dL Glucose 164 H (74-99) mg/dL POC Glucose (mg/dL) (70-110) mg/dL Hemoglobin A1c (0.0-6.0) % 08/26/21 08/26/21 08/26/21 Range/Units 04:23 04:28 04:28 Plt Count 142 L (150-450) k/uL D-Dimer (<0.60) mg/L FEU Sodium 136 L (137-145) mmol/L Carbon Dioxide 31 H (22-30) mmol/L Creatinine 1.59 H (0.66-1.25) mg/dL Glucose 148 H (74-99) mg/dL POC Glucose (mg/dL) (70-110) mg/dL Hemoglobin A1c 8.8 H (0.0-6.0) % 08/26/21 Range/Units 07:10 Plt Count (150-450) k/uL D-Dimer (<0.60) mg/L FEU Sodium (137-145) mmol/L Carbon Dioxide (22-30) mmol/L Creatinine (0.66-1.25) mg/dL Glucose (74-99) mg/dL POC Glucose (mg/dL) 139 H (70-110) mg/dL Hemoglobin A1c (0.0-6.0) %
[2021-08-26 20:22] LABS: Glucose,Whole Blood 117 mg/dL (70-110)
[2021-08-26] MEDS ORDERED: ATORVASTATIN 40 MG TAB PO SCH (21:00)
--- NOTE | 2021-08-26 21:49 | NM ---
EXAMINATION TYPE: NM stress lexiscan cardiolite DATE OF EXAM: 08/26/2021 COMPARISON: NONE HISTORY: 46-year-old male with chest pain TECHNIQUE: After the intravenous administration of 10.4 mCi Tc 99m Sestamibi - Cardiolite resting SP ECT images acquired 60 minutes post injection. The patient received 0.4mg Lexiscan, 25.5 mCi Tc 99m Sestamibi - Stress images obtained [address] injection FINDINGS: Review of stress and rest SPECT images a small area of fixed perfusion defect along the mid anterosep wei wall which is not corroborated on the polar maps, likely chest wall attenuation artifact. No disc rete reversibility is seen. Demonstrates no distinct perfusion abnormality. Gated analysis shows nor mal wall motion with an estimated left ventricular ejection fraction of 47 %. TID is calculated at 0 .96, within normal limits. IMPRESSION: 1. Small fixed defect along the mid anteroseptal wall likely chest wall attenuation artifact given th at there is no corresponding defect on polar maps. No convincing evidence for inducible ischemia. 2. Note estimated LVEF mildly diminished at 47%.
[2021-08-27 01:17] VITALS: TEMP 97.6
[2021-08-27] MEDS: LEVOTHYROXINE 88 MCG TAB PO SCH (05:53)
[2021-08-27 07:21] LABS: Glucose,Whole Blood 179 mg/dL (70-110)
[2021-08-27 08:04] VITALS: BP 91/54; PULSE 59; RESP 16
[2021-08-27] MEDS: SYMBICORT 160-4.5 MCG INHALER INHALATION SCH (08:04)
[2021-08-27] MEDS: INSULIN ASPART (NovoLOG) 100 UNIT/ML VIAL SQ SCH ×4 (08:56→12:45)
[2021-08-27] MEDS: lisinopriL 20 MG TAB PO SCH (08:56)
[2021-08-27] MEDS: FUROSEMIDE 40 MG TAB PO SCH (08:56)
[2021-08-27] MEDS: busPIRone HCl 10 MG TAB PO SCH (08:57)
[2021-08-27] MEDS: ENOXAPARIN 40 MG/0.4 ML SYRINGE SQ SCH (08:57)
[2021-08-27] MEDS ORDERED: ASPIRIN 325 MG TAB PO SCH (09:00)
[2021-08-27 09:18] LABS: Chol/HDL Ratio 7.97 Ratio; LDL Cholesterol,Calculated 207.7 mg/dL (0.0-131.0)
[2021-08-27 12:17] LABS: Glucose,Whole Blood 202 mg/dL (70-110)
--- NOTE | 2021-08-27 12:43 | CA ---
Transthoracic Echo Report Name: Bill Bocanegra Age: 46 Gender: M : 1975 Exam Date: 08/27/2021 10:56 Exam Location: [facility] Ht (in): 71 Wt (lb): 350 Ordering Physician: Mag Dao MD ([id number]) Attending/Referring Phys: Pie Baker Nery Coughlin, RADHA Procedure CPT: Indications: Chest Pain Cardiac Hx: HTN, DM, Hyperlipidemia. Technical Quality: Fair Contrast 1: Total Dose (mL): Contrast 2: Total Dose (mL): MEASUREMENTS (Male / Female) Normal Values 2D ECHO LV Diastolic Diameter PLAX 4.6 cm 4.2 - 5.9 / 3.9 - 5.3 cm LV Systolic Diameter PLAX 2.8 cm IVS Diastolic Thickness 1.4 cm 0.6 - 1.0 / 0.6 - 0.9 cm LVPW Diastolic Thickness 1.4 cm 0.6 - 1.0 / 0.6 - 0.9 cm LV Relative Wall Thickness 0.6 RV Internal Dim ED PLAX 3.4 cm LA Systolic Diameter LX 4.0 cm 3.0 - 4.0 / 2.7 - 3.8 cm LA Volume 47.4 cm??? 18 - 58 / 22 - 52 cm??? M-MODE Aortic Root Diameter MM 3.2 cm MV E Point Septal Separation 1.2 cm AV Cusp Separation MM 2.4 cm DOPPLER AV Peak Velocity 120.6 cm/s AV Peak Gradient 5.8 mmHg MV Area PHT 4.9 cm??? Mitral E Point Velocity 75.8 cm/s Mitral A Point Velocity 47.2 cm/s Mitral E to A Ratio 1.6 MV Deceleration Time 156.1 ms MV E' Velocity 10.4 cm/s Mitral E to MV E' Ratio 7.3 TR Peak Velocity 203.5 cm/s TR Peak Gradient 16.6 mmHg Right Ventricular Systolic Press 21.6 mmHg FINDINGS Left Ventricle Left ventricular ejection fraction is estimated at 55-60 %. Left ventricular cavity size normal. Moderate concentric left ventricular hypertrophy. Right Ventricle Right ventricular dilatation. Right ventricular systolic pressure within normal limits. Right Atrium Normal right atrial size. Left Atrium Normal left atrial size. No evidence for an atrial septal defect. Mitral Valve No mitral stenosis, regurgitation or prolapse. Aortic Valve Trileaflet aortic valve. No aortic valve stenosis or regurgitation. Tricuspid Valve Mild tricuspid regurgitation. Pulmonic Valve Pulmonic valve not well visualized. Pericardium Normal pericardium. No pericardial effusion. Aorta Normal size aortic root and proximal ascending aorta. CONCLUSIONS Normal LV size and systolic function with concentric LVH. There are no segmental wall motion abnormalities. This is a technically difficult study Doppler exam is suboptimal. No pericardial effusion Previewed by: Dr. Mag Dao MD (Electronically Signed) Final Date: 27 August 2021 12:42
--- NOTE | 2021-08-27 12:46 | PN ---
PROGRESS NOTE This is a morbidly obese gentleman who underwent a stress test yesterday. The nuclear scan did not reveal any evidence of ischemia. There is some fixed defect in the anterior wall; seems to be an artifact. The LV function, however, was decreased on the nuclear scan this may be an artifact. However, I will repeat an echo today. He is asymptomatic. Advised to quit smoking and work with weight reduction, dietary discretion, exercise and low-calorie, low-carb diet. Vitals are stable. No JVD. S1-S2 heard normally. Distant heart sounds. Lungs reveal diminished air entry. Abdomen is soft, nontender. Lower extremities reveal diminished pulses. Central nervous system is grossly within normal limits. Patient can be discharged today. Follow with his PCP. Advised risk factor modifications and also to work with weight reduction effort and smoking cessation. MMODL / IJN: [id number] /
--- NOTE | 2021-08-27 14:18 | P.DS ---
Providers Date of admission: 08/26/21 00:16 Expected date of discharge: 08/27/21 Attending physician: Marsha Ch MD Consults: 08/26/21 00:16 Consult Physician Routine Consulting Provider: Phoenix Atwood Consult Reason/Comments: chest pain Do you want consulting provider notified?: Yes Primary care physician: Stated None Hospital Course: Discharge Diagnosis: Chest pain, acute coronary event ruled out Hypertension, patient to continue daily medication regimen with lisinopril. Hyperlipidemia, lipid profile revealing elevated triglycerides of 177.0, total cholesterol of 278, LDL of 207 despite daily atorvastatin use. Patient recommended to follow heart healthy and carb consistent diet and atorvastatin increased 80 mg nightly and patient started on fenofibrate. Insulin-dependent diabetes mellitus COPD, continue home Symbicort and albuterol rescue inhaler as needed Hypothyroidism. Continue daily medication regimen with levothyroxine. Hyperlipidemia. Continue daily medication regimen with atorvastatin. Obstructive sleep apnea. Continue use of home CPAP. Hospital Course: Patient is a very pleasant 46 show male with a past medical history of hypertension, hyperlipidemia, COPD, insulin-dependent diabetes mellitus, chronic kidney disease stage III, hypothyroidism, gout, obstructive sleep apnea CPAP dependent, atrial fibrillation not on anticoagulation, and morbid obesity. He presented to the emergency department with a chief complaint of chest pain. He underwent full evaluation in the emergency department. EKG revealing normal sinus rhythm at 84 bpm with T-wave inversion in inferior leads II and aVF. Troponin negative at less than 0.012. CBC and CMP showing no significant abnormalities, with the exception of hypercarbia with carbon dioxide of 31 and elevated creatinine of 1.59 which is improved from baseline level. Patient admitted under services of consultation cardiology. Troponins were trended throughout the night all remaining negative at less than 0.012 3 draws. Lipid profile revealing elevated triglycerides of 177.0, total cholesterol elevated at 278, LDL elevated at 207.7, and HDL is low at 34.9. Atorvastatin increased 80 mg nightly and patient started on fenofibrate. Patient was taken down for Lexiscan stress test. Lexiscan stress test negative revealing no convincing evidence for inducible ischemia with an estimated left ventricular ejection fraction of 47%. Echocardiogram revealing normal EF 55-60% with no reported structural or valvular abnormalities. Cardiology recommending no further inpatient testing, recommending outpatient follow-up in the office in one week. Patient is medically stable at this time free from any complaints and to follow up outpatient with PCP in 1-2 days and cardiology in 1 week. Physical exam: Vital signs reviewed and stable. General: Nontoxic, no distress and appears stated age. Obese. Derm: Skin warm and dry, normal coloration for ethnicity. Head: Atraumatic, normocephalic and symmetric. Eyes: EOMs intact, no lid lag, and anicteric sclera Mouth: no lip lesions, mucus membranes moist Cardiovascular: regular rate and rhythm with normal S1S2, no murmur, positive posterior tibial pulses bilaterally, and cap refill < 2 seconds. Lungs: Respirations even, regular, and unlabored on room air. Lungs CTA bilaterally, no rhonchi, no rales, no wheezing, and no accessory muscle usage. Abdominal: soft, nontender to palpation, no guarding, no appreciable organomegaly Ext: ROM intact. No gross muscle atrophy, no edema, no contractures Neuro: Speech clear, face symmetrical and CN II-XII grossly intact with no noted focal neuro deficits Psych: Alert and oriented to person, place, time, and situation. Appropriate and pleasant affect. A total of 32 minutes of time were spent preparing this complex discharge summary. Pt was discharged on 08/27/21 at 2:09 PM. Patient Condition at Discharge: Stable Plan - Discharge Summary New Discharge Prescriptions: Continue Furosemide [Lasix] 40 mg PO DAILY #30 tab allopurinoL [Zyloprim] 300 mg PO BID Atorvastatin Calcium [Lipitor] 40 mg PO HS Colchicine [Colcrys] 0.6 mg PO DIRECTED Budesonide-Formot 160-4.5 Mcg [Symbicort 160-4.5 Mcg Inhaler] 2 puff INHALATION RT-BID Levothyroxine Sodium [Synthroid] 175 mcg PO DAILY HYDROcodone/APAP 7.5-325MG [[place] 7.5-325] 1 tab PO Q6H PRN PRN Reason: Pain INSULIN ASPART (NovoLOG) [NovoLOG (formulary)] 32 unit SQ W/SUPPER INSULIN ASPART (NovoLOG) [NovoLOG (formulary)] 34 units SQ W/LUNCH INSULIN ASPART (NovoLOG) [NovoLOG (formulary)] 28 unit SQ W/BRKFST Albuterol Sulfate [Albuterol Sulfate Hfa] 2 puff INHALATION RT-Q4H PRN PRN Reason: Shortness Of Breath busPIRone HCl [Buspar] 10 mg PO TID lisinopriL 20 mg PO DAILY Aspirin EC [Ecotrin Low Dose] 81 mg PO DAILY Discharge Medication List Furosemide [Lasix] 40 mg PO DAILY #30 tab 11/23/18 [Rx] HYDROcodone/APAP 7.5-325MG [[place] 7.5-325] 1 tab PO Q6H PRN 11/05/20 [History] INSULIN ASPART (NovoLOG) [NovoLOG (formulary)] 32 unit SQ W/SUPPER 11/05/20 [History] Levothyroxine Sodium [Synthroid] 175 mcg PO DAILY 11/05/20 [History] allopurinoL [Zyloprim] 300 mg PO BID 11/05/20 [History] Albuterol Sulfate [Albuterol Sulfate Hfa] 2 puff INHALATION RT-Q4H PRN 08/25/21 [History] Aspirin EC [Ecotrin Low Dose] 81 mg PO DAILY 08/25/21 [History] Atorvastatin Calcium [Lipitor] 40 mg PO HS 08/25/21 [History] Budesonide-Formot 160-4.5 Mcg [Symbicort 160-4.5 Mcg Inhaler] 2 puff INHALATION RT-BID 08/25/21 [History] Colchicine [Colcrys] 0.6 mg PO DIRECTED 08/25/21 [History] INSULIN ASPART (NovoLOG) [NovoLOG (formulary)] 28 unit SQ W/BRKFST 08/25/21 [History] INSULIN ASPART (NovoLOG) [NovoLOG (formulary)] 34 units SQ W/LUNCH 08/25/21 [History] busPIRone HCl [Buspar] 10 mg PO TID 08/25/21 [History] lisinopriL 20 mg PO DAILY 08/25/21 [History] Follow up Appointment(s)/Referral(s): Mag Dao MD [STAFF PHYSICIAN] - 1 Week Cecil Camacho [STAFF PHYSICIAN] - 1 Week Patient Instructions/Handouts: Chest Pain (ED) Activity/Diet/Wound Care/Special Instructions: Activity: As tolerated. Take breaks as needed. Diet: Heart healthy and carb consistent diet. Avoid salts, or foods with hidden salts such as canned or boxed foods and frozen dinners. Extra salt makes your heart work harder and traps the fluid in your body for longer. Special Instructions: Take all of your medications as directed and remember to keep all of your doctor's appointments and follow-up as needed. Thank you for allowing us to participate in your care, it was truly a pleasure having you for our patient!!! Discharge Disposition: HOME SELF-CARE
== END 2021-08-27 14:40 | disposition home or self-care (01) ==
LOC: EC 20:51 → 6NMEDSUR 08-26 00:16
PROVIDERS: ADMIT Internal Medicine; ATTEND Internal Medicine
DX: R07.89 Other chest pain (principal); R00.2 Palpitations; R61 Generalized hyperhidrosis; J44.9 Chronic obstructive pulmonary disease, unspecified; I13.10 Hypertensive heart and chronic kidney disease without heart failure, with stage 1 through stage 4 chronic kidney disease, or unspecified chronic kidney disease; N18.30 Chronic kidney disease, stage 3 unspecified; E11.22 Type 2 diabetes mellitus with diabetic chronic kidney disease; I25.10 Atherosclerotic heart disease of native coronary artery without angina pectoris; E78.5 Hyperlipidemia, unspecified; I48.91 Unspecified atrial fibrillation; E78.00 Pure hypercholesterolemia, unspecified; E78.1 Pure hyperglyceridemia; I07.1 Rheumatic tricuspid insufficiency; K21.9 Gastro-esophageal reflux disease without esophagitis; M19.90 Unspecified osteoarthritis, unspecified site; D86.9 Sarcoidosis, unspecified; M10.9 Gout, unspecified; G47.33 Obstructive sleep apnea (adult) (pediatric); E03.9 Hypothyroidism, unspecified; F32.A Depression, unspecified; F41.9 Anxiety disorder, unspecified; F90.9 Attention-deficit hyperactivity disorder, unspecified type; F17.210 Nicotine dependence, cigarettes, uncomplicated; R60.0 Localized edema; E66.01 Morbid (severe) obesity due to excess calories; Z68.42 Body mass index [BMI] 45.0-49.9, adult; Z79.4 Long term (current) use of insulin; Z79.890 Hormone replacement therapy; Z79.51 Long term (current) use of inhaled steroids; Z79.82 Long term (current) use of aspirin; Z79.899 Other long term (current) drug therapy; Z88.1 Allergy status to other antibiotic agents; Z96.651 Presence of right artificial knee joint; Z98.890 Other specified postprocedural states; Z82.5 Family history of asthma and other chronic lower respiratory diseases; Z82.61 Family history of arthritis; Z83.3 Family history of diabetes mellitus; Z71.3 Dietary counseling and surveillance; Z71.6 Tobacco abuse counseling; Z86.79 Personal history of other diseases of the circulatory system
CPT/HCPCS: 96372; 96374; 99285; 36415; 94640 ×3; 94760; 93005; 93017; 93306; 85379; 83880 ×2; 80061; 80053; 80048; 83735; 84484 ×2; 85025 ×2; 85610; 85730; 83036; 71046; 78452; G0378 ×2; A9500; J2270; J1650; J2785

== ENCOUNTER 2024-02-16 17:01 | Observation (INO) | payer MEDICARE, OTHER ==
--- NOTE | 2024-02-16 17:30 | ED ---
General Adult HPI - General Chief complaint: Chest Pain Stated complaint: Chest pain,L side numbness Time Seen by Provider: 02/16/24 17:05 Source: patient, RN notes reviewed, old records reviewed Mode of arrival: wheelchair Limitations: no limitations - History of Present Illness Initial comments: This is a 48-year-old male who presents to the emergency department with a past medical history significant for diabetes hypertension high cholesterol. Patient also states he smokes. Patient states he woke up this morning and started having chest pain. Patient states he is also had pain radiating down his left arm. Patient states he is also short of breath since he had the chest pain. Patient denies any fever chills or cough. Patient denies any recent injury. Patient denies the pain getting worse with any movement or deep breathing. Patient denies any abdominal pain patient [place] any back pain patient denies any extremity pain. Patient denies any swelling to the legs. - Related Data Home Medications Medication Instructions Recorded Confirmed HYDROcodone/APAP 7.5-325MG [[place] 1 tab PO Q6H PRN 11/05/20 08/25/21 7.5-325] INSULIN ASPART (NovoLOG) [NovoLOG 32 unit SQ W/SUPPER 11/05/20 08/25/21 (formulary)] Levothyroxine Sodium [Synthroid] 175 mcg PO DAILY 11/05/20 08/25/21 allopurinoL [Zyloprim] 300 mg PO BID 11/05/20 08/25/21 Albuterol Sulfate [Albuterol 2 puff INHALATION RT-Q4H PRN 08/25/21 08/25/21 Sulfate Hfa] Aspirin EC [Ecotrin Low Dose] 81 mg PO DAILY 08/25/21 08/25/21 Budesonide-Formot 160-4.5 Mcg 2 puff INHALATION RT-BID 08/25/21 08/25/21 [Symbicort 160-4.5 Mcg Inhaler] Colchicine [Colcrys] 0.6 mg PO DIRECTED 08/25/21 08/25/21 INSULIN ASPART (NovoLOG) [NovoLOG 28 unit SQ W/BRKFST 08/25/21 08/25/21 (formulary)] INSULIN ASPART (NovoLOG) [NovoLOG 34 units SQ W/LUNCH 08/25/21 08/25/21 (formulary)] busPIRone HCl [Buspar] 10 mg PO TID 08/25/21 08/25/21 lisinopriL 20 mg PO DAILY 08/25/21 08/25/21 Previous Rx's Medication Instructions Recorded Furosemide [Lasix] 40 mg PO DAILY #30 tab 11/23/18 Atorvastatin [Lipitor] 80 mg PO HS 30 Days #30 tab 08/27/21 Fenofibrate 120 mg PO DAILY 30 Days #30 tablet 08/27/21 Allergies Allergy/AdvReac Type Severity Reaction Status Date / Time vancomycin Allergy Rash/Hives Verified 02/16/24 17:03 Review of Systems ROS Statement: Those systems with pertinent positive or pertinent negative responses have been documented in the HPI. ROS Other: All systems not noted in ROS Statement are negative. Past Medical History Past Medical History: Atrial Fibrillation, Asthma, Coronary Artery Disease (CAD), COPD, GERD/Reflux, Hyperlipidemia, Hypertension, Osteoarthritis (OA), Renal Disease, Sleep Apnea/CPAP/BIPAP, Thyroid Disorder Additional Past Medical History / Comment(s): sarcoidosis, gouty arthritis, "small esophagus" occ diff swallowing, arthritis, uses CPAP at home, trouble sleeping. History of Any Multi-Drug Resistant Organisms: None Reported Past Surgical History: Cardiac Ablation, Joint Replacement, Orthopedic Surgery Additional Past Surgical History / Comment(s): right knee replacement, bilat ankle surgery, R wrist surgery r/t gout/arthritis lymph node biopsy- sarcoidosis Past Anesthesia/Blood Transfusion Reactions: No Reported Reaction Additional Past Anesthesia/Blood Transfusion Reaction / Comment(s): pt states he has never had a blood transfusion Past Psychological History: ADD/ADHD, Anxiety, Depression Smoking Status: Current every day smoker Past Alcohol Use History: None Reported Past Drug Use History: Marijuana - Past Family History Father Family Medical History: COPD Additional Family Medical History / Comment(s): emphysema Mother Family Medical History: Diabetes Mellitus, Rheumatoid Arthritis (RA) Additional Family Medical History / Comment(s): back surgery, joint replacements General Exam - General Exam Comments Initial Comments: GENERAL: Patient is well-developed and well-nourished. Patient is nontoxic and well- hydrated and is in mild distress. ENT: Neck is soft and supple. No significant lymphadenopathy is noted. Oropharynx is clear. Moist mucous membranes. Neck has full range of motion without eliciting any pain. EYES: The sclera were anicteric and conjunctiva were pink and moist. Extraocular movements were intact and pupils were equal round and reactive to light. Eyelids were unremarkable. PULMONARY: Unlabored respirations. Good breath sounds bilaterally. No audible rales rhonchi or wheezing was noted. CARDIOVASCULAR: There is a regular rate and rhythm without any murmurs gallops or rubs. ABDOMEN: Soft and nontender with normal bowel sounds. SKIN: Skin is clear with no lesions or rashes and otherwise unremarkable. NEUROLOGIC: Patient is alert and oriented x3. Cranial nerves II through XII are grossly intact. Motor and sensory are also intact. Normal speech, volume and content. Symmetrical smile. MUSCULOSKELETAL: Normal extremities with adequate strength and full range of motion. No calf tenderness. LYMPHATICS: No significant lymphadenopathy is noted PSYCHIATRIC: Normal psychiatric evaluation. Limitations: no limitations Course Vital Signs 02/16/24 02/16/24 17:04 17:22 Temperature 97.4 F L Pulse Rate 54 L 89 Respiratory 18 20 Rate Blood Pressure 96/68 118/77 O2 Sat by Pulse 97 99 Oximetry Medical Decision Making - Medical Decision Making EKG patient is EKG shows atrial fibrillation 83 bpm QRS is 106 QT interval 359 QTc is 399. Patient's EKG shows no ST segment elevation this EKG was interpreted by myself Was pt. sent in by a medical professional or institution (, PA, VICE PRESIDENT EDUCATION, urgent care, hospital, or intermediate...) When possible be specific @ -No Did you speak to anyone other than the patient for history (EMS, parent, family, police, friend...)? What history was obtained from this source @ -No Did you review nursing and triage notes (agree or disagree)? Why? @ -I reviewed and agree with nursing and triage notes Were old charts reviewed (outside hosp., previous admission, EMS record, old EKG, old radiological studies, urgent care reports/EKG's, intermediate records)? Report findings @ -No old charts were reviewed Differential Diagnosis? @ -MDM differential chest EKG interpreted by me (3pts min.). @ -As above X-rays interpreted by me (1pt min.). @ -Chest x-ray shows no acute normality CT interpreted by me (1pt min.). @ -None done U/S interpreted by me (1pt. min.). @ -None done What testing was considered but not performed or refused? (CT, X-rays, U/S, labs)? Why? @ -None What meds were considered but not given or refused? Why? @ -None Did you discuss the management of the patient with other professionals (professionals i.e. , PA, VICE PRESIDENT EDUCATION, lab, RT, psych nurse, 7th grade social studies teacher, slate trimmer, teacher, chief investment officer, case advocate)? Give summary @ -I spoke with Dr. Aguilera he agreed to admit the patient admit the patient or admitting orders Was smoking cessation discussed for >3mins.? @ -Yes Was critical care preformed (if so, how long)? @ -No Were there social determinants of health that impacted care today? How? (Homelessness, low income, unemployed, alcoholism, drug addiction, tra nsportation, low edu. Level, literacy, decrease access to med. care, prison, rehab)? @ -No Was there de-escalation of care discussed even if they declined (Discuss DNR or withdrawal of care, Hospice)? DNR status @ -No What co-morbidities impacted this encounter? (DM, HTN, Smoking, COPD, CAD, Cancer, CVA, ARF, Chemo, Hep., AIDS, mental health diagnosis, sleep apnea, morbid obesity)? @ -None Was patient admitted / discharged? Hospital course, mention meds given and route, prescriptions, significant lab abnormalities, going to OR and other pertinent info. @ -Patient was given nitroglycerin and aspirin while in the emergency department. He still was experiencing some chest pain. Lab work came back within normal range. I spoke with sound physicians he agreed to admit the patient admitted the patient related pending orders and I consulted cardiology Undiagnosed new problem with uncertain prognosis? @ -No Drug Therapy requiring intensive monitoring for toxicity (Heparin, Nitro, Insulin, Cardizem)? @ -No Were any procedures done? @ -No Diagnosis/symptom? @ -Chest pain Acute, or Chronic, or Acute on Chronic? @ -Acute Uncomplicated (without systemic symptoms) or Complicated (systemic symptoms)? @ -Comp Side effects of treatment? @ -No Exacerbation, Progression, or Severe Exacerbation? @ -No Poses a threat to life or bodily function? How? (Chest pain, USA, MT, pneumonia, PE, COPD, DKA, ARF, appy, cholecystitis, CVA, Diverticulitis, Homicidal, Suicidal, threat to staff... and all critical care pts) @ -Yes this could lead to an MT and endorgan dysfunction - Lab Data Result diagrams: 02/16/24 17:30 02/16/24 17:30 Lab Results 02/16/24 02/16/24 02/16/24 Range/Units 17:30 17:30 17:30 WBC 5.6 (3.8-10.6) k/uL RBC 4.28 L (4.30-5.90) m/uL Hgb 14.0 (13.0-17.5) gm/dL Hct 42.2 (39.0-53.0) % MCV 98.5 (80.0-100.0) fL MCH 32.6 (25.0-35.0) pg MCHC 33.1 (31.0-37.0) g/dL RDW 13.0 (11.5-15.5) % Plt Count 155 (150-450) k/uL MPV 8.2 Neutrophils % 56 % Lymphocytes % 33 % Monocytes % 6 % Eosinophils % 4 % Basophils % 1 % Neutrophils # 3.1 (1.3-7.7) k/uL Lymphocytes # 1.8 (1.0-4.8) k/uL Monocytes # 0.3 (0-1.0) k/uL Eosinophils # 0.2 (0-0.7) k/uL Basophils # 0.0 (0-0.2) k/uL PT 11.5 (10.0-12.5) sec INR 1.1 (<1.2) APTT 27.7 (22.0-30.0) sec Sodium 135 L (137-145) mmol/L Potassium 3.9 (3.5-5.1) mmol/L Chloride 100 (98-107) mmol/L Carbon Dioxide 30 (22-30) mmol/L Anion Gap 5 mmol/L BUN 16 (9-20) mg/dL Creatinine 1.70 H (0.66-1.25) mg/dL Est GFR (CKD-EPI)AfAm 54 (>60 ml/min/1.73 sqM) Est GFR (CKD-EPI)NonAf 47 (>60 ml/min/1.73 sqM) Glucose 309 H (74-99) mg/dL Calcium 9.8 (8.4-10.2) mg/dL Magnesium 1.9 (1.6-2.3) mg/dL Total Bilirubin 0.9 (0.2-1.3) mg/dL AST 26 (17-59) U/L ALT 25 (4-49) U/L Alkaline Phosphatase 70 (38-126) U/L Troponin I (0.000-0.034) ng/mL NT-Pro-B Natriuret Pep 81 pg/mL Total Protein 7.8 (6.3-8.2) g/dL Albumin 4.6 (3.5-5.0) g/dL 02/16/24 Range/Units 17:30 WBC (3.8-10.6) k/uL RBC (4.30-5.90) m/uL Hgb (13.0-17.5) gm/dL Hct (39.0-53.0) % MCV (80.0-100.0) fL MCH (25.0-35.0) pg MCHC (31.0-37.0) g/dL RDW (11.5-15.5) % Plt Count (150-450) k/uL MPV Neutrophils % % Lymphocytes % % Monocytes % % Eosinophils % % Basophils % % Neutrophils # (1.3-7.7) k/uL Lymphocytes # (1.0-4.8) k/uL Monocytes # (0-1.0) k/uL Eosinophils # (0-0.7) k/uL Basophils # (0-0.2) k/uL PT (10.0-12.5) sec INR (<1.2) APTT (22.0-30.0) sec Sodium (137-145) mmol/L Potassium (3.5-5.1) mmol/L Chloride (98-107) mmol/L Carbon Dioxide (22-30) mmol/L Anion Gap mmol/L BUN (9-20) mg/dL Creatinine (0.66-1.25) mg/dL Est GFR (CKD-EPI)AfAm (>60 ml/min/1.73 sqM) Est GFR (CKD-EPI)NonAf (>60 ml/min/1.73 sqM) Glucose (74-99) mg/dL Calcium (8.4-10.2) mg/dL Magnesium (1.6-2.3) mg/dL Total Bilirubin (0.2-1.3) mg/dL AST (17-59) U/L ALT (4-49) U/L Alkaline Phosphatase (38-126) U/L Troponin I <0.012 (0.000-0.034) ng/mL NT-Pro-B Natriuret Pep pg/mL Total Protein (6.3-8.2) g/dL Albumin (3.5-5.0) g/dL Disposition Clinical Impression: Chest pain Disposition: ADMITTED IP TO THIS HOSP Referrals: None,Stated [Primary Care Provider] - 1-2 days Time of Disposition: 18:33
[2024-02-16 17:43] LABS: Basophils % (A) 1 %; Eosinophils # (A) 0.2 k/uL (0-0.7); Eosinophils % (A) 4 %; HCT 42.2 % (39.0-53.0); Lymphocytes # (A) 1.8 k/uL (1.0-4.8); Lymphocytes % (A) 33 %; MCH 32.6 pg (25.0-35.0); MCHC 33.1 g/dL (31.0-37.0); MCV 98.5 fL (80.0-100.0); Mean Platelet Volume 8.2; Monocytes # (A) 0.3 k/uL (0-1.0); Monocytes % (A) 6 %; Neutrophils # (A) 3.1 k/uL (1.3-7.7); Neutrophils % (A) 56 %; Platelet Count 155 k/uL (150-450); RBC 4.28 m/uL (4.30-5.90); WBC 5.6 k/uL (3.8-10.6)
[2024-02-16 17:52] LABS: INR 1.1 (<1.2); Partial Thromboplastin Time 27.7 sec (22.0-30.0); Prothrombin Time 11.5 sec (10.0-12.5)
[2024-02-16 17:53] LABS: ALT 25 U/L (4-49); AST 26 U/L (17-59); African American GFR (CKD) 54 (>60 ml/min/1.73 sqM); Albumin 4.6 g/dL (3.5-5.0); Alkaline Phosphatase 70 U/L (38-126); Anion Gap 5 mmol/L; Blood Urea Nitrogen 16 mg/dL (9-20); Calcium 9.8 mg/dL (8.4-10.2); Carbon Dioxide 30 mmol/L (22-30); Chloride 100 mmol/L (98-107); Glucose 309 mg/dL (74-99); Magnesium 1.9 mg/dL (1.6-2.3); Non-African American GFR(CKD) 47 (>60 ml/min/1.73 sqM); Potassium 3.9 mmol/L (3.5-5.1); Sodium 135 mmol/L (137-145); Total Bilirubin 0.9 mg/dL (0.2-1.3); Total Protein 7.8 g/dL (6.3-8.2)
[2024-02-16] MEDS: ASPIRIN 81 MG PO STA (17:55)
[2024-02-16] MEDS: NITROGLYCERIN OINT 1 INCH/GM PACKET TOPICAL STA (17:56)
[2024-02-16] MEDS: NITROGLYCERIN SL TABS 0.4 MG TAB SUBLINGUAL STA (17:57)
--- NOTE | 2024-02-16 17:57 | XR ---
EXAMINATION TYPE: XR chest 2V DATE OF EXAM: 02/16/2024 5:38 PM COMPARISON: Chest radiographs from 08/25/2021 CLINICAL INDICATION: Male, 48 years old with history of Chest Pain; [facility] TECHNIQUE: XR chest 2V Frontal and lateral views of the chest. FINDINGS: Lungs/Pleura: There is no evidence of pleural effusion, focal consolidation, or pneumothorax. Pulmonary vascularity: Unremarkable. Heart/mediastinum: Cardiomediastinal silhouette is unremarkable. Musculoskeletal: No acute osseous pathology. IMPRESSION: No acute cardiopulmonary disease/process. [facility], , 02/16/2024 5:54 PM
[2024-02-16 18:01] LABS: NT-Pro-B-Type Natriuretic Pept 81 pg/mL
[2024-02-16] MEDS ORDERED: NITROGLYCERIN SL TABS 0.4 MG TAB SUBLINGUAL PRN (18:33)
[2024-02-16] MEDS ORDERED: ALBUTEROL NEBULIZED 2.5 MG/3 ML INHALATION PRN (19:53)
[2024-02-16] MEDS: SYMBICORT 80-4.5 MCG INHALER INHALATION SCH (21:12)
--- NOTE | 2024-02-16 23:37 | P.HPIM ---
History of Present Illness H&P Date: 02/16/24 Chief Complaint: Chest pain Patient is a 48 year old male with past medical history of asthma, hyperlipidemia, hypertension, diabetes mellitus, sarcoidosis, JOHN on CPAP, atria l fibrillation (s/p ablation, not on Anticoagulation), presented to the ED with chest pain. The left-sided chest discomfort, unable to characterize, started today afternoon when he woke up from a nap. He mentions the pain was constant and a 10 out of 10 severity with no alleviating or precipitating factors. The pain was radiating to his left along with numbness in his left hand. He denies any recent changes in his physical activity. Associated with that he experienced headache, shortness of breath and chills. Denies using oxygen at home. He experienced similar kind of pain 8-10 years ago. At that time he also endorsed tunnel vision and diaphoresis. He was diagnosed with atrial fibril lation and underwent cardiac ablation. Since then his symptoms have not recurred. He denies taking any medications for atrial fibrillation. Denies being on anticoagulation. Currently he mentions the pain is better because of the nitroglycerin. Additionally he reports diarrhea since last night, he has had 5-6 liquidy bowel movements. Denies any recent travel history. Denies fever, cough, palpitations, abdominal pain, nausea, vomiting, hematuria, dysuria, hematochezia, melena, slurred speech. ED documentation reviewed. In the ED patient was treated with aspirin 325 mg, nitroglycerin 0.4 mg sublingual, Nitro-Bid ointment. Vitals on admission T 97.4 F, NM 54 bpm, RR 18, BP 96/68, O2 sat 97% on room air EKG independently interpreted as atrial fibrillation, rate 83 bpm with T-wave inversion in lead III with poor R-wave progression with QTc 399 ms CXR shows no acute cardiopulmonary disease/process Labs on admission show WBC 5.6, hemoglobin 14, PT 11.5, INR 1.1, sodium 135, potassium 3.9, creatinine 1.7, glucose 309 Troponin I <0.012 x2, proBNP 81 Review of systems: Pertinent positives and negatives as discussed in HPI, a complete review of systems was performed and all other systems are negative. PMH: Atrial fibrillation, asthma, hyperlipidemia, hypertension, JOHN on CPAP, sarcoidosis PSH: Cardiac ablation, right knee replacement FMH: COPD Social history: Tobacco: Current everyday smoker Alcohol: Denies use Recreational drugs: Occasional THC gummies Travel: No recent travel history Sick contacts: None Physical examination: Vital signs reviewed General: nontoxic, no distress, appears at stated age, obese Derm: warm, dry, intact Head: atraumatic, normocephalic, symmetric Eyes: EOMI, anicteric sclera Mouth: no lip lesion, mucus membranes moist Cardiovascular: S1 S2 reg, no murmur Lungs: coarse lung sounds at b/l bases Abdominal: soft, non-tender to palpation Extremities: No cyanosis, clubbing, or pedal edema. Neuro: Alert, Oriented, strength 5/5 in all 4 extremities Psych: well appearing, appropriate affect Assessment/Plan: Patient is a 48-year-old male with past medical history of asthma, hyperlipidemia, hypertension, diabetes mellitus, sarcoidosis, JOHN on CPAP, atrial fibrillation, cardiac ablation presented to the ED with chest pain and left hand numbness. The patient has been admitted for further cardiac workup. Active: #. Chest pain, ACS r/o Troponin I <0.012 x2 EKG independently interpreted as atrial fibrillation, rate 83 bpm, QTc 399 ms Continue nitroglycerin 0.4 mg sublingual Q5M as needed, Nitro-Bid ointment 1 inch topical every 6 hours Continue aspirin 325 mg p.o. daily Initiate Atorvastatin 80 mg p.o. at bedtime Lipid panel ordered Obtain TSH and free T4 Continue to trend troponin Continue telemetry monitoring Cardiology is consulted #. Atrial fibrillation with controlled ventricular rate #. S/p cardiac ablation Cardiac monitoring Cardiology consulted Initiate Heparin infusion low intensity Chronic: #. Insulin dependent diabetes mellitus Insulin sliding scale and blood glucose monitoring #. Hypothyroidism Continue home med levothyroxine 200 mcg p.o. daily #. Asthma Continue home meds albuterol 2 puffs every 4 hours as needed, Symbicort 2 puffs twice daily #. Sarcoidosis Continue home med mycophenolate mofetil 5 mg p.o. twice daily #. Gouty arthritis Continue home med colchicine 0.6 mg p.o. daily F: None E: Replete as required N: Heart healthy diet, n.p.o. after midnight A: Bed rest, advance activity as tolerated on day 2 per clinical pathway DVT prophylaxis: Heparin infusion GI prophylaxis: Pantoprazole 40 mg PO daily The patient is admitted with an anticipated less than 2 midnight stay for evaluation of chest pain CODE STATUS: FULL CODE Discussed with: Patient Anticipated discharge place: Home Past Medical History Past Medical History: Atrial Fibrillation, Asthma, Coronary Artery Disease (CAD), COPD, GERD/Reflux, Hyperlipidemia, Hypertension, Osteoarthritis (OA), Renal Disease, Sleep Apnea/CPAP/BIPAP, Thyroid Disorder Additional Past Medical History / Comment(s): sarcoidosis, gouty arthritis, "small esophagus" occ diff swallowing, arthritis, uses CPAP at home, trouble sleeping. History of Any Multi-Drug Resistant Organisms: None Reported Past Surgical History: Cardiac Ablation, Joint Replacement, Orthopedic Surgery Additional Past Surgical History / Comment(s): right knee replacement, bilat ankle surgery, R wrist surgery r/t gout/arthritis lymph node biopsy- sarcoidosis Past Anesthesia/Blood Transfusion Reactions: No Reported Reaction Additional Past Anesthesia/Blood Transfusion Reaction / Comment(s): pt states he has never had a blood transfusion Past Psychological History: ADD/ADHD, Anxiety, Depression Smoking Status: Current every day smoker Past Alcohol Use History: None Reported Past Drug Use History: Marijuana - Past Family History Father Family Medical History: COPD Additional Family Medical History / Comment(s): emphysema Mother Family Medical History: Diabetes Mellitus, Rheumatoid Arthritis (RA) Additional Family Medical History / Comment(s): back surgery, joint replacements Medications and Allergies Home Medications Medication Instructions Recorded Confirmed Type Albuterol Sulfate [Albuterol 2 puff INHALATION RT-Q4H PRN 08/25/21 02/16/24 History Sulfate Hfa] Budesonide-Formot 160-4.5 Mcg 2 puff INHALATION DIRECTED 08/25/21 02/16/24 History [Symbicort 160-4.5 Mcg Inhaler] Colchicine [Colcrys] 0.6 mg PO DAILY 08/25/21 02/16/24 History Insulin Glargine,Hum.rec.anlog 14 - 30 units SQ HS 02/16/24 02/16/24 History [Lantus Solostar Pen] Levothyroxine Sodium [Synthroid] 200 mcg PO DAILY 02/16/24 02/16/24 History Pioglitazone [Actos] 15 mg PO DAILY 02/16/24 02/16/24 History metFORMIN HCL ER [Glucophage XR] 1,000 mg PO BID 02/16/24 02/16/24 History mycophenolate mofetiL [Cellcept] 500 mg PO BID 02/16/24 02/16/24 History Allergies Allergy/AdvReac Type Severity Reaction Status Date / Time vancomycin Allergy Rash/Hives Verified 02/16/24 17:03 Physical Exam Vitals: Vital Signs Temp Pulse Resp BP Pulse Ox 02/16/24 18:36 97.7 F 78 18 104/75 96 02/16/24 17:22 89 20 118/77 99 02/16/24 17:04 97.4 F L 54 L 18 96/68 97 Intake and Output 02/16/24 02/16/24 02/16/24 06:59 14:59 22:59 Other: Weight 158.757 kg Results CBC & Chem 7: 02/16/24 17:30 02/16/24 17:30 Labs: Abnormal Lab Results - Last 24 Hours (Table) 02/16/24 02/16/24 Range/Units 17:30 17:30 RBC 4.28 L (4.30-5.90) m/uL Sodium 135 L (137-145) mmol/L Creatinine 1.70 H (0.66-1.25) mg/dL Glucose 309 H (74-99) mg/dL
[2024-02-17] MEDS: HEPARIN SOD,PORK IN 0.45% NACL 25,000 UNIT in 0.45% NACL 1 250ML.BAG IV SCH ×2 (00:06→20:33)
[2024-02-17] MEDS: HEPARIN SODIUM 1,000 UN/ML (10ML VL) IV ONE (00:08)
[2024-02-17] MEDS: NITROGLYCERIN OINT 1 INCH/GM PACKET TOPICAL SCH (00:08)
[2024-02-17] MEDS ORDERED: DEXTROSE 50% SYRINGE 50 ML IVP PRN ×2 (00:10)
[2024-02-17] MEDS: ATORVASTATIN 80 MG TAB PO SCH (01:14)
[2024-02-17 01:26] LABS: HCT 37.2 % (39.0-53.0); HGB 12.4 gm/dL (13.0-17.5); MCH 33.1 pg (25.0-35.0); MCHC 33.4 g/dL (31.0-37.0); MCV 99.3 fL (80.0-100.0); Mean Platelet Volume 8.6; Platelet Count 123 k/uL (150-450); RBC 3.75 m/uL (4.30-5.90); RDW 13.6 % (11.5-15.5); WBC 4.6 k/uL (3.8-10.6)
[2024-02-17 05:58] LABS: Glucose,Whole Blood 275 mg/dL (70-110)
[2024-02-17] MEDS: PANTOPRAZOLE 40 MG TABLET PO SCH (06:00)
[2024-02-17] MEDS: INSULIN ASPART (NovoLOG) 100 UNIT/ML VIAL SQ SCH (06:00)
[2024-02-17] MEDS: LEVOTHYROXINE 100 MCG TAB PO SCH (06:00)
[2024-02-17] MEDS: COLCHICINE 0.6 MG EACH PO SCH (08:17)
[2024-02-17] MEDS ORDERED: ASPIRIN 325 MG TAB PO SCH (09:00)
--- NOTE | 2024-02-17 09:29 | P.CRDCN ---
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 Patient follows in the office with Dr. Hicks. We have been asked to see the patient in consultation for chest pain. Patient examined at the bedside. Patient states yesterday morning when he woke up he had chest pain that persisted throughout the day. He states he was playing cards when he began to have chest discomfort. He states that his left hand went numb. He denies any dizziness or lightheadedness. Denies any palpitations. EKG on admission reveals atrial fibrillation. The patient was started on IV heparin. Internal medicine's notes document that patient has a history of atrial fibrillation. However, there is no documented history of atrial fibrillation and previous cardiac consults or in the cardiology office. The patient was last seen in the office in September 2023. He was supposed to undergo dobutamine stress echocardiogram however he has not completed this. DIAGNOSTICS: - EKG reveals atrial fibrillation with controlled ventricular rate - Chest xray negative for acute process - Laboratory data: WBC 4.6. Hemoglobin 12.4. Platelet count 123. Sodium 135. Potassium 3.9. BUN 16. Creatinine 1.7. Troponin negative x 3. proBNP 81. - Current home cardiac medications include none - Most recent echocardiogram obtained in 2021 revealed EF 55 to 60%, mild TR, moderate LVH - Lexiscan stress test in August 2021 revealed small fixed defect along the mid anterior septal wall likely chest wall attenuation artifact given that there is no corresponding defect on polar maps. No convincing evidence for inducible ischemia. EF 47%. REVIEW OF SYSTEMS: At the time of my exam: CONSTITUTIONAL: Denies fever or chills. HEENT: Denies blurred vision, vision changes, or eye pain. Denies hemoptysis CARDIOVASCULAR: Denies chest pain. Denies orthopnea. Denies PND. Denies palpitations RESPIRATORY: Denies shortness of breath. GASTROINTESTINAL: Denies abdominal pain. Denies nausea or vomiting. HEMATOLOGIC: Denies bleeding disorders. GENITOURINARY: Denies any blood in urine. SKIN: Denies pruitis. Denies rash. PHYSICAL EXAM: VITAL SIGNS: Reviewed. GENERAL: Well-developed in no acute distress. HEENT: Head is normocephalic. Pupils are equal, round. Sclerae anicteric. Mucous membranes of the mouth are moist. Neck supple. No JVD or thyromegaly LUNGS: Respirations even and unlabored. Lungs essentially clear to auscultation bilaterally. HEART: Irregular rate and rhythm. S1 and S2 heard. ABDOMEN: Soft. Nondistended. Nontender. EXTREMITIES: Normal range of motion. No clubbing or cyanosis. Peripheral pulses intact. No lower extremity edema NEUROLOGIC: Awake and alert. Oriented x 3. ASSESSMENT: Chest pain, troponin negative x 3 Atrial fibrillation with controlled ventricular rate, appears to be new onset History of SVT with previous SVT ablation, 2013 History of mild cardiomyopathy suspected to be nonischemic Chronic kidney disease Diabetes Nicotine dependence Morbid obesity: BMI 48.8 PLAN: An acute coronary event has been ruled out Obtain 2D echo to assess cardiac structure and function Continue IV heparin at this time Patient started on Lipitor per primary medicine Add aspirin 81 mg Check TSH Continue telemetry monitoring Patient with soft blood pressures this morning. Continue to monitor blood pressure Possible stress test on Monday versus outpatient Further recommendations pending patient course Nurse practitioner note has been reviewed by physician. Signing provider agrees with the documented findings, assessment, and plan of care documented by HORSEBACK RIDING INSTRUCTOR as a scribe. Past Medical History Past Medical History: Atrial Fibrillation, Asthma, Coronary Artery Disease (CAD), COPD, GERD/Reflux, Hyperlipidemia, Hypertension, Osteoarthritis (OA), Renal Disease, Sleep Apnea/CPAP/BIPAP, Thyroid Disorder Additional Past Medical History / Comment(s): sarcoidosis, gouty arthritis, "small esophagus" occ diff swallowing, arthritis, uses CPAP at home, trouble sleeping. History of Any Multi-Drug Resistant Organisms: None Reported Past Surgical History: Cardiac Ablation, Joint Replacement, Orthopedic Surgery Additional Past Surgical History / Comment(s): right knee replacement, bilat ankle surgery, R wrist surgery r/t gout/arthritis lymph node biopsy- sarcoidosis Past Anesthesia/Blood Transfusion Reactions: No Reported Reaction Additional Past Anesthesia/Blood Transfusion Reaction / Comment(s): pt states he has never had a blood transfusion Past Psychological History: ADD/ADHD, Anxiety, Depression Smoking Status: Current every day smoker Past Alcohol Use History: None Reported Past Drug Use History: Marijuana - Past Family History Father Family Medical History: COPD Additional Family Medical History / Comment(s): emphysema Mother Family Medical History: Diabetes Mellitus, Rheumatoid Arthritis (RA) Additional Family Medical History / Comment(s): back surgery, joint replacements Medications and Allergies Home Medications Medication Instructions Recorded Confirmed Type Albuterol Sulfate [Albuterol 2 puff INHALATION RT-Q4H PRN 08/25/21 02/16/24 History Sulfate Hfa] Budesonide-Formot 160-4.5 Mcg 2 puff INHALATION DIRECTED 08/25/21 02/16/24 History [Symbicort 160-4.5 Mcg Inhaler] Colchicine [Colcrys] 0.6 mg PO DAILY 08/25/21 02/16/24 History Insulin Glargine,Hum.rec.anlog 14 - 30 units SQ HS 02/16/24 02/16/24 History [Lantus Solostar Pen] Levothyroxine Sodium [Synthroid] 200 mcg PO DAILY 02/16/24 02/16/24 History Pioglitazone [Actos] 15 mg PO DAILY 02/16/24 02/16/24 History metFORMIN HCL ER [Glucophage XR] 1,000 mg PO BID 02/16/24 02/16/24 History mycophenolate mofetiL [Cellcept] 500 mg PO BID 02/16/24 02/16/24 History Allergies Allergy/AdvReac Type Severity Reaction Status Date / Time vancomycin Allergy Rash/Hives Verified 02/16/24 17:03 Physical Exam Vitals: Vital Signs Temp Pulse Pulse Resp BP BP BP 02/17/24 07:43 97.5 F L 68 19 77/42 02/17/24 04:07 97.8 F 76 17 90/53 02/17/24 02:00 97.6 F 68 17 90/53 02/17/24 01:05 18 02/16/24 21:37 18 02/16/24 20:44 80 18 95/66 02/16/24 20:00 97.5 F L 17 113/76 02/16/24 18:36 97.7 F 78 18 104/75 02/16/24 17:22 89 20 118/77 02/16/24 17:04 97.4 F L 54 L 18 96/68 Pulse Ox 02/17/24 07:43 95 02/17/24 04:07 98 02/17/24 02:00 94 L 02/17/24 01:05 02/16/24 21:37 02/16/24 20:44 96 02/16/24 20:00 98 02/16/24 18:36 96 02/16/24 17:22 99 02/16/24 17:04 97 Intake and Output 02/16/24 02/17/24 02/17/24 22:59 06:59 14:59 Intake Total 118 Balance 118 Intake: Oral 118 Other: Voiding Method Toilet Toilet # Voids 1 1 Weight 158.757 kg Results 02/17/24 00:15 02/16/24 17:30 Cardiac Enzymes 02/16/24 02/16/24 02/16/24 Range/Units 17:30 17:30 20:19 AST 26 (17-59) U/L Troponin I <0.012 <0.012 (0.000-0.034) ng/mL 02/17/24 Range/Units 00:06 AST (17-59) U/L Troponin I <0.012 (0.000-0.034) ng/mL Coagulation 02/16/24 02/17/24 Range/Units 17:30 06:46 PT 11.5 (10.0-12.5) sec APTT 27.7 48.8 H (22.0-30.0) sec CBC 02/16/24 02/17/24 Range/Units 17:30 00:15 WBC 5.6 4.6 (3.8-10.6) k/uL RBC 4.28 L 3.75 L (4.30-5.90) m/uL Hgb 14.0 12.4 L (13.0-17.5) gm/dL Hct 42.2 37.2 L (39.0-53.0) % Plt Count 155 123 L (150-450) k/uL Comprehensive Metabolic Panel 02/16/24 Range/Units 17:30 Sodium 135 L (137-145) mmol/L Potassium 3.9 (3.5-5.1) mmol/L Chloride 100 (98-107) mmol/L Carbon Dioxide 30 (22-30) mmol/L BUN 16 (9-20) mg/dL Creatinine 1.70 H (0.66-1.25) mg/dL Glucose 309 H (74-99) mg/dL Calcium 9.8 (8.4-10.2) mg/dL AST 26 (17-59) U/L ALT 25 (4-49) U/L Alkaline Phosphatase 70 (38-126) U/L Total Protein 7.8 (6.3-8.2) g/dL Albumin 4.6 (3.5-5.0) g/dL Current Medications Generic Name Dose Route Start Last Admin Trade Name Freq PRN Reason Stop Dose Admin Albuterol Sulfate 2.5 mg 02/16/24 19:53 Albuterol Nebulized 2.5 Mg/3 Ml INHALATION RT-QID PRN Shortness Of Breath Or Wheezing Atorvastatin Calcium 80 mg 02/17/24 00:15 02/17/24 01:14 Atorvastatin 80 Mg Tab PO 80 mg HS SANDRITA Administration Budesonide/Formoterol Fumarate 2 puff 02/16/24 20:00 02/17/24 08:31 Symbicort 80-4.5 Mcg Inhaler INHALATION 2 puff RT-BID SANDRITA Administration Colchicine 0.6 mg 02/17/24 09:00 02/17/24 08:17 Colchicine 0.6 Mg Each PO 0.6 mg DAILY SANDRITA Administration Dextrose/Water 25 ml 02/17/24 00:10 Dextrose 50% Syringe 50 Ml IVP PER PROTOCOL PRN Hypoglycemia Protocol Dextrose/Water 50 ml 02/17/24 00:10 Dextrose 50% Syringe 50 Ml IVP PER PROTOCOL PRN Hypoglycemia Protocol Heparin Sodium (Porcine) 0 unit 02/16/24 23:37 Heparin Sodium 1,000 Un/Ml (10ml Vl) IV PER PROTOCOL PRN Low PTT Protocol Insulin Aspart 0 unit 02/17/24 07:30 02/17/24 06:00 Insulin Aspart (Novolog) 100 Unit/Ml Vial SQ 6 unit ACHS SANDRITA Administration Protocol Levothyroxine Sodium 200 mcg 02/17/24 06:30 02/17/24 06:00 Levothyroxine 100 Mcg Tab PO 200 mcg DAILY@0630 SANDRITA Administration Mycophenolate Mofetil 500 mg 02/16/24 21:00 02/17/24 08:16 Mycophenolate Mofetil 500 Mg Tab PO 500 mg BID SANDRITA Administration Nitroglycerin 0.4 mg 02/16/24 18:33 Nitroglycerin Sl Tabs 0.4 Mg Tab SUBLINGUAL Q5M PRN Chest Pain Pantoprazole Sodium 40 mg 02/17/24 07:30 02/17/24 06:00 Pantoprazole 40 Mg Tablet PO 40 mg [id number] SANDRITA Administration Intake and Output 02/16/24 02/17/24 02/17/24 22:59 06:59 14:59 Intake Total 118 Balance 118 Intake: Oral 118 Other: Voiding Method Toilet Toilet # Voids 1 1 Weight 158.757 kg 02/17/24 00:15 02/16/24 17:30
[2024-02-17 10:26] LABS: Chol/HDL Ratio 6.89 Ratio
[2024-02-17 10:27] LABS: BUN/Creat Ratio 8.76 Ratio (12.00-20.00); Blood Urea Nitrogen 14.9 mg/dL (9.0-27.0); Calcium 9.3 mg/dL (8.7-10.3); Carbon Dioxide 25.8 mmol/L (21.6-31.8); Chloride 98 mmol/L (96-109); Glucose 305 mg/dL (70-110); LDL Cholesterol,Calculated 195.1 mg/dL (0.0-131.0); Potassium 3.9 mmol/L (3.5-5.5); Sodium 135 mmol/L (135-145)
[2024-02-17 12:21] LABS: Glucose,Whole Blood 386 mg/dL (70-110)
[2024-02-17 17:37] LABS: Glucose,Whole Blood 332 mg/dL (70-110)
[2024-02-17] MEDS ORDERED: ALBUTEROL HFA INHALER INHALATION PRN (17:47)
[2024-02-17] MEDS ORDERED: ALBUTEROL NEBULIZED 2.5 MG/3 ML INHALATION PRN (17:49)
--- NOTE | 2024-02-17 18:06 | P.PN ---
Subjective Progress Note Date: 02/17/24 Hospital course: Patient is a very pleasant 48-year-old male with a past medical history of SVT with previous ablation, cardiomyopathy, hypertension, hyperlipidemia, COPD, obstructive sleep apnea, insulin-dependent diabetes mellitus, chronic kidney disease stage III, hypothyroidism, morbid obesity, nicotine dependence, and cannabinoid use disorder. He presented to the emergency department with a chief complaint of chest pain. Upon arrival to our facility, patient underwent evaluation in the emergency department. Vital signs upon arrival show blood pressure 96/68, heart rate 54, respiratory rate 18, temp 97.4 F, and SpO2 of 97% on room air. EKG completed showing atrial fibrillation with a controlled ventricular rate of 83 bpm. Chest x-ray completed negative for acute cardiopulmonary process. Labs completed and reviewed. CBC showing bicytopenia with hemoglobin of 12.4 and platelet count of 123. BMP showing slightly elevated renal function unknown chronic kidney disease stage III with BUN of 14.9, creatinine of 1.7, GFR 49 with baseline creatinine of 1.5. Blood glucose elevated at 305. Hemoglobin A1c 12%. Lipid profile showing elevated cholesterol of 261, LDL of 195.1, and low HDL of 37.90. Physical exam: General: Nontoxic, no distress and appears stated age. Derm: Skin warm and dry, normal coloration for ethnicity. Head: Atraumatic, normocephalic and symmetric. Eyes: EOM's intact, no lid lag, and anicteric sclera Mouth: no lip lesions, mucus membranes moist Cardiovascular: regular rate and rhythm with normal S1S2, no murmur, positive posterior tibial pulses bilaterally, and cap refill < 2 seconds. Lungs: Respirations even, regular, and unlabored on room air. Lungs CTA bilate rally, no rhonchi, no rales, no wheezing, and no accessory muscle usage. Abdominal: soft, nontender to palpation, no guarding, no appreciable organomegaly Ext: ROM intact. No gross muscle atrophy, no edema, no contractures Neuro: Speech clear, face symmetrical and CN II-XII grossly intact with no noted focal neuro deficits Psych: Alert and oriented to person, place, time, and situation. Appropriate and pleasant affect. Assessment and Plan of Care: Chest pain, acute coronary event ruled out New onset atrial fibrillation Hypotension with history of hypertension Hyperlipidemia Cardiomyopathy Chest pain, rule out acute coronary event -Cardiology consulted, discussed plan of care with cardiac NUCLEAR LOGGING ENGINEER. -Telemetry monitoring -T troponins were trended all negative at less than 0.012 x 3 draws. -Continue aspirin 81 mg daily, atorvastatin 80 mg nightly, and as needed nitroglycerin. -Lipid profile showing elevated cholesterol of 261, LDL of 195.1, and low HDL of 37.90. -Echocardiogram Hypothyroidism -TSH 80.600 and free T4 of less than 0.11. Suspect medication noncompliance. Continue levothyroxine 200 mcg daily and recommend patient have repeat TSH levels checked in 6 weeks. Discussed importance of medication compliance with patient. Diabetes Mellitus with hyperglycemia CKD stage IIIb -Continue Levemir 15 units nightly and patient placed on glycemic protocol with NovoLog sliding scale. Hemoglobin A1c poorly controlled at 12%. Morbid obesity with BMI of 48.8 kg/m Recommend structured outpatient weight management program. Data and imaging reviewed: -CBC showing bicytopenia with hemoglobin of 12.4 and platelet count of 123. PTT therapeutic at 48.8. BMP showing creatinine 1.7, GFR 49, blood glucose 305. Hemoglobin A1c 12%. Lipid profile showing cholesterol 261.00, LDL 195.1, and HDL of 37.90. TSH 80.600 and free T4 less than 0.11. -Vital signs reviewed. Blood pressure is hypotensive this morning at 77/42, heart rate 68, respiratory rate 19, temp 97.5 F, and SpO2 of 95% on room air. CODE STATUS: Full code DVT prophylaxis: Heparin Anticipated discharge date: Pending clinical course Anticipated discharge place: Home Patient was seen independently by Nurse Pracitioner. This document was prepared using [employer] dictation software. Please allow for errors in customer development manager, while rare they do occur. Samson Burger NP rendered care for this patient independently, reviewed the findings and plan as documented in the note above and agree with plan. I did not physically speak with or examine the patient on this date. Objective - Vital Signs Vital signs: Vital Signs Temp 97.5 F L 02/17/24 07:43 Pulse 68 02/17/24 07:43 Resp 19 02/17/24 07:43 BP 77/42 02/17/24 07:43 Pulse Ox 95 02/17/24 07:43 FiO2 Intake & Output 02/16/24 02/17/24 02/17/24 18:59 06:59 18:59 Intake Total 118 Balance 118 Weight 158.757 kg 158.757 kg Intake: Oral 118 Other: Voiding Method Toilet # Voids 1 - Labs CBC & Chem 7: 02/17/24 00:15 02/17/24 00:15 Labs: Abnormal Lab Results - Last 24 Hours (Table) 02/16/24 02/16/24 02/17/24 Range/Units 17:30 17:30 00:15 RBC 4.28 L (4.30-5.90) m/uL Hgb (13.0-17.5) gm/dL Hct (39.0-53.0) % Plt Count (150-450) k/uL APTT (22.0-30.0) sec Sodium 135 L (137-145) mmol/L Creatinine 1.70 H 1.7 H (0.66-1.25) mg/dL Est GFR (CKD-EPI) 49 L (>=60) BUN/Creatinine Ratio 8.76 L (12.00-20.00) Ratio Glucose 309 H 305 H (74-99) mg/dL POC Glucose (mg/dL) (70-110) mg/dL Hemoglobin A1c (<=6.0) % Cholesterol 261.00 H (0.00-200.00) mg/dL LDL Cholesterol, Calc 195.1 H (0.0-131.0) mg/dL HDL Cholesterol 37.90 L (40.00-60.00) mg/dL 02/17/24 02/17/24 02/17/24 Range/Units 00:15 00:15 05:56 RBC 3.75 L (4.30-5.90) m/uL Hgb 12.4 L (13.0-17.5) gm/dL Hct 37.2 L (39.0-53.0) % Plt Count 123 L (150-450) k/uL APTT (22.0-30.0) sec Sodium (137-145) mmol/L Creatinine (0.66-1.25) mg/dL Est GFR (CKD-EPI) (>=60) BUN/Creatinine Ratio (12.00-20.00) Ratio Glucose (74-99) mg/dL POC Glucose (mg/dL) 275 H (70-110) mg/dL Hemoglobin A1c 12.0 H (<=6.0) % Cholesterol (0.00-200.00) mg/dL LDL Cholesterol, Calc (0.0-131.0) mg/dL HDL Cholesterol (40.00-60.00) mg/dL 02/17/24 Range/Units 06:46 RBC (4.30-5.90) m/uL Hgb (13.0-17.5) gm/dL Hct (39.0-53.0) % Plt Count (150-450) k/uL APTT 48.8 H (22.0-30.0) sec Sodium (137-145) mmol/L Creatinine (0.66-1.25) mg/dL Est GFR (CKD-EPI) (>=60) BUN/Creatinine Ratio (12.00-20.00) Ratio Glucose (74-99) mg/dL POC Glucose (mg/dL) (70-110) mg/dL Hemoglobin A1c (<=6.0) % Cholesterol (0.00-200.00) mg/dL LDL Cholesterol, Calc (0.0-131.0) mg/dL HDL Cholesterol (40.00-60.00) mg/dL
[2024-02-17] MEDS: SYMBICORT 160-4.5 MCG INHALER INHALATION SCH (19:39)
[2024-02-17 19:52] LABS: Glucose,Whole Blood 304 mg/dL (70-110)
[2024-02-17] MEDS: INSULIN DETEMIR (LEVEMIR) 100 UNIT/ML SYR SQ SCH (20:07)
[2024-02-17] MEDS ORDERED: HEPARIN SODIUM 1,000 UN/ML (10ML VL) IV PRN (20:19)
[2024-02-17 21:43] LABS: Basophils % (A) 1 %; Eosinophils # (A) 0.2 k/uL (0-0.7); Eosinophils % (A) 4 %; HCT 38.1 % (39.0-53.0); HGB 12.8 gm/dL (13.0-17.5); Lymphocytes # (A) 1.4 k/uL (1.0-4.8); Lymphocytes % (A) 33 %; MCH 33.2 pg (25.0-35.0); MCHC 33.7 g/dL (31.0-37.0); MCV 98.6 fL (80.0-100.0); Mean Platelet Volume 8.1; Monocytes # (A) 0.3 k/uL (0-1.0); Monocytes % (A) 7 %; Neutrophils # (A) 2.3 k/uL (1.3-7.7); Neutrophils % (A) 54 %; Platelet Count 108 k/uL (150-450); RBC 3.87 m/uL (4.30-5.90); RDW 13.1 % (11.5-15.5); WBC 4.2 k/uL (3.8-10.6)
[2024-02-17 21:53] LABS: Partial Thromboplastin Time 35.4 sec (22.0-30.0); Prothrombin Time 11.2 sec (10.0-12.5)
[2024-02-18 05:17] LABS: Partial Thromboplastin Time 39.7 sec (22.0-30.0)
[2024-02-18] MEDS: HEPARIN SODIUM 1,000 UN/ML (10ML VL) IV PRN (05:44)
[2024-02-18 06:15] LABS: Glucose,Whole Blood 203 mg/dL (70-110)
[2024-02-18 07:44] VITALS: BP 93/55; PULSE 84; RESP 16; TEMP 98.1
[2024-02-18] MEDS: ASPIRIN 81 MG PO SCH (08:47)
[2024-02-18] MEDS: APIXABAN 5 MG TAB PO SCH (08:47)
--- NOTE | 2024-02-18 09:08 | CA ---
Transthoracic Echo Report Name: Bill Bocanegra Age: 48 Gender: M : 1975 Exam Date: 02/17/2024 14:34 Exam Location: [facility] Ht (in): 71 Wt (lb): 350 Ordering Physician: Cindy Goodman Attending/Referring Phys: [id number], Rex Singing Teacher Nery Coughlin, [email or web address] Procedure CPT: Indications: Chest pain, atrial fibrillation, LV function Cardiac Hx: Technical Quality: Very technically difficult study Contrast 1: Definity Total Dose (mL): 2 Contrast 2: Total Dose (mL): MEASUREMENTS (Male / Female) Normal Values 2D ECHO LV Diastolic Diameter PLAX 4.5 cm 4.2 - 5.9 / 3.9 - 5.3 cm LV Systolic Diameter PLAX 3.5 cm IVS Diastolic Thickness 1.7 cm 0.6 - 1.0 / 0.6 - 0.9 cm LVPW Diastolic Thickness 1.6 cm 0.6 - 1.0 / 0.6 - 0.9 cm LV Relative Wall Thickness 0.7 RV Internal Dim ED PLAX 4.0 cm LA Systolic Diameter LX 3.7 cm 3.0 - 4.0 / 2.7 - 3.8 cm M-MODE Aortic Root Diameter MM 3.4 cm AV Cusp Separation MM 2.4 cm DOPPLER AV Peak Velocity 121.6 cm/s AV Peak Gradient 5.9 mmHg MV Area PHT 3.9 cm??? MV Deceleration Time 203.5 ms TR Peak Velocity 191.2 cm/s TR Peak Gradient 14.6 mmHg Right Ventricular Systolic Press 18.6 mmHg FINDINGS Left Ventricle Left ventricular ejection fraction is estimated at 45-50 %. Left ventricular cavity size normal. Moderate concentric left ventricular hypertrophy. Right Ventricle Severe right ventricular dilatation. Right ventricular systolic pressure within normal limits. Right Atrium Right atrium not well visualized. Left Atrium Normal left atrial size. Mitral Valve Structurally normal mitral valve. No mitral stenosis, regurgitation or prolapse. Aortic Valve Trileaflet aortic valve. No aortic valve stenosis or regurgitation. Tricuspid Valve Structurally normal tricuspid valve. Trace to mild tricuspid regurgitation. Pulmonic Valve Pulmonic valve not well visualized. Pericardium No pericardial or pleural effusion. Aorta Normal size aortic root and proximal ascending aorta. CONCLUSIONS Mild LV systolic dysfunction Previewed by: Dr. Juan Alberto Gomez MD (Electronically Signed) Final Date: 18 February 2024 09:07
[2024-02-18 09:19] LABS: Basophils # (A) 0.05 X 10*3/uL (0.00-0.10); Basophils % (A) 0.9 %; Eosinophils # (A) 0.23 X 10*3/uL (0.04-0.35); HCT 40.9 % (39.6-50.0); HGB 13.9 g/dL (13.0-17.0); Lymphocytes # (A) 1.72 X 10*3/uL (0.90-5.00); Lymphocytes % (A) 29.6 %; MCH 32.9 pg (27.0-32.0); MCV 96.7 FL (80.0-97.0); Mean Platelet Volume 11.2 FL (9.5-12.2); Monocytes # (A) 0.37 X 10*3/uL (0.20-1.00); Monocytes % (A) 6.4 %; NRBC Per 100 WBC 0 X 10*3/uL (0.00-0.01); Neutrophils # (A) 3.38 X 10*3/uL (1.80-7.70); Neutrophils % (A) 58.1 %; Platelet Count 162 X 10*3/uL (140-440); RBC 4.23 X 10*6/uL (4.40-5.60); RDW 13.1 % (11.5-14.5); WBC 5.81 X 10*3/uL (4.50-10.00)
--- NOTE | 2024-02-18 11:20 | P.PN ---
Subjective HISTORY OF PRESENT ILLNESS: This is a 48-year-old male with a past medical history significant for mild cardiomyopathy suspected to be nonischemic, SVT with previous ablation, obstructive sleep apnea, chronic kidney disease, diabetes, nicotine dependence, and obesity. Patient follows in the office with Dr. Hicks. We have been asked to see the patient in consultation for chest pain. Patient examined at the bedside. Patient states yesterday morning when he woke up he had chest pain that persisted throughout the day. He states he was playing cards when he began to have chest discomfort. He states that his left hand went numb. He denies any dizziness or lightheadedness. Denies any palpitations. EKG on admission reveals atrial fibrillation. The patient was started on IV heparin. Internal medicine's notes document that patient has a history of atrial fibrillation. However, there is no documented history of atrial fibrillation and previous cardiac consults or in the cardiology office. The patient was last seen in the office in September 2023. He was supposed to undergo dobutamine stress echocardiogram however he has not completed this. DIAGNOSTICS: - EKG reveals atrial fibrillation with controlled ventricular rate - Chest xray negative for acute process - Laboratory data: WBC 4.6. Hemoglobin 12.4. Platelet count 123. Sodium 135. Potassium 3.9. BUN 16. Creatinine 1.7. Troponin negative x 3. proBNP 81. - Current home cardiac medications include none - Most recent echocardiogram obtained in 2021 revealed EF 55 to 60%, mild TR, moderate LVH - Lexiscan stress test in August 2021 revealed small fixed defect along the mid anterior septal wall likely chest wall attenuation artifact given that there is no corresponding defect on polar maps. No convincing evidence for inducible ischemia. EF 47%. 02/18/2024 Patient examined this morning at the bedside. Patient currently denies chest pain or pressure. He denies shortness of breath. Patient states he has not been out of bed yet at this time. Echocardiogram completed revealing ejection fraction 45 to 50%, moderate concentric LVH, trace to mild TR. Telemetry this morning reveals sinus mechanism. Hemoglobin A1c 12.0. TSH 80.6. Free T40.11. Patient has not been taking his medications on an outpatient basis. PHYSICAL EXAM: VITAL SIGNS: Reviewed. GENERAL: Well-developed in no acute distress. HEENT: Head is normocephalic. Pupils are equal, round. Sclerae anicteric. Mucous membranes of the mouth are moist. Neck supple. No JVD or thyromegaly LUNGS: Respirations even and unlabored. Lungs essentially clear to auscultation bilaterally. HEART: Regular rate and rhythm. S1 and S2 heard. ABDOMEN: Soft. Nondistended. Nontender. EXTREMITIES: Normal range of motion. No clubbing or cyanosis. Peripheral pulses intact. No lower extremity edema NEUROLOGIC: Awake and alert. Oriented x 3. ASSESSMENT: Chest pain, troponin negative x 3 Atrial fibrillation with controlled ventricular rate, appears to be new onset History of SVT with previous SVT ablation, 2013 History of mild cardiomyopathy suspected to be nonischemic Chronic kidney disease Diabetes, uncontrolled, hemoglobin A1c 12.0 Hyperlipidemia, LDL 195 Nicotine dependence Morbid obesity: BMI 48.8 Hypothyroidism with abnormal TSH and free T4. TSH 80.6 and free T4 less than 0.11. Medication noncompliance PLAN: Discontinue IV heparin. Begin Eliquis 5 mg twice a day Discontinue aspirin Increase activity as tolerated Patient with soft blood pressures and hospitalization. However he is not on any antihypertensive medications. Additionally he is asymptomatic and without complaints of dizziness or lightheadedness. Recommend outpatient stress testing Patient may be discharged home today from a cardiac standpoint Medication compliance reinforced Nurse practitioner note has been reviewed by physician. Signing provider agrees with the documented findings, assessment, and plan of care documented by PHYSICIAN RELATIONS REPRESENTATIVE as a scribe. Objective - Vital Signs Vital signs: Vital Signs Temp 98.1 F 02/18/24 07:00 Pulse 84 02/18/24 07:00 Resp 16 02/18/24 07:00 BP 93/55 02/18/24 07:00 Pulse Ox 92 L 02/18/24 07:00 FiO2 Intake & Output 02/17/24 02/18/24 02/18/24 18:59 06:59 18:59 Intake Total 236 90.5 118 Balance 236 90.5 118 Intake: Intake, IV Titration 90.5 Amount Heparin Sod,Pork in 0.45% 90.5 NaCl 25,000 unit In 0.45 % NaCl 1 250ml.bag @ 6. 299 UNITS/KG/HR 10 mls/hr IV .Q24H SANDRITA Rx#: [id number] Oral 236 118 Other: Voiding Method Toilet Toilet # Voids 0 1 # Bowel Movements 0 - Labs CBC & Chem 7: 02/18/24 04:38 02/17/24 00:15 Labs: Abnormal Lab Results - Last 24 Hours (Table) 02/17/24 02/17/24 02/17/24 Range/Units 00:15 12:19 17:35 RBC (4.30-5.90) m/uL Hgb (13.0-17.5) gm/dL Hct (39.0-53.0) % MCH (27.0-32.0) pg Plt Count (150-450) k/uL Immature Gran # (0.00-0.04) X 10*3/uL APTT (22.0-30.0) sec POC Glucose (mg/dL) 386 H 332 H (70-110) mg/dL TSH 80.600 H (0.350-5.500) UIU/ML Free (T4) Reflex I <0.11 L (0.80-1.80) ng/dL 02/17/24 02/17/24 02/17/24 Range/Units 19:50 21:27 21:27 RBC 3.87 L (4.30-5.90) m/uL Hgb 12.8 L (13.0-17.5) gm/dL Hct 38.1 L (39.0-53.0) % MCH (27.0-32.0) pg Plt Count 108 L (150-450) k/uL Immature Gran # (0.00-0.04) X 10*3/uL APTT 35.4 H (22.0-30.0) sec POC Glucose (mg/dL) 304 H (70-110) mg/dL TSH (0.350-5.500) UIU/ML Free (T4) Reflex I (0.80-1.80) ng/dL 02/18/24 02/18/24 02/18/24 Range/Units 04:38 04:41 06:13 RBC 4.23 L (4.30-5.90) m/uL Hgb (13.0-17.5) gm/dL Hct (39.0-53.0) % MCH 32.9 H (27.0-32.0) pg Plt Count (150-450) k/uL Immature Gran # 0.06 H (0.00-0.04) X 10*3/uL APTT 39.7 H (22.0-30.0) sec POC Glucose (mg/dL) 203 H (70-110) mg/dL TSH (0.350-5.500) UIU/ML Free (T4) Reflex I (0.80-1.80) ng/dL
--- NOTE | 2024-02-18 11:56 | P.DS ---
Providers Date of admission: 02/16/24 18:33 Expected date of discharge: 02/18/24 Attending physician: Kiet Aguilera MD Consults: 02/16/24 18:33 Consult Physician Urgent Consulting Provider: [facility] Consult Reason/Comments: Chest pain Do you want consulting provider notified?: Yes Primary care physician: Stated None Hospital Course: Discharge Diagnosis: Chest pain, acute coronary event ruled out New onset atrial fibrillation. Patient discharged home on Eliquis 5 mg twice daily. Patient was recommended by irrigation equipment installer that he will need to follow-up outpatient with cardiology next week for scheduling of outpatient stress test. Hypotension with history of hypertension Hyperlipidemia Cardiomyopathy Chest pain, rule out acute coronary event Hypothyroidism. TSH 80.600 and free T4 of less than 0.11. Suspect medication noncompliance. Continue levothyroxine 200 mcg daily and recommend patient have repeat TSH levels checked in 6 weeks. Discussed importance of medication compliance with patient. Diabetes Mellitus with hyperglycemia with A1c of 12%. Patient educated on the importance of maintaining tighter control of his glycemic levels and educated on risks of noncompliance. Patient to resume Levemir 15-30 units nightly as previously prescribed along with metformin 1000 mg twice daily, Actos 15 mg daily. CKD stage IIIb Morbid obesity with BMI of 48.8 kg/m. Recommend structured outpatient weight management program. Sarcoidosis. Continue CellCept 5 mg twice daily. Hospital course: Patient is a very pleasant 48-year-old male with a past medical history of SVT with previous ablation, cardiomyopathy, hypertension, hyperlipidemia, COPD, obstructive sleep apnea, sarcoidosis, insulin-dependent diabetes mellitus, chronic kidney disease stage III, hypothyroidism, morbid obesity, nicotine dependence, and cannabinoid use disorder. He presented to the emergency department with a chief complaint of chest pain. Upon arrival to our facility, patient underwent evaluation in the emergency department. Vital signs upon arrival show blood pressure 96/68, heart rate 54, respiratory rate 18, temp 97.4 F, and SpO2 of 97% on room air. EKG completed showing atrial fibrillation with a controlled ventricular rate of 83 bpm. Chest x-ray completed negative for acute cardiopulmonary process. Labs completed and reviewed. CBC showing bicytopenia with hemoglobin of 12.4 and platelet count of 123. BMP showing slightly elevated renal function unknown chronic kidney disease stage III with BUN of 14.9, creatinine of 1.7, GFR 49 with baseline creatinine of 1.5. Blood glucose elevated at 305. Hemoglobin A1c 12%. Lipid profile showing elevated cholesterol of 261, LDL of 195.1, and low HDL of 37.90. Patient underwent a 2 night hospitalization. He was initially started on heparin infusion and then transition to Eliquis 5 mg twice daily. Echocardiogram was completed showing reduced EF of 45 to 50% and mild LV systolic dysfunction. He has had no further episodes of chest pain/discomfort at this time. He has been cleared from cardiac perspective for discharge. Patient medically stable for discharge and to follow-up outpatient with PCP in 1 to 2 days and with irrigation equipment installer in 1 week for scheduling of outpatient stress testing. Patient also recommended to follow-up with eligibility counselor for close monitoring of his CKD. Physical exam: General: Nontoxic, no distress and appears stated age. Derm: Skin warm and dry, normal coloration for ethnicity. Head: Atraumatic, normocephalic and symmetric. Eyes: EOM's intact, no lid lag, and anicteric sclera Mouth: no lip lesions, mucus membranes moist Cardiovascular: regular rate and rhythm with normal S1S2, no murmur, positive posterior tibial pulses bilaterally, and cap refill < 2 seconds. Lungs: Respirations even, regular, and unlabored on room air. Lungs CTA bilaterally, no rhonchi, no rales, no wheezing, and no accessory muscle usage. Abdominal: soft, nontender to palpation, no guarding, no appreciable organomegaly Ext: ROM intact. No gross muscle atrophy, no edema, no contractures Neuro: Speech clear, face symmetrical and CN II-XII grossly intact with no noted focal neuro deficits Psych: Alert and oriented to person, place, time, and situation. Appropriate and pleasant affect. A total of 37 minutes of time were spent preparing this complex discharge summary. Pt was discharged on 02/18/2024 at 11:56 AM. Patient was seen independently by Nurse Practitioner. This document was prepared using [employer] dictation software. Please allow for errors in supervisor air conditioning installer while rare they do occur. Samson Burger NP rendered care for this patient independently, reviewed the findings and plan as documented in the note above. I did not physically speak with or examine the patient on this date. Patient Condition at Discharge: Stable Plan - Discharge Summary Discharge Rx Participant: No New Discharge Prescriptions: New Apixaban [Eliquis] 5 mg PO BID 30 Days #60 tab Atorvastatin [Lipitor] 80 mg PO HS 30 Days #30 tab Continue Colchicine [Colcrys] 0.6 mg PO DAILY Budesonide-Formot 160-4.5 Mcg [Symbicort 160-4.5 Mcg Inhaler] 2 puff INHALATION DIRECTED metFORMIN HCL ER [Glucophage XR] 1,000 mg PO BID Pioglitazone [Actos] 15 mg PO DAILY Albuterol Sulfate [Albuterol Sulfate Hfa] 2 puff INHALATION RT-Q4H PRN PRN Reason: Shortness Of Breath Insulin Glargine,Hum.rec.anlog [Lantus Solostar Pen] 14 - 30 units SQ HS Levothyroxine Sodium [Synthroid] 200 mcg PO DAILY mycophenolate mofetiL [Cellcept] 500 mg PO BID Discharge Medication List Albuterol Sulfate [Albuterol Sulfate Hfa] 2 puff INHALATION RT-Q4H PRN 08/25/21 [History] Budesonide-Formot 160-4.5 Mcg [Symbicort 160-4.5 Mcg Inhaler] 2 puff INHALATION DIRECTED 08/25/21 [History] Colchicine [Colcrys] 0.6 mg PO DAILY 08/25/21 [History] Insulin Glargine,Hum.rec.anlog [Lantus Solostar Pen] 14 - 30 units SQ HS 02/16/24 [History] Levothyroxine Sodium [Synthroid] 200 mcg PO DAILY 02/16/24 [History] Pioglitazone [Actos] 15 mg PO DAILY 02/16/24 [History] metFORMIN HCL ER [Glucophage XR] 1,000 mg PO BID 02/16/24 [History] mycophenolate mofetiL [Cellcept] 500 mg PO BID 02/16/24 [History] Apixaban [Eliquis] 5 mg PO BID 30 Days #60 tab 02/18/24 [Rx] Atorvastatin [Lipitor] 80 mg PO HS 30 Days #30 tab 02/18/24 [Rx] Follow up Appointment(s)/Referral(s): [facility] [NON-STAFF] - 1-2 Days (Please call office first thing monday to schedule first available appointment for post hospitalization follow up and continued management of your chronic conditions. ) June Sanchez MD [STAFF PHYSICIAN] - 1 Week (Call for appointment first thing Monday morning, it is important to establish care with a eligibility counselor for treatment of your chronic kidney disease.) Juan Alberto Gomez MD [STAFF PHYSICIAN] - 1 Week (Call for appointment first thing Monday morning, irrigation equipment installer recommended follow-up for stress testing outpatient in 1 week.) Ambulatory/Diagnostic Orders: Basic Metabolic Panel [LAB.AMB] Time Frame: 3 Days, Location: None Selected Patient Instructions/Handouts: Apixaban (By mouth), A-fib (Atrial Fibrillation) (DC), Basic Carbohydrate Counting (DC), Meal Planning with Diabetes Exchanges (DC), Blood Thinners (GEN), Diabetes and Nutrition (DC), Diabetes and Exercise (DC), Type 2 Diabetes Management for Adults (DC) Activity/Diet/Wound Care/Special Instructions: Activity: As tolerated. Take breaks as needed. Diet: Heart healthy and carb consistent diet. Avoid salts, or foods with hidden salts such as canned or boxed foods and frozen dinners. Extra salt makes your heart work harder and traps the fluid in your body for longer. Special Instructions: Take all of your medications as directed and remember to keep all of your doctor's appointments and follow-up as needed. As we discussed at bedside, it is of utmost importance to take medications exactly as prescribed. You will need to take your levothyroxine every morning on an empty stomach 1 hour prior to taking any other medications. You will need your repeat thyroid function tests completed in 6 weeks to ensure your blood work is showing improvement of your thyroid function. It is also of utmost importance to obtain tighter control of your blood glucose levels. Your hemoglobin A1c was severely elevated at 12%.. Continuation of poor glycemic control can result in further deterioration of your health and lead to kidney failure. Thank you for allowing us to participate in your care, it was truly a pleasure having you for our patient!!! Discharge Disposition: HOME SELF-CARE
== END 2024-02-18 12:37 | disposition home or self-care (01) ==
LOC: EC 17:01 → 6NMEDSUR 18:33
PROVIDERS: ADMIT Family Medicine; ATTEND Family Medicine
DX: R07.89 Other chest pain (principal); I48.91 Unspecified atrial fibrillation; I95.9 Hypotension, unspecified; E78.00 Pure hypercholesterolemia, unspecified; I25.10 Atherosclerotic heart disease of native coronary artery without angina pectoris; J44.9 Chronic obstructive pulmonary disease, unspecified; K21.9 Gastro-esophageal reflux disease without esophagitis; F32.A Depression, unspecified; F41.9 Anxiety disorder, unspecified; I42.9 Cardiomyopathy, unspecified; G47.33 Obstructive sleep apnea (adult) (pediatric); I12.9 Hypertensive chronic kidney disease with stage 1 through stage 4 chronic kidney disease, or unspecified chronic kidney disease; N18.32 Chronic kidney disease, stage 3b; E11.22 Type 2 diabetes mellitus with diabetic chronic kidney disease; I47.10 Supraventricular tachycardia, unspecified; E03.9 Hypothyroidism, unspecified; D86.9 Sarcoidosis, unspecified; M10.9 Gout, unspecified; E11.65 Type 2 diabetes mellitus with hyperglycemia; F17.200 Nicotine dependence, unspecified, uncomplicated; E66.01 Morbid (severe) obesity due to excess calories; Z68.42 Body mass index [BMI] 45.0-49.9, adult; Z91.148 Patient's other noncompliance with medication regimen for other reason; Z79.4 Long term (current) use of insulin; Z79.890 Hormone replacement therapy; Z79.899 Other long term (current) drug therapy; Z79.82 Long term (current) use of aspirin; Z79.51 Long term (current) use of inhaled steroids; Z79.84 Long term (current) use of oral hypoglycemic drugs; Z79.624 Long term (current) use of inhibitors of nucleotide synthesis; Z88.1 Allergy status to other antibiotic agents
CPT/HCPCS: 96376 ×2; 96365 ×2; 96366 ×2; 99285; 36415; 94640 ×3; 93005; 84439; 83880; 80061; 80053; 80048; 84443; 83735; 84484 ×2; 85025 ×3; 85027; 85610 ×3; 85730 ×3; 83036; 71046; G0378 ×3; C8929; J7517 ×3; Q9957; J1644 ×3; 93306